=== PATIENT | male | born 1990 | race Caucasian/White ===

== ENCOUNTER 2018-08-06 15:16 | Inpatient (IN) | payer SELFPAY ==
[~2018-08-06] VITALS: Ht 193 cm; Wt 47.2 kg
--- OUTSIDE RECORDS SUMMARY | 2018-08-06 15:22 | XMS REPORT ---
Author Author MAGUI RUBIN [facility] Address Unknown Care Team Providers Care Food And Beverage Controller Name Role Phone MAGUI RUBIN Unavailable PROBLEMS Type Condition ICD9-CM Code BNA39-DK Code Onset Dates Condition Status SNOMED Code Problem Lumbago 724.2 Active 060790018 Problem Disturbance of skin sensation 782.0 Active 162929621 ALLERGIES Substance Reaction Event Type Date Status milk Unknown Non Drug Allergy Aug, Active codiene Unknown Non Drug Allergy Aug, Active clindamycin Unknown Non Drug Allergy Aug, Active Lidocaine must use Septacaine Unknown Non Drug Allergy Aug, Active ENCOUNTERS Encounter Location Date Diagnosis [facility] [id number] [place] [address] [phone] Sep, Dental caries K02.9 [facility] [id number] [place] [address] [phone] Aug, Dental examination Z01.20 [facility] [id number] [place] [address] [phone] Aug, Dental examination Z01.20 [facility] [address], [place] [address] Feb, [facility] [id number] [place] [phone] Apr, Cyst of eyelid, right H02.823 [facility] [id number] [place] [address] [phone] Dec, Dental examination Z01.20 [facility] [id number] [place] [address] June, Caries K02.9 [facility] [id number] [place] [phone] June, Dental examination Z01.20 [facility] [address] [facility] [id number], [place] [address] May, [facility] [address] [facility] [id number], [place] [address] May, [facility] [id number], [place] [address] Dec, [facility] [address] [facility] [id number], [place] [address] Dec, [facility] [address] [facility] [id number], [place] [address] May, IMMUNIZATIONS No Known Immunizations SOCIAL HISTORY Never Assessed REASON FOR VISIT JEFF/Swollen Jaw PLAN OF CARE Activity Details Follow Up prn Reason:#27-te VITAL SIGNS Blood pressure systolic 122 mmHg 2017-08-31 Blood pressure diastolic 88 mmHg 2017-08-31 MEDICATIONS Medication Instructions Dosage Frequency Start Date End Date Duration Status Austin 5-325 MG Orally every 6 hrs 1 tablet as needed 6h 4 days Not-Taking Zofran Active Dexilant by Oral route Dec, Not-Taking Amoxicillin 500 mg Orally every 8 hrs 1 capsule 8h 07 days Active RESULTS No Results PROCEDURES Procedure Date Ordered Result Body Site LTD ORAL EVALUATION - PROBLEM FOCUS August 31, 2017 INTRAORL-PERIAPICAL 1 FILM [id number] August 31, 2017 INSTRUCTIONS MEDICATIONS ADMINISTERED No Known Medications MEDICAL (GENERAL) HISTORY Type Description Date Surgical History cholecystectomy 2007
--- OUTSIDE RECORDS SUMMARY | 2018-08-06 15:22 | XMS REPORT ---
Author Author MAGUI RUBIN [facility] Address Unknown Care Team Providers Care Loan Processing Supervisor Name Role Phone MAGUI RUBIN Unavailable PROBLEMS Type Condition ICD9-CM Code TQW33-LE Code Onset Dates Condition Status SNOMED Code Problem Lumbago 724.2 Active 846095171 Problem Disturbance of skin sensation 782.0 Active 360047185 ALLERGIES Substance Reaction Event Type Date Status milk Unknown Non Drug Allergy Aug, Active codiene Unknown Non Drug Allergy Aug, Active clindamycin Unknown Non Drug Allergy Aug, Active Lidocaine must use Septacaine Unknown Non Drug Allergy Aug, Active ENCOUNTERS Encounter Location Date Diagnosis [facility] [id number] [place] [address] [phone] Sep, Dental caries K02.9 [facility] [id number] [place] [address] [phone] Aug, Dental examination Z01.20 [facility] [id number] [place] [address] [phone] Aug, Dental examination Z01.20 [facility] [address], [place] [address] Feb, [facility] [id number] [place] [address] Apr, Cyst of eyelid, right H02.823 [facility] [id number] [place] [address] [phone] Dec, Dental examination Z01.20 [facility] [address] [place] [address] June, Caries K02.9 [facility] [id number] [place] [phone] June, Dental examination Z01.20 [facility] [address] [facility] [id number], [place] [address] May, [facility] [address], [place] [address] May, [facility] [id number], [place] [address] Dec, [facility] [address], [place] [address] Dec, [facility] [id number], [place] [address] May, IMMUNIZATIONS No Known Immunizations SOCIAL HISTORY Never Assessed REASON FOR VISIT JEFF PLAN OF CARE Activity Details Follow Up prn Reason:te VITAL SIGNS MEDICATIONS Medication Instructions Dosage Frequency Start Date End Date Duration Status Zofran Active Dexilant by Oral route Dec, Not-Taking Amoxicillin 500 mg Orally every 8 hrs 1 capsule 8h 07 days Active RESULTS No Results PROCEDURES Procedure Date Ordered Result Body Site LTD ORAL EVALUATION - PROBLEM FOCUS September 02, 2017 INSTRUCTIONS MEDICATIONS ADMINISTERED No Known Medications MEDICAL (GENERAL) HISTORY Type Description Date Surgical History cholecystectomy 2007
--- OUTSIDE RECORDS SUMMARY | 2018-08-06 15:22 | XMS REPORT ---
Author Author Migration, Doctor Organization [facility] Address Unknown Phone Unavailable Care Team Providers Care Shirring Machine Operator Name Role Phone Migration, Doctor Unavailable Unavailable PROBLEMS Type Condition ICD9-CM Code QET73-ZI Code Onset Dates Condition Status SNOMED Code Problem Disturbance of skin sensation 782.0 Active 601757005 Problem Lumbago 724.2 Active 990262043 ALLERGIES Substance Reaction Event Type Date Status Lidocaine must use Septacaine Unknown Non Drug Allergy May, Active ENCOUNTERS Encounter Location Date Diagnosis [facility] [address] [phone] June, [facility] [id number] [place] [address] [phone] June, Dental examination Z01.20 [facility] [address] [place] [address] June, Encounter for immunization Z23 [facility] [address] [place] [address] [phone] Sep, Dental caries K02.9 [facility] [address] [place] [address] [phone] Aug, Dental examination Z01.20 [facility] [address] [phone] Aug, Dental examination Z01.20 [facility] [id number], [place] [address] Feb, [facility] [id number] [place] [address] Apr, Cyst of eyelid, right H02.823 [facility] [id number] [phone] Dec, Dental examination Z01.20 [facility] [id number], [place] [address] June, Caries K02.9 [facility] [id number] [place] [address] 03 Jun, 2015 Dental examination Z01.20 [facility] [id number] [place] [address] 14 May, 2014 [facility] [address] [address] May, [facility] [id number] [place] [address] Dec, [facility] [id number] [place] [address] Dec, [facility] [id number], [place] [address] May, IMMUNIZATIONS No Known Immunizations SOCIAL HISTORY Never Assessed REASON FOR VISIT [facility] [place] C[place] VITAL SIGNS MEDICATIONS Unknown Medications RESULTS No Results PROCEDURES No Known procedures INSTRUCTIONS MEDICATIONS ADMINISTERED No Known Medications MEDICAL (GENERAL) HISTORY Type Description Date Surgical History cholecystectomy 2007
--- OUTSIDE RECORDS SUMMARY | 2018-08-06 15:22 | XMS REPORT | Continuity of Care Document ---
Demographics Preferred Language Unknown Marital Status Unknown Jew Affiliation Unknown Race Unknown Ethnic Group Unknown Author Organization Unknown Address Unknown Allergies Active Description Code Type Severity Reaction Onset Reported/Identified Relationship to Patient Clinical Status Yes Benzodiazepines Drug Allergy 01/19/2012 Yes clindamycin Drug Allergy 01/19/2012 Yes Codeine Drug Allergy 01/19/2012 Yes hydrocodone Drug Allergy 01/19/2012 Medications There is no data. Problems Date Dx Coded Attending Type Code Diagnosis Diagnosed By 06/02/2008 535.00 ACUTE GASTRITIS (WITHOUT HEMORRHAGE) 01/19/2012 724.2 LUMBAGO 01/19/2012 782.0 DISTURBANCE OF SKIN SENSATION Procedures Code [place] [address] URINE DRUG SCREEN (IN-HOUSE) 01/19/2012 Results There is no data. Encounters ACCT No. Visit Date/Time Discharge Status Pt. Type Provider Facility Loc./Unit Complaint [id number] 01/19/2012 08:30:00 01/19/2012 23:59:59 CLS Outpatient [id number] 07/05/2018 08:00:00 07/05/2018 23:59:59 CLS Outpatient [facility]
--- OUTSIDE RECORDS SUMMARY | 2018-08-06 15:22 | XMS REPORT ---
Author Author SARAH HONG [facility] Address [address] [place] [address] Care Team Providers Care Feather Baler Name Role Phone SARAH HONG Unavailable PROBLEMS Type Condition ICD9-CM Code FLM45-MR Code Onset Dates Condition Status SNOMED Code Problem Lumbago 724.2 Active 600055885 Problem Disturbance of skin sensation 782.0 Active 278393211 ALLERGIES Substance Reaction Event Type Date Status Lidocaine must use Septacaine Unknown Non Drug Allergy Apr, Active clindamycin Unknown Non Drug Allergy Apr, Active SOCIAL HISTORY Never Assessed PLAN OF CARE Activity Details Follow Up prn Reason: VITAL SIGNS Weight 124.3 lbs 2016-05-05 Temperature 98.1 degrees Fahrenheit 2016-05-05 Heart Rate 62 bpm 2016-05-05 Respiratory Rate 16 2016-05-05 Blood pressure systolic 100 mmHg 2016-05-05 Blood pressure diastolic 60 mmHg 2016-05-05 MEDICATIONS Medication Instructions Dosage Frequency Start Date End Date Duration Status Dexilant by Oral route Dec, Active RESULTS No Results PROCEDURES No Known procedures IMMUNIZATIONS No Known Immunizations MEDICAL (GENERAL) HISTORY Type Description Date Surgical History cholecystectomy 2007
--- OUTSIDE RECORDS SUMMARY | 2018-08-06 15:22 | XMS REPORT ---
Author Author KARYN Salter [facility] Address Unknown Care Team Providers Care Shoe Repair Cobbler Name Role Phone KARYN Salter Unavailable PROBLEMS Type Condition ICD9-CM Code ZXP20-NF Code Onset Dates Condition Status SNOMED Code Problem Lumbago 724.2 Active 322024539 Problem Disturbance of skin sensation 782.0 Active 645018413 ALLERGIES Substance Reaction Event Type Date Status Lidocaine must use Septacaine Unknown Non Drug Allergy Dec, Active clindamycin Unknown Non Drug Allergy Dec, Active SOCIAL HISTORY No smoking Hx information available PLAN OF CARE Activity Details Follow Up prn Reason:te VITAL SIGNS Blood pressure systolic 117 mmHg 2016-01-02 Blood pressure diastolic 74 mmHg 2016-01-02 MEDICATIONS Medication Instructions Dosage Frequency Start Date End Date Duration Status Dexilant by Oral route Dec, Active Amoxicillin 500 MG Orally 4 times a day 1 capsule 6h Dec, Dec, 7 days Active [place] 5-325 MG Orally every 6 hrs 1 tablet as needed 6h Dec, Dec, 4 days Active RESULTS No Results PROCEDURES Procedure Date Ordered Related Diagnosis Body Site LTD ORAL EVALUATION - PROBLEM FOCUS Jan 02, 2016 INTRAORL-PERIAPICAL 1 FILM [id number] Jan 02, 2016 IMMUNIZATIONS No Known Immunizations
--- OUTSIDE RECORDS SUMMARY | 2018-08-06 15:22 | XMS REPORT ---
Author Author MAGUI RUBIN [facility] Address Unknown Care Team Providers Care Work Station Support Specialist Name Role Phone MAGUI RUBIN Unavailable PROBLEMS Type Condition ICD9-CM Code JWK78-EQ Code Onset Dates Condition Status SNOMED Code Problem Lumbago 724.2 Active 171880963 Problem Disturbance of skin sensation 782.0 Active 962766545 ALLERGIES Substance Reaction Event Type Date Status milk Unknown Non Drug Allergy Sep, Active codiene Unknown Non Drug Allergy Sep, Active clindamycin Unknown Non Drug Allergy Sep, Active Lidocaine must use Septacaine Unknown Non Drug Allergy Sep, Active ENCOUNTERS Encounter Location Date Diagnosis [facility] [id number] [place] [address] [phone] Sep, Dental caries K02.9 [facility] [id number] [place] [address] [phone] Aug, Dental examination Z01.20 [facility] [id number] [place] [address] [phone] Aug, Dental examination Z01.20 [facility] [address], [place] [address] Feb, [facility] [id number] [place] [address] Apr, Cyst of eyelid, right H02.823 [facility] [id number] [place] [address] [phone] Dec, Dental examination Z01.20 [facility] [address] [place] [address] June, Caries K02.9 [facility] [id number] [place] [address] June, Dental examination Z01.20 [facility] [address] [facility] [id number], [place] [address] May, [facility] [id number], [place] [address] May, [facility] [id number], [place] [address] Dec, [facility] [id number], [place] [address] Dec, [facility] [address] [facility] [id number], [place] [address] May, IMMUNIZATIONS No Known Immunizations SOCIAL HISTORY Never Assessed REASON FOR VISIT TE PLAN OF CARE Activity Details Follow Up prn Reason:hygiene VITAL SIGNS Blood pressure systolic 100 mmHg 2017-09-23 Blood pressure diastolic 62 mmHg 2017-09-23 MEDICATIONS Medication Instructions Dosage Frequency Start Date End Date Duration Status Amoxicillin 500 mg Orally every 8 hrs 1 capsule 8h 07 days Not-Taking Dexilant by Oral route Dec, Not-Taking Zofran Not-Taking RESULTS No Results PROCEDURES Procedure Date Ordered Result Body Site EXTRAC ERUPTED TOOTH/EXPOSED ROOT Sep 23, 2017 INSTRUCTIONS MEDICATIONS ADMINISTERED No Known Medications MEDICAL (GENERAL) HISTORY Type Description Date Surgical History cholecystectomy 2007
--- OUTSIDE RECORDS SUMMARY | 2018-08-06 15:22 | XMS REPORT ---
Author Author ADRIANA LAMB [facility] Address [address] [place] [address] Care Team Providers Care Welder Experimental Name Role Phone ADRIANA LAMB Unavailable PROBLEMS Type Condition ICD9-CM Code LLU31-BI Code Onset Dates Condition Status SNOMED Code Problem Lumbago 724.2 Active 253776300 Problem Disturbance of skin sensation 782.0 Active 825904545 ALLERGIES No Information ENCOUNTERS Encounter Location Date Diagnosis [facility] [id number] [place] [address] Feb, [facility] [address] [address] Apr, Cyst of eyelid, right H02.823 [facility] [id number] [place] [address] [phone] Dec, 2015 Dental examination Z01.20 [facility] [id number] [place] [address] 18 Jun, 2015 Caries K02.9 [facility] [id number] [place] [address] June, Dental examination Z01.20 [facility] [id number] [place] [address] 14 May, 2014 [facility] [id number] [place] [address] May, [facility] [id number] [place] [address] Dec, [facility] [id number] [place] [address] Dec, [facility] [id number] [place] [address] May, IMMUNIZATIONS No Known Immunizations SOCIAL HISTORY Never Assessed REASON FOR VISIT Triage--ADaviedRN PLAN OF CARE VITAL SIGNS MEDICATIONS Unknown Medications RESULTS No Results PROCEDURES No Known procedures INSTRUCTIONS MEDICATIONS ADMINISTERED No Known Medications MEDICAL (GENERAL) HISTORY Type Description Date Surgical History cholecystectomy 2008
[2018-08-06] MEDS ORDERED: ONDANSETRON 4 MG/2 ML (SDV) Z0FRAN IVP STA (15:31)
[2018-08-06] MEDS ORDERED: NS IV 1000 ML 1,000 ML IV SCH ×2 (15:45→21:00)
--- NOTE | 2018-08-06 15:45 | ED General ---
General Chief Complaint: General Problems/Pain Stated Complaint: DIZZY, VOMITING, FEVER Nursing Triage Note: States he woke up at 1:30 this morning and has been having intermittent episodes of muscle spasms and "collapsing." Is unsure if he lost consciousness or not. Has also been nauseous and unable to eat anything today. When taking pt blood pressure his hand muscles tightened and he was unable to move his fingers. Pt stated this is what has been happening all day. Has not checked temp at home but feels like he is "burning up." Denies cough, vomiting, diarrhea, or burning with urination. Nursing Sepsis Screen: No Definite Risk Source of Information: Patient History of Present Illness Date Seen by Provider: Aug 06, 2018 Time Seen by Provider: 15:22 Initial Comments 28 yo M presenting with complaints of feeling bad since 130 am. He has been having muscle spasms and cramping in his hands. He has nausea and not been wanting to eat due to burning and epigastric pain in stomach. he denies any black or tarry stools and no diarrhea. He has no burning with urination. He had n/v a few days ago but none in last 24 hours. He has a history of chronic gastritis and occasionally takes ranitidine for that. He has not followed up routinely with any healthcare provider. He has been feeling more lightheaded and weak recently. Today he was feeling weak enough and having cramping pain in his hands that he came to the emergency department. Allergies and Home Medications Allergies Coded Allergies: codeine (Verified Allergy, Intermediate, Vomiting, 08/06/18) Patient Home Medication List Home Medication List Reviewed: Yes Review of Systems Review of Systems Constitutional: dizziness, fever (subjective), malaise, weakness EENTM: no symptoms reported Respiratory: No cough, No short of breath Cardiovascular: No chest pain, No palpitations Gastrointestinal: abdominal pain (epigastric burning pain); No constipation, No diarrhea, No hematemesis; heartburn; No jaundice; loss of appetite; No melena; nausea, vomiting (a few days ago) Genitourinary: No dysuria, No frequency, No hematuria Musculoskeletal: muscle cramps Skin: no symptoms reported Psychiatric/Neurological: Tingling (in hands when they are cramping on him today) Past Ocohvem-Oomvwm-Bkwsrf Hx Past Med/Social Hx: Reviewed Nursing Past Med/Soc Hx Patient Social History Alcohol Use: Denies Use Recreational Drug Use: No Smoking Status: Never a Smoker 2nd Hand Smoke Exposure: No Recent Foreign Travel: No Contact w/Someone Who Travel: No Recent Infectious Disease Expo: No Recent Hopitalizations: No Seasonal Allergies Seasonal Allergies: No Past Medical History Surgeries: Yes Gallbladder Respiratory: No Cardiac: No Neurological: No Genitourinary: No Gastrointestinal: Yes (Gastroenteritis) Gastrointestinal Bleed Musculoskeletal: No Endocrine: No HEENT: No Cancer: No Psychosocial: No Integumentary: No Blood Disorders: No Adverse Reaction/Blood Tranf: No Physical Exam Vital Signs Vital Signs - First Documented 08/06/18 15:21 Temp 97.6 Pulse 83 Resp 18 B/P (MAP) 106/87 (93) Pulse Ox 98 Capillary Refill : Less Than 3 Seconds Height, Weight, BMI Height: 6'4.00" Weight: 130lbs. oz. 58.396470to; BMI Method:Stated General Appearance: Anxious, Thin Eyes: Bilateral Eye PERRL, Bilateral Eye EOMI HEENT: PERRL/EOMI, Normal ENT Inspection, Pharynx Normal Neck: Full Range of Motion, Normal Inspection, Non Tender, Supple Respiratory: Chest Non Tender, Lungs Clear, Normal Breath Sounds, No Accessory Muscle Use, No Respiratory Distress Cardiovascular: Regular Rate, Rhythm, Normal Peripheral Pulses Gastrointestinal: Normal Bowel Sounds, No Pulsatile Mass, Soft, Tenderness ( mild in epigastric area) Rectal: Deferred Extremity: Normal Capillary Refill, Normal Range of Motion, Non Tender, No Calf Tenderness Neurologic/Psychiatric: Alert, Oriented x3, No Motor/Sensory Deficits Skin: Normal Color, Warm/Dry Progress/Results/Core Measures Suspected Sepsis Recent Fever Within 48 Hours: No Infection Criteria Present: Suspected New Infection New/Unexplained Altered Menta: No Sepsis Screen: No Definite Risk SIRS Temperature:97.6 Pulse: 83 Respiratory Rate: 18 Laboratory Tests 08/06/18 15:35: White Blood Count 2.5L Blood Pressure 106 /87 Mean: 93 Laboratory Tests 08/06/18 15:35: Creatinine 1.06, Platelet Count 144, Total Bilirubin 1.6H Results/Orders Lab Results Laboratory Tests Test 08/06/18 15:35 08/06/18 15:40 Range/Units White Blood Count 2.5 L 4.3-11.0 10^3/uL Red Blood Count 4.77 4.35-5.85 10^6/uL Hemoglobin 16.1 13.3-17.7 G/DL Hematocrit 42 40-54 % Mean Corpuscular Volume 88 80-99 FL Mean Corpuscular Hemoglobin 34 25-34 PG Mean Corpuscular Hemoglobin Concent 38 H 32-36 G/DL Red Cell Distribution Width 11.1 10.0-14.5 % Platelet Count 144 130-400 10^3/uL Mean Platelet Volume 11.2 H 7.4-10.4 FL Neutrophils (%) (Auto) 46 42-75 % Lymphocytes (%) (Auto) 38 12-44 % Monocytes (%) (Auto) 14 H 0-12 % Eosinophils (%) (Auto) 1 0-10 % Basophils (%) (Auto) 1 0-10 % Neutrophils # (Auto) 1.2 L 1.8-7.8 X 10^3 Lymphocytes # (Auto) 0.9 L 1.0-4.0 X 10^3 Monocytes # (Auto) 0.4 0.0-1.0 X 10^3 Eosinophils # (Auto) 0.0 0.0-0.3 10^3/uL Basophils # (Auto) 0.0 0.0-0.1 10^3/uL Sodium Level 128 L 135-145 MMOL/L Potassium Level 1.9 *L 3.6-5.0 MMOL/L Chloride Level 72 L 98-107 MMOL/L Carbon Dioxide Level 39 H 21-32 MMOL/L Anion Gap 17 H 5-14 MMOL/L Blood Urea Nitrogen 19 H 7-18 MG/DL Creatinine 1.06 0.60-1.30 MG/DL Estimat Glomerular Filtration Rate > 60 BUN/Creatinine Ratio 18 Glucose Level 117 H 70-105 MG/DL Calcium Level 10.0 8.5-10.1 MG/DL Corrected Calcium 8.5-10.1 MG/DL Magnesium Level 2.0 1.8-2.4 MG/DL Total Bilirubin 1.6 H 0.1-1.0 MG/DL Aspartate Amino Transf (AST/SGOT) 22 5-34 U/L Alanine Aminotransferase (ALT/SGPT) 12 0-55 U/L Alkaline Phosphatase 76 40-136 U/L Total Protein 8.7 H 6.4-8.2 GM/DL Albumin 5.5 H 3.2-4.5 GM/DL Lipase 22 8-78 U/L Urine Color YELLOW Urine Clarity CLEAR Urine pH 8.0 5-9 Urine Specific [place] <=1.005 1.016-1.022 Urine Protein TRACE NEGATIVE Urine Glucose (UA) NEGATIVE NEGATIVE Urine Ketones 2+ H NEGATIVE Urine Nitrite NEGATIVE NEGATIVE Urine Bilirubin NEGATIVE NEGATIVE Urine Urobilinogen 0.2 NORMAL MG/DL Urine Leukocyte Esterase NEGATIVE NEGATIVE Urine RBC (Auto) NEGATIVE NEGATIVE Urine RBC NONE /HPF Urine WBC 0-2 /HPF Urine Squamous Epithelial Cells NONE /HPF Urine Crystals NONE /LPF Urine Bacteria NEGATIVE /HPF Urine Casts NONE /LPF Urine Mucus NONE /LPF Urine Culture Indicated NO Urine Opiates Screen NEGATIVE NEGATIVE Urine Oxycodone Screen NEGATIVE NEGATIVE Urine Methadone Screen NEGATIVE NEGATIVE Urine Propoxyphene Screen NEGATIVE NEGATIVE Urine Barbiturates Screen NEGATIVE NEGATIVE Ur Tricyclic Antidepressants Screen NEGATIVE NEGATIVE Urine Phencyclidine Screen NEGATIVE NEGATIVE Urine Amphetamines Screen NEGATIVE NEGATIVE Urine Methamphetamines Screen NEGATIVE NEGATIVE Urine Benzodiazepines Screen NEGATIVE NEGATIVE Urine Cocaine Screen NEGATIVE NEGATIVE Urine Cannabinoids Screen POSITIVE H NEGATIVE My Orders Orders - ADELINA HAAS MD Comprehensive Metabolic Panel (08/06/18 15:31) Lipase (08/06/18 15:31) Ua Culture If Indicated (08/06/18 15:31) Ed Iv/Invasive Line Start (08/06/18 15:31) Cbc With Automated Diff (08/06/18 15:31) Magnesium (08/06/18 15:31) Ns Iv 1000 Ml (Sodium Chloride 0.9%) (08/06/18 15:45) Ondansetron Injection (Zofran Injectio (08/06/18 15:31) Drug Screen Stat (Urine) (08/06/18 15:33) Ekg Tracing (08/06/18 16:20) Continuous Ekg Monitoring (08/06/18 16:20) Potassium Cl 10meq/50ml Ivpb (Kcl 10 Meq (08/06/18 16:30) Ns Iv 1000 Ml (Sodium Chloride 0.9%) (08/06/18 16:30) Potassium Cl 10meq/50ml Ivpb (Kcl 10 Meq (08/06/18 17:45) Lidocaine 2% Viscous 15 Ml (Xylocaine Vi (08/06/18 17:59) Antacid Suspension (Mylanta Suspension (08/06/18 17:59) Lidocaine 2% Viscous 15 Ml (Xylocaine Vi (08/06/18 17:55) Antacid Suspension (Mylanta Suspension (08/06/18 17:55) Medications Given in ED Current Medications Medications Dose Ordered Sig/Arely Route Start Time Stop Time Status Last Admin Dose Admin Potassium Chloride 50 ml @ 50 mls/hr ONCE ONCE IV 08/06/18 16:30 08/06/18 17:29 DC 08/06/18 16:35 50 MLS/HR Vital Signs/I&O 08/06/18 08/06/18 15:21 17:44 Temp 97.6 98.9 Pulse 83 55 Resp 18 13 B/P (MAP) 106/87 (93) 104/59 (74) Pulse Ox 98 100 Capillary Refill : Less Than 3 Seconds Blood Pressure Mean: 93 Progress Note #1: Progress Note check labs and urine. Give IVF with NS bolus while waiting on initial tests to come back. Zofran for his nausea Progress Note #2: Time: 16:23 Progress Note labs show low WBC count, potassium low at 1.92 with low sodium at 128. He has mild elevation of BUN but Cr was not abnormal. He has had no vomiting in the ED. he reports feeling better on his nausea after treatment in the ED. He does relate having had low potassium in the past when reviewing labs with the patient. However he states that it has never been this low or this bad for him in the past. An electrocardiogram shows sinus rhythm with a heart rate of 58 beats per minutes and global flattening of his T waves. There is no prior tracing for comparison. Will begin supplementation of his potassium and IV in fusion at 10 mEq an hour here. Will page the hospitalist about admission. Progress Note #3: Time: 16:43 Progress Note Discussed with Dr. Bergeron and he accepted the patient for admission at 1643. Will continue with IV potassium infusion and monitoring on telemetry ECG Initial ECG Impression Date: Aug 06, 2018 Initial ECG Impression Time: 16:32 Initial ECG Rate: 58 Initial ECG Rhythm: Normal Sinus Initial ECG Comparisson: No Previous ECG Available Comment Sinus rhythm with a heart rate of 58 bpm. [place] interval of 150 ms. QT interval 530 ms and a QT corrected interval of 521 ms. He has global T-wave flattening. There is no prior tracing for comparison. Departure Communication (Admissions) Time/Spoke to Admitting Phy: 16:43 D/w Dr. Bergeron about admit for hypokalemia with recent n/v and chronic gastritis. Will admit for telemetry and potassium supplementation. Impression Primary Impression: Hypokalemia, gastrointestinal losses Additional Impressions: Nausea & vomiting Qualified Codes: R11.2 - Nausea with vomiting, unspecified Chronic gastritis without bleeding Qualified Codes: K29.50 - Unspecified chronic gastritis without bleeding Disposition: ADMITTED INPATIENT Condition: Stable Admissions Decision to Admit Reason: Admit from ER (General) Decision to Admit/Date: Aug 06, 2018 Time/Decision to Admit Time: 16:43 Departure-Patient Inst. Referrals: NO,LOCAL PHYSICIAN (PCP/Family) Primary Care Physician ADELINA HAAS MD Aug 06, 2018 15:45
[2018-08-06 15:48] LABS: HEMATOCRIT 42 % (40-54); HEMOGLOBIN 16.1 G/DL (13.3-17.7); MEAN CORPUSCULAR HEMOGLOBIN 34 PG (25-34); MEAN CORPUSCULAR VOLUME 88 FL (80-99); WHITE BLOOD COUNT 2.5 10^3/uL (4.3-11.0)
[2018-08-06 15:49] LABS: BASOPHILS % (AUTO) 1 % (0-10); EOSINOPHILS % (AUTO) 1 % (0-10); LYMPHOCYTES # (AUTO) 0.9 X 10^3 (1.0-4.0); LYMPHOCYTES % (AUTO) 38 % (12-44); MEAN CORPUSCULAR HGB CONC 38 G/DL (32-36); MEAN PLATELET VOLUME 11.2 FL (7.4-10.4); MONOCYTES # (AUTO) 0.4 X 10^3 (0.0-1.0); MONOCYTES % (AUTO) 14 % (0-12); NEUTROPHILS # (AUTO) 1.2 X 10^3 (1.8-7.8); NEUTROPHILS % (AUTO) 46 % (42-75); PLATELET COUNT 144 10^3/uL (130-400); RED CELL DISTRIBUTION WIDTH 11.1 % (10.0-14.5)
[2018-08-06 16:01] LABS: CLARITY,URINE CLEAR; COLOR,URINE YELLOW
[2018-08-06 16:02] LABS: BACTERIA,URINE NEGATIVE /HPF; BILIRUBIN,URINE NEGATIVE (NEGATIVE); GLUCOSE, URINE (UA) NEGATIVE (NEGATIVE); KETONES,URINE 2+ (NEGATIVE); LEUKOCYTE ESTERASE ,URINE NEGATIVE (NEGATIVE); NITRITE,URINE NEGATIVE (NEGATIVE); PROTEIN,URINE TRACE (NEGATIVE); UROBILINOGEN,URINE 0.2 MG/DL (NORMAL); WBC,URINE 0-2 /HPF
[2018-08-06 16:03] LABS: AMPHETAMINE SCREEN, URINE NEGATIVE (NEGATIVE); BARBITURATE SCREEN URINE NEGATIVE (NEGATIVE); BENZODIAZEPINES SCREEN URINE NEGATIVE (NEGATIVE); CANNABINOID SCREEN, URINE POSITIVE (NEGATIVE); COCAINE SCREEN URINE NEGATIVE (NEGATIVE); METHADONE STAT NEGATIVE (NEGATIVE); METHAMPHETAMINE SCREEN URINE S NEGATIVE (NEGATIVE); OPIATE SCREEN URINE NEGATIVE (NEGATIVE); OXYCODONE STAT NEGATIVE (NEGATIVE); PROPOXYPHENE STAT NEGATIVE (NEGATIVE); TRICYCLIC ANTIDEPRESSANTS SCRE NEGATIVE (NEGATIVE)
[2018-08-06 16:09] LABS: SODIUM 128 MMOL/L (135-145)
[2018-08-06 16:11] LABS: BILIRUBIN,TOTAL 1.6 MG/DL (0.1-1.0); BUN/CREATININE RATIO 18; CARBON DIOXIDE 39 MMOL/L (21-32); CHLORIDE 72 MMOL/L (98-107); CREATININE SERUM 1.06 MG/DL (0.60-1.30); GFR ESTIMATED > 60; GLUCOSE 117 MG/DL (70-105); POTASSIUM 1.9 MMOL/L (3.6-5.0)
[2018-08-06 16:12] LABS: ALANINE AMINOTRANSFERASE 12 U/L (0-55); ALBUMIN 5.5 GM/DL (3.2-4.5); ALKALINE PHOSPHATASE 76 U/L (40-136); LIPASE 22 U/L (8-78); TOTAL PROTEIN 8.7 GM/DL (6.4-8.2)
[2018-08-06] MEDS ORDERED: POTASSIUM CL 10MEQ/50ML IVPB 50 ML IV ONE ×2 (16:30→17:45)
[2018-08-06] MEDS: NS IV 1000 ML 1,000 ML IV SCH (16:35)
--- OUTSIDE RECORDS SUMMARY | 2018-08-06 17:27 | XMS REPORT | Continuity of Care Document ---
Demographics Preferred Language Unknown Marital Status Unknown Pentecostalism Affiliation Unknown Race Unknown Ethnic Group Unknown [...] Procedures [place] [address] URINE DRUG SCREEN (IN-HOUSE) 01/19/2012 Results There is no data. Encounters ACCT No. Visit Date/Time Discharge Status Pt. Type Provider Facility Loc./Unit Complaint [id number] 01/19/2012 08:30:00 01/19/2012 23:59:59 CLS Outpatient [id number] 07/05/2018 08:00:00 07/05/2018 23:59:59 CLS Outpatient [facility]
[2018-08-06] MEDS ORDERED: LIDOCAINE 2% VISCOUS 15 ML UDC ONE (17:55)
[2018-08-06] MEDS ORDERED: ANTACID SUSP 30 ML UDC (MYLANTA) ONE (17:55)
[2018-08-06] MEDS ORDERED: LIDOCAINE 2% VISCOUS 15 ML UDC PO STA (17:59)
[2018-08-06] MEDS ORDERED: ANTACID SUSP 30 ML UDC (MYLANTA) PO STA (17:59)
--- NOTE | 2018-08-06 18:55 | NUR ---
REC'D PER BED FROM [facility] ED VIA EMS WITH HYPOKALEMIA. IV PATENT LT AC WITH NS INFUSING @ 100CC/HR. DENIES C/O. EMS REPORTS PT HAS "BUGS ON HIM", NURSING JAVA SECURITY ENGINEER NOTIFIED. REPORT TO DARINEL ONCMARINA BEAULIEU.
[2018-08-06 19:00] VITALS: BP_SYST 102; BP_DIAS 57; BP_DIAS 77
[2018-08-06] MEDS ORDERED: PANTOPRAZOLE 40 MG (PROTONIX) VIAL IV ONE (21:00)
[2018-08-06] MEDS: POTASSIUM CL 10 MEQ/50 ML IVPB (PRE-MIX) IV SCH ×3 (21:20→22:16)
[2018-08-06 23:34] VITALS: BP 91/52
[2018-08-07 01:17] LABS: BUN/CREATININE RATIO 13; CALCIUM 8.5 MG/DL (8.5-10.1); CARBON DIOXIDE 33 MMOL/L (21-32); CHLORIDE 88 MMOL/L (98-107); GFR ESTIMATED > 60; GLUCOSE 91 MG/DL (70-105); SODIUM 133 MMOL/L (135-145)
[2018-08-07 01:19] LABS: POTASSIUM 2.4 MMOL/L (3.6-5.0)
[2018-08-07] MEDS: NS IV 1000 ML 1,000 ML IV SCH (01:49)
[2018-08-07] MEDS: POTASSIUM CL 10MEQ/50ML IVPB 50 ML IV SCH ×2 (02:30→03:19)
[2018-08-07 04:00] VITALS: BP 93/56
[2018-08-07 06:19] LABS: BUN/CREATININE RATIO 13; CALCIUM 8.5 MG/DL (8.5-10.1); CARBON DIOXIDE 32 MMOL/L (21-32); CHLORIDE 93 MMOL/L (98-107); GFR ESTIMATED > 60; GLUCOSE 81 MG/DL (70-105); POTASSIUM 2.8 MMOL/L (3.6-5.0); SODIUM 136 MMOL/L (135-145)
[2018-08-07 08:00] VITALS: BP 95/54
[2018-08-07] MEDS ORDERED: ONDA8TAB13 PO (10:13)
[2018-08-07] MEDS ORDERED: OMEP20CA12 PO (10:13)
--- NOTE | 2018-08-07 10:21 | Short Stay Summary-Hospitalist ---
History of Present Illness HPI/Chief Complaint The patient reports about a 10 year history of vomiting in the morning predominantly. Past workup has included an EGD which revealed a hiatal hernia evidence for gastritis. He does report burning pedis and take ranitidine 150 mg twice a day. He had been taking more ibuprofen as of late due to dental pain from rather severe periodontitis of both incisors. He had tried Reglan and likely Compazine in the past did not seem to help. Sometime ago his sister suggested he try marijuana seem to help a little bit. He states that he has been underweight for the past 10 years does not think he's lost any weight since the beginning of the year. He presented the emergency room because he felt his muscles were locking up on him the point that he even bit his tongue at night. There was no loss of consciousness and he denied palpitations heart racing presyncope or syncope. In the emergency room was noted this potassium was 1.8 and IV replacement was initiated. No other significant abnormalities were noted other than some mild dehydration. He reports his usual blood pressures are in the 90/60 range. He received Zofran and this morning ate everything on his plate reporting no nausea or burning. Date Seen 08/07/18 Time Seen by a Provider: 10:17 Attending Physician Chris Galaviz MD PCP No,Local Physician Referring Physician Date of Admission Aug 06, 2018 at 17:13 Home Medications & Allergies Home Medications Reviewed patient Home Medication Reconciliation performed by pharmacy medication reconciliations oil heat technician and/or nursing. Patients Allergies have been reviewed. Allergies Allergies Coded Allergies codeine (Verified Allergy, Intermediate, Vomiting, 08/06/18) Past Gesrgdr-Ptgicz-Mmkwpc Hx Past Med/Social Hx: Reviewed Nursing Past Med/Soc Hx, Reviewed and Corrections made Patient Social History Alcohol Use: Denies Use Recreational Drug Use: No Smoking Status: Never a Smoker 2nd Hand Smoke Exposure: No Recent Foreign Travel: No Contact w/other who traveled: No Recent Hopitalizations: No Recent Infectious Disease Expo: No Seasonal Allergies Seasonal Allergies: No Past Medical History Surgeries: Gallbladder Gastrointestinal: Gastrointestinal Bleed History of Blood Disorders: No Adverse Reaction to Blood [place]: No Family History Asthma G8 BROTHER FH: CVA (cerebrovascular accident) 19 FATHER 19 MOTHER FH: depression 19 MOTHER FH: heart attack 19 MOTHER (X2) FH: kidney disease 19 MOTHER FH: liver disease 19 MOTHER FH: multiple sclerosis 19 FATHER FH: scoliosis G8 BROTHER G8 BROTHER G8 SISTER G8 SISTER Review of Systems Constitutional: see HPI, weakness Cardiovascular: no symptoms reported Gastrointestinal: see HPI Physical Exam Physical Exam Vital Signs Vital Signs - First Documented 08/06/18 15:21 Temp 97.6 Pulse 83 Resp 18 B/P (MAP) 106/87 (93) Pulse Ox 98 Capillary Refill : Less Than 3 Seconds Height, Weight, BMI Height: 6'4.00" Weight: 104lbs. 0.0oz. 47.539598vi; 13.2 BMI Method:Stated General Appearance: No Apparent Distress, Thin Eyes: Bilateral Eye PERRL, Bilateral Eye EOMI HEENT: PERRL/EOMI, Normal ENT Inspection, Pharynx Normal Neck: Full Range of Motion, Normal Inspection, Non Tender, Supple Respiratory: Chest Non Tender, Lungs Clear, Normal Breath Sounds, No Accessory Muscle Use, No Respiratory Distress Cardiovascular: Regular Rate, Rhythm, Normal Peripheral Pulses Gastrointestinal: Normal Bowel Sounds, No Pulsatile Mass, Soft, Tenderness (mild in epigastric area) Rectal: Deferred Extremity: Normal Capillary Refill, Normal Range of Motion, Non Tender, No Calf Tenderness Neurologic/Psychiatric: Alert, Oriented x3, No Motor/Sensory Deficits Skin: Normal Color, Warm/Dry Results Results/Procedures Labs Laboratory Tests 08/06/18 15:35 08/07/18 00:57 08/07/18 05:55 Patient resulted labs reviewed. Short Stay Diagnosis Discharge Diagnosis-Short Stay Admission Diagnosis 1. Hypokalemia secondary to cyclical vomiting. Final Discharge Diagnosis Same as admission diagnosis Conclusion Plan Patient was admitted and received a total of 60 mEq of potassium IV with potassium levels up to 2.8 and resolution of neurologic symptoms. He had no pal pitations no cardiac symptoms or documented arrhythmias on telemetry. We discussed the fact that ibuprofen as well as marijuana/THC may be contributing to his cyclical vomiting. He was advised to abstain from both and just use Tylenol for dental pain. He has been reportedly working with local dentist and is looking into tooth extraction which he was told he would need to permanently take care of his dental pain and otherwise it would be recurring. He was told that he could try omeprazole in the morning and Zofran at at bedtime or first thing in the morning depending on what seemed to work best for him. He was advised that he eat a banana a day. We discussed his malnutrition likely cause of mild neutropenia he states that he knows that he is thin and this is secondary to his vomiting which is not induced so doubt that there is an underlying eating disorder. He was advised to follow-up with a physician or look into [facility] as he is currently unemployed and living with a s ister. He felt that he would have enough help to get medications that weren't too expensive. He was told return to the emergency room should he start to have the similar muscle-type symptoms as would likely indicate hypokalemia. He was discharged stable vital signs tolerating solids with no complaints Clinical Quality Measures DVT/VTE Risk/Contraindication: RFS Level Per Nursing on Admit: 1=Low/No VTE PPX CHRIS GALAVIZ MD Aug 07, 2018 10:21
[2018-08-07 11:50] VITALS: BP 95/54
== END 2018-08-07 11:50 | disposition home or self-care (01) | DRG 641 ==
LOC: ER FS 15:19 → 4TH 17:13
PROVIDERS: ADMIT Internal Medicine; ATTEND Internal Medicine
DX: E87.6 Hypokalemia (principal); G43.A0 Cyclical vomiting, in migraine, not intractable; E46 Unspecified protein-calorie malnutrition; D70.9 Neutropenia, unspecified; E86.0 Dehydration; K44.9 Diaphragmatic hernia without obstruction or gangrene; K29.50 Unspecified chronic gastritis without bleeding
CPT/HCPCS: 36415; 80048; 80053; 80306; 81000; 83690; 83735; 85025; 96361; 96365; 96375

== ENCOUNTER 2018-09-18 10:36 | Emergency (ER) | payer SELFPAY ==
[~2018-09-18] VITALS: Ht 193 cm; Wt 47.2 kg
[~2018-09-18 10:36] MED LIST: OMEP20CA13 PO; ONDA8TAB13 PO
--- OUTSIDE RECORDS SUMMARY | 2018-09-18 10:41 | XMS REPORT ---
Author Author Migration, Doctor Organization [facility] Address Unknown Phone Unavailable Care Team Providers Care Grease Refining Supervisor Name Role Phone Migration, Doctor Unavailable Unavailable PROBLEMS Type Condition ICD9-CM Code [id number] Code Onset Dates Condition Status SNOMED Code Problem Disturbance of skin sensation 782.0 Active 924110395 Problem Lumbago 724.2 Active 803968144 ALLERGIES Substance Reaction Event Type Date Status Codeine Unknown Drug Allergy May, Active Hydrocodone Positive UDS Non Drug Allergy May, Active Benzodiazepines Positive drug screen Non Drug Allergy May, Active Lidocaine Unknown Drug Allergy May, Active Clindamycin Unknown Drug Allergy May, Active ENCOUNTERS Encounter Location Date Diagnosis [facility] [id number] [place] [phone] Aug, [facility] [id number] [place] [address] [id number] Jul, Dental examination Z01.20 [facility] [id number] [place] [address] [id number] June, Dental examination Z01.20 [facility] [address] [place] [address] June, Encounter for immunization Z23 [facility] [id number] [place] [id number] Sep, Dental caries K02.9 [facility] [id number] [place] [address] [id number] Aug, Dental examination Z01.20 [facility] [id number] [place] [address] [phone] Aug, Dental examination Z01.20 [facility] [id number] [place] [phone] Feb, [facility] [id number] [address] 14 Apr, 2016 Cyst of eyelid, right H02.823 [facility] [id number] [place] [address] [id number] 10 Dec, 2015 Dental examination Z01.20 [facility] [id number] [place] [phone] 18 Jun, 2015 Caries K02.9 [facility] [id number] [place] [phone] 03 Jun, 2015 Dental examination Z01.20 [facility] [id number] [place] [phone] 14 May, 2014 [facility] [id number] [place] [phone] May, [facility] [id number] [place] [phone] Dec, [facility] [id number] [place] [phone] Dec, [facility] [id number] [place] [phone] May, IMMUNIZATIONS No Known Immunizations SOCIAL HISTORY Never Assessed REASON FOR VISIT [facility] PLAN OF CARE VITAL SIGNS MEDICATIONS Medication Instructions Dosage Frequency Start Date End Date Duration Status Neurontin 300 mg 1 capsule by Oral route 3 times per day Dec, Active Ativan 1 mg Dec, Active Dexilant by Oral route Dec, Active RESULTS No Results PROCEDURES No Known procedures INSTRUCTIONS MEDICATIONS ADMINISTERED No Known Medications MEDICAL (GENERAL) HISTORY Type Description Date Surgical History cholecystectomy 2007
--- OUTSIDE RECORDS SUMMARY | 2018-09-18 10:42 | XMS REPORT | Continuity of Care Document ---
Demographics Preferred Language Unknown Marital Status Unknown Presybeterian Affiliation Unknown Race Unknown Ethnic Group Unknown Author Organization Unknown Address Unknown Phone Unavailable Allergies Active Description Code Type Severity Reaction [...] Procedures Code [place] [address] URINE DRUG SCREEN (IN-HOUSE) 01/19/2012 Results There is no data. Encounters ACCT No. Visit Date/Time Discharge Status Pt. Type Provider Facility Loc./Unit Complaint [id number] 01/19/2012 08:30:00 01/19/2012 23:59:59 CLS Outpatient [id number] 09/13/2018 08:00:00 09/13/2018 23:59:59 CLS Outpatient [facility]
[2018-09-18] MEDS ORDERED: FAMOTIDINE 20MG/2ML IV (PEPCID) IV STA (10:48)
[2018-09-18] MEDS ORDERED: PROMETHAZINE INJ 25 MG/ML (PHENERGAN) AMP IVP STA (10:48)
[2018-09-18] MEDS ORDERED: LACTATED RINGERS 1,000 ML IV STA (10:48)
[2018-09-18] MEDS ORDERED: DICYCLOMINE 10 MG/ML (BENTYL) 2 ML AMP IM STA (10:48)
[2018-09-18 10:58] LABS: HEMOGLOBIN 14.8 G/DL (13.3-17.7); MEAN CORPUSCULAR HEMOGLOBIN 34 PG (25-34); WHITE BLOOD COUNT 2.7 10^3/uL (4.3-11.0)
[2018-09-18 10:59] LABS: BASOPHILS % (AUTO) 0 % (0-10); EOSINOPHILS # (AUTO) 0.1 10^3/uL (0.0-0.3); EOSINOPHILS % (AUTO) 2 % (0-10); HEMATOCRIT 42 % (40-54); LYMPHOCYTES # (AUTO) 0.8 X 10^3 (1.0-4.0); LYMPHOCYTES % (AUTO) 28 % (12-44); MEAN CORPUSCULAR HGB CONC 36 G/DL (32-36); MEAN CORPUSCULAR VOLUME 95 FL (80-99); MEAN PLATELET VOLUME 10.7 FL (7.4-10.4); MONOCYTES # (AUTO) 0.2 X 10^3 (0.0-1.0); MONOCYTES % (AUTO) 8 % (0-12); NEUTROPHILS # (AUTO) 1.6 X 10^3 (1.8-7.8); NEUTROPHILS % (AUTO) 59 % (42-75); PLATELET COUNT 159 10^3/uL (130-400); RED CELL DISTRIBUTION WIDTH 12.1 % (10.0-14.5)
[2018-09-18 11:00] LABS: BASOPHILS # (AUTO) 0.1 10^3/uL (0.0-0.1)
[2018-09-18] MEDS ORDERED: LIDOCAINE 2% VISCOUS 15 ML UDC PO ONE (11:00)
[2018-09-18] MEDS ORDERED: ACETAMINOPHEN 325 MG TABLET PO ONE (11:00)
[2018-09-18] MEDS ORDERED: ANTACID SUSP 30 ML UDC (MYLANTA) PO ONE (11:00)
[2018-09-18] MEDS ORDERED: NS 100 ML (IVPB) BAG IV ONE (11:15)
[2018-09-18] MEDS ORDERED: CATHETER FLUSH 10 ML SYR IV PRN (11:15)
[2018-09-18] MEDS ORDERED: IOHEXOL 350 MG/ML 100 ML (OMNIPAQUE 350) VIAL IV ONE (11:15)
[2018-09-18] MEDS ORDERED: HOLD METFORMIN - RECEIVED CONTRAST 20 ML VIAL IV SCH (11:15)
[2018-09-18 11:21] LABS: CARBON DIOXIDE 24 MMOL/L (21-32); CHLORIDE 102 MMOL/L (98-107); POTASSIUM 3.8 MMOL/L (3.6-5.0); SODIUM 140 MMOL/L (135-145)
[2018-09-18 11:22] LABS: ALANINE AMINOTRANSFERASE 9 U/L (0-55); ALBUMIN 4.9 GM/DL (3.2-4.5); ALKALINE PHOSPHATASE 57 U/L (40-136); BILIRUBIN,TOTAL 0.6 MG/DL (0.1-1.0); BUN/CREATININE RATIO 10; CREATININE SERUM 0.82 MG/DL (0.60-1.30); GFR ESTIMATED > 60; GLUCOSE 93 MG/DL (70-105); TOTAL PROTEIN 7.7 GM/DL (6.4-8.2)
--- NOTE | 2018-09-18 11:22 | ED Abdominal Pain ---
General Chief Complaint: Abdominal/GI Problems Stated Complaint: ABD PAIN,VOMITING Nursing Triage Note: Patient ambulatory to ER room 5 for complaint of abdominal pain to left lower quadrant. Patient states the pain began at 05:00 AM today and has been associated with nausea and vomiting. Patient denies any diarrhea with last BM being yesterday. Patient states he was at [facility] ER several days ago. Sepsis Screen: No Definite Risk History of Present Illness Date Seen by Provider: Sep 18, 2018 Time Seen by Provider: 10:55 Initial Comments The patient is a 28-year-old male with a history of chronic gastritis on ranitidine and Zofran at home as well as hiatal hernia and chronic cachexia which he relates to "having pain all the time when I eat." He reports smoking marijuana for his symptoms when they get severe. The patient presents with concern for acute onset of left lower quadrant abdominal pain in association with copious nonbloody emesis (greater than 10 episodes over the last 6 hours), all with onset about 6 hours prior to arrival when he awoke from sleep. Patient states his chronic abdominal pain is always on his left side but is usually more upper than lower. Pain is constant and sharp and nothing seems to make it better or worse. Associated left flank discomfort for several days now -- patient evidently has an appointment with a primary care physician here in town for evaluation of this issue. Associated constipation with no bowel movement for the last couple of days. No associated fevers, hematemesis, hematochezia, melena, cough, shortness of breath or chest pain, right-sided abdominal pain, dysuria or hematuria. Allergies and Home Medications Allergies Coded Allergies: codeine (Verified Allergy, Intermediate, Vomiting, 08/06/18) clindamycin (Verified Allergy, Unknown, 09/18/18) milk (Verified Allergy, Unknown, 09/18/18) Home Medications Omeprazole 20 Mg Capsule.dr, 20 MG PO DAILY Prescribed by: CHRIS GALAVIZ on 08/07/18 1013 Ondansetron 8 Mg Tab.rapdis, 8 MG PO HS Prescribed by: CHRIS GALAVIZ on 08/07/18 1013 Ranitidine HCl 150 Mg Tablet, 150 MG PO DAILY, (Reported) Patient Home Medication List Home Medication List Reviewed: Yes Review of Systems Review of Systems Constitutional: see HPI All Other Systems Reviewed Negative Unless Noted: Yes (Negative excepted noted.) Past Jpbexgy-Xccbgp-Mgklqi Hx Past Med/Social Hx: Reviewed Nursing Past Med/Soc Hx Patient Social History Alcohol Use: Past History Recreational Drug Use: Yes Drug of Choice: marijuana Smoking Status: Former Smoker Type Used: Cigarettes 2nd Hand Smoke Exposure: No Recent Foreign Travel: No Contact w/Someone Who Travel: No Recent Infectious Disease Expo: No Recent Hopitalizations: Yes (low potassium ) Physical Abuse: No Sexual Abuse: No Mistreated: No Fear: No Seasonal Allergies Seasonal Allergies: No Past Medical History Surgeries: Yes Gallbladder Respiratory: No Cardiac: No Neurological: No Genitourinary: No Gastrointestinal: Yes (Gastroenteritis) Gastroesophageal Reflux, Gastrointestinal Bleed Musculoskeletal: No Endocrine: No HEENT: No Cancer: No Psychosocial: No Integumentary: No Blood Disorders: No Adverse Reaction/Blood Tranf: No Family Medical History Reviewed Nursing Family Hx Asthma G8 BROTHER FH: CVA (cerebrovascular accident) 19 FATHER 19 MOTHER FH: depression 19 MOTHER FH: heart attack 19 MOTHER (X2) FH: kidney disease 19 MOTHER FH: liver disease 19 MOTHER FH: multiple sclerosis 19 FATHER FH: scoliosis G8 BROTHER G8 BROTHER G8 SISTER G8 SISTER Physical Exam Vital Signs Vital Signs - First Documented 09/18/18 10:37 Temp 98.0 Pulse 95 Resp 18 B/P (MAP) 104/87 (93) Pulse Ox 99 O2 Delivery Room Air Capillary Refill : Less Than 3 Seconds Height/Weight/BMI Height: 6'4.00" Weight: 104lbs. 0.0oz. 47.042223og; 13.2 BMI Method:Stated General Appearance: no apparent distress Exam Comments This is a quite cachectic young male appearing nontoxic and in no acute distress. Head is normocephalic and atraumatic. Neck is supple and nontender. Oropharynx is moist. Lungs are clear to auscultation at all stations. There is a normal S1 and S2 without rubs or gallops and capillary refill is appropriate, was 2 seconds globally. Abdomen is soft and nondistended with mild left lower quadrant tenderness to palpation without rebound or guarding. Skin is warm and dry without cyanosis, clubbing or edema. Psychiatrically, the patient demonstrates appropriate mood and affect and is alert. Progress/Results/Core Measures Results/Orders Lab Results Laboratory Tests Test 09/18/18 10:51 09/18/18 11:30 Range/Units White Blood Count 2.7 L 4.3-11.0 10^3/uL Red Blood Count 4.37 4.35-5.85 10^6/uL Hemoglobin 14.8 13.3-17.7 G/DL Hematocrit 42 40-54 % Mean Corpuscular Volume 95 80-99 FL Mean Corpuscular Hemoglobin 34 25-34 PG Mean Corpuscular Hemoglobin Concent 36 32-36 G/DL Red Cell Distribution Width 12.1 10.0-14.5 % Platelet Count 159 130-400 10^3/uL Mean Platelet Volume 10.7 H 7.4-10.4 FL Neutrophils (%) (Auto) 59 42-75 % Lymphocytes (%) (Auto) 28 12-44 % Monocytes (%) (Auto) 8 0-12 % Eosinophils (%) (Auto) 2 0-10 % Basophils (%) (Auto) 0 0-10 % Neutrophils # (Auto) 1.6 L 1.8-7.8 X 10^3 Lymphocytes # (Auto) 0.8 L 1.0-4.0 X 10^3 Monocytes # (Auto) 0.2 0.0-1.0 X 10^3 Eosinophils # (Auto) 0.1 0.0-0.3 10^3/uL Basophils # (Auto) 0.1 0.0-0.1 10^3/uL Sodium Level 140 135-145 MMOL/L Potassium Level 3.8 3.6-5.0 MMOL/L Chloride Level 102 98-107 MMOL/L Carbon Dioxide Level 24 21-32 MMOL/L Anion Gap 14 5-14 MMOL/L Blood Urea Nitrogen 8 7-18 MG/DL Creatinine 0.82 0.60-1.30 MG/DL Estimat Glomerular Filtration Rate > 60 BUN/Creatinine Ratio 10 Glucose Level 93 70-105 MG/DL Calcium Level 10.0 8.5-10.1 MG/DL Corrected Calcium 8.5-10.1 MG/DL Magnesium Level 1.6 L 1.8-2.4 MG/DL Total Bilirubin 0.6 0.1-1.0 MG/DL Aspartate Amino Transf (AST/SGOT) 15 5-34 U/L Alanine Aminotransferase (ALT/SGPT) 9 0-55 U/L Alkaline Phosphatase 57 40-136 U/L Total Protein 7.7 6.4-8.2 GM/DL Albumin 4.9 H 3.2-4.5 GM/DL Lipase 15 8-78 U/L Urine Color PALE YELLOW Urine Clarity CLEAR Urine pH 7.0 5-9 Urine Specific [place] <=1.005 1.016-1.022 Urine Protein NEGATIVE NEGATIVE Urine Glucose (UA) NEGATIVE NEGATIVE Urine Ketones NEGATIVE NEGATIVE Urine Nitrite NEGATIVE NEGATIVE Urine Bilirubin NEGATIVE NEGATIVE Urine Urobilinogen 0.2 NORMAL MG/DL Urine Leukocyte Esterase NEGATIVE NEGATIVE Urine RBC (Auto) NEGATIVE NEGATIVE Urine RBC NONE /HPF Urine WBC RARE /HPF Urine Squamous Epithelial Cells NONE /HPF Urine Crystals NONE /LPF Urine Bacteria NEGATIVE /HPF Urine Casts NONE /LPF Urine Mucus NONE /LPF Urine Culture Indicated NO Urine Opiates Screen NEGATIVE NEGATIVE Urine Oxycodone Screen NEGATIVE NEGATIVE Urine Methadone Screen NEGATIVE NEGATIVE Urine Propoxyphene Screen NEGATIVE NEGATIVE Urine Barbiturates Screen NEGATIVE NEGATIVE Ur Tricyclic Antidepressants Screen NEGATIVE NEGATIVE Urine Phencyclidine Screen NEGATIVE NEGATIVE Urine Amphetamines Screen NEGATIVE NEGATIVE Urine Methamphetamines Screen NEGATIVE NEGATIVE Urine Benzodiazepines Screen NEGATIVE NEGATIVE Urine Cocaine Screen NEGATIVE NEGATIVE Urine Cannabinoids Screen POSITIVE H NEGATIVE My Orders Orders - SHAGUFTA COMBS MD Comprehensive Metabolic Panel (09/18/18 10:48) Lipase (09/18/18 10:48) Ua Culture If Indicated (09/18/18 10:48) Ed Iv/Invasive Line Start (09/18/18 10:48) Cbc With Automated Diff (09/18/18 10:48) Ct Abdomen/Pelvis W (09/18/18 10:48) Promethazine Injection (Phenergan Injec (09/18/18 10:48) Lidocaine 2% Viscous 15 Ml (Xylocaine Vi (09/18/18 11:00) Antacid Suspension (Mylanta Suspension (09/18/18 11:00) Lactated Ringers (Lr 1000 Ml Iv Solution (09/18/18 10:48) Famotidine Injection (Pepcid Injection) (09/18/18 10:48) Dicyclomine Injection (Bentyl Injection) (09/18/18 10:48) Acetaminophen Tablet/Caplet (Tylenol T (09/18/18 11:00) Drug Screen Stat (Urine) (09/18/18 10:48) Iohexol Injection (Omnipaque 350 Mg/Ml 1 (09/18/18 11:15) Received Contrast (Hold Metformin- Contr (09/18/18 11:15) Sodium Chloride Flush (Catheter Flush Sy (09/18/18 11:15) Ns (Ivpb) (Sodium Chloride 0.9% Ivpb Bag (09/18/18 11:15) Magnesium (09/18/18 11:12) Magnesium Oxide Tablet (Mag Ox Tablet) (09/18/18 12:00) Morphine Injection (Morphine Injection (09/18/18 11:47) Medications Given in ED Current Medications Medications Dose Ordered Sig/Arely Route Start Time Stop Time Status Last Admin Dose Admin Acetaminophen 975 mg ONCE ONCE PO 09/18/18 11:00 09/18/18 11:01 DC 09/18/18 10:59 975 MG Al Hydrox/Mg Hydrox/Simethicone 30 ml ONCE ONCE PO 09/18/18 11:00 09/18/18 11:01 DC 09/18/18 11:00 30 ML Iohexol 100 ml ONCE ONCE IV 09/18/18 11:15 09/18/18 11:16 DC 09/18/18 11:23 100 ML Lidocaine HCl 15 ml ONCE ONCE PO 09/18/18 11:00 09/18/18 11:01 DC 09/18/18 11:00 15 ML Magnesium Oxide 400 mg ONCE ONCE PO 09/18/18 12:00 09/18/18 12:01 DC 09/18/18 11:58 400 MG Sodium Chloride 10 ml NEEDED PRN IV 09/18/18 11:15 09/18/18 11:23 10 ML Sodium Chloride 100 ml ONCE ONCE IV 09/18/18 11:15 09/18/18 11:16 DC 09/18/18 11:23 80 ML Vital Signs/I&O 09/18/18 10:37 Temp 98.0 Pulse 95 Resp 18 B/P (MAP) 104/87 (93) Pulse Ox 99 O2 Delivery Room Air Blood Pressure Mean: 93 Progress Progress Note : Time: 11:24 Progress Note Cachectic young man with chronic abdominal pain, using marijuana for symptoms of pain and vomiting quite frequently, who presents with concern for acute onset of left lower quadrant abdominal pain and copious nonbloody vomiting about 6 hours prior to arrival. Given lower abdominal pain in a different spot than patient's chronic pain as well as lack of bowel movements over the last couple of days and flank discomfort, we'll obtain advanced imaging of the abdomen and pelvis. We'll check labs and give IV fluids and medication for discomfort and nausea as well and will then reevaluate. The patient understands and agrees with this plan of care. Update 1202: Workup is unremarkable and reassuring aside from significant evidence of constipation and the patient feels much better after treatment as per nursing flow sheet here in the emergency department. We will proceed with discharge home with a bottle of magnesium citrate to drink as well as additional bowel regimen medication. The patient is counseled to drink plenty of fluids and follow up very closely with his primary care physician in the next 1-2 days and to return immediately to the emergency department if symptoms recur or worsen or if other new symptoms of concern develop. The patient is again counseled not to use marijuana for his abdominal pain and vomiting as it may exacerbate symptoms. All questions are answered. Departure Impression Primary Impression: Left lower quadrant abdominal pain Additional Impressions: Vomiting Constipation Disposition: HOME, SELF-CARE Condition: Improved Departure-Patient Inst. Decision time for Depature: 12:04 Referrals: BELLA ARBOLEDA MD (PCP/Family) Primary Care Physician Patient Instructions: Constipation, Adult (DC), Nausea and Vomiting, Adult Add. Discharge Instructions: Follow-up very closely with your primary care physician in the next 1-2 days. Avoid using marijuana for nausea and vomiting as it can actually make symptoms worse. Drink the full bottle of magnesium citrate when you get home and fill and take the other medications to help move your bowels as discussed. Return immedi ately to the emergency department if symptoms worsen or if other new symptoms of concern develop. Scripts Promethazine HCl (Promethazine Tablet) 25 Mg Tablet 25 MG PO Q6H PRN for NAUSEA/VOMITING, #20 TAB Prov: SHAGUFTA COMBS MD 09/18/18 Sennosides/Docusate Sodium (Docusate Sodium-Senna Tablet) 1 Each Tablet 1 EACH PO BID for 5 Days, #10 TAB Prov: SHAGUFTA COMBS MD 09/18/18 Polyethylene Glycol 3350 (Miralax) 17 Gm Powd.pack 17 GM PO BID for 10 Days, #527 GM Prov: SHAGUFTA COMBS MD 09/18/18 SHAGUFTA COMBS MD Sep 18, 2018 11:22
[2018-09-18 11:23] LABS: LIPASE 15 U/L (8-78)
[2018-09-18] MEDS ORDERED: RANI-515 PO (11:46)
[2018-09-18] MEDS ORDERED: morphine INJ 10 MG/ML 1ML (SYR OR VIAL) IVP STA (11:47)
[2018-09-18 11:49] LABS: CLARITY,URINE CLEAR; COLOR,URINE PALE YELLOW
[2018-09-18 11:50] LABS: BACTERIA,URINE NEGATIVE /HPF; BILIRUBIN,URINE NEGATIVE (NEGATIVE); GLUCOSE, URINE (UA) NEGATIVE (NEGATIVE); KETONES,URINE NEGATIVE (NEGATIVE); LEUKOCYTE ESTERASE ,URINE NEGATIVE (NEGATIVE); NITRITE,URINE NEGATIVE (NEGATIVE); PROTEIN,URINE NEGATIVE (NEGATIVE); UROBILINOGEN,URINE 0.2 MG/DL (NORMAL); WBC,URINE RARE /HPF
[2018-09-18 11:52] LABS: AMPHETAMINE SCREEN, URINE NEGATIVE (NEGATIVE); BARBITURATE SCREEN URINE NEGATIVE (NEGATIVE); BENZODIAZEPINES SCREEN URINE NEGATIVE (NEGATIVE); CANNABINOID SCREEN, URINE POSITIVE (NEGATIVE); COCAINE SCREEN URINE NEGATIVE (NEGATIVE); METHADONE STAT NEGATIVE (NEGATIVE); METHAMPHETAMINE SCREEN URINE S NEGATIVE (NEGATIVE); OPIATE SCREEN URINE NEGATIVE (NEGATIVE); OXYCODONE STAT NEGATIVE (NEGATIVE); PROPOXYPHENE STAT NEGATIVE (NEGATIVE); TRICYCLIC ANTIDEPRESSANTS SCRE NEGATIVE (NEGATIVE)
--- NOTE | 2018-09-18 11:54 | Diagnostic Imaging Report ---
PROCEDURE: CT abdomen and pelvis with contrast. TECHNIQUE: Multiple contiguous axial images were obtained through the abdomen and pelvis after administration of intravenous contrast. Auto Exposure Controls were utilized during the CT exam to meet ALARA standards for radiation dose reduction. INDICATION: Left lower quadrant abdominal pain. COMPARISON: None. FINDINGS: Cholecystectomy. Large amount of stool throughout the colon, particularly within the sigmoid colon. The rectum appears relatively decompressed. Mild nonspecific fluid filled prominence of the proximal small bowel. No findings specific for a bowel obstruction. The appendix is not identified and may be surgically absent. No suspicious inflammatory findings in the region of the cecum. No free intraperitoneal air or fluid. The liver, pancreas, spleen, adrenals, collecting systems and bladder are negative. No acute osseous findings. IMPRESSION: Large amount of stool throughout the colon consistent with constipation. This is most marked in the sigmoid colon where there may be fecal impaction. The rectum is relatively decompressed. Dictated by: Dictated on workstation # [id number]
[2018-09-18] MEDS ORDERED: MAGNESIUM OXIDE (MAG-OX)400 MG TAB PO ONE (12:00)
[2018-09-18] MEDS ORDERED: POLY17PO6 PO (12:08)
[2018-09-18] MEDS ORDERED: SENN-229 PO (12:08)
[2018-09-18] MEDS ORDERED: PROM25TA14 PO (12:09)
[2018-09-18 12:13] VITALS: BP 103/71
[2018-09-18] MEDS ORDERED: MAGNESIUM CITRATE 300 ML BTL PO ONE (12:15)
== END 2018-09-18 12:15 | disposition home or self-care (01) ==
LOC: EDUNIT# 10:36 → ER FS 10:37
DX: K59.00 Constipation, unspecified (principal); R10.32 Left lower quadrant pain; R11.10 Vomiting, unspecified; K29.50 Unspecified chronic gastritis without bleeding; F12.10 Cannabis abuse, uncomplicated; K21.9 Gastro-esophageal reflux disease without esophagitis; Z88.5 Allergy status to narcotic agent; Z88.1 Allergy status to other antibiotic agents; Z87.891 Personal history of nicotine dependence
CPT/HCPCS: 36415; 74177; 80053; 80306; 81000; 83690; 83735; 85025; 96361; 96372; 96374; 96375

== ENCOUNTER 2018-09-27 09:19 | Emergency (ER) | payer SELFPAY ==
[~2018-09-27] VITALS: Ht 193 cm; Wt 47.2 kg
[~2018-09-27 09:19] MED LIST changes: +POLY17PO6 PO; +PROM25TA14 PO; +RANI-515 PO; +SENN-229 PO
--- OUTSIDE RECORDS SUMMARY | 2018-09-27 09:29 | XMS REPORT | Continuity of Care Document ---
Demographics Preferred Language Unknown Marital Status Unknown Gnosticism Affiliation Unknown Race Unknown Ethnic Group Unknown [...] Procedures Code [place] [address] URINE DRUG SCREEN (IN-HOUSE) 01/19/2012 Results There is no data. Encounters ACCT No. Visit Date/Time Discharge Status Pt. Type Provider Facility Loc./Unit Complaint [id number] 01/19/2012 08:30:00 01/19/2012 23:59:59 CLS Outpatient [id number] 09/13/2018 08:00:00 09/13/2018 23:59:59 CLS Outpatient [facility]
--- NOTE | 2018-09-27 09:54 | ED GI ---
General Chief Complaint: Abdominal/GI Problems Stated Complaint: NAUSEA Nursing Triage Note: Woke up this morning at 0600 with nausea and has vomited multiple times. States his muscles cramped up and thinks his potassium is low again. Muscles are not cramping now but states they feel tingly. Sepsis Screen: No Definite Risk Source of Information: Patient, Old Records, RN Notes Reviewed Exam Limitations: No Limitations History of Present Illness Date Seen by Provider: Sep 27, 2018 Time Seen by Provider: 09:54 Initial Comments Patient presents c/ c/o N/V and cramping this AM similar to when his K+ has been low in the past. Cramping has improved as has his N/V, but he thought he better get checked out. Long hx of GI related issues. Timing/Duration: 4-6 Hours Severity/Quality: Moderate (initially; improved now), Cramping Location: Generalized Abdomen Radiation: No Radiation Activities at Onset: Sleeping Modifying Factors: Improves With Other (none) Associated Symptoms: Denies Symptoms (x/ as noted.), Nausea/Vomiting Allergies and Home Medications Allergies Coded Allergies: codeine (Verified Allergy, Intermediate, Vomiting, 08/06/18) clindamycin (Verified Allergy, Unknown, 09/18/18) milk (Verified Allergy, Unknown, 09/18/18) Home Medications Magnesium Oxide 400 Mg Tablet, 400 MG PO DAILY Prescribed by: SABINA DE LA FUENTE on 09/27/18 1311 Omeprazole 20 Mg Capsule.dr, 20 MG PO DAILY Prescribed by: CHRIS GALAVIZ on 08/07/18 1013 Ondansetron 8 Mg Tab.rapdis, 8 MG PO HS Prescribed by: CHRIS GALAVIZ on 08/07/18 1013 Polyethylene Glycol 3350 17 Gm Powd.pack, 17 GM PO BID Prescribed by: SHAGUFTA COMBS on 09/18/18 1208 Potassium Chloride 20 Meq Tablet.er, 20 MEQ PO DAILY Prescribed by: SABINA DE LA FUENTE on 09/27/18 1311 Promethazine HCl 25 Mg Tablet, 25 MG PO Q6H PRN for NAUSEA/VOMITING Prescribed by: SHAGUFTA COMBS on 09/18/18 1209 Ranitidine HCl 150 Mg Tablet, 150 MG PO DAILY, (Reported) Sennosides/Docusate Sodium 1 Each Tablet, 1 EACH PO BID Prescribed by: SHAGUFTA COMBS on 09/18/18 1208 Patient Home Medication List Home Medication List Reviewed: Yes Review of Systems Review of Systems Constitutional: see HPI Gastrointestinal: See HPI, Abdominal Pain, Nausea, Vomiting All Other Systems Reviewed Negative Unless Noted: Yes (Negative excepted noted.) Past Gcgznkh-Izhmvi-Bqfnec Hx Patient Social History Alcohol Use: Denies Use Recreational Drug Use: Yes (used marijuana last night ) Drug of Choice: marijuana Smoking Status: Former Smoker Type Used: Cigarettes Former Smoker, Quit: Sep 22, 2013 2nd Hand Smoke Exposure: No Recent Foreign Travel: No Contact w/Someone Who Travel: No Recent Infectious Disease Expo: No Recent Hopitalizations: Yes (low potassium ) Physical Abuse: No Sexual Abuse: No Mistreated: No Fear: No Seasonal Allergies Seasonal Allergies: No Past Medical History Surgeries: Yes Gallbladder Respiratory: No Cardiac: No Neurological: No Genitourinary: No Gastrointestinal: Yes (Gastroenteritis) Gastroesophageal Reflux, Gastrointestinal Bleed Musculoskeletal: No Endocrine: No HEENT: No Cancer: No Psychosocial: No Integumentary: No Blood Disorders: No Adverse Reaction/Blood Tranf: No Family Medical History Asthma G8 BROTHER FH: CVA (cerebrovascular accident) 19 FATHER 19 MOTHER FH: depression 19 MOTHER FH: heart attack 19 MOTHER (X2) FH: kidney disease 19 MOTHER FH: liver disease 19 MOTHER FH: multiple sclerosis 19 FATHER FH: scoliosis G8 BROTHER G8 BROTHER G8 SISTER G8 SISTER Physical Exam Vital Signs Vital Signs - First Documented 09/27/18 09:25 Temp 97.8 Pulse 81 Resp 18 B/P (MAP) 124/93 (103) Pulse Ox 97 Capillary Refill : Less Than 3 Seconds Height/Weight/BMI Height: 6'4.00" Weight: 104lbs. 0.0oz. 47.729638at; 13.2 BMI Method:Stated General Appearance: no apparent distress, thin Respiratory: no respiratory distress Cardiovascular: regular rate, rhythm Gastrointestinal: non tender Rectal: deferred Neurologic/Psychiatric: no motor/sensory deficits, alert, normal mood/affect, oriented x 3 Skin: warm/dry; No rash Progress/Results/Core Measures Results/Orders Lab Results Laboratory Tests Test 09/27/18 09:31 09/27/18 09:51 09/27/18 10:15 Range/Units White Blood Count 2.5 L 4.3-11.0 10^3/uL Red Blood Count 4.60 4.35-5.85 10^6/uL Hemoglobin 15.4 13.3-17.7 G/DL Hematocrit 41 40-54 % Mean Corpuscular Volume 90 80-99 FL Mean Corpuscular Hemoglobin 33 25-34 PG Mean Corpuscular Hemoglobin Concent 37 H 32-36 G/DL Red Cell Distribution Width 11.5 10.0-14.5 % Platelet Count 180 130-400 10^3/uL Mean Platelet Volume 10.9 H 7.4-10.4 FL Neutrophils (%) (Auto) 57 42-75 % Lymphocytes (%) (Auto) 31 12-44 % Monocytes (%) (Auto) 8 0-12 % Eosinophils (%) (Auto) 3 0-10 % Basophils (%) (Auto) 2 0-10 % Neutrophils # (Auto) 1.4 L 1.8-7.8 X 10^3 Lymphocytes # (Auto) 0.8 L 1.0-4.0 X 10^3 Monocytes # (Auto) 0.2 0.0-1.0 X 10^3 Eosinophils # (Auto) 0.1 0.0-0.3 10^3/uL Basophils # (Auto) 0.0 0.0-0.1 10^3/uL Sodium Level 127 L 135-145 MMOL/L Potassium Level 3.0 L 3.6-5.0 MMOL/L Chloride Level 80 L 98-107 MMOL/L Carbon Dioxide Level 30 21-32 MMOL/L Anion Gap 17 H 5-14 MMOL/L Blood Urea Nitrogen 10 7-18 MG/DL Creatinine 0.81 0.60-1.30 MG/DL Estimat Glomerular Filtration Rate > 60 BUN/Creatinine Ratio 12 Glucose Level 118 H 70-105 MG/DL Calcium Level 9.7 8.5-10.1 MG/DL Corrected Calcium 8.5-10.1 MG/DL Total Bilirubin 0.9 0.1-1.0 MG/DL Aspartate Amino Transf (AST/SGOT) 20 5-34 U/L Alanine Aminotransferase (ALT/SGPT) 10 0-55 U/L Alkaline Phosphatase 67 40-136 U/L Total Protein 8.3 H 6.4-8.2 GM/DL Albumin 5.2 H 3.2-4.5 GM/DL Magnesium Level 1.7 L 1.8-2.4 MG/DL Lipase 14 8-78 U/L Urine Color YELLOW Urine Clarity CLEAR Urine pH 8.5 5-9 Urine Specific [place] 1.010 L 1.016-1.022 Urine Protein NEGATIVE NEGATIVE Urine Glucose (UA) NEGATIVE NEGATIVE Urine Ketones NEGATIVE NEGATIVE Urine Nitrite NEGATIVE NEGATIVE Urine Bilirubin NEGATIVE NEGATIVE Urine Urobilinogen 0.2 NORMAL MG/DL Urine Leukocyte Esterase NEGATIVE NEGATIVE Urine RBC (Auto) NEGATIVE NEGATIVE Urine RBC /HPF Urine WBC /HPF Urine Crystals NONE /LPF Urine Bacteria /HPF Urine Casts NONE /LPF Urine Mucus NEGATIVE /LPF Urine Culture Indicated NO My Orders Orders - SABINA DE LA FUENTE DO Cbc With Automated Diff (09/27/18 09:40) Comprehensive Metabolic Panel (09/27/18 09:40) Magnesium (09/27/18 09:54) Ua Culture If Indicated (09/27/18 09:54) Lipase (09/27/18 09:59) Ns Iv 1000 Ml (Sodi... W/Potassium Chlor (09/27/18 10:45) Magnesium Oxide Tablet (Mag Ox Tablet) (09/27/18 10:45) Potassium Chloride (Tablet) (K Dur Table (09/27/18 10:45) Ns Iv 1000 Ml (Sodium Chloride 0.9%) (09/27/18 10:36) Potassium Cl 10meq/50ml Ivpb (Kcl 10 Meq (09/27/18 10:36) Ondansetron Injection (Zofran Injectio (09/27/18 11:15) Medications Given in ED Current Medications Medications Dose Ordered Sig/Arely Route Start Time Stop Time Status Last Admin Dose Admin Magnesium Oxide 400 mg ONCE ONCE PO 09/27/18 10:45 09/27/18 10:46 DC 09/27/18 10:54 400 MG Potassium Chloride 40 meq ONCE ONCE PO 09/27/18 10:45 09/27/18 10:46 DC 09/27/18 10:55 40 MEQ Vital Signs/I&O 09/27/18 09:25 Temp 97.8 Pulse 81 Resp 18 B/P (MAP) 124/93 (103) Pulse Ox 97 Blood Pressure Mean: 103 Progress Progress Note : Progress Note Much improved p/ meds and fluids. Departure Impression Primary Impression: Abdominal cramping, generalized Additional Impressions: Hypokalemia Hyponatremia Hypomagnesemia Disposition: 01 HOME, SELF-CARE Condition: Improved Departure-Patient Inst. Decision time for Depature: 13:07 Referrals: BELLA ARBOLEDA MD (PCP/Family) Primary Care Physician Patient Instructions: Hyponatremia (DC), Low Magnesium Level (DC), Hypokalemia (DC), Nausea and Vomiting, Adult (DC) Add. Discharge Instructions: USE YOUR MEDS FOR N/V DIRECTED/NEEDED. RECOMMEND CLEAR LIQUID DIET X 24 HOURS. BEGIN THE POTASSIUM AND MAGNESIUM TOMORROW, 09/28. All discharge instructions reviewed with patient and/or family. Voiced understanding. Scripts Potassium Chloride (K-Tab ER) 20 Meq Tablet.er 20 MEQ PO DAILY, #90 TAB 0 Refills Prov: SABINA DE LA FUENTE DO 09/27/18 Magnesium Oxide (Magox 400) 400 Mg Tablet 400 MG PO DAILY, #90 TAB 0 Refills Prov: SABINA DE LA FUENTE DO 09/27/18 SABINA DE LA FUENTE DO Sep 27, 2018 09:54
[2018-09-27 10:02] LABS: HEMATOCRIT 41 % (40-54); HEMOGLOBIN 15.4 G/DL (13.3-17.7); MEAN CORPUSCULAR HEMOGLOBIN 33 PG (25-34); MEAN CORPUSCULAR HGB CONC 37 G/DL (32-36); MEAN CORPUSCULAR VOLUME 90 FL (80-99); MEAN PLATELET VOLUME 10.9 FL (7.4-10.4); PLATELET COUNT 180 10^3/uL (130-400); RED CELL DISTRIBUTION WIDTH 11.5 % (10.0-14.5); WHITE BLOOD COUNT 2.5 10^3/uL (4.3-11.0)
[2018-09-27 10:03] LABS: BASOPHILS % (AUTO) 2 % (0-10); EOSINOPHILS # (AUTO) 0.1 10^3/uL (0.0-0.3); EOSINOPHILS % (AUTO) 3 % (0-10); LYMPHOCYTES # (AUTO) 0.8 X 10^3 (1.0-4.0); LYMPHOCYTES % (AUTO) 31 % (12-44); MONOCYTES # (AUTO) 0.2 X 10^3 (0.0-1.0); MONOCYTES % (AUTO) 8 % (0-12); NEUTROPHILS # (AUTO) 1.4 X 10^3 (1.8-7.8); NEUTROPHILS % (AUTO) 57 % (42-75)
[2018-09-27 10:12] LABS: MAGNESIUM 1.7 MG/DL (1.8-2.4)
[2018-09-27 10:13] LABS: CARBON DIOXIDE 30 MMOL/L (21-32); CHLORIDE 80 MMOL/L (98-107); SODIUM 127 MMOL/L (135-145)
[2018-09-27 10:14] LABS: ALANINE AMINOTRANSFERASE 10 U/L (0-55); ALBUMIN 5.2 GM/DL (3.2-4.5); ALKALINE PHOSPHATASE 67 U/L (40-136); BILIRUBIN,TOTAL 0.9 MG/DL (0.1-1.0); BUN/CREATININE RATIO 12; CALCIUM 9.7 MG/DL (8.5-10.1); CREATININE SERUM 0.81 MG/DL (0.60-1.30); GFR ESTIMATED > 60; GLUCOSE 118 MG/DL (70-105); TOTAL PROTEIN 8.3 GM/DL (6.4-8.2)
[2018-09-27] MEDS ORDERED: NS IV 1000 ML 1,000 ML ONE (10:36)
[2018-09-27] MEDS ORDERED: POTASSIUM CL 10MEQ/50ML IVPB 100 ML IV ONE (10:36)
[2018-09-27 10:38] LABS: BILIRUBIN,URINE NEGATIVE (NEGATIVE); CLARITY,URINE CLEAR; GLUCOSE, URINE (UA) NEGATIVE (NEGATIVE); KETONES,URINE NEGATIVE (NEGATIVE); LEUKOCYTE ESTERASE ,URINE NEGATIVE (NEGATIVE); NITRITE,URINE NEGATIVE (NEGATIVE); PH,URINE 8.5 (5-9); PROTEIN,URINE NEGATIVE (NEGATIVE); UROBILINOGEN,URINE 0.2 MG/DL (NORMAL)
[2018-09-27 10:39] LABS: COLOR,URINE YELLOW
[2018-09-27] MEDS ORDERED: MAGNESIUM OXIDE (MAG-OX)400 MG TAB PO ONE (10:45)
[2018-09-27] MEDS ORDERED: KCL 20 MEQ TAB (K-DUR) PO ONE (10:45)
[2018-09-27] MEDS: POTASSIUM CHLORIDE INJ 20 MEQ in NS IV 1000 ML 1,000 ML IV SCH ×2 (10:55→12:52)
[2018-09-27] MEDS ORDERED: ONDANSETRON 4 MG/2 ML (SDV) Z0FRAN IVP ONE (11:15)
[2018-09-27] MEDS ORDERED: POTA-53 PO (13:11)
[2018-09-27] MEDS ORDERED: MAGN400T29 PO (13:11)
[2018-09-27 13:21] VITALS: BP 106/69
== END 2018-09-27 13:24 | disposition home or self-care (01) ==
LOC: EDUNIT# 09:19 → ER FS 09:21
DX: E87.6 Hypokalemia (principal); E87.1 Hypo-osmolality and hyponatremia; E83.42 Hypomagnesemia; R10.84 Generalized abdominal pain; F12.10 Cannabis abuse, uncomplicated; K21.9 Gastro-esophageal reflux disease without esophagitis; Z87.891 Personal history of nicotine dependence; Z88.5 Allergy status to narcotic agent; Z88.1 Allergy status to other antibiotic agents; Z82.49 Family history of ischemic heart disease and other diseases of the circulatory system
CPT/HCPCS: 36415; 80053; 81000; 83690; 83735; 85025

== ENCOUNTER 2018-11-12 14:09 | Emergency (ER) | payer SELFPAY, OTHER | END 2018-11-12 15:44 | disposition home or self-care (01) | LOC: ER FS 14:09 ==

== ENCOUNTER 2018-11-18 18:06 | Emergency (ER) | payer OTHER ==
[~2018-11-18] VITALS: Ht 190.5 cm; Wt 49.1 kg
[~2018-11-18 18:06] MED LIST changes: +MAGN400T29 PO; +ONDA4TAB11 PO; +POTA-53 PO
[2018-11-18] MEDS ORDERED: IBUPROFEN 600 MG (MOTRIN) TAB PO ONE (19:00)
[2018-11-18] MEDS ORDERED: D5 1/2 NS 1000 ML IV SOLUTION 1,000 ML IV SCH (19:15)
[2018-11-18] MEDS ORDERED: ONDANSETRON 4 MG/2 ML (SDV) Z0FRAN IVP ONE (19:15)
[2018-11-18] MEDS ORDERED: NS IV 1000 ML 1,000 ML IV SCH (19:15)
[2018-11-18] MEDS ORDERED: FAMOTIDINE 20MG/2ML IV (PEPCID) IVP ONE (19:15)
[2018-11-18 19:35] LABS: HEMATOCRIT 40 % (40-54); LYMPHOCYTES % (AUTO) 40 % (12-44); MEAN CORPUSCULAR HEMOGLOBIN 33 PG (25-34); MEAN CORPUSCULAR HGB CONC 35 G/DL (32-36); MEAN CORPUSCULAR VOLUME 96 FL (80-99); MEAN PLATELET VOLUME 11.5 FL (7.4-10.4); PLATELET COUNT 132 10^3/uL (130-400); WHITE BLOOD COUNT 3.5 10^3/uL (4.3-11.0)
[2018-11-18 19:36] LABS: BASOPHILS % (AUTO) 1 % (0-10); EOSINOPHILS # (AUTO) 0.1 10^3/uL (0.0-0.3); EOSINOPHILS % (AUTO) 2 % (0-10); LYMPHOCYTES # (AUTO) 1.4 X 10^3 (1.0-4.0); MONOCYTES # (AUTO) 0.3 X 10^3 (0.0-1.0); MONOCYTES % (AUTO) 9 % (0-12); NEUTROPHILS # (AUTO) 1.6 X 10^3 (1.8-7.8); NEUTROPHILS % (AUTO) 48 % (42-75)
[2018-11-18 19:54] LABS: ALANINE AMINOTRANSFERASE 10 U/L (0-55); ALBUMIN 4.8 GM/DL (3.2-4.5); ALKALINE PHOSPHATASE 61 U/L (40-136); BILIRUBIN,TOTAL 0.5 MG/DL (0.1-1.0); BUN/CREATININE RATIO 7; CALCIUM 9.8 MG/DL (8.5-10.1); CARBON DIOXIDE 25 MMOL/L (21-32); CHLORIDE 104 MMOL/L (98-107); CREATININE SERUM 0.87 MG/DL (0.60-1.30); GFR ESTIMATED > 60; GLUCOSE 88 MG/DL (70-105); LIPASE 13 U/L (8-78); POTASSIUM 3.7 MMOL/L (3.6-5.0); SODIUM 142 MMOL/L (135-145); TOTAL PROTEIN 7.5 GM/DL (6.4-8.2)
[2018-11-18 20:31] LABS: AMPHETAMINE SCREEN, URINE NEGATIVE (NEGATIVE); BARBITURATE SCREEN URINE NEGATIVE (NEGATIVE); BENZODIAZEPINES SCREEN URINE NEGATIVE (NEGATIVE); CANNABINOID SCREEN, URINE POSITIVE (NEGATIVE); COCAINE SCREEN URINE NEGATIVE (NEGATIVE); METHADONE STAT NEGATIVE (NEGATIVE); METHAMPHETAMINE SCREEN URINE S NEGATIVE (NEGATIVE); OPIATE SCREEN URINE NEGATIVE (NEGATIVE); OXYCODONE STAT NEGATIVE (NEGATIVE); PROPOXYPHENE STAT NEGATIVE (NEGATIVE); TRICYCLIC ANTIDEPRESSANTS SCRE NEGATIVE (NEGATIVE)
--- NOTE | 2018-11-18 21:37 | ED GI ---
General Chief Complaint: Abdominal/GI Problems Stated Complaint: STOMACH PAIN WITH CONSUMPTION OF FOOD Nursing Triage Note: Patient reports he has been unable to eat anything solid for several days, states all he is able to drink is water and almond milk. States he becomes nauseous and has had abdominal pain after trying to eat. He reports constipation for several days and states he has not been taking his potassium supplement. He reports he has an appointment with Dr. Arboleda on Nov.29, but did not feel he could wait that long to be seen. Sepsis Screen: No Definite Risk Source of Information: Patient History of Present Illness Date Seen by Provider: Nov 18, 2018 Time Seen by Provider: 18:45 Initial Comments Patient is a 28-year-old 6 foot 3 3 inch, 49 kg male with chronic daily marijuana use since age 17 he presents with nausea and vomiting upon eating. Patient states symptoms been ongoing for the past 3 weeks. He has been evaluated emergency department multiple times for the same with unremarkable workup. He has been placed on antiemetics and antacids which she is taking and is currently waiting to see his primary care provider in 8-10 days. States he is unable to drink today as he immediately vomits is upon eating. Denies hematemesis coffee-ground emesis bloody stools or black tarry stools. Denies dizziness lightheadedness palpitations, shortness breath. No other acute symptoms or complaints. Currently denies abdominal pain. Denies alcohol. Patient smokes marijuana 1-2 times daily. Timing/Duration: Changing Over Time, Other Severity/Quality: Mild Location: Epigastric Radiation: No Radiation Activities at Onset: None Associated Symptoms: Denies Symptoms Allergies and Home Medications Allergies Coded Allergies: codeine (Verified Allergy, Intermediate, Vomiting, 08/06/18) clindamycin (Verified Allergy, Unknown, 09/18/18) milk (Verified Allergy, Unknown, 09/18/18) Home Medications Magnesium Oxide 400 Mg Tablet, 400 MG PO DAILY Prescribed by: SABINA DE LA FUENTE on 09/27/18 1311 Omeprazole 20 Mg Capsule.dr, 20 MG PO DAILY Prescribed by: CHRIS GALAVIZ on 08/07/18 1013 Ondansetron 8 Mg Tab.rapdis, 8 MG PO HS Prescribed by: CHRIS GALAVIZ on 08/07/18 1013 Ondansetron 4 Mg Tab.rapdis, 4 MG PO TID Prescribed by: EMELYN DURAND on 11/12/18 1527 Polyethylene Glycol 3350 17 Gm Powd.pack, 17 GM PO BID Prescribed by: SHAGUFTA COMBS on 09/18/18 1208 Potassium Chloride 20 Meq Tablet.er, 20 MEQ PO DAILY Prescribed by: SABINA DE LA FUENTE on 09/27/18 1311 Promethazine HCl 25 Mg Tablet, 25 MG PO Q6H PRN for NAUSEA/VOMITING Prescribed by: SHAGUFTA COMBS on 09/18/18 1209 Ranitidine HCl 150 Mg Tablet, 150 MG PO DAILY, (Reported) Sennosides/Docusate Sodium 1 Each Tablet, 1 EACH PO BID Prescribed by: SHAGUFTA COMBS on 09/18/18 1208 Patient Home Medication List Home Medication List Reviewed: Yes Review of Systems Review of Systems Constitutional: no symptoms reported EENTM: No Symptoms Reported Respiratory: No Symptoms Reported Cardiovascular: No Symptoms Reported Gastrointestinal: See HPI Genitourinary: No Symptoms Reported Musculoskeletal: no symptoms reported Skin: no symptoms reported Psychiatric/Neurological: No Symptoms Reported Endocrine: No Symptoms Reported Hematologic/Lymphatic: No Symptoms Reported Past Xgnyilm-Zdywti-Ctarme Hx Patient Social History Alcohol Use: Denies Use Recreational Drug Use: Yes Drug of Choice: marijuana Smoking Status: Former Smoker Type Used: Cigarettes Former Smoker, Quit: Sep 22, 2013 2nd Hand Smoke Exposure: No Recent Foreign Travel: No Contact w/Someone Who Travel: No Recent Infectious Disease Expo: No Recent Hopitalizations: Yes (low potassium ) Physical Abuse: No Sexual Abuse: No Mistreated: No Fear: No Seasonal Allergies Seasonal Allergies: No Past Medical History Surgeries: Yes Gallbladder Respiratory: No Cardiac: No Neurological: No Genitourinary: No Gastrointestinal: Yes (Gastroenteritis) Gastroesophageal Reflux, Gastrointestinal Bleed Musculoskeletal: No Endocrine: No HEENT: No Cancer: No Psychosocial: No Integumentary: No Blood Disorders: No Adverse Reaction/Blood Tranf: No Family Medical History Asthma G8 BROTHER FH: CVA (cerebrovascular accident) 19 FATHER 19 MOTHER FH: depression 19 MOTHER FH: heart attack 19 MOTHER (X2) FH: kidney disease 19 MOTHER FH: liver disease 19 MOTHER FH: multiple sclerosis 19 FATHER FH: scoliosis G8 BROTHER G8 BROTHER G8 SISTER G8 SISTER Physical Exam Vital Signs Vital Signs - First Documented 11/18/18 18:10 Temp 37.1 Pulse 67 Resp 18 B/P (MAP) 121/87 (98) Pulse Ox 99 O2 Delivery Room Air Capillary Refill : Less Than 3 Seconds Height/Weight/BMI Height: 6'4.00" Weight: 104lbs. 0.0oz. 47.748798qp; 13.00 BMI Method:Stated General Appearance: WD/WN, thin HEENT: PERRL/EOMI, normal ENT inspection Neck: non-tender, supple Respiratory: chest non-tender, normal breath sounds Cardiovascular: normal peripheral pulses, regular rate, rhythm, no edema Gastrointestinal: non tender, soft Extremities: normal range of motion, non-tender, normal inspection Back: normal inspection Neurologic/Psychiatric: roving technician II-XII nml as tested, no motor/sensory deficits, alert, oriented x 3 Progress/Results/Core Measures Results/Orders Lab Results Laboratory Tests Test 11/18/18 19:20 11/18/18 20:08 Range/Units White Blood Count 3.5 L 4.3-11.0 10^3/uL Red Blood Count 4.18 L 4.35-5.85 10^6/uL Hemoglobin 14.0 13.3-17.7 G/DL Hematocrit 40 40-54 % Mean Corpuscular Volume 96 80-99 FL Mean Corpuscular Hemoglobin 33 25-34 PG Mean Corpuscular Hemoglobin Concent 35 32-36 G/DL Red Cell Distribution Width 12.0 10.0-14.5 % Platelet Count 132 130-400 10^3/uL Mean Platelet Volume 11.5 H 7.4-10.4 FL Neutrophils (%) (Auto) 48 42-75 % Lymphocytes (%) (Auto) 40 12-44 % Monocytes (%) (Auto) 9 0-12 % Eosinophils (%) (Auto) 2 0-10 % Basophils (%) (Auto) 1 0-10 % Neutrophils # (Auto) 1.6 L 1.8-7.8 X 10^3 Lymphocytes # (Auto) 1.4 1.0-4.0 X 10^3 Monocytes # (Auto) 0.3 0.0-1.0 X 10^3 Eosinophils # (Auto) 0.1 0.0-0.3 10^3/uL Basophils # (Auto) 0.0 0.0-0.1 10^3/uL Sodium Level 142 135-145 MMOL/L Potassium Level 3.7 3.6-5.0 MMOL/L Chloride Level 104 98-107 MMOL/L Carbon Dioxide Level 25 21-32 MMOL/L Anion Gap 13 5-14 MMOL/L Blood Urea Nitrogen 6 L 7-18 MG/DL Creatinine 0.87 0.60-1.30 MG/DL Estimat Glomerular Filtration Rate > 60 BUN/Creatinine Ratio 7 Glucose Level 88 70-105 MG/DL Calcium Level 9.8 8.5-10.1 MG/DL Corrected Calcium 8.5-10.1 MG/DL Total Bilirubin 0.5 0.1-1.0 MG/DL Aspartate Amino Transf (AST/SGOT) 15 5-34 U/L Alanine Aminotransferase (ALT/SGPT) 10 0-55 U/L Alkaline Phosphatase 61 40-136 U/L Total Protein 7.5 6.4-8.2 GM/DL Albumin 4.8 H 3.2-4.5 GM/DL Lipase 13 8-78 U/L Urine Opiates Screen NEGATIVE NEGATIVE Urine Oxycodone Screen NEGATIVE NEGATIVE Urine Methadone Screen NEGATIVE NEGATIVE Urine Propoxyphene Screen NEGATIVE NEGATIVE Urine Barbiturates Screen NEGATIVE NEGATIVE Ur Tricyclic Antidepressants Screen NEGATIVE NEGATIVE Urine Phencyclidine Screen NEGATIVE NEGATIVE Urine Amphetamines Screen NEGATIVE NEGATIVE Urine Methamphetamines Screen NEGATIVE NEGATIVE Urine Benzodiazepines Screen NEGATIVE NEGATIVE Urine Cocaine Screen NEGATIVE NEGATIVE Urine Cannabinoids Screen POSITIVE H NEGATIVE My Orders Orders - ROSA BUSTILLOS DO Ibuprofen Tablet (Motrin Tablet) (11/18/18 19:00) Cbc With Automated Diff (11/18/18 19:08) Comprehensive Metabolic Panel (11/18/18 19:08) Lipase (11/18/18 19:08) Drug Screen Stat (Urine) (11/18/18 19:08) Ns Iv 1000 Ml (Sodium Chloride 0.9%) (11/18/18 19:15) D5 1/2 Ns 1000 Ml Iv Solution (Dextrose (11/18/18 19:15) Famotidine Injection (Pepcid Injection) (11/18/18 19:15) Ondansetron Injection (Zofran Injectio (11/18/18 19:15) Medications Given in ED Current Medications Medications Dose Ordered Sig/Arely Route Start Time Stop Time Status Last Admin Dose Admin Famotidine 20 mg ONCE ONCE IVP 11/18/18 19:15 11/18/18 19:16 DC 11/18/18 19:24 20 MG Ondansetron HCl 4 mg ONCE ONCE IVP 11/18/18 19:15 11/18/18 19:16 DC 11/18/18 19:24 4 MG Vital Signs/I&O 11/18/18 18:10 Temp 37.1 Pulse 67 Resp 18 B/P (MAP) 121/87 (98) Pulse Ox 99 O2 Delivery Room Air Blood Pressure Mean: 98 Departure Communication (Admissions) Abdomen is soft, nonsurgical. No abdominal pain or emesis in the emergency department. Basic labs reviewed and are consistent with malnutrition. IV fluids given. Recommendations are to discontinue marijuana entirely to continue daily nausea and acid medications. PCP follow-up recommended. Return precautions reviewed. Patient verbalizes understanding and agreement discharge instructions at time of this [place]. Impression Primary Impression: Abdominal pain Additional Impression: Nausea and vomiting Disposition: 01 HOME, SELF-CARE Condition: Stable Departure-Patient Inst. Referrals: BELLA ARBOLEDA MD (PCP/Family) Primary Care Physician Patient Instructions: Nausea and Vomiting, Adult Add. Discharge Instructions: Please discontinue all marijuana use and exposure. Continue home nausea medications and antacids. Follow-up with your PCP as scheduled. All discharge instructions reviewed with patient and/or family. Voiced understanding. ROSA BUSTILLOS DO Nov 18, 2018 21:37
[2018-11-18 22:00] VITALS: BP 119/85
== END 2018-11-18 22:02 | disposition home or self-care (01) ==
LOC: EDUNIT# 18:06 → ER FS 18:08
DX: R10.9 Unspecified abdominal pain (principal); R11.2 Nausea with vomiting, unspecified; K21.9 Gastro-esophageal reflux disease without esophagitis; Z88.5 Allergy status to narcotic agent; Z88.1 Allergy status to other antibiotic agents; Z87.891 Personal history of nicotine dependence; Z82.49 Family history of ischemic heart disease and other diseases of the circulatory system
CPT/HCPCS: 36415; 80053; 80306; 83690; 85025; 96361; 96374; 96375; 99282

== ENCOUNTER 2018-11-26 16:06 | Emergency (ER) | payer OTHER ==
[~2018-11-26] VITALS: Ht 190.5 cm; Wt 50.5 kg
--- NOTE | 2018-11-26 16:23 | ED Chest Pain ---
General Chief Complaint: Chest Pain Stated Complaint: HIGH BP;CHEST TIGHTNESS History of Present Illness Date Seen by Provider: Nov 26, 2018 Time Seen by Provider: 16:18 Initial Comments 28 yo male very thin with cyclic vomiting syndrome seen several times in last several months mostly for GI complaints epigastric pain N/V with + THC drug screens says today he went to have a physical and was told his BR was 212/ and then relates frequent episodes of chest tightness (which he actually localizes to xyphoid/epigastric area) this is reason for today's visit says he's had this symptom for a year noted throughout the day today has no known cardiac or pulmonary condition also has hx of self inflicted superficial lacerations on ext's has a few fresh ones on left lower ext and R upper says he got upset a few days ago, but is OK now, denies further thoughts of, or intention to harm self pt says he just wants to make sure his BP is OK and there's not something serious causing this chronic low grade chest tightness Allergies and Home Medications Allergies Coded Allergies: codeine (Verified Allergy, Intermediate, Vomiting, 08/06/18) clindamycin (Verified Allergy, Unknown, 09/18/18) milk (Verified Allergy, Unknown, 09/18/18) Home Medications Magnesium Oxide 400 Mg Tablet, 400 MG PO DAILY Prescribed by: SABINA DE LA FUENTE on 09/27/18 1311 Omeprazole 20 Mg Capsule.dr, 20 MG PO DAILY Prescribed by: CHRIS GALAVIZ on 08/07/18 1013 Ondansetron 8 Mg Tab.rapdis, 8 MG PO HS Prescribed by: CHRIS GALAVIZ on 08/07/18 1013 Ondansetron 4 Mg Tab.rapdis, 4 MG PO TID Prescribed by: EMELYN DURAND on 11/12/18 1527 Polyethylene Glycol 3350 17 Gm Powd.pack, 17 GM PO BID Prescribed by: SHAGUFTA COMBS on 09/18/18 1208 Potassium Chloride 20 Meq Tablet.er, 20 MEQ PO DAILY Prescribed by: SABINA DE LA FUENTE on 09/27/18 1311 Promethazine HCl 25 Mg Tablet, 25 MG PO Q6H PRN for NAUSEA/VOMITING Prescribed by: SHAGUFTA COMBS on 09/18/18 1209 Ranitidine HCl 150 Mg Tablet, 150 MG PO DAILY, (Reported) Sennosides/Docusate Sodium 1 Each Tablet, 1 EACH PO BID Prescribed by: SHAGUFTA COMBS on 09/18/18 1208 Patient Home Medication List Home Medication List Reviewed: Yes Review of Systems Review of Systems Constitutional: no symptoms reported EENTM: No Symptoms Reported Respiratory: No Symptoms Reported Cardiovascular: Chest Pain; Denies Irregular Heart Rate, Denies Palpitations, Denies Syncope Gastrointestinal: Abdominal Pain Genitourinary: No Symptoms Reported Skin: no symptoms reported Past Lzbdskj-Ttjzvl-Yhaofz Hx Patient Social History Drug of Choice: marijuana Type Used: Cigarettes Former Smoker, Quit: Sep 22, 2013 2nd Hand Smoke Exposure: No Recent Hopitalizations: Yes (low potassium ) Physical Abuse: No Sexual Abuse: No Mistreated: No Fear: No Seasonal Allergies Seasonal Allergies: No Past Medical History Surgeries: Yes Gallbladder Respiratory: No Cardiac: No Neurological: No Genitourinary: No Gastrointestinal: Yes (Gastroenteritis) Gastroesophageal Reflux, Gastrointestinal Bleed Musculoskeletal: No Endocrine: No HEENT: No Cancer: No Psychosocial: No Integumentary: No Blood Disorders: No Adverse Reaction/Blood Tranf: No Family Medical History Asthma G8 BROTHER FH: CVA (cerebrovascular accident) 19 FATHER 19 MOTHER FH: depression 19 MOTHER FH: heart attack 19 MOTHER (X2) FH: kidney disease 19 MOTHER FH: liver disease 19 MOTHER FH: multiple sclerosis 19 FATHER FH: scoliosis G8 BROTHER G8 BROTHER G8 SISTER G8 SISTER Physical Exam Vital Signs Vital Signs - First Documented 11/26/18 16:09 Temp 37.0 Pulse 84 Resp 16 B/P (MAP) 129/91 (104) Pulse Ox 99 O2 Delivery Room Air Capillary Refill : Height, Weight, BMI Height: 6'4.00" Weight: 104lbs. 0.0oz. 47.046910ax; 13.00 BMI Method:Stated General Appearance: No Apparent Distress HEENT: PERRL/EOMI Neck: Supple Respiratory: Chest Non Tender, Lungs Clear, Normal Breath Sounds Cardiovascular: Regular Rate, Rhythm Gastrointestinal: Normal Bowel Sounds, Non Tender, Soft Progress/Results/Core Measures Results/Orders Lab Results Laboratory Tests Test 11/26/18 16:21 Range/Units White Blood Count 3.5 L 4.3-11.0 10^3/uL Red Blood Count 4.35 4.35-5.85 10^6/uL Hemoglobin 14.6 13.3-17.7 G/DL Hematocrit 42 40-54 % Mean Corpuscular Volume 96 80-99 FL Mean Corpuscular Hemoglobin 34 25-34 PG Mean Corpuscular Hemoglobin Concent 35 32-36 G/DL Red Cell Distribution Width 11.9 10.0-14.5 % Platelet Count 154 130-400 10^3/uL Mean Platelet Volume 11.5 H 7.4-10.4 FL Neutrophils (%) (Auto) 46 42-75 % Lymphocytes (%) (Auto) 39 12-44 % Monocytes (%) (Auto) 7 0-12 % Eosinophils (%) (Auto) 6 0-10 % Basophils (%) (Auto) 2 0-10 % Neutrophils # (Auto) 1.6 L 1.8-7.8 X 10^3 Lymphocytes # (Auto) 1.4 1.0-4.0 X 10^3 Monocytes # (Auto) 0.3 0.0-1.0 X 10^3 Eosinophils # (Auto) 0.1 0.0-0.3 10^3/uL Basophils # (Auto) 0.0 0.0-0.1 10^3/uL Sodium Level 141 135-145 MMOL/L Potassium Level 3.4 L 3.6-5.0 MMOL/L Chloride Level 101 98-107 MMOL/L Carbon Dioxide Level 31 21-32 MMOL/L Anion Gap 9 5-14 MMOL/L Blood Urea Nitrogen 7 7-18 MG/DL Creatinine 0.81 0.60-1.30 MG/DL Estimat Glomerular Filtration Rate > 60 BUN/Creatinine Ratio 9 Glucose Level 108 H 70-105 MG/DL Calcium Level 9.4 8.5-10.1 MG/DL Troponin I < 0.30 <0.30 NG/ML My Orders Orders - EMELYN DURAND MD Iv Heplock-Insert (Order) (11/26/18 16:16) Pc Maintenance Technician (11/26/18 16:16) Ekg Tracing (11/26/18 16:16) Chest 1 View Ap/Pa Only (11/26/18 16:16) Cbc With Automated Diff (11/26/18 16:16) Basic Metabolic Panel (11/26/18 16:16) Troponin I Fs (11/26/18 16:16) Vital Signs/I&O 11/26/18 11/26/18 16:09 16:21 Temp 37.0 Pulse 84 Resp 16 B/P (MAP) 129/91 (104) Pulse Ox 99 O2 Delivery Room Air Room Air Progress Progress Note : Progress Note labs including troponin unremarkable monitor showing only sinus rhythm BP's good Comment EKG sinus @ [address] changes normal Diagnostic Imaging Plain Films/CT/US/NM/MRI: chest (chest x-ray appears normal) Departure Impression Primary Impression: Atypical chest pain Disposition: HOME, SELF-CARE Condition: Stable Departure-Patient Inst. Decision time for Depature: 17:05 Referrals: BELLA ARBOLEDA MD (PCP/Family) Primary Care Physician Patient Instructions: Chest Pain That Is Not Caused by the Heart (DC) EMELYN DURAND MD Nov 26, 2018 16:23
--- NOTE | 2018-11-26 16:36 | Diagnostic Imaging Report ---
INDICATION: Chest tightness and pain. COMPARISON: None. DISCUSSION: Single portable upright view of the chest was obtained. Normal heart size. The lungs are hyperinflated. No focal consolidation, pleural fluid, or pneumothorax. No osseous abnormality. IMPRESSION: 1. No acute cardiopulmonary process. Dictated by: Dictated on workstation # [id number]
[2018-11-26 16:52] LABS: HEMATOCRIT 42 % (40-54); HEMOGLOBIN 14.6 G/DL (13.3-17.7); MEAN CORPUSCULAR HEMOGLOBIN 34 PG (25-34); WHITE BLOOD COUNT 3.5 10^3/uL (4.3-11.0)
[2018-11-26 16:53] LABS: BASOPHILS % (AUTO) 2 % (0-10); EOSINOPHILS # (AUTO) 0.1 10^3/uL (0.0-0.3); EOSINOPHILS % (AUTO) 6 % (0-10); LYMPHOCYTES # (AUTO) 1.4 X 10^3 (1.0-4.0); LYMPHOCYTES % (AUTO) 39 % (12-44); MEAN CORPUSCULAR HGB CONC 35 G/DL (32-36); MEAN CORPUSCULAR VOLUME 96 FL (80-99); MEAN PLATELET VOLUME 11.5 FL (7.4-10.4); MONOCYTES # (AUTO) 0.3 X 10^3 (0.0-1.0); MONOCYTES % (AUTO) 7 % (0-12); NEUTROPHILS # (AUTO) 1.6 X 10^3 (1.8-7.8); NEUTROPHILS % (AUTO) 46 % (42-75); PLATELET COUNT 154 10^3/uL (130-400); RED CELL DISTRIBUTION WIDTH 11.9 % (10.0-14.5)
[2018-11-26 16:54] LABS: BUN/CREATININE RATIO 9; CARBON DIOXIDE 31 MMOL/L (21-32); CHLORIDE 101 MMOL/L (98-107); CREATININE SERUM 0.81 MG/DL (0.60-1.30); GFR ESTIMATED > 60; POTASSIUM 3.4 MMOL/L (3.6-5.0); SODIUM 141 MMOL/L (135-145)
[2018-11-26 16:55] LABS: CALCIUM 9.4 MG/DL (8.5-10.1); GLUCOSE 108 MG/DL (70-105)
[2018-11-26 17:18] VITALS: BP 105/71
== END 2018-11-26 17:18 | disposition home or self-care (01) ==
LOC: EDUNIT# 16:06 → ER FS 16:07
DX: R07.89 Other chest pain (principal); K21.9 Gastro-esophageal reflux disease without esophagitis; Z88.5 Allergy status to narcotic agent; Z88.1 Allergy status to other antibiotic agents; Z87.891 Personal history of nicotine dependence; Z82.49 Family history of ischemic heart disease and other diseases of the circulatory system
CPT/HCPCS: 36415; 71045; 80048; 84484; 85025; 93005

== ENCOUNTER → 2019-01-09 | Outpatient (CLI) | payer OTHER | LOC: CARD 12:32 | PROVIDERS: ATTEND Internal Medicine Cardiovascular Disease | DX: I95.9 Hypotension, unspecified (principal); R07.9 Chest pain, unspecified; R06.09 Other forms of dyspnea; Z82.49 Family history of ischemic heart disease and other diseases of the circulatory system | CPT/HCPCS: 93306 ==

== ENCOUNTER 2019-01-18 15:33 | Emergency (ER) | payer SELFPAY ==
[~2019-01-18] VITALS: Ht 190 cm; Wt 50.0 kg
--- NOTE | 2019-01-18 16:12 | ED General ---
General Chief Complaint: Exposure Stated Complaint: HEADACHE; GAS LEAK EXPOSURE Nursing Triage Note: PT REPORTS HE HAS BEEN EXPOSED TO A 'GAS LEAK" FOR 2 MONTHS OFF AND ON WHEN HIS BEDROOM DOOR GETS OPENED AND HE IS CONERNED TODAY BC FAMILY TOLD HIM TO GET CHECK OUT. Nursing Sepsis Screen: No Definite Risk Source of Information: Patient Exam Limitations: No Limitations History of Present Illness Date Seen by Provider: Jan 18, 2019 Time Seen by Provider: 16:09 Initial Comments Patient complains of headache dizziness for the past 2 weeks. He says he is exposed to gas at his apartment building. No other sick people from the building. He is nauseated but has not vomited. His primary care physician ordered a head CT on him. CT was negative Allergies and Home Medications Allergies Coded Allergies: codeine (Verified Allergy, Intermediate, Vomiting, 08/06/18) clindamycin (Verified Allergy, Unknown, 09/18/18) milk (Verified Allergy, Unknown, 09/18/18) Home Medications Magnesium Oxide 400 Mg Tablet, 400 MG PO DAILY Prescribed by: SABINA DE LA FUENTE on 09/27/18 1311 Omeprazole 20 Mg Capsule.dr, 20 MG PO DAILY Prescribed by: CHRIS GALAVIZ on 08/07/18 1013 Ondansetron 8 Mg Tab.rapdis, 8 MG PO HS Prescribed by: CHRIS GALAVIZ on 08/07/18 1013 Ondansetron 4 Mg Tab.rapdis, 4 MG PO TID Prescribed by: EMELYN DURAND on 11/12/18 1527 Polyethylene Glycol 3350 17 Gm Powd.pack, 17 GM PO BID Prescribed by: SHAGUFTA COMBS on 09/18/18 1208 Potassium Chloride 20 Meq Tablet.er, 20 MEQ PO DAILY Prescribed by: SABINA DE LA FUENTE on 09/27/18 1311 Promethazine HCl 25 Mg Tablet, 25 MG PO Q6H PRN for NAUSEA/VOMITING Prescribed by: SHAGUFTA COMBS on 09/18/18 1209 Ranitidine HCl 150 Mg Tablet, 150 MG PO DAILY, (Reported) Sennosides/Docusate Sodium 1 Each Tablet, 1 EACH PO BID Prescribed by: SHAGUFTA COMBS on 09/18/18 1208 Patient Home Medication List Home Medication List Reviewed: Yes Review of Systems Review of Systems Constitutional: No fever Respiratory: no symptoms reported Cardiovascular: no symptoms reported Musculoskeletal: no symptoms reported Skin: no symptoms reported Psychiatric/Neurological: Headache All Other Systems Reviewed Negative Unless Noted: Yes Past Djxrdgs-Vciduv-Qdpzxb Hx Patient Social History Alcohol Use: Denies Use Recreational Drug Use: No Drug of Choice: marijuana Type Used: Cigarettes Former Smoker, Quit: Sep 22, 2013 2nd Hand Smoke Exposure: No Recent Foreign Travel: No Contact w/Someone Who Travel: No Recent Infectious Disease Expo: No Recent Hopitalizations: Yes (low potassium ) Physical Abuse: No Sexual Abuse: No Mistreated: No Fear: No Seasonal Allergies Seasonal Allergies: No Past Medical History Surgeries: Yes Gallbladder Respiratory: No Cardiac: No Neurological: No Genitourinary: No Gastrointestinal: Yes (Gastroenteritis, Cyclic vomiting disorder) Gastroesophageal Reflux, Gastrointestinal Bleed Musculoskeletal: No Endocrine: No HEENT: No Cancer: No Psychosocial: No Integumentary: No Blood Disorders: No Adverse Reaction/Blood Tranf: No Family Medical History Asthma G8 BROTHER FH: CVA (cerebrovascular accident) 19 FATHER 19 MOTHER FH: depression 19 MOTHER FH: heart attack 19 MOTHER (X2) FH: kidney disease 19 MOTHER FH: liver disease 19 MOTHER FH: multiple sclerosis 19 FATHER FH: scoliosis G8 BROTHER G8 BROTHER G8 SISTER G8 SISTER Physical Exam Vital Signs Vital Signs - First Documented 01/18/19 15:57 Temp 36.5 Pulse 85 Resp 18 B/P (MAP) 120/88 (99) O2 Delivery Room Air Capillary Refill : Less Than 3 Seconds Height, Weight, BMI Height: 6'4.00" Weight: 104lbs. 0.0oz. 47.766291dx; 13.00 BMI Method:Stated General Appearance: No Apparent Distress, WD/WN Eyes: Bilateral Eye Normal Inspection, Bilateral Eye PERRL, Bilateral Eye EOMI HEENT: PERRL/EOMI, Pharynx Normal Neck: Supple Respiratory: Lungs Clear, Normal Breath Sounds Cardiovascular: Regular Rate, Rhythm Gastrointestinal: Soft Extremity: Normal Inspection Neurologic/Psychiatric: Alert, Oriented x3, No Motor/Sensory Deficits, Normal Mood/Affect, apparel pattern maker II-XII Norm as Tested Skin: Normal Color, Warm/Dry Progress/Results/Core Measures Suspected Sepsis Recent Fever Within 48 Hours: No Infection Criteria Present: None New/Unexplained Altered Menta: No Sepsis Screen: No Definite Risk SIRS Temperature: Pulse: 85 Respiratory Rate: 18 Blood Pressure 120 /88 Mean: 99 Results/Orders My Orders Orders - MOLLY IRWIN MD Acetaminophen Tablet (Tylenol Tablet) (01/18/19 16:15) Meclizine Tablet (Antivert Tablet) (01/18/19 16:15) Vital Signs/I&O 01/18/19 15:57 Temp 36.5 Pulse 85 Resp 18 B/P (MAP) 120/88 (99) O2 Delivery Room Air Capillary Refill : Less Than 3 Seconds Blood Pressure Mean: 99 POS Departure Impression Primary Impression: Headache Disposition: 01 HOME, SELF-CARE Condition: Stable Departure-Patient Inst. Decision time for Depature: 16:11 Referrals: [facility] (PCP) Primary Care Physician CHHAYA GOODE APRN (Family) Primary Care Physician Patient Instructions: Headache, Adult (DC) Add. Discharge Instructions: Follow-up with your primary care physician for evaluation of these chronic medical issues. All discharge instructions reviewed with patient and/or family. Voiced understanding. MOLLY IRWIN MD Jan 18, 2019 16:12 POS
[2019-01-18] MEDS ORDERED: ACETAMINOPHEN 500 MG TAB (TYLENOL) PO ONE (16:15)
[2019-01-18] MEDS ORDERED: MECLIZINE 25 MG (ANTIVERT) TAB PO ONE (16:15)
[2019-01-18 16:34] VITALS: BP 120/88
== END 2019-01-18 16:35 | disposition home or self-care (01) ==
LOC: EDUNIT# 15:33 → ER FS 15:34
DX: R51 Headache (principal); K21.9 Gastro-esophageal reflux disease without esophagitis; Z88.5 Allergy status to narcotic agent; Z88.1 Allergy status to other antibiotic agents; Z87.891 Personal history of nicotine dependence; Z82.49 Family history of ischemic heart disease and other diseases of the circulatory system
CPT/HCPCS: 99283

== ENCOUNTER → 2019-01-18 | Outpatient (CLI) | payer OTHER ==
--- NOTE | 2019-01-18 09:51 | Diagnostic Imaging Report ---
PROCEDURE: CT head without contrast. TECHNIQUE: Multiple contiguous axial images were obtained through the brain without the use of intravenous contrast. Auto Exposure Controls were utilized during the CT exam to meet ALARA standards for radiation dose reduction. INDICATION: Headache. COMPARISON: None. FINDINGS: No intracranial hemorrhage, mass effect, hydrocephalus or extra-axial fluid collections. No CT evidence for territorial infarction. Osseous structures are intact. The visualized paranasal sinuses and mastoids are clear. IMPRESSION: Negative head CT. Dictated by: Dictated on workstation # [id number]
== END ==
LOC: RAD FS 09:30
PROVIDERS: ATTEND Nurse Practitioner
DX: R51 Headache (principal)
CPT/HCPCS: 70450

== ENCOUNTER 2019-02-16 11:13 | Emergency (ER) | payer SELFPAY ==
[~2019-02-16] VITALS: Ht 190.5 cm; Wt 46.1 kg
[~2019-02-16 11:13] MED LIST changes: -MAGN64TA8 PO; -POTA20PA28 PO
[2019-02-16] MEDS ORDERED: NS IV 1000 ML 1,000 ML IV SCH (11:30)
[2019-02-16] MEDS ORDERED: POT PHOS/NA PHOS (K-PHOS NEUTRAL) PO ONE (11:30)
--- NOTE | 2019-02-16 11:32 | ED General ---
General Chief Complaint: General Problems/Pain Stated Complaint: ABN LAB RESULTS Source of Information: Patient Exam Limitations: No Limitations History of Present Illness Date Seen by Provider: Feb 16, 2019 Time Seen by Provider: 11:30 Initial Comments This 28-year-old male presents with a history of vomiting with secondary hypokalemia. Patient's potassium was 2.4 on recent phlebotomy. He has been referred to the emergency department for treatment. Allergies and Home Medications Allergies Coded Allergies: codeine (Verified Allergy, Intermediate, Vomiting, 08/06/18) clindamycin (Verified Allergy, Unknown, 09/18/18) milk (Verified Allergy, Unknown, 09/18/18) Home Medications Magnesium Chloride 64 Mg Tablet.er, 64 MG PO TID Prescribed by: CHRIS CARD MD on 02/16/19 1451 Magnesium Oxide 400 Mg Tablet, 400 MG PO DAILY Prescribed by: SABINA DE LA FUENTE on 09/27/18 1311 Omeprazole 20 Mg Capsule.dr, 20 MG PO DAILY Prescribed by: CHRIS GALAVIZ on 08/07/18 1013 Ondansetron 8 Mg Tab.rapdis, 8 MG PO HS Prescribed by: CHRIS GALAVIZ on 08/07/18 1013 Ondansetron 4 Mg Tab.rapdis, 4 MG PO TID Prescribed by: EMELYN DURAND on 11/12/18 1527 Polyethylene Glycol 3350 17 Gm Powd.pack, 17 GM PO BID Prescribed by: SHAGUFTA COMBS on 09/18/18 1208 Potassium Chloride 20 Meq Tablet.er, 20 MEQ PO DAILY Prescribed by: SABINA DE LA FUENTE on 09/27/18 1311 Potassium Chloride 20 Meq Packet, 20 MEQ PO TID Prescribed by: CHRIS CARD MD on 02/16/19 1451 Promethazine HCl 25 Mg Tablet, 25 MG PO Q6H PRN for NAUSEA/VOMITING Prescribed by: SHAGUFTA COMBS on 09/18/18 1209 Ranitidine HCl 150 Mg Tablet, 150 MG PO DAILY, (Reported) Sennosides/Docusate Sodium 1 Each Tablet, 1 EACH PO BID Prescribed by: SHAGUFTA COMBS on 09/18/18 1208 Patient Home Medication List Home Medication List Reviewed: Yes Review of Systems Review of Systems Constitutional: No chills; malaise, weakness EENTM: no symptoms reported Respiratory: No cough, No short of breath Cardiovascular: No chest pain Gastrointestinal: nausea, vomiting Genitourinary: no symptoms reported Musculoskeletal: no symptoms reported Skin: no symptoms reported Psychiatric/Neurological: No Symptoms Reported Hematologic/Lymphatic: No Symptoms Reported Immunological/Allergic: no symptoms reported Past Ydkwhyr-Dlrjrw-Bdgfcd Hx Past Med/Social Hx: Reviewed Nursing Past Med/Soc Hx Patient Social History Alcohol Use: Denies Use Recreational Drug Use: Yes Drug of Choice: marijuana Type Used: Cigarettes Former Smoker, Quit: Sep 22, 2013 2nd Hand Smoke Exposure: No Recent Foreign Travel: No Recent Hopitalizations: Yes (low potassium ) Physical Abuse: No Sexual Abuse: No Mistreated: No Fear: No Seasonal Allergies Seasonal Allergies: No Past Medical History Surgeries: Yes Gallbladder Respiratory: No Cardiac: No Neurological: No Genitourinary: No Gastrointestinal: Yes (Gastroenteritis, Cyclic vomiting disorder) Gastroesophageal Reflux, Gastrointestinal Bleed Musculoskeletal: No Endocrine: No HEENT: No Cancer: No Psychosocial: No Integumentary: No Blood Disorders: No Adverse Reaction/Blood Tranf: No Family Medical History Asthma G8 BROTHER FH: CVA (cerebrovascular accident) 19 FATHER 19 MOTHER FH: depression 19 MOTHER FH: heart attack 19 MOTHER (X2) FH: kidney disease 19 MOTHER FH: liver disease 19 MOTHER FH: multiple sclerosis 19 FATHER FH: scoliosis G8 BROTHER G8 BROTHER G8 SISTER G8 SISTER Physical Exam Vital Signs Vital Signs - First Documented 02/16/19 11:18 Temp 36.7 Pulse 69 Resp 15 B/P (MAP) 111/75 (87) Pulse Ox 100 O2 Delivery Room Air Capillary Refill : Height, Weight, BMI Height: 6'4.00" Weight: 104lbs. 0.0oz. 47.638004ef; 13.00 BMI Method:Stated General Appearance: No Apparent Distress, Thin Eyes: Bilateral Eye Normal Inspection HEENT: Normal ENT Inspection Neck: Normal Inspection Respiratory: Lungs Clear Cardiovascular: Regular Rate, Rhythm Gastrointestinal: Normal Bowel Sounds, Non Tender, Soft Extremity: Normal Inspection Neurologic/Psychiatric: Alert, No Motor/Sensory Deficits Skin: Normal Color, Warm/Dry Progress/Results/Core Measures Suspected Sepsis SIRS Temperature: Pulse: Respiratory Rate: Laboratory Tests 02/16/19 11:29: White Blood Count 2.8L Blood Pressure / Mean: Laboratory Tests 02/16/19 11:29: Creatinine 0.88, Platelet Count 184, Total Bilirubin 0.5 02/16/19 13:36: Creatinine 0.82 Results/Orders Lab Results Laboratory Tests Test 02/16/19 11:29 02/16/19 13:36 Range/Units White Blood Count 2.8 L 4.3-11.0 10^3/uL Red Blood Count 4.55 4.35-5.85 10^6/uL Hemoglobin 15.2 13.3-17.7 G/DL Hematocrit 41 40-54 % Mean Corpuscular Volume 91 80-99 FL Mean Corpuscular Hemoglobin 33 25-34 PG Mean Corpuscular Hemoglobin Concent 37 H 32-36 G/DL Red Cell Distribution Width 11.3 10.0-14.5 % Platelet Count 184 130-400 10^3/uL Mean Platelet Volume 10.8 H 7.4-10.4 FL Neutrophils (%) (Auto) 39 L 42-75 % Lymphocytes (%) (Auto) 44 12-44 % Monocytes (%) (Auto) 14 H 0-12 % Eosinophils (%) (Auto) 2 0-10 % Basophils (%) (Auto) 1 0-10 % Neutrophils # (Auto) 1.1 L 1.8-7.8 X 10^3 Lymphocytes # (Auto) 1.2 1.0-4.0 X 10^3 Monocytes # (Auto) 0.4 0.0-1.0 X 10^3 Eosinophils # (Auto) 0.1 0.0-0.3 10^3/uL Basophils # (Auto) 0.0 0.0-0.1 10^3/uL Sodium Level 134 L 135 135-145 MMOL/L Potassium Level 2.3 *L 2.5 *L 3.6-5.0 MMOL/L Chloride Level 80 L 86 L 98-107 MMOL/L Carbon Dioxide Level 42 H 36 H 21-32 MMOL/L Anion Gap 12 13 5-14 MMOL/L Blood Urea Nitrogen 12 11 7-18 MG/DL Creatinine 0.88 0.82 0.60-1.30 MG/DL Estimat Glomerular Filtration Rate > 60 > 60 BUN/Creatinine Ratio 14 13 Glucose Level 107 H 88 70-105 MG/DL Calcium Level 10.2 H 9.0 8.5-10.1 MG/DL Corrected Calcium 8.5-10.1 MG/DL Total Bilirubin 0.5 0.1-1.0 MG/DL Aspartate Amino Transf (AST/SGOT) 23 5-34 U/L Alanine Aminotransferase (ALT/SGPT) 15 0-55 U/L Alkaline Phosphatase 76 40-136 U/L Total Protein 8.1 6.4-8.2 GM/DL Albumin 5.1 H 3.2-4.5 GM/DL My Orders Orders - CHRIS CARD MD Cbc With Automated Diff (02/16/19 11:23) Comprehensive Metabolic Panel (02/16/19 11:23) Ua Culture If Indicated (02/16/19 11:23) Ekg Tracing (02/16/19 11:23) Ns Iv 1000 Ml (Sodium Chloride 0.9%) (02/16/19 11:30) Potassium Cl 10meq/50ml Ivpb (Kcl 10 Meq (02/16/19 11:30) Potassium Chloride (Tablet) (K Dur Table (02/16/19 11:45) Basic Metabolic Panel (02/16/19 12:45) Magnesium 1 Gm/100 Ml Ivpb (Magnesium Bella (02/16/19 14:15) Medications Given in ED Current Medications Medications Dose Ordered Sig/Arely Route Start Time Stop Time Status Last Admin Dose Admin Potassium Chloride 20 meq ONCE ONCE PO 02/16/19 11:45 02/16/19 11:46 DC 02/16/19 11:58 20 MEQ Vital Signs/I&O 02/16/19 11:18 Temp 36.7 Pulse 69 Resp 15 B/P (MAP) 111/75 (87) Pulse Ox 100 O2 Delivery Room Air Capillary Refill : Progress Note : Time: 14:08 Progress Note The patient received oral and IV potassium as well as IV magnesium 2 g.. His repeat potassium increased from 2.3 to 2.5. Remainder the patient's workup including EKG were unremarkable. Patient was symptomatically improved. He was discharged. He was asked to continue with oral potassium and magnesium. He was asked to follow-up with his caregiver on Wednesday. He was asked to return if any problems or questions. ECG Initial ECG Impression Date: Feb 16, 2019 Departure Impression Primary Impression: Hypokalemia Disposition: 01 HOME, SELF-CARE Condition: Improved Departure-Patient Inst. Decision time for Depature: 14:49 Referrals: [facility] (PCP) Primary Care Physician CHHAYA GOODE APRN (Family) Primary Care Physician Patient Instructions: Hypokalemia (DC) Add. Discharge Instructions: Increase your oral potassium and magnesium with food and tablets. Close follow- up with your [facility] manager on Wednesday. Return if any problems or questions All discharge instructions reviewed with patient and/or family. Voiced understanding. Scripts Potassium Chloride (Potassium Chloride) 20 Meq Packet 20 MEQ PO TID, #20 PACKET Prov: CHRIS CARD MD 02/16/19 Magnesium Chloride (Mag64) 64 Mg Tablet.er 64 MG PO TID, #20 TAB Prov: CHRIS CARD MD 02/16/19 CHRIS CARD MD Feb 16, 2019 11:32
[2019-02-16 11:44] LABS: HEMATOCRIT 41 % (40-54); HEMOGLOBIN 15.2 G/DL (13.3-17.7); MEAN CORPUSCULAR HEMOGLOBIN 33 PG (25-34); MEAN CORPUSCULAR HGB CONC 37 G/DL (32-36); MEAN CORPUSCULAR VOLUME 91 FL (80-99); MEAN PLATELET VOLUME 10.8 FL (7.4-10.4); NEUTROPHILS % (AUTO) 39 % (42-75); PLATELET COUNT 184 10^3/uL (130-400); RED CELL DISTRIBUTION WIDTH 11.3 % (10.0-14.5); WHITE BLOOD COUNT 2.8 10^3/uL (4.3-11.0)
[2019-02-16 11:45] LABS: BASOPHILS % (AUTO) 1 % (0-10); EOSINOPHILS # (AUTO) 0.1 10^3/uL (0.0-0.3); EOSINOPHILS % (AUTO) 2 % (0-10); LYMPHOCYTES # (AUTO) 1.2 X 10^3 (1.0-4.0); LYMPHOCYTES % (AUTO) 44 % (12-44); MONOCYTES # (AUTO) 0.4 X 10^3 (0.0-1.0); MONOCYTES % (AUTO) 14 % (0-12); NEUTROPHILS # (AUTO) 1.1 X 10^3 (1.8-7.8)
[2019-02-16] MEDS ORDERED: KCL 20 MEQ TAB (K-DUR) PO ONE (11:45)
[2019-02-16] MEDS: POTASSIUM CL 10MEQ/50ML IVPB 50 ML IV SCH ×3 (11:58→13:35)
[2019-02-16 12:08] LABS: SODIUM 134 MMOL/L (135-145)
[2019-02-16 12:09] LABS: ALANINE AMINOTRANSFERASE 15 U/L (0-55); ALBUMIN 5.1 GM/DL (3.2-4.5); ALKALINE PHOSPHATASE 76 U/L (40-136); BILIRUBIN,TOTAL 0.5 MG/DL (0.1-1.0); BUN/CREATININE RATIO 14; CALCIUM 10.2 MG/DL (8.5-10.1); CARBON DIOXIDE 42 MMOL/L (21-32); CHLORIDE 80 MMOL/L (98-107); CREATININE SERUM 0.88 MG/DL (0.60-1.30); GFR ESTIMATED > 60; GLUCOSE 107 MG/DL (70-105); POTASSIUM 2.3 MMOL/L (3.6-5.0); TOTAL PROTEIN 8.1 GM/DL (6.4-8.2)
[2019-02-16 14:03] LABS: SODIUM 135 MMOL/L (135-145)
[2019-02-16 14:04] LABS: BUN/CREATININE RATIO 13; CARBON DIOXIDE 36 MMOL/L (21-32); CHLORIDE 86 MMOL/L (98-107); CREATININE SERUM 0.82 MG/DL (0.60-1.30); GFR ESTIMATED > 60; GLUCOSE 88 MG/DL (70-105); POTASSIUM 2.5 MMOL/L (3.6-5.0)
[2019-02-16] MEDS ORDERED: MAGNESIUM 1 GM/100 ML IVPB 100 ML IV SCH (14:15)
[2019-02-16] MEDS ORDERED: POTA20PA28 PO (14:51)
[2019-02-16] MEDS ORDERED: MAGN64TA8 PO (14:51)
[2019-02-16 15:21] VITALS: BP 102/62
== END 2019-02-16 15:21 | disposition home or self-care (01) ==
LOC: EDUNIT# 11:13 → ER FS 11:14
DX: E87.6 Hypokalemia (principal); K21.9 Gastro-esophageal reflux disease without esophagitis; Z88.5 Allergy status to narcotic agent; Z88.1 Allergy status to other antibiotic agents; Z87.891 Personal history of nicotine dependence; Z82.49 Family history of ischemic heart disease and other diseases of the circulatory system
CPT/HCPCS: 36415; 80048; 80053; 85025; 93005; 96361; 96365

== ENCOUNTER → 2019-02-16 | Outpatient (CLI) | payer OTHER ==
[~2019-02-16] MED LIST changes: +MAGN64TA8 PO; +POTA20PA28 PO
[2019-02-16 10:19] LABS: SODIUM 134 MMOL/L (135-145)
[2019-02-16 10:24] LABS: ALANINE AMINOTRANSFERASE 14 U/L (0-55); ALKALINE PHOSPHATASE 72 U/L (40-136); BILIRUBIN,TOTAL 0.4 MG/DL (0.1-1.0); BUN/CREATININE RATIO 14; CALCIUM 9.8 MG/DL (8.5-10.1); CARBON DIOXIDE 40 MMOL/L (21-32); CHLORIDE 80 MMOL/L (98-107); CREATININE SERUM 0.88 MG/DL (0.60-1.30); GFR ESTIMATED > 60; GLUCOSE 115 MG/DL (70-105); MAGNESIUM 2.4 MG/DL (1.6-2.4); POTASSIUM 2.4 MMOL/L (3.6-5.0); TOTAL PROTEIN 7.6 GM/DL (6.4-8.2)
== END ==
LOC: LAB FS 09:36
PROVIDERS: ATTEND Nurse Practitioner
DX: E87.6 Hypokalemia (principal); R25.2 Cramp and spasm
CPT/HCPCS: 36415; 80053; 83735

== ENCOUNTER → 2019-02-27 | Outpatient (CLI) | payer OTHER ==
[~2019-02-27] MED LIST changes: +MAGN64TA8 PO; +POTA20PA28 PO
[2019-03-01 14:25] VITALS: BP 87/52
--- NOTE | 2019-03-01 14:25 | Cardiology Stress Test Report ---
Stress Test Report Date of Procedure/Referring: Date of Procedure: Feb 27, 2019 PCP Elis Trivedi MD Admitting Physician [facility] Baseline Heart Rate: 55 Baseline Blood Pressure: Blood Pressure Systolic: 87 Blood Pressure Diastolic: 52 Baseline EKG: Baseline EKG: NSR Summary/Conclusion: Summary: In summary, the patient started exercising with a baseline heart rate, blood pressure and EKG mentioned above Patient was able to exercise for a total of 4:36 minutes on [place] protocol, 6.4 METs Maximum heart rate 105 Maximum blood pressure 109/55 Stress EKG Minimal nondiagnostic changes Recovery EKG Return to baseline Conclusion: 1. Poor exercise tolerance due to extreme weakness and fatigue for a total of 4:36 minutes on [place] protocol, 6.4 METs, achieving 54 percent of maximum expected heart rate 2. Minimal nondiagnostic EKG changes with exercise returned to baseline during recovery 3. No arrhythmia was noted ELIS TRIVEDI MD Mar 01, 2019 14:25
== END ==
LOC: CARD 10:37
PROVIDERS: ATTEND Internal Medicine Cardiovascular Disease
DX: I95.9 Hypotension, unspecified (principal); R06.09 Other forms of dyspnea; R07.9 Chest pain, unspecified; Z82.49 Family history of ischemic heart disease and other diseases of the circulatory system
CPT/HCPCS: 93017

== ENCOUNTER 2019-03-30 12:15 | Outpatient (CLI) | payer OTHER ==
[~2019-03-30] VITALS: Ht 190.5 cm; Wt 50.0 kg
[~2019-03-30 12:15] MED LIST changes: +OMEP-280 PO; -OMEP20CA13 PO; -RANI-515 PO; +RANI-609 PO
[2019-03-30] MEDS ORDERED: SUCR1TAB36 PO (12:35)
[2019-03-30] MEDS ORDERED: BUPR150T14 PO (12:35)
[2019-03-30] MEDS ORDERED: PANT20TA3 PO (12:35)
[2019-03-30] MEDS ORDERED: MAGN400T7 PO (12:35)
[2019-03-30] MEDS ORDERED: ONDA4TAB11 PO (12:35)
[2019-04-04] MEDS ORDERED: PANT40TA2 PO (18:18)
== END 2019-03-30 12:56 | disposition home or self-care (01) ==
LOC: PREOP 12:15
PROVIDERS: ATTEND Surgery
DX: Z01.818 Encounter for other preprocedural examination (principal)

== ENCOUNTER → 2019-04-18 | Outpatient (CLI) | payer SELFPAY ==
[~2019-04-18] MED LIST changes: +BUPR150T14 PO; +CATHETER FLUSH 10 ML SYR IV PRN; +HOLD METFORMIN - RECEIVED CONTRAST 20 ML VIAL IV SCH; +IOHEXOL 350 MG/ML 100 ML (OMNIPAQUE 350) VIAL IV ONE; +MAGN400T7 PO; +NS 100 ML (IVPB) BAG IV ONE; -OMEP-280 PO; +OMEP20CA18 PO; +PANT20TA3 PO; +PANT40TA2 PO; +SUCR1TAB36 PO
--- NOTE | 2019-04-18 09:45 | Diagnostic Imaging Report ---
PROCEDURE: CT abdomen and pelvis with contrast, rule out appendicitis. TECHNIQUE: Multiple contiguous axial images were obtained through the abdomen and pelvis after the administration of intravenous contrast. All CT scans use one or more of the following dose optimizing techniques: automated exposure control, MA and/or KvP adjustment based on a patient size and exam type, or iterative reconstruction. INDICATION: Epigastric pain. COMPARISON: September 18, 2018 FINDINGS: The visualized lung bases are clear. Cholecystectomy. The liver, spleen, adrenal glands, and pancreas are unremarkable. The kidneys are unremarkable. No aneurysm or dissection associated with the abdominal aorta. The urinary bladder is unremarkable. No evidence of bowel obstruction or pneumatosis. Significant amount of stool throughout the colon, particularly distally. The appendix is not definitely visualized. Near complete absence of intra-abdominal fat. The urinary bladder is unremarkable. No significant adenopathy, free air, or free fluid within the abdomen or pelvis. No acute osseous abnormality. IMPRESSION: The appendix is not definitely visualized. Significant amount stool throughout the colon, which can be seen with constipation. Additional findings as described above. Dictated by: Dictated on workstation # [id number]
== END ==
LOC: RAD FS 09:08
PROVIDERS: ATTEND Surgery
DX: R10.816 Epigastric abdominal tenderness (principal); R10.13 Epigastric pain
CPT/HCPCS: 74177

== ENCOUNTER → 2019-05-05 | Outpatient (CLI) | payer SELFPAY ==
[~2019-05-05] MED LIST changes: -CATHETER FLUSH 10 ML SYR IV PRN; -HOLD METFORMIN - RECEIVED CONTRAST 20 ML VIAL IV SCH; -IOHEXOL 350 MG/ML 100 ML (OMNIPAQUE 350) VIAL IV ONE; -NS 100 ML (IVPB) BAG IV ONE
[2019-05-05 14:07] LABS: BUN/CREATININE RATIO 8; CARBON DIOXIDE 26 MMOL/L (21-32); CHLORIDE 102 MMOL/L (98-107); CREATININE SERUM 0.83 MG/DL (0.60-1.30); GFR ESTIMATED > 60; POTASSIUM 3.7 MMOL/L (3.6-5.0); SODIUM 141 MMOL/L (135-145)
[2019-05-05 14:08] LABS: CALCIUM 9.7 MG/DL (8.5-10.1); GLUCOSE 90 MG/DL (70-105)
== END ==
LOC: LAB FS 13:22
PROVIDERS: ATTEND Nurse Practitioner
DX: E87.6 Hypokalemia (principal)
CPT/HCPCS: 36415; 80048

== ENCOUNTER → 2019-07-18 | Outpatient (CLI) | payer SELFPAY ==
--- NOTE | 2019-07-18 12:04 | Diagnostic Imaging Report ---
EXAMINATION: Right upper extremity CT from 07/18/2019. TECHNIQUE: Multiple contiguous axial images were obtained through the right upper extremity without the use of intravenous contrast. Sagittal and coronal reformations were then performed. Auto Exposure Controls were utilized during the CT exam to meet ALARA standards for radiation dose reduction. INDICATION: Right forearm pain, no known injuries, started one week ago, pain all over the arm. FINDINGS: Axial with somewhat obliqued reconstructed imaging performed. Lateral reconstructed imaging is not provided. No fractures appreciated. No dislocations are seen. Visualized aspects of the wrist are grossly intact. The soft tissues are not well evaluated on CT but grossly unremarkable. If there is concern for soft tissue abnormality, MRI could better characterize as clinically indicated. IMPRESSION: 1. No acute osseous abnormality. Dictated by: Dictated on workstation # [id number]
== END ==
LOC: RAD FS 08:54
PROVIDERS: ATTEND Nurse Practitioner
DX: M79.631 Pain in right forearm (principal)
CPT/HCPCS: 73200

== ENCOUNTER 2019-08-02 16:41 | Emergency (ER) | payer SELFPAY ==
[~2019-08-02] VITALS: Ht 190.5 cm; Wt 52.2 kg
--- NOTE | 2019-08-02 16:51 | ED General ---
General Chief Complaint: General Problems/Pain Stated Complaint: DIARRHEA,TINGLING IN HANDS History of Present Illness Date Seen by Provider: Aug 02, 2019 Time Seen by Provider: 16:51 Initial Comments 29-year-old male presents with some diarrhea, tingling in his hands. Patient has chronic recurrent nausea vomiting diarrhea with chronic low potassium. Patient states that he concerns potassium might be low since this is how he feels like does get low. Patient has been on linzess for approximately 2 weeks. Patient also was a chronic cannabis user and quit that approximately 2 weeks ago. Patient denies any fevers, chills. Patient reports that his diarrhea been going on for 2-3 days. Patient with no fever, he does have some mild abdominal cramping. Allergies and Home Medications Allergies Coded Allergies: codeine (Verified Allergy, Intermediate, Vomiting, 08/06/18) clindamycin (Verified Allergy, Unknown, 09/18/18) milk (Verified Allergy, Unknown, 09/18/18) Home Medications Bupropion HCl 150 Mg Tablet.er, 150 MG PO BID, (Reported) Magnesium Oxide 400 Mg Tablet, 400 MG PO DAILY, (Reported) Ondansetron 4 Mg Tab.rapdis, 4 MG PO Q4H PRN for NAUSEA/VOMITING, (Reported) Pantoprazole Sodium 40 Mg Tablet.dr, 40 MG PO DAILY Prescribed by: LEONEL DELANEY on 04/04/191817 Sucralfate 1 Gm Tablet, 1 GM PO QID, (Reported) Patient Home Medication List Home Medication List Reviewed: Yes Review of Systems Review of Systems Constitutional: No chills, No fever Respiratory: no symptoms reported Cardiovascular: no symptoms reported Gastrointestinal: see HPI, diarrhea Genitourinary: no symptoms reported Musculoskeletal: see HPI Skin: no symptoms reported Past Qeckcay-Slbzwo-Prhcrv Hx Past Med/Social Hx: Reviewed Nursing Past Med/Soc Hx Patient Social History Alcohol Use: Denies Use Recreational Drug Use: Yes Drug of Choice: marijuana Smoking Status: Former Smoker Type Used: Cigarettes Former Smoker, Quit: Feb 22, 2019 2nd Hand Smoke Exposure: No Recent Foreign Travel: No Contact w/Someone Who Travel: No Recent Hopitalizations: No Seasonal Allergies Seasonal Allergies: No Past Medical History Surgeries: Yes Gallbladder Respiratory: No Cardiac: No Neurological: No Genitourinary: No Gastrointestinal: Yes (Gastroenteritis, Cyclic vomiting disorder) Gastroesophageal Reflux, Gastrointestinal Bleed Musculoskeletal: No Endocrine: No HEENT: No Cancer: No Psychosocial: No Integumentary: No Blood Disorders: No Adverse Reaction/Blood Tranf: No Family Medical History Asthma G8 BROTHER FH: CVA (cerebrovascular accident) 19 FATHER 19 MOTHER FH: depression 19 MOTHER FH: heart attack 19 MOTHER (X2) FH: kidney disease 19 MOTHER FH: liver disease 19 MOTHER FH: multiple sclerosis 19 FATHER FH: scoliosis G8 BROTHER G8 BROTHER G8 SISTER G8 SISTER Physical Exam Vital Signs Vital Signs - First Documented 08/02/19 16:55 Temp 36.5 Pulse 62 Resp 16 B/P (MAP) 108/72 (84) Pulse Ox 99 O2 Delivery Room Air Capillary Refill : Height, Weight, BMI Height: 6'4.00" Weight: 104lbs. 0.0oz. 47.938578ui; 13.77 BMI Method:Stated General Appearance: Thin HEENT: TMs Normal, Normal ENT Inspection Neck: Non Tender Respiratory: Lungs Clear, Normal Breath Sounds Cardiovascular: Regular Rate, Rhythm, No Edema Gastrointestinal: Soft; No Distended, No Guarding; Tenderness (mild diffuse) Extremity: Normal Capillary Refill Neurologic/Psychiatric: Alert, Oriented x3, Normal Mood/Affect, bar host/hostess II-XII Norm as Tested Skin: Normal Color, Warm/Dry Progress/Results/Core Measures Suspected Sepsis SIRS Temperature: Pulse: Respiratory Rate: Laboratory Tests 08/02/19 17:00: White Blood Count 4.1L Blood Pressure / Mean: Laboratory Tests 08/02/19 17:00: Creatinine 0.85, Platelet Count 175, Total Bilirubin 0.4 Results/Orders Lab Results Laboratory Tests Test 08/02/19 17:00 Range/Units White Blood Count 4.1 L 4.3-11.0 10^3/uL Red Blood Count 4.28 L 4.35-5.85 10^6/uL Hemoglobin 14.5 13.3-17.7 G/DL Hematocrit 40 40-54 % Mean Corpuscular Volume 94 80-99 FL Mean Corpuscular Hemoglobin 34 25-34 PG Mean Corpuscular Hemoglobin Concent 36 32-36 G/DL Red Cell Distribution Width 12.0 10.0-14.5 % Platelet Count 175 130-400 10^3/uL Mean Platelet Volume 11.5 H 7.4-10.4 FL Neutrophils (%) (Auto) 43 42-75 % Lymphocytes (%) (Auto) 44 12-44 % Monocytes (%) (Auto) 8 0-12 % Eosinophils (%) (Auto) 3 0-10 % Basophils (%) (Auto) 2 0-10 % Neutrophils # (Auto) 1.8 1.8-7.8 X 10^3 Lymphocytes # (Auto) 1.8 1.0-4.0 X 10^3 Monocytes # (Auto) 0.3 0.0-1.0 X 10^3 Eosinophils # (Auto) 0.1 0.0-0.3 10^3/uL Basophils # (Auto) 0.1 0.0-0.1 10^3/uL Sodium Level 143 135-145 MMOL/L Potassium Level 3.6 3.6-5.0 MMOL/L Chloride Level 105 98-107 MMOL/L Carbon Dioxide Level 23 21-32 MMOL/L Anion Gap 15 H 5-14 MMOL/L Blood Urea Nitrogen 13 7-18 MG/DL Creatinine 0.85 0.60-1.30 MG/DL Estimat Glomerular Filtration Rate > 60 BUN/Creatinine Ratio 15 Glucose Level 90 70-105 MG/DL Calcium Level 9.6 8.5-10.1 MG/DL Corrected Calcium 8.5-10.1 MG/DL Magnesium Level 1.7 1.6-2.4 MG/DL Total Bilirubin 0.4 0.1-1.0 MG/DL Aspartate Amino Transf (AST/SGOT) 17 5-34 U/L Alanine Aminotransferase (ALT/SGPT) 12 0-55 U/L Alkaline Phosphatase 72 40-136 U/L Total Protein 7.3 6.4-8.2 GM/DL Albumin 4.7 H 3.2-4.5 GM/DL Lipase 21 8-78 U/L My Orders Orders - RUIZ,JONATHON L DO Cbc With Automated Diff (08/02/19 16:56) Comprehensive Metabolic Panel (08/02/19 16:56) Lipase (08/02/19 16:56) Magnesium (08/02/19 16:56) Ondansetron Injection (Zofran Injectio (08/02/19 17:00) Lactated Ringers (Lr 1000 Ml Iv Solution (08/02/19 16:56) Famotidine Injection (Pepcid Injection) (08/02/19 16:56) Ed Iv/Invasive Line Start (08/02/19 16:56) Ed Iv/Invasive Line Start (08/02/19 17:44) Ns Iv 1000 Ml (Sodium Chloride 0.9%) (08/02/19 17:44) Medications Given in ED Current Medications Medications Dose Ordered Sig/Arely Route Start Time Stop Time Status Last Admin Dose Admin Ondansetron HCl 4 mg ONCE ONCE IVP 08/02/19 17:00 08/02/19 17:01 DC 08/02/19 17:03 4 MG Vital Signs/I&O 08/02/19 16:55 Temp 36.5 Pulse 62 Resp 16 B/P (MAP) 108/72 (84) Pulse Ox 99 O2 Delivery Room Air Capillary Refill : Departure Impression Primary Impression: Diarrhea in adult patient Additional Impression: Mild dehydration Disposition: 01 HOME, SELF-CARE Condition: Stable Departure-Patient Inst. Referrals: [facility] (PCP) Primary Care Physician CHHAYA GOODE APRN (Family) Primary Care Physician Patient Instructions: Dehydration, Adult (DC), Diarrhea in Adolescents and Adults Scripts Ondansetron (Ondansetron Odt) 4 Mg Tab.rapdis 4 MG PO Q6H PRN for NAUSEA/VOMITING, #20 TAB 0 Refills Prov: JONATHON RUIZ DO 08/02/19 JONATHON RUIZ DO Aug 02, 2019 16:51
[2019-08-02] MEDS ORDERED: LACTATED RINGERS 1,000 ML IV STA (16:56)
[2019-08-02] MEDS ORDERED: FAMOTIDINE 20MG/2ML IV (PEPCID) IV STA (16:56)
[2019-08-02] MEDS ORDERED: ONDANSETRON 4 MG/2 ML (SDV) Z0FRAN IVP ONE (17:00)
[2019-08-02 17:18] LABS: EOSINOPHILS % (AUTO) 3 % (0-10); HEMATOCRIT 40 % (40-54); HEMOGLOBIN 14.5 G/DL (13.3-17.7); MEAN CORPUSCULAR HEMOGLOBIN 34 PG (25-34); MEAN CORPUSCULAR HGB CONC 36 G/DL (32-36); MEAN CORPUSCULAR VOLUME 94 FL (80-99); MEAN PLATELET VOLUME 11.5 FL (7.4-10.4); MONOCYTES % (AUTO) 8 % (0-12); NEUTROPHILS % (AUTO) 43 % (42-75); PLATELET COUNT 175 10^3/uL (130-400); WHITE BLOOD COUNT 4.1 10^3/uL (4.3-11.0)
[2019-08-02 17:19] LABS: BASOPHILS # (AUTO) 0.1 10^3/uL (0.0-0.1); BASOPHILS % (AUTO) 2 % (0-10); EOSINOPHILS # (AUTO) 0.1 10^3/uL (0.0-0.3); LYMPHOCYTES # (AUTO) 1.8 X 10^3 (1.0-4.0); LYMPHOCYTES % (AUTO) 44 % (12-44); MONOCYTES # (AUTO) 0.3 X 10^3 (0.0-1.0); NEUTROPHILS # (AUTO) 1.8 X 10^3 (1.8-7.8)
[2019-08-02 17:35] LABS: ALANINE AMINOTRANSFERASE 12 U/L (0-55); ALBUMIN 4.7 GM/DL (3.2-4.5); ALKALINE PHOSPHATASE 72 U/L (40-136); BILIRUBIN,TOTAL 0.4 MG/DL (0.1-1.0); BUN/CREATININE RATIO 15; CALCIUM 9.6 MG/DL (8.5-10.1); CARBON DIOXIDE 23 MMOL/L (21-32); CHLORIDE 105 MMOL/L (98-107); CREATININE SERUM 0.85 MG/DL (0.60-1.30); GFR ESTIMATED > 60; GLUCOSE 90 MG/DL (70-105); LIPASE 21 U/L (8-78); MAGNESIUM 1.7 MG/DL (1.6-2.4); POTASSIUM 3.6 MMOL/L (3.6-5.0); SODIUM 143 MMOL/L (135-145); TOTAL PROTEIN 7.3 GM/DL (6.4-8.2)
[2019-08-02] MEDS ORDERED: NS IV 1000 ML 1,000 ML IV SCH (17:44)
[2019-08-02] MEDS ORDERED: ONDA4TAB11 PO (18:32)
[2019-08-02 18:49] VITALS: BP 108/64
--- OUTSIDE RECORDS SUMMARY | 2019-08-02 19:56 | XMS REPORT | Continuity of Care Document ---
Demographics Preferred Language Unknown Marital Status Unknown Sikhism Affiliation Unknown Race Unknown Ethnic Group Unknown Author Organization Unknown Address Unknown Phone Unavailable Allergies Active Description Code Type Severity Reaction Onset Reported/Identified Relationship to Patient Clinical Status Yes Benzodiazepines Drug Allergy 01/19/2012 Yes clindamycin Drug Allergy 01/19/2012 Yes Codeine Drug Allergy 01/19/2012 Yes hydrocodone Drug Allergy 01/19/2012 Yes codeine [id number] Drug Allergy Moderate Vomiting 08/06/2018 Yes clindamycin [id number] Drug Aller gy Unknown N/A 09/18/2018 Yes milk [id number] Drug Allergy Unknown N/A 09/18/2018 Medications There is no data. Problems Date Dx Coded Attending Type Code Diagnosis Diagnosed By 06/02/2008 535.00 ACU TE GASTRITIS (WITHOUT HEMORRHAGE) 01/19/2012 724.2 LUMBAGO 01/19/2012 782.0 DIST URBANCE OF SKIN SENSATION 08/07/2018 CHRIS GALAVIZ MD Ot D70. 9 NEUTROPENIA, UNSPECIFIED 08/07/2018 CHIRS GALAVIZ MD Ot E46 UNSPECIFIED PROTEIN-CALORIE MALNUTRITION 08/07/2018 CHRIS GALAVIZ MD Ot E86. 0 DEHYDRATION 08/07/2018 CHRIS GALAVIZ MD Ot E87. 6 HYPOKALEMIA 08/07/2018 CHRIS GALAVIZ MD Ot G43. A0 CYCLICAL VOMITING, NOT INTRACTABLE 08/07/2018 CHRIS GALAVIZ MD Ot K29. 50 UNSPECIFIED CHRONIC GASTRITIS WITHOUT BL 08/07/2018 CHRIS GALAVIZ MD Ot K44. 9 DIAPHRAGMATIC HERNIA WITHOUT OBSTRUCTION 09/18/2018 SHAGUFTA COMBS MD Ot F12. 10 CANNABIS ABUSE, UNCOMPLICATED 09/18/2018 SHAGUFTA COMBS MD Ot K21. 9 GASTRO-ESOPHAGEAL REFLUX DISEASE WITHOUT 09/18/2018 SHAGUFTA COMBS MD, Ot K29. 50 UNSPECIFIED CHRONIC GASTRITIS WITHOUT BL 09/18/2018 SHAGUFTA COMSB MD, Ot K59. 00 CONSTIPATION, UNSPECIFIED 09/18/2018 SHAGUFTA COMBS MD Ot R10. 32 LEFT LOWER QUADRANT PAIN 09/18/2018 SHAGUFTA COMBS MD Ot R11. 10 VOMITING, UNSPECIFIED 09/18/2018 SHAGUFTA COMBS MD Ot Z87.891 PERSONAL HISTORY OF NICOTINE DEPENDENCE 09/18/2018 SHAGUFTA COMBS MD Ot Z88. 1 ALLERGY STATUS TO OTHER ANTIBIOTIC AGENT 09/18/2018 SHAGUFTA COMBS MD Ot Z88. 5 ALLERGY STATUS TO NARCOTIC AGENT STATUS 09/27/2018 SABINA DE LA FUENTE DO Ot E83.42 HYPOMAGNESEMIA 09/27/2018 SABINA DE LA FUENTE DO Ot E87.1 HYPO-OSMOLALITY AND HYPONATREMIA 09/27/2018 SUDHAKAR DOSABINA Ot E87.6 HYPOKALEMIA 09/27/2018 SUDHAKAR DO, SABINA Rodriguez Ot F12.10 CANNABIS ABUSE, UNCOMPLICATED 09/27/2018 SABINA DE LA FUENTE DO Ot K21.9 GASTRO-ESOPHAGEAL REFLUX DISEASE WITHOUT 09/27/2018 SABINA DE LA FUENTE DO Ot R10.84 GENERALIZED ABDOMINAL PAIN 09/27/2018 SABINA DE LA FUENTE DO Ot R11.2 NAUSEA WITH VOMITING, UNSPECIFIED 09/27/2018 SABINA DE LA FUENTE DO Ot Z82.49 FAMILY HX OF ISCHEM HEART DIS AND OTH DI 09/27/2018 SABINA DE LA FUENTE DO Ot Z87.891 PERSONAL HISTORY OF NICOTINE DEPENDENCE 09/27/2018 SABINA DE LA FUENTE DO Ot Z88.1 ALLERGY STATUS TO OTHER ANTIBIOTIC AGENT 09/27/2018 SABINA DE LA FUENTE DO Ot Z88.5 ALLERGY STATUS TO NARCOTIC AGENT STATUS 09/30/2018 SHAGUFTA COMBS MD Ot F12. 10 CANNABIS ABUSE, UNCOMPLICATED 09/30/2018 SHAGUFTA COMBS MD Ot K21. 9 GASTRO-ESOPHAGEAL REFLUX DISEASE WITHOUT 09/30/2018 SHAGUFTA COMBS MD Ot K29. 50 UNSPECIFIED CHRONIC GASTRITIS WITHOUT BL 09/30/2018 SHAGUFTA COMBS MD Ot K59. 00 CONSTIPATION, UNSPECIFIED 09/30/2018 SHAGUFTA COMBS MD Ot R10. 32 LEFT LOWER QUADRANT PAIN 09/30/2018 SHAGUFTA COMBS MD Ot R11. 10 VOMITING, UNSPECIFIED 09/30/2018 SHAGUFTA COMBS MD Ot Z87.891 PERSONAL HISTORY OF NICOTINE DEPENDENCE 09/30/2018 SHAGUFTA COMBS MD Ot Z88. 1 ALLERGY STATUS TO OTHER ANTIBIOTIC AGENT 09/30/2018 LAURYN MD, SHAGUFTA W Ot Z88. 5 ALLERGY STATUS TO NARCOTIC AGENT STATUS 10/03/2018 SUDHAKAR SABINA MORRISON Ot E83.42 HYPOMAGNESEMIA 10/03/2018 SUDHAKAR SABINA MORRISON Ot E87.1 HYPO-OSMOLALITY AND HYPONATREMIA 10/03/2018 SUDHAKAR SABINA MORRISON Ot E87.6 HYPOKALEMIA 10/03/2018 SUDHAKAR SABINA MORRISON Ot F12.10 CANNABIS ABUSE, UNCOMPLICATED 10/03/2018 SUDHAKAR SABINA MORRISON Ot K21.9 GASTRO-ESOPHAGEAL REFLUX DISEASE WITHOUT 10/03/2018 SUDHAKARSABINA ORTIZ DO Ot R10.84 GENERALIZED ABDOMINAL PAIN 10/03/2018 SUDHAKAR SABINA MORRISON Ot R11.2 NAUSEA WITH VOMITING, UNSPECIFIED 10/03/2018 SABINA DE LA FUENTE DO Ot Z82.49 FAMILY HX OF ISCHEM HEART DIS AND OTH DI 10/03/2018 SUDHAKARSABINA ORTIZ DO Ot Z87.891 PERSONAL HISTORY OF NICOTINE DEPENDENCE 10/03/2018 SABINA DE LA FUENTE DO Ot Z88.1 ALLERGY STATUS TO OTHER ANTIBIOTIC AGENT 10/03/2018 SABINA DE LA FUENTE DO Ot Z88.5 ALLERGY STATUS TO NARCOTIC AGENT STATUS 11/12/2018 EMELYN DURAND MD Ot K21. 9 GASTRO-ESOPHAGEAL REFLUX DISEASE WITHOUT 11/12/2018 EMELYN DURAND MD Ot R10. 9 UNSPECIFIED ABDOMINAL PAIN 11/12/2018 EMEYLN DURAND MD Ot R11. 2 NAUSEA WITH VOMITING, UNSPECIFIED 11/12/2018 EMELYN DURAND MD Ot Z82. 49 FAMILY HX OF ISCHEM HEART DIS AND OTH DI 11/12/2018 EMELYN DURAND MD Ot Z87.891 PERSONAL HISTORY OF NICOTINE DEPENDENCE 11/12/2018 EMELYN DURAND MD Ot Z88. 1 ALLERGY STATUS TO OTHER ANTIBIOTIC AGENT 11/12/2018 EMELYN DURAND MD Ot Z88. 5 ALLERGY STATUS TO NARCOTIC AGENT STATUS 11/15/2018 EMELYN DURAND MD Ot K21. 9 GASTRO-ESOPHAGEAL REFLUX DISEASE WITHOUT 11/15/2018 EMELYN DURAND MD Ot R10. 9 UNSPECIFIED ABDOMINAL PAIN 11/15/2018 EMELYN DURAND MD Ot R11. 2 NAUSEA WITH VOMITING, UNSPECIFIED 11/15/2018 EMELYN DURAND MD Ot Z82. 49 FAMILY HX OF ISCHEM HEART DIS AND OTH DI 11/15/2018 EMEYLN DURAND MD Ot Z87.891 PERSONAL HISTORY OF NICOTINE DEPENDENCE 11/15/2018 EMELYN DURAND MD Ot Z88. 1 ALLERGY STATUS TO OTHER ANTIBIOTIC AGENT 11/15/2018 EMELYN DURAND MD Ot Z88. 5 ALLERGY STATUS TO NARCOTIC AGENT STATUS 11/18/2018 BUSTILLOS DO, ROSA Ot K21.9 GASTRO-ESOPHAGEAL REFLUX DISEASE WITHOUT 11/18/2018 BUSTILLOS DO, ROSA Ot R10.9 UNSPECIFIED ABDOMINAL PAIN 11/18/2018 BUSTILLOS DO, ROSA Ot R11.2 NAUSEA WITH VOMITING, UNSPECIFIED 11/18/2018 BUSTILLOS DO, ROSA Ot Z82.49 FAMILY HX OF ISCHEM HEART DIS AND OTH DI 11/18/2018 BUSTILLOS DO, ROSA Ot Z87.891 PERSONAL HISTORY OF NICOTINE DEPENDENCE 11/18/2018 BUSTILLOS DO, ROSA Ot Z88.1 ALLERGY STATUS TO OTHER ANTIBIOTIC AGENT 11/18/2018 BUSTILLOS DO, ROSA Ot Z88.5 ALLERGY STATUS TO NARCOTIC AGENT STATUS 11/19/2018 EMELYN DURAND MD Ot K21. 9 GASTRO-ESOPHAGEAL REFLUX DISEASE WITHOUT 11/19/2018 EMELYN DURAND MD Ot R10. 9 UNSPECIFIED ABDOMINAL PAIN 11/19/2018 EMELYN DURAND MD Ot R11. 2 NAUSEA WITH VOMITING, UNSPECIFIED 11/19/2018 EMELYN DURAND MD Ot Z82. 49 FAMILY HX OF ISCHEM HEART DIS AND OTH DI 11/19/2018 EMELYN DURAND MD Ot Z87.891 PERSONAL HISTORY OF NICOTINE DEPENDENCE 11/19/2018 EMELYN DURAND MD Ot Z88. 1 ALLERGY STATUS TO OTHER ANTIBIOTIC AGENT 11/19/2018 EMELYN DURAND MD Ot Z88. 5 ALLERGY STATUS TO NARCOTIC AGENT STATUS 11/22/2018 BUSTILLOS DO, ROSA Ot K21.9 GASTRO-ESOPHAGEAL REFLUX DISEASE WITHOUT 11/22/2018 BUSTILLOS DO, ROSA Ot R10.9 UNSPECIFIED ABDOMINAL PAIN 11/22/2018 BUSTILLOS DO, ROSA Ot R11.2 NAUSEA WITH VOMITING, UNSPECIFIED 11/22/2018 BUSTILLOS DO, ROSA Ot Z82.49 FAMILY HX OF ISCHEM HEART DIS AND OTH DI 11/22/2018 BUSTILLOS DO, ROSA Ot Z87.891 PERSONAL HISTORY OF NICOTINE DEPENDENCE 11/22/2018 BUSTILLOS DO, ROSA Ot Z88.1 ALLERGY STATUS TO OTHER ANTIBIOTIC AGENT 11/22/2018 TRESSA DO, ROSA Ot Z88.5 ALLERGY STATUS TO NARCOTIC AGENT STATUS 11/26/2018 EMELYN DURAND MD Ot K21. 9 GASTRO-ESOPHAGEAL REFLUX DISEASE WITHOUT 11/26/2018 EMELYN DURAND MD Ot R07. 89 OTHER CHEST PAIN 11/26/2018 EMELYN DURAND MD Ot Z82. 49 FAMILY HX OF ISCHEM HEART DIS AND OTH DI 11/26/2018 EMELYN DURAND MD Ot Z87.891 PERSONAL HISTORY OF NICOTINE DEPENDENCE 11/26/2018 EMELYN DURAND MD Ot Z88. 1 ALLERGY STATUS TO OTHER ANTIBIOTIC AGENT 11/26/2018 EMELYN DURAND MD Ot Z88. 5 ALLERGY STATUS TO NARCOTIC AGENT STATUS 12/27/2018 EMELYN DURAND MD Ot K21. 9 GASTRO-ESOPHAGEAL REFLUX DISEASE WITHOUT 12/27/2018 EMELYN DURAND MD Ot R10. 9 UNSPECIFIED ABDOMINAL PAIN 12/27/2018 EMELYN DURAND MD Ot R11. 2 NAUSEA WITH VOMITING, UNSPECIFIED 12/27/2018 EMELYN DURAND MD Ot Z82. 49 FAMILY HX OF ISCHEM HEART DIS AND OTH DI 12/27/2018 EMELYN DURAND MD Ot Z87.891 PERSONAL HISTORY OF NICOTINE DEPENDENCE 12/27/2018 EMELYN DURAND MD Ot Z88. 1 ALLERGY STATUS TO OTHER ANTIBIOTIC AGENT 12/27/2018 EMELYN DURADN MD Ot Z88. 5 ALLERGY STATUS TO NARCOTIC AGENT STATUS 01/12/2019 RICARDO GIFFORD, ELIS Colon Ot I95. 9 HYPOTENSION, UNSPECIFIED 01/12/2019 RICARDO GIFFORD, ELIS Colon Ot R06. 09 OTHER FORMS OF DYSPNEA 01/12/2019 ELIS SILVA MD Ot R07. 9 CHEST PAIN, UNSPECIFIED 01/12/2019 ELIS SILVA MD Ot Z82. 49 FAMILY HX OF ISCHEM HEART DIS AND OTH DI 01/18/2019 MOLLY IRWIN MD Ot K21. 9 GASTRO-ESOPHAGEAL REFLUX DISEASE WITHOUT 01/18/2019 MOLLY IRWIN MD Ot R51 HEADACHE 01/18/2019 MOLLY IRWIN MD Ot Z82. 49 FAMILY HX OF ISCHEM HEART DIS AND OTH DI 01/18/2019 DC MD, MOLLY A Ot Z87.891 PERSONAL HISTORY OF NICOTINE DEPENDENCE 01/18/2019 MOLLY IRWIN MD A Ot Z88. 1 ALLERGY STATUS TO OTHER ANTIBIOTIC AGENT 01/18/2019 MOLLY IRWIN MD A Ot Z88. 5 ALLERGY STATUS TO NARCOTIC AGENT STATUS 01/20/2019 MOLLY IRWIN MD A Ot K21. 9 GASTRO-ESOPHAGEAL REFLUX DISEASE WITHOUT 01/20/2019 MOLLY IRWIN MD A Ot R51 HEADACHE 01/20/2019 MOLLY IRWIN MD A Ot Z82. 49 FAMILY HX OF ISCHEM HEART DIS AND OTH DI 01/20/2019 MOLLY IRWIN MD A Ot Z87.891 PERSONAL HISTORY OF NICOTINE DEPENDENCE 01/20/2019 MOLLY IRWIN MD A Ot Z88. 1 ALLERGY STATUS TO OTHER ANTIBIOTIC AGENT 01/20/2019 MOLLY IRWIN MD A Ot Z88. 5 ALLERGY STATUS TO NARCOTIC AGENT STATUS 01/23/2019 CHHAYA GOODE CHIEF II DISPATCHER Ot R51 HEADACHE 02/16/2019 CHRIS CARD MD Ot E87. 6 HYPOKALEMIA 02/16/2019 CHRIS CARD MD Ot K21. 9 GASTRO-ESOPHAGEAL REFLUX DISEASE WITHOUT 02/16/2019 CHRIS CARD MD Ot R11. 10 VOMITING, UNSPECIFIED 02/16/2019 CHRIS CARD MD Ot Z82. 49 FAMILY HX OF ISCHEM HEART DIS AND OTH DI 02/16/2019 CHRIS CARD MD Ot Z87.891 PERSONAL HISTORY OF NICOTINE DEPENDENCE 02/16/2019 CHRIS CARD MD Ot Z88. 1 ALLERGY STATUS TO OTHER ANTIBIOTIC AGENT 02/16/2019 CHRIS CARD MD Ot Z88. 5 ALLERGY STATUS TO NARCOTIC AGENT STATUS 02/17/2019 MOLLY IRWIN MD A Ot K21. 9 GASTRO-ESOPHAGEAL REFLUX DISEASE WITHOUT 02/17/2019 MOLLY IRWIN MD A Ot R51 HEADACHE 02/17/2019 MOLLY IRWIN MD A Ot Z82. 49 FAMILY HX OF ISCHEM HEART DIS AND OTH DI 02/17/2019 MOLLY IRWIN MD A Ot Z87.891 PERSONAL HISTORY OF NICOTINE DEPENDENCE 02/17/2019 MOLLY IRWIN MD A Ot Z88. 1 ALLERGY STATUS TO OTHER ANTIBIOTIC AGENT 02/17/2019 MOLLY IRWIN MD A Ot Z88. 5 ALLERGY STATUS TO NARCOTIC AGENT STATUS 02/17/2019 CHHAYA GOODE EMELI Ot E87.6 HYPOKALEMIA 02/17/2019 CHHAYA GOODE EMELI Ot R25.2 CRAMP AND SPASM 02/20/2019 KYAW GIFFORD, CHRIS Cisse Ot E87. 6 HYPOKALEMIA 02/20/2019 KYAW GIFFORD, CHRIS Cisse Ot K21. 9 GASTRO-ESOPHAGEAL REFLUX DISEASE WITHOUT 02/20/2019 KYAW GIFFORD, CHRIS Cisse Ot R11. 10 VOMITING, UNSPECIFIED 02/20/2019 KYAW GIFFORD, CHRIS Cisse Ot Z82. 49 FAMILY HX OF ISCHEM HEART DIS AND OTH DI 02/20/2019 KYAW GIFFORD, CHRIS Cisse Ot Z87.891 PERSONAL HISTORY OF NICOTINE DEPENDENCE 02/20/2019 KYAW GIFFORD, CHRIS Cisse Ot Z88. 1 ALLERGY STATUS TO OTHER ANTIBIOTIC AGENT 02/20/2019 KYAW GIFFORD, CHRIS Cisse Ot Z88. 5 ALLERGY STATUS TO NARCOTIC AGENT STATUS 02/22/2019 RUSSEL CHHAYA Wong EMELI Ot E87.6 HYPOKALEMIA 02/22/2019 RUSSEL, CHHAYA Wong EMELI Ot R25.2 CRAMP AND SPASM 03/03/2019 RICARDO GIFFORD, BASHAR J Ot I95. 9 HYPOTENSION, UNSPECIFIED 03/03/2019 RICARDO GIFFORD, BASHAR J Ot R06. 09 OTHER FORMS OF DYSPNEA 03/03/2019 RICARDO GIFFORD, BASHAR J Ot R07. 9 CHEST PAIN, UNSPECIFIED 03/03/2019 RICARDO GIFFORD, BASHAR J Ot Z82. 49 FAMILY HX OF ISCHEM HEART DIS AND OTH DI 03/03/2019 RUSSEL CHHAYA Wong EMELI Ot R51 HEADACHE 03/03/2019 CHHAYA GOODE EMELI Ot E87.6 HYPOKALEMIA 03/03/2019 CHHAYA GOODE EMELI Ot R25.2 CRAMP AND SPASM 03/20/2019 RICARDO GIFFORD, BASHAR J Ot I95. 9 HYPOTENSION, UNSPECIFIED 03/20/2019 RICARDO GIFFORD, BASHAR J Ot R06. 09 OTHER FORMS OF DYSPNEA 03/20/2019 RICARDO GIFFORD, BASHAR J Ot R07. 9 CHEST PAIN, UNSPECIFIED 03/20/2019 RICARDO GIFFORD, BASHAR J Ot Z82. 49 FAMILY HX OF ISCHEM HEART DIS AND OTH DI 03/20/2019 ELIS SILVA MD Ot I95. 9 HYPOTENSION, UNSPECIFIED 03/20/2019 ELIS SILVA MD Ot R06. 09 OTHER FORMS OF DYSPNEA 03/20/2019 ELIS SILVA MD Ot R07. 9 CHEST PAIN, UNSPECIFIED 03/20/2019 ELIS SILVA MD Ot Z82. 49 FAMILY HX OF ISCHEM HEART DIS AND OTH DI 03/28/2019 ELIS SILVA MD Ot I95. 9 HYPOTENSION, UNSPECIFIED 03/28/2019 RICARDO GIFFORD, ELIS Colon Ot R06. 09 OTHER FORMS OF DYSPNEA 03/28/2019 ELIS SILVA MD Ot R07. 9 CHEST PAIN, UNSPECIFIED 03/28/2019 ELIS SILVA MD Ot Z82. 49 FAMILY HX OF ISCHEM HEART DIS AND OTH DI 03/28/2019 ELIS SILVA MD Ot I95. 9 HYPOTENSION, UNSPECIFIED 03/28/2019 ELIS SILVA MD Ot R06. 09 OTHER FORMS OF DYSPNEA 03/28/2019 ELIS SILVA MD Ot R07. 9 CHEST PAIN, UNSPECIFIED 03/28/2019 ELIS SILVA MD Ot Z82. 49 FAMILY HX OF ISCHEM HEART DIS AND OTH DI 03/28/2019 CHHAYA GOODE APRN Ot R51 HEADACHE 03/28/2019 CHHAYA GOODE CHIEF II DISPATCHER Ot E87.6 HYPOKALEMIA 03/28/2019 CHHAYA GOODE CHIEF II DISPATCHER Ot R25.2 CRAMP AND SPASM 03/30/2019 LEONEL DELANEY DO Ot Z01.818 ENCOUNTER FOR OTHER PREPROCEDURAL EXAMIN 04/10/2019 LEONEL DELANEY DO Ot F17.210 NICOTINE DEPENDENCE, CIGARETTES, UNCOMPL 04/10/2019 LEONEL DELANEY DO Ot K21. 0 GASTRO-ESOPHAGEAL REFLUX DISEASE WITH ES 04/10/2019 LEONEL DELANEY DO Ot K29. 50 UNSPECIFIED CHRONIC GASTRITIS WITHOUT BL 04/10/2019 LEONEL DELANEY DO Ot K29. 80 DUODENITIS WITHOUT BLEEDING 04/10/2019 LEONEL DELANEY DO Ot K44. 9 DIAPHRAGMATIC HERNIA WITHOUT OBSTRUCTION 04/10/2019 LEONEL DELANEY DO Ot R19. 4 CHANGE IN BOWEL HABIT 04/10/2019 MICHELE DELANEY DOJOSEFINA Rodriguez Ot R63. 4 ABNORMAL WEIGHT LOSS 04/10/2019 [facility], LEONEL D Ot Z79.899 OTHER FIELD ORGANIZER (CURRENT) DRUG THERAPY 04/10/2019 [facility], LEONEL D Ot Z82. 49 FAMILY HX OF ISCHEM HEART DIS AND OTH DI 04/10/2019 [facility], LEONEL D Ot Z83. 6 FAMILY HISTORY OF OTHER DISEASES OF THE 04/10/2019 [facility] D Ot Z88. 1 ALLERGY STATUS TO OTHER ANTIBIOTIC AGENT 04/10/2019 [facility], LEONEL D Ot Z88. 5 ALLERGY STATUS TO NARCOTIC AGENT STATUS 04/10/2019 [facility], LEONEL D Ot Z90. 49 ACQUIRED ABSENCE OF OTHER SPECIFIED PART 04/10/2019 [facility], LEONEL D Ot Z91.011 ALLERGY TO MILK PRODUCTS 04/17/2019 RICARDO GIFFORD, ELIS Colon Ot I95. 9 HYPOTENSION, UNSPECIFIED 04/17/2019 RICARDO GIFFORD, ELIS Colon Ot R06. 09 OTHER FORMS OF DYSPNEA 04/17/2019 RICARDO GIFFORD, ELIS Colon Ot R07. 9 CHEST PAIN, UNSPECIFIED 04/17/2019 RICARDO GIFFORD, ELIS Colon Ot Z82. 49 FAMILY HX OF ISCHEM HEART DIS AND OTH DI 04/17/2019 ELIS SILVA MD Ot I95. 9 HYPOTENSION, UNSPECIFIED 04/17/2019 RICARDO GIFFORD, ELIS Colon Ot R06. 09 OTHER FORMS OF DYSPNEA 04/17/2019 RICARDO GIFFORD, ELIS Colon Ot R07. 9 CHEST PAIN, UNSPECIFIED 04/17/2019 RICARDO GIFFORD, ELIS Colon Ot Z82. 49 FAMILY HX OF ISCHEM HEART DIS AND OTH DI 04/17/2019 CHHAYA GOODE APRN Ot R51 HEADACHE 04/17/2019 CHHAYA GOODE APRN Ot E87.6 HYPOKALEMIA 04/17/2019 CHHAYA GOODE APRN Ot R25.2 CRAMP AND SPASM 04/21/2019 [facility], LEONEL D Ot R10. 13 EPIGASTRIC PAIN 04/21/2019 [facility], LEONEL D Ot R10.816 EPIGASTRIC ABDOMINAL TENDERNESS 04/24/2019 [facility], LEONEL D Ot R10. 13 EPIGASTRIC PAIN 04/24/2019 LEONEL DELANEY DO Ot R10.816 EPIGASTRIC ABDOMINAL TENDERNESS 05/09/2019 CHHAYA GOODE APRN Ot E87.6 HYPOKALEMIA 07/20/2019 CHHAYA GOODE APRN Ot M79.631 PAIN IN RIGHT FOREARM Procedures Code [place] [id number] URIN Miguel DRUG SCREEN (IN-HOUSE) 01/19/2012 Results Test Result Range Complete blood count (CBC) with automate d white blood cell (WBC) differential - 08/06/18 15:35 Blood leukocytes automated count (number/volume) 2.5 10*3/uL 4.3-11.0 Blood erythrocytes automated count (number/volume) 4.77 10*6/uL 4.35-5.85 Venous blood hemoglobin measurement (mass/volume) 16.1 g/dL 13.3-17.7 Blood hematocrit (volume fraction) 42 % 40-54 Automated erythrocyte mean corpuscular volume 88 [ foz_us] 80-99 Automated erythrocyte mean corpuscular h emoglobin (mass per erythrocyte) 34 pg 25-34 Automated erythrocyte mean corpuscular h emoglobin concentration measurement (mass/volume) 38 g/dL 32-36 Automated erythrocyte distribution width ratio 11. 1 % 10.0- 14.5 Automated blood platelet count (count/volume) 144 10*3/uL 130-400 Automated blood platelet mean volume measurement 11.2 [foz_us] 7.4-10.4 Automated blood neutrophils/100 leukocytes 46 % 42-75 Automated blood lymphocytes/100 leukocytes 38 % 12-44 Blood monocytes/100 leukocytes 14 % 0-12 Automated blood eosinophils/100 leukocytes 1 % 0-10 Automated blood basophils/100 leukocytes 1 % 0-10 Blood neutrophils automated count (number/volume) 1.2 10*3 1.8-7.8 Blood lymphocytes automated count (number/volume) 0.9 10*3 1.0-4.0 Blood monocytes automated count (number/volume) 0. 4 10*3 0.0-1.0 Automated eosinophil count 0.0 10*3/uL 0 .0-0.3 Automated blood basophil count (count/volume) 0.0 10*3/uL 0.0-0.1 Comprehensive metabolic panel - 08/06/18 15:35 Serum or plasma sodium measurement (moles/volume) 128 mmol/L 135-145 Serum or plasma potassium measurement (moles/volume) 1.9 mmol/L 3.6-5.0 Serum or plasma chloride measurement (moles/volume) 72 mmol/L 98-107 Carbon dioxide 39 mmol/L 21-32 Serum or plasma anion gap determination (moles/volume) 17 mmol/L 5-14 Serum or plasma urea nitrogen measurement (mass/volume ) 19 mg/dL 7-18 Serum or plasma creatinine measurement (mass/volume) 1.06 mg/dL 0.60-1.30 Serum or plasma urea nitrogen/creatinine mass ratio 18 NRG Serum or plasma creatinine measurement w ith calculation of estimated glomerular filtration rate > NRG Serum or plasma glucose measurement (mass/volume) 117 mg/dL 70-105 Serum or plasma calcium measurement (mass/volume) 10.0 mg/dL 8.5-10.1 Serum or plasma total bilirubin measurement (mass/volu me) 1.6 mg/dL 0.1-1.0 Serum or plasma alkaline phosphatase dominic surement (enzymatic activity/volume) 76 U/L 40-136 Serum or plasma aspartate aminotransfera se measurement (enzymatic activity/volume) 22 U/L 5-34 Serum or plasma alanine aminotransferase measurement (enzymatic activity/volume) 12 U/L 0-55 Serum or plasma protein measurement (mass/volume) 8.7 g/dL 6.4-8.2 Serum or plasma albumin measurement (mass/volume) 5.5 g/dL 3.2-4.5 Magnesium - 08/06/18 15:35 Magnesium 2.0 mg/dL 1.8-2.4 Lipase - 08/06/18 15:35 Lipase 22 U/L 8-78 Complete urinalysis with reflex to cultu re - 08/06/18 15:40 Urine color determination YELLOW NRG Urine clarity determination CLEAR NR G Urine pH measurement by test strip 8.0 5-9 Specific gravity of urine by test strip <= 1.016-1.022 Urine protein assay by test strip, semi-quantitative TRACE NEGATIVE Urine glucose detection by automated test strip NE GATIVE NEGATIVE Erythrocytes detection in urine sediment by light micr oscopy NEGATIVE NEGATIVE Urine ketones detection by automated test strip 2+ NEGATIVE Urine nitrite detection by test strip NEGATIVE NEGATIVE Urine total bilirubin detection by test strip NEGA TIVE NEGATIVE Urine urobilinogen measurement by automated test strip (mass/volume) 0.2 mg/dL NORMAL Urine leukocyte esterase detection by dipstick NEG ATIVE NEGATIVE Automated urine sediment erythrocyte cou nt by microscopy (number/high power field) NONE NRG Automated urine sediment leukocyte count by microscopy (number/high power field) [HPF] NRG Bacteria detection in urine sediment by light microsco py NEGATIVE NRG Squamous epithelial cells detection in u rine sediment by light microscopy NONE NRG Crystals detection in urine sediment by light microsco py NONE NRG Casts detection in urine sediment by light microscopy NONE NRG Mucus detection in urine sediment by light microscopy NONE NRG Complete urinalysis with reflex to culture NO NRG Urine drug screening test - 08/06/18 15: 40 Urine phencyclidine detection by screening method NEGATIVE NEGATIVE Urine benzodiazepines detection by screening method NEGATIVE NEGATIVE Urine cocaine detection NEGATIVE NEGATI VE Urine amphetamines detection by screening method N EGATIVE NEGATIVE Urine methamphetamine detection by screening method NEGATIVE NEGATIVE Urine cannabinoids detection by screening method P OSITIVE NEGATIVE Urine opiates detection by screening method NEGATI VE NEGATIVE Urine barbiturates detection NEGATIVE N EGATIVE Screening urine tricyclic antidepressants detection NEGATIVE NEGATIVE Urine methadone detection by screening method NEGA TIVE NEGATIVE Urine oxycodone detection NEGATIVE NEGA TIVE Urine propoxyphene detection NEGATIVE N EGATIVE Whole blood basic metabolic panel - 07/23 08/10 00:57 Serum or plasma sodium measurement (moles/volume) 133 mmol/L 135-145 Serum or plasma potassium measurement (moles/volume) 2.4 mmol/L 3.6-5.0 Serum or plasma chloride measurement (moles/volume) 88 mmol/L 98-107 Carbon dioxide 33 mmol/L 21-32 Serum or plasma anion gap determination (moles/volume) 12 mmol/L 5-14 Serum or plasma urea nitrogen measurement (mass/volume ) 14 mg/dL 7-18 Serum or plasma creatinine measurement (mass/volume) 1.10 mg/dL 0.60-1.30 Serum or plasma urea nitrogen/creatinine mass ratio 13 NRG Serum or plasma creatinine measurement w ith calculation of estimated glomerular filtration rate > NRG Serum or plasma glucose measurement (mass/volume) 91 mg/dL 70-105 Serum or plasma calcium measurement (mass/volume) 8.5 mg/dL 8.5-10.1 Whole blood basic metabolic panel - 07/23 08/10 05:55 Serum or plasma sodium measurement (moles/volume) 136 mmol/L 135-145 Serum or plasma potassium measurement (moles/volume) 2.8 mmol/L 3.6-5.0 Serum or plasma chloride measurement (moles/volume) 93 mmol/L 98-107 Carbon dioxide 32 mmol/L 21-32 Serum or plasma anion gap determination (moles/volume) 11 mmol/L 5-14 Serum or plasma urea nitrogen measurement (mass/volume ) 13 mg/dL 7-18 Serum or plasma creatinine measurement (mass/volume) 1.00 mg/dL 0.60-1.30 Serum or plasma urea nitrogen/creatinine mass ratio 13 NRG Serum or plasma creatinine measurement w ith calculation of estimated glomerular filtration rate > NRG Serum or plasma glucose measurement (mass/volume) 81 mg/dL 70-105 Serum or plasma calcium measurement (mass/volume) 8.5 mg/dL 8.5-10.1 Complete blood count (CBC) with automate d white blood cell (WBC) differential - 09/18/18 10:51 Blood leukocytes automated count (number/volume) 2.7 10*3/uL 4.3-11.0 Blood erythrocytes automated count (number/volume) 4.37 10*6/uL 4.35-5.85 Venous blood hemoglobin measurement (mass/volume) 14.8 g/dL 13.3-17.7 Blood hematocrit (volume fraction) 42 % 40-54 Automated erythrocyte mean corpuscular volume 95 [ foz_us] 80-99 Automated erythrocyte mean corpuscular h emoglobin (mass per erythrocyte) 34 pg 25-34 Automated erythrocyte mean corpuscular h emoglobin concentration measurement (mass/volume) 36 g/dL 32-36 Automated erythrocyte distribution width ratio 12. 1 % 10.0- 14.5 Automated blood platelet count (count/volume) 159 10*3/uL 130-400 Automated blood platelet mean volume measurement 10.7 [foz_us] 7.4-10.4 Automated blood neutrophils/100 leukocytes 59 % 42-75 Automated blood lymphocytes/100 leukocytes 28 % 12-44 Blood monocytes/100 leukocytes 8 % 0-12 Automated blood eosinophils/100 leukocytes 2 % 0-10 Automated blood basophils/100 leukocytes 0 % 0-10 Blood neutrophils automated count (number/volume) 1.6 10*3 1.8-7.8 Blood lymphocytes automated count (number/volume) 0.8 10*3 1.0-4.0 Blood monocytes automated count (number/volume) 0. 2 10*3 0.0-1.0 Automated eosinophil count 0.1 10*3/uL 0 .0-0.3 Automated blood basophil count (count/volume) 0.1 10*3/uL 0.0-0.1 Comprehensive metabolic panel - 09/18/18 10:51 Serum or plasma sodium measurement (moles/volume) 140 mmol/L 135-145 Serum or plasma potassium measurement (moles/volume) 3.8 mmol/L 3.6-5.0 Serum or plasma chloride measurement (moles/volume) 102 mmol/L 98-107 Carbon dioxide 24 mmol/L 21-32 Serum or plasma anion gap determination (moles/volume) 14 mmol/L 5-14 Serum or plasma urea nitrogen measurement (mass/volume ) 8 mg/dL 7-18 Serum or plasma creatinine measurement (mass/volume) 0.82 mg/dL 0.60-1.30 Serum or plasma urea nitrogen/creatinine mass ratio 10 NRG Serum or plasma creatinine measurement w ith calculation of estimated glomerular filtration rate > NRG Serum or plasma glucose measurement (mass/volume) 93 mg/dL 70-105 Serum or plasma calcium measurement (mass/volume) 10.0 mg/dL 8.5-10.1 Serum or plasma total bilirubin measurement (mass/volu me) 0.6 mg/dL 0.1-1.0 Serum or plasma alkaline phosphatase dominic surement (enzymatic activity/volume) 57 U/L 40-136 Serum or plasma aspartate aminotransfera se measurement (enzymatic activity/volume) 15 U/L 5-34 Serum or plasma alanine aminotransferase measurement (enzymatic activity/volume) 9 U/L 0-55 Serum or plasma protein measurement (mass/volume) 7.7 g/dL 6.4-8.2 Serum or plasma albumin measurement (mass/volume) 4.9 g/dL 3.2-4.5 Lipase - 09/18/18 10:51 Lipase 15 U/L 8-78 Magnesium - 09/18/18 10:51 Magnesium 1.6 mg/dL 1.8-2.4 Complete urinalysis with reflex to cultu re - 09/18/18 11:30 Urine color determination PALE YELLOW N RG Urine clarity determination CLEAR NR G Urine pH measurement by test strip 7.0 5-9 Specific gravity of urine by test strip <= 1.016-1.022 Urine protein assay by test strip, semi-quantitative NEGATIVE NEGATIVE Urine glucose detection by automated test strip NE GATIVE NEGATIVE Erythrocytes detection in urine sediment by light micr oscopy NEGATIVE NEGATIVE Urine ketones detection by automated test strip NE GATIVE NEGATIVE Urine nitrite detection by test strip NEGATIVE NEGATIVE Urine total bilirubin detection by test strip NEGA TIVE NEGATIVE Urine urobilinogen measurement by automated test strip (mass/volume) 0.2 mg/dL NORMAL Urine leukocyte esterase detection by dipstick NEG ATIVE NEGATIVE Automated urine sediment erythrocyte cou nt by microscopy (number/high power field) NONE NRG Automated urine sediment leukocyte count by microscopy (number/high power field) RARE NRG Bacteria detection in urine sediment by light microsco py NEGATIVE NRG Squamous epithelial cells detection in u rine sediment by light microscopy NONE NRG Crystals detection in urine sediment by light microsco py NONE NRG Casts detection in urine sediment by light microscopy NONE NRG Mucus detection in urine sediment by light microscopy NONE NRG Complete urinalysis with reflex to culture NO NRG Urine drug screening test - 09/18/18 11: 30 Urine phencyclidine detection by screening method NEGATIVE NEGATIVE Urine benzodiazepines detection by screening method NEGATIVE NEGATIVE Urine cocaine detection NEGATIVE NEGATI VE Urine amphetamines detection by screening method N EGATIVE NEGATIVE Urine methamphetamine detection by screening method NEGATIVE NEGATIVE Urine cannabinoids detection by screening method P OSITIVE NEGATIVE Urine opiates detection by screening method NEGATI VE NEGATIVE Urine barbiturates detection NEGATIVE N EGATIVE Screening urine tricyclic antidepressants detection NEGATIVE NEGATIVE Urine methadone detection by screening method NEGA TIVE NEGATIVE Urine oxycodone detection NEGATIVE NEGA TIVE Urine propoxyphene detection NEGATIVE N EGATIVE Complete blood count (CBC) with automate d white blood cell (WBC) differential - 09/27/18 09:31 Blood leukocytes automated count (number/volume) 2.5 10*3/uL 4.3-11.0 Blood erythrocytes automated count (number/volume) 4.60 10*6/uL 4.35-5.85 Venous blood hemoglobin measurement (mass/volume) 15.4 g/dL 13.3-17.7 Blood hematocrit (volume fraction) 41 % 40-54 Automated erythrocyte mean corpuscular volume 90 [ foz_us] 80-99 Automated erythrocyte mean corpuscular h emoglobin (mass per erythrocyte) 33 pg 25-34 Automated erythrocyte mean corpuscular h emoglobin concentration measurement (mass/volume) 37 g/dL 32-36 Automated erythrocyte distribution width ratio 11. 5 % 10.0- 14.5 Automated blood platelet count (count/volume) 180 10*3/uL 130-400 Automated blood platelet mean volume measurement 10.9 [foz_us] 7.4-10.4 Automated blood neutrophils/100 leukocytes 57 % 42-75 Automated blood lymphocytes/100 leukocytes 31 % 12-44 Blood monocytes/100 leukocytes 8 % 0-12 Automated blood eosinophils/100 leukocytes 3 % 0-10 Automated blood basophils/100 leukocytes 2 % 0-10 Blood neutrophils automated count (number/volume) 1.4 10*3 1.8-7.8 Blood lymphocytes automated count (number/volume) 0.8 10*3 1.0-4.0 Blood monocytes automated count (number/volume) 0. 2 10*3 0.0-1.0 Automated eosinophil count 0.1 10*3/uL 0 .0-0.3 Automated blood basophil count (count/volume) 0.0 10*3/uL 0.0-0.1 Comprehensive metabolic panel - 09/27/18 09:31 Serum or plasma sodium measurement (moles/volume) 127 mmol/L 135-145 Serum or plasma potassium measurement (moles/volume) 3.0 mmol/L 3.6-5.0 Serum or plasma chloride measurement (moles/volume) 80 mmol/L 98-107 Carbon dioxide 30 mmol/L 21-32 Serum or plasma anion gap determination (moles/volume) 17 mmol/L 5-14 Serum or plasma urea nitrogen measurement (mass/volume ) 10 mg/dL 7-18 Serum or plasma creatinine measurement (mass/volume) 0.81 mg/dL 0.60-1.30 Serum or plasma urea nitrogen/creatinine mass ratio 12 NRG Serum or plasma creatinine measurement w ith calculation of estimated glomerular filtration rate > NRG Serum or plasma glucose measurement (mass/volume) 118 mg/dL 70-105 Serum or plasma calcium measurement (mass/volume) 9.7 mg/dL 8.5-10.1 Serum or plasma total bilirubin measurement (mass/volu me) 0.9 mg/dL 0.1-1.0 Serum or plasma alkaline phosphatase dominic surement (enzymatic activity/volume) 67 U/L 40-136 Serum or plasma aspartate aminotransfera se measurement (enzymatic activity/volume) 20 U/L 5-34 Serum or plasma alanine aminotransferase measurement (enzymatic activity/volume) 10 U/L 0-55 Serum or plasma protein measurement (mass/volume) 8.3 g/dL 6.4-8.2 Serum or plasma albumin measurement (mass/volume) 5.2 g/dL 3.2-4.5 Magnesium - 09/27/18 09:51 Magnesium 1.7 mg/dL 1.8-2.4 Lipase - 09/27/18 09:51 Lipase 14 U/L 8-78 Complete urinalysis with reflex to cultu re - 09/27/18 10:15 Urine color determination YELLOW NRG Urine clarity determination CLEAR NR G Urine pH measurement by test strip 8.5 5-9 Specific gravity of urine by test strip 1.010 1.016-1.022 Urine protein assay by test strip, semi-quantitative NEGATIVE NEGATIVE Urine glucose detection by automated test strip NE GATIVE NEGATIVE Erythrocytes detection in urine sediment by light micr oscopy NEGATIVE NEGATIVE Urine ketones detection by automated test strip NE GATIVE NEGATIVE Urine nitrite detection by test strip NEGATIVE NEGATIVE Urine total bilirubin detection by test strip NEGA TIVE NEGATIVE Urine urobilinogen measurement by automated test strip (mass/volume) 0.2 mg/dL NORMAL Urine leukocyte esterase detection by dipstick NEG ATIVE NEGATIVE Crystals detection in urine sediment by light microsco py NONE NRG Casts detection in urine sediment by light microscopy NONE NRG Mucus detection in urine sediment by light microscopy NEGATIVE NRG Complete urinalysis with reflex to culture NO NRG CMP - 10/05/18 13:59 GLUCOSE 138 mg/dL 65-99 UREA NITROGEN (BUN) 11 mg/dL 7-25 CREATININE 0.83 mg/dL 0.60-1.35 eGFR NON-AFR. GEORGIAN 119 mL/min/1.73m2 > OR = 60 eGFR 138 mL/min/1.73m2 > OR = 60 BUN/CREATININE RATIO NOT APPLICABLE (calc) 6-22 SODIUM 142 mmol/L 135-146 POTASSIUM 3.6 mmol/L 3.5-5.3 CHLORIDE 101 mmol/L 98-110 CARBON DIOXIDE 29 mmol/L 20-32 CALCIUM 10.2 mg/dL 8.6-10.3 PROTEIN, TOTAL 7.8 g/dL 6.1-8.1 ALBUMIN 5.0 g/dL 3.6-5.1 GLOBULIN 2.8 g/dL (calc) 1.9-3.7 ALBUMIN/GLOBULIN RATIO 1.8 (calc) 1.0-2. 5 BILIRUBIN, TOTAL 0.6 mg/dL 0.2-1.2 ALKALINE PHOSPHATASE 53 U/L 40-115 AST 18 U/L 10-40 ALT 12 U/L 9-46 MAGNESIUM SERUM - 10/05/18 13:59 MAGNESIUM 1.8 mg/dL 1.5-2.5 CBC - 10/05/18 13:59 WHITE BLOOD CELL COUNT 3.0 Thousand/uL 3 .8-10.8 RED BLOOD CELL COUNT 4.47 Million/uL 4.2 0-5.80 HEMOGLOBIN 14.9 g/dL 13.2-17.1 HEMATOCRIT 44.1 % 38.5-50.0 MCV 98.7 fL 80.0-100.0 MCH 33.3 pg 27.0-33.0 MCHC 33.8 g/dL 32.0-36.0 RDW 11.9 % 11.0-15.0 PLATELET COUNT 187 Thousand/uL 140-400 MPV 11.1 fL 7.5-12.5 ABSOLUTE NEUTROPHILS 1197 cells/uL 1500- 7800 ABSOLUTE LYMPHOCYTES 1383 cells/uL 850-3 900 ABSOLUTE MONOCYTES 276 cells/uL 200-950 ABSOLUTE EOSINOPHILS 93 cells/uL 15-500 ABSOLUTE BASOPHILS 51 cells/uL 0-200 NEUTROPHILS 39.9 % NRG LYMPHOCYTES 46.1 % NRG MONOCYTES 9.2 % NRG EOSINOPHILS 3.1 % NRG BASOPHILS 1.7 % NRG TSH - 10/05/18 13:59 TSH 0.29 mIU/L 0.40-4.50 Complete blood count (CBC) with automate d white blood cell (WBC) differential - 11/12/18 14:20 Blood leukocytes automated count (number/volume) 4.0 10*3/uL 4.3-11.0 Blood erythrocytes automated count (number/volume) 4.38 10*6/uL 4.35-5.85 Venous blood hemoglobin measurement (mass/volume) 14.6 g/dL 13.3-17.7 Blood hematocrit (volume fraction) 42 % 40-54 Automated erythrocyte mean corpuscular volume 95 [ foz_us] 80-99 Automated erythrocyte mean corpuscular h emoglobin (mass per erythrocyte) 33 pg 25-34 Automated erythrocyte mean corpuscular h emoglobin concentration measurement (mass/volume) 35 g/dL 32-36 Automated erythrocyte distribution width ratio 11. 9 % 10.0- 14.5 Automated blood platelet count (count/volume) 144 10*3/uL 130-400 Automated blood platelet mean volume measurement 11.5 [foz_us] 7.4-10.4 Automated blood neutrophils/100 leukocytes 61 % 42-75 Automated blood lymphocytes/100 leukocytes 28 % 12-44 Blood monocytes/100 leukocytes 9 % 0-12 Automated blood eosinophils/100 leukocytes 1 % 0-10 Automated blood basophils/100 leukocytes 1 % 0-10 Blood neutrophils automated count (number/volume) 2.5 10*3 1.8-7.8 Blood lymphocytes automated count (number/volume) 1.1 10*3 1.0-4.0 Blood monocytes automated count (number/volume) 0. 4 10*3 0.0-1.0 Automated eosinophil count 0.0 10*3/uL 0 .0-0.3 Automated blood basophil count (count/volume) 0.1 10*3/uL 0.0-0.1 Comprehensive metabolic panel - 11/12/18 14:20 Serum or plasma sodium measurement (moles/volume) 142 mmol/L 135-145 Serum or plasma potassium measurement (moles/volume) 3.3 mmol/L 3.6-5.0 Serum or plasma chloride measurement (moles/volume) 102 mmol/L 98-107 Carbon dioxide 23 mmol/L 21-32 Serum or plasma anion gap determination (moles/volume) 17 mmol/L 5-14 Serum or plasma urea nitrogen measurement (mass/volume ) 16 mg/dL 7-18 Serum or plasma creatinine measurement (mass/volume) 0.80 mg/dL 0.60-1.30 Serum or plasma urea nitrogen/creatinine mass ratio 20 NRG Serum or plasma creatinine measurement w ith calculation of estimated glomerular filtration rate > NRG Serum or plasma glucose measurement (mass/volume) 77 mg/dL 70-105 Serum or plasma calcium measurement (mass/volume) 10.0 mg/dL 8.5-10.1 Serum or plasma total bilirubin measurement (mass/volu me) 0.6 mg/dL 0.1-1.0 Serum or plasma alkaline phosphatase dominic surement (enzymatic activity/volume) 65 U/L 40-136 Serum or plasma aspartate aminotransfera se measurement (enzymatic activity/volume) 21 U/L 5-34 Serum or plasma alanine aminotransferase measurement (enzymatic activity/volume) 19 U/L 0-55 Serum or plasma protein measurement (mass/volume) 8.0 g/dL 6.4-8.2 Serum or plasma albumin measurement (mass/volume) 5.0 g/dL 3.2-4.5 Magnesium - 11/12/18 14:20 Magnesium 1.6 mg/dL 1.6-2.4 Complete blood count (CBC) with automate d white blood cell (WBC) differential - 11/18/18 19:20 Blood leukocytes automated count (number/volume) 3.5 10*3/uL 4.3-11.0 Blood erythrocytes automated count (number/volume) 4.18 10*6/uL 4.35-5.85 Venous blood hemoglobin measurement (mass/volume) 14.0 g/dL 13.3-17.7 Blood hematocrit (volume fraction) 40 % 40-54 Automated erythrocyte mean corpuscular volume 96 [ foz_us] 80-99 Automated erythrocyte mean corpuscular h emoglobin (mass per erythrocyte) 33 pg 25-34 Automated erythrocyte mean corpuscular h emoglobin concentration measurement (mass/volume) 35 g/dL 32-36 Automated erythrocyte distribution width ratio 12. 0 % 10.0- 14.5 Automated blood platelet count (count/volume) 132 10*3/uL 130-400 Automated blood platelet mean volume measurement 11.5 [foz_us] 7.4-10.4 Automated blood neutrophils/100 leukocytes 48 % 42-75 Automated blood lymphocytes/100 leukocytes 40 % 12-44 Blood monocytes/100 leukocytes 9 % 0-12 Automated blood eosinophils/100 leukocytes 2 % 0-10 Automated blood basophils/100 leukocytes 1 % 0-10 Blood neutrophils automated count (number/volume) 1.6 10*3 1.8-7.8 Blood lymphocytes automated count (number/volume) 1.4 10*3 1.0-4.0 Blood monocytes automated count (number/volume) 0. 3 10*3 0.0-1.0 Automated eosinophil count 0.1 10*3/uL 0 .0-0.3 Automated blood basophil count (count/volume) 0.0 10*3/uL 0.0-0.1 Comprehensive metabolic panel - 11/18/18 19:20 Serum or plasma sodium measurement (moles/volume) 142 mmol/L 135-145 Serum or plasma potassium measurement (moles/volume) 3.7 mmol/L 3.6-5.0 Serum or plasma chloride measurement (moles/volume) 104 mmol/L 98-107 Carbon dioxide 25 mmol/L 21-32 Serum or plasma anion gap determination (moles/volume) 13 mmol/L 5-14 Serum or plasma urea nitrogen measurement (mass/volume ) 6 mg/dL 7-18 Serum or plasma creatinine measurement (mass/volume) 0.87 mg/dL 0.60-1.30 Serum or plasma urea nitrogen/creatinine mass ratio 7 NRG Serum or plasma creatinine measurement w ith calculation of estimated glomerular filtration rate > NRG Serum or plasma glucose measurement (mass/volume) 88 mg/dL 70-105 Serum or plasma calcium measurement (mass/volume) 9.8 mg/dL 8.5-10.1 Serum or plasma total bilirubin measurement (mass/volu me) 0.5 mg/dL 0.1-1.0 Serum or plasma alkaline phosphatase dominic surement (enzymatic activity/volume) 61 U/L 40-136 Serum or plasma aspartate aminotransfera se measurement (enzymatic activity/volume) 15 U/L 5-34 Serum or plasma alanine aminotransferase measurement (enzymatic activity/volume) 10 U/L 0-55 Serum or plasma protein measurement (mass/volume) 7.5 g/dL 6.4-8.2 Serum or plasma albumin measurement (mass/volume) 4.8 g/dL 3.2-4.5 Lipase - 11/18/18 19:20 Lipase 13 U/L 8-78 Urine drug screening test - 11/18/18 20: 08 Urine phencyclidine detection by screening method NEGATIVE NEGATIVE Urine benzodiazepines detection by screening method NEGATIVE NEGATIVE Urine cocaine detection NEGATIVE NEGATI VE Urine amphetamines detection by screening method N EGATIVE NEGATIVE Urine methamphetamine detection by screening method NEGATIVE NEGATIVE Urine cannabinoids detection by screening method P OSITIVE NEGATIVE Urine opiates detection by screening method NEGATI VE NEGATIVE Urine barbiturates detection NEGATIVE N EGATIVE Screening urine tricyclic antidepressants detection NEGATIVE NEGATIVE Urine methadone detection by screening method NEGA TIVE NEGATIVE Urine oxycodone detection NEGATIVE NEGA TIVE Urine propoxyphene detection NEGATIVE N EGATIVE Complete blood count (CBC) with automate d white blood cell (WBC) differential - 11/26/18 16:21 Blood leukocytes automated count (number/volume) 3.5 10*3/uL 4.3-11.0 Blood erythrocytes automated count (number/volume) 4.35 10*6/uL 4.35-5.85 Venous blood hemoglobin measurement (mass/volume) 14.6 g/dL 13.3-17.7 Blood hematocrit (volume fraction) 42 % 40-54 Automated erythrocyte mean corpuscular volume 96 [ foz_us] 80-99 Automated erythrocyte mean corpuscular h emoglobin (mass per erythrocyte) 34 pg 25-34 Automated erythrocyte mean corpuscular h emoglobin concentration measurement (mass/volume) 35 g/dL 32-36 Automated erythrocyte distribution width ratio 11. 9 % 10.0- 14.5 Automated blood platelet count (count/volume) 154 10*3/uL 130-400 Automated blood platelet mean volume measurement 11.5 [foz_us] 7.4-10.4 Automated blood neutrophils/100 leukocytes 46 % 42-75 Automated blood lymphocytes/100 leukocytes 39 % 12-44 Blood monocytes/100 leukocytes 7 % 0-12 Automated blood eosinophils/100 leukocytes 6 % 0-10 Automated blood basophils/100 leukocytes 2 % 0-10 Blood neutrophils automated count (number/volume) 1.6 10*3 1.8-7.8 Blood lymphocytes automated count (number/volume) 1.4 10*3 1.0-4.0 Blood monocytes automated count (number/volume) 0. 3 10*3 0.0-1.0 Automated eosinophil count 0.1 10*3/uL 0 .0-0.3 Automated blood basophil count (count/volume) 0.0 10*3/uL 0.0-0.1 Whole blood basic metabolic panel - 07/10 16:21 Serum or plasma sodium measurement (moles/volume) 141 mmol/L 135-145 Serum or plasma potassium measurement (moles/volume) 3.4 mmol/L 3.6-5.0 Serum or plasma chloride measurement (moles/volume) 101 mmol/L 98-107 Carbon dioxide 31 mmol/L 21-32 Serum or plasma anion gap determination (moles/volume) 9 mmol/L 5-14 Serum or plasma urea nitrogen measurement (mass/volume ) 7 mg/dL 7-18 Serum or plasma creatinine measurement (mass/volume) 0.81 mg/dL 0.60-1.30 Serum or plasma urea nitrogen/creatinine mass ratio 9 NRG Serum or plasma creatinine measurement w ith calculation of estimated glomerular filtration rate > NRG Serum or plasma glucose measurement (mass/volume) 108 mg/dL 70-105 Serum or plasma calcium measurement (mass/volume) 9.4 mg/dL 8.5-10.1 TROPONIN I FS - 11/26/18 16:21 TROPONIN I FS < 0.30 <0.30 MAGNESIUM SERUM - 12/27/18 10:33 MAGNESIUM 1.8 mg/dL 1.5-2.5 TSH - 12/27/18 10:33 TSH 0.77 mIU/L 0.40-4.50 Comprehensive metabolic panel - 02/16/19 09:56 Serum or plasma sodium measurement (moles/volume) 134 mmol/L 135-145 Serum or plasma potassium measurement (moles/volume) 2.4 mmol/L 3.6-5.0 Serum or plasma chloride measurement (moles/volume) 80 mmol/L 98-107 Carbon dioxide 40 mmol/L 21-32 Serum or plasma anion gap determination (moles/volume) 14 mmol/L 5-14 Serum or plasma urea nitrogen measurement (mass/volume ) 12 mg/dL 7-18 Serum or plasma creatinine measurement (mass/volume) 0.88 mg/dL 0.60-1.30 Serum or plasma urea nitrogen/creatinine mass ratio 14 NRG Serum or plasma creatinine measurement w ith calculation of estimated glomerular filtration rate > NRG Serum or plasma glucose measurement (mass/volume) 115 mg/dL 70-105 Serum or plasma calcium measurement (mass/volume) 9.8 mg/dL 8.5-10.1 Serum or plasma total bilirubin measurement (mass/volu me) 0.4 mg/dL 0.1-1.0 Serum or plasma alkaline phosphatase dominic surement (enzymatic activity/volume) 72 U/L 40-136 Serum or plasma aspartate aminotransfera se measurement (enzymatic activity/volume) 22 U/L 5-34 Serum or plasma alanine aminotransferase measurement (enzymatic activity/volume) 14 U/L 0-55 Serum or plasma protein measurement (mass/volume) 7.6 g/dL 6.4-8.2 Serum or plasma albumin measurement (mass/volume) 5.0 g/dL 3.2-4.5 Magnesium - 02/16/19 09:56 Magnesium 2.4 mg/dL 1.6-2.4 Complete blood count (CBC) with automate d white blood cell (WBC) differential - 02/16/19 11:29 Blood leukocytes automated count (number/volume) 2.8 10*3/uL 4.3-11.0 Blood erythrocytes automated count (number/volume) 4.55 10*6/uL 4.35-5.85 Venous blood hemoglobin measurement (mass/volume) 15.2 g/dL 13.3-17.7 Blood hematocrit (volume fraction) 41 % 40-54 Automated erythrocyte mean corpuscular volume 91 [ foz_us] 80-99 Automated erythrocyte mean corpuscular h emoglobin (mass per erythrocyte) 33 pg 25-34 Automated erythrocyte mean corpuscular h emoglobin concentration measurement (mass/volume) 37 g/dL 32-36 Automated erythrocyte distribution width ratio 11. 3 % 10.0- 14.5 Automated blood platelet count (count/volume) 184 10*3/uL 130-400 Automated blood platelet mean volume measurement 10.8 [foz_us] 7.4-10.4 Automated blood neutrophils/100 leukocytes 39 % 42-75 Automated blood lymphocytes/100 leukocytes 44 % 12-44 Blood monocytes/100 leukocytes 14 % 0-12 Automated blood eosinophils/100 leukocytes 2 % 0-10 Automated blood basophils/100 leukocytes 1 % 0-10 Blood neutrophils automated count (number/volume) 1.1 10*3 1.8-7.8 Blood lymphocytes automated count (number/volume) 1.2 10*3 1.0-4.0 Blood monocytes automated count (number/volume) 0. 4 10*3 0.0-1.0 Automated eosinophil count 0.1 10*3/uL 0 .0-0.3 Automated blood basophil count (count/volume) 0.0 10*3/uL 0.0-0.1 Comprehensive metabolic panel - 02/16/19 11:29 Serum or plasma sodium measurement (moles/volume) 134 mmol/L 135-145 Serum or plasma potassium measurement (moles/volume) 2.3 mmol/L 3.6-5.0 Serum or plasma chloride measurement (moles/volume) 80 mmol/L 98-107 Carbon dioxide 42 mmol/L 21-32 Serum or plasma anion gap determination (moles/volume) 12 mmol/L 5-14 Serum or plasma urea nitrogen measurement (mass/volume ) 12 mg/dL 7-18 Serum or plasma creatinine measurement (mass/volume) 0.88 mg/dL 0.60-1.30 Serum or plasma urea nitrogen/creatinine mass ratio 14 NRG Serum or plasma creatinine measurement w ith calculation of estimated glomerular filtration rate > NRG Serum or plasma glucose measurement (mass/volume) 107 mg/dL 70-105 Serum or plasma calcium measurement (mass/volume) 10.2 mg/dL 8.5-10.1 Serum or plasma total bilirubin measurement (mass/volu me) 0.5 mg/dL 0.1-1.0 Serum or plasma alkaline phosphatase dominic surement (enzymatic activity/volume) 76 U/L 40-136 Serum or plasma aspartate aminotransfera se measurement (enzymatic activity/volume) 23 U/L 5-34 Serum or plasma alanine aminotransferase measurement (enzymatic activity/volume) 15 U/L 0-55 Serum or plasma protein measurement (mass/volume) 8.1 g/dL 6.4-8.2 Serum or plasma albumin measurement (mass/volume) 5.1 g/dL 3.2-4.5 Whole blood basic metabolic panel - 01/23 08/10 13:36 Serum or plasma sodium measurement (moles/volume) 135 mmol/L 135-145 Serum or plasma potassium measurement (moles/volume) 2.5 mmol/L 3.6-5.0 Serum or plasma chloride measurement (moles/volume) 86 mmol/L 98-107 Carbon dioxide 36 mmol/L 21-32 Serum or plasma anion gap determination (moles/volume) 13 mmol/L 5-14 Serum or plasma urea nitrogen measurement (mass/volume ) 11 mg/dL 7-18 Serum or plasma creatinine measurement (mass/volume) 0.82 mg/dL 0.60-1.30 Serum or plasma urea nitrogen/creatinine mass ratio 13 NRG Serum or plasma creatinine measurement w ith calculation of estimated glomerular filtration rate > NRG Serum or plasma glucose measurement (mass/volume) 88 mg/dL 70-105 Serum or plasma calcium measurement (mass/volume) 9.0 mg/dL 8.5-10.1 BMP - 02/21/19 14:13 GLUCOSE 107 mg/dL 65-99 UREA NITROGEN (BUN) 8 mg/dL 7-25 CREATININE 0.75 mg/dL 0.60-1.35 eGFR NON-AFR. GEORGIAN 124 mL/min/1.73m2 > OR = 60 eGFR 144 mL/min/1.73m2 > OR = 60 BUN/CREATININE RATIO NOT APPLICABLE (calc) 6-22 SODIUM 142 mmol/L 135-146 POTASSIUM 2.8 mmol/L 3.5-5.3 CHLORIDE 101 mmol/L 98-110 CARBON DIOXIDE 31 mmol/L 20-32 CALCIUM 9.3 mg/dL 8.6-10.3 MAGNESIUM SERUM - 02/21/19 14:13 MAGNESIUM 1.9 mg/dL 1.5-2.5 [facility] - 03/06/19 12:26 GLUCOSE 72 mg/dL 65-139 UREA NITROGEN (BUN) 10 mg/dL 7-25 CREATININE 0.86 mg/dL 0.60-1.35 eGFR NON-AFR. GEORGIAN 117 mL/min/1.73m2 > OR = 60 eGFR 136 mL/min/1.73m2 > OR = 60 BUN/CREATININE RATIO NOT APPLICABLE (calc) 6-22 SODIUM 140 mmol/L 135-146 POTASSIUM 3.8 mmol/L 3.5-5.3 CHLORIDE 100 mmol/L 98-110 CARBON DIOXIDE 32 mmol/L 20-32 CALCIUM 9.5 mg/dL 8.6-10.3 MAGNESIUM SERUM - 03/30/19 12:35 MAGNESIUM 2.0 mg/dL 1.5-2.5 VITAMIN D, 25-H - 04/25/19 12:19 VITAMIN D,25-OH,TOTAL,IA 36 ng/mL 30-10 0 Whole blood basic metabolic panel - 04/22 05/11 13:32 Serum or plasma sodium measurement (moles/volume) 141 mmol/L 135-145 Serum or plasma potassium measurement (moles/volume) 3.7 mmol/L 3.6-5.0 Serum or plasma chloride measurement (moles/volume) 102 mmol/L 98-107 Carbon dioxide 26 mmol/L 21-32 Serum or plasma anion gap determination (moles/volume) 13 mmol/L 5-14 Serum or plasma urea nitrogen measurement (mass/volume ) 7 mg/dL 7-18 Serum or plasma creatinine measurement (mass/volume) 0.83 mg/dL 0.60-1.30 Serum or plasma urea nitrogen/creatinine mass ratio 8 NRG Serum or plasma creatinine measurement w ith calculation of estimated glomerular filtration rate > NRG Serum or plasma glucose measurement (mass/volume) 90 mg/dL 70-105 Serum or plasma calcium measurement (mass/volume) 9.7 mg/dL 8.5-10.1 CBC - 05/17/19 10:19 WHITE BLOOD CELL COUNT 3.0 Thousand/uL 3 .8-10.8 RED BLOOD CELL COUNT 3.95 Million/uL 4.2 0-5.80 HEMOGLOBIN 13.6 g/dL 13.2-17.1 HEMATOCRIT 39.3 % 38.5-50.0 MCV 99.5 fL 80.0-100.0 MCH 34.4 pg 27.0-33.0 MCHC 34.6 g/dL 32.0-36.0 RDW 12.2 % 11.0-15.0 PLATELET COUNT 146 Thousand/uL 140-400 MPV 11.6 fL 7.5-12.5 ABSOLUTE NEUTROPHILS 942 cells/uL 1500-7 800 ABSOLUTE LYMPHOCYTES 1545 cells/uL 850-3 900 ABSOLUTE MONOCYTES 291 cells/uL 200-950 ABSOLUTE EOSINOPHILS 162 cells/uL 15-500 ABSOLUTE BASOPHILS 60 cells/uL 0-200 NEUTROPHILS 31.4 % NRG LYMPHOCYTES 51.5 % NRG MONOCYTES 9.7 % NRG EOSINOPHILS 5.4 % NRG BASOPHILS 2.0 % NRG BMP - 07/07/19 16:17 GLUCOSE 80 mg/dL 65-99 UREA NITROGEN (BUN) 13 mg/dL 7-25 CREATININE 0.86 mg/dL 0.60-1.35 eGFR NON-AFR. GEORGIAN 116 mL/min/1.73m2 > OR = 60 eGFR 135 mL/min/1.73m2 > OR = 60 BUN/CREATININE RATIO NOT APPLICABLE (calc) 6-22 SODIUM 140 mmol/L 135-146 POTASSIUM 4.0 mmol/L 3.5-5.3 CHLORIDE 104 mmol/L 98-110 CARBON DIOXIDE 30 mmol/L 20-32 CALCIUM 9.8 mg/dL 8.6-10.3 Complete blood count (CBC) with automate d white blood cell (WBC) differential - 08/02/19 17:00 Blood leukocytes automated count (number/volume) 4.1 10*3/uL 4.3-11.0 Blood erythrocytes automated count (number/volume) 4.28 10*6/uL 4.35-5.85 Venous blood hemoglobin measurement (mass/volume) 14.5 g/dL 13.3-17.7 Blood hematocrit (volume fraction) 40 % 40-54 Automated erythrocyte mean corpuscular volume 94 [ foz_us] 80-99 Automated erythrocyte mean corpuscular h emoglobin (mass per erythrocyte) 34 pg 25-34 Automated erythrocyte mean corpuscular h emoglobin concentration measurement (mass/volume) 36 g/dL 32-36 Automated erythrocyte distribution width ratio 12. 0 % 10.0- 14.5 Automated blood platelet count (count/volume) 175 10*3/uL 130-400 Automated blood platelet mean volume measurement 11.5 [foz_us] 7.4-10.4 Automated blood neutrophils/100 leukocytes 43 % 42-75 Automated blood lymphocytes/100 leukocytes 44 % 12-44 Blood monocytes/100 leukocytes 8 % 0-12 Automated blood eosinophils/100 leukocytes 3 % 0-10 Automated blood basophils/100 leukocytes 2 % 0-10 Blood neutrophils automated count (number/volume) 1.8 10*3 1.8-7.8 Blood lymphocytes automated count (number/volume) 1.8 10*3 1.0-4.0 Blood monocytes automated count (number/volume) 0. 3 10*3 0.0-1.0 Automated eosinophil count 0.1 10*3/uL 0 .0-0.3 Automated blood basophil count (count/volume) 0.1 10*3/uL 0.0-0.1 Comprehensive metabolic panel - 08/02/19 17:00 Serum or plasma sodium measurement (moles/volume) 143 mmol/L 135-145 Serum or plasma potassium measurement (moles/volume) 3.6 mmol/L 3.6-5.0 Serum or plasma chloride measurement (moles/volume) 105 mmol/L 98-107 Carbon dioxide 23 mmol/L 21-32 Serum or plasma anion gap determination (moles/volume) 15 mmol/L 5-14 Serum or plasma urea nitrogen measurement (mass/volume ) 13 mg/dL 7-18 Serum or plasma creatinine measurement (mass/volume) 0.85 mg/dL 0.60-1.30 Serum or plasma urea nitrogen/creatinine mass ratio 15 NRG Serum or plasma creatinine measurement w ith calculation of estimated glomerular filtration rate > NRG Serum or plasma glucose measurement (mass/volume) 90 mg/dL 70-105 Serum or plasma calcium measurement (mass/volume) 9.6 mg/dL 8.5-10.1 Serum or plasma total bilirubin measurement (mass/volu me) 0.4 mg/dL 0.1-1.0 Serum or plasma alkaline phosphatase dominic surement (enzymatic activity/volume) 72 U/L 40-136 Serum or plasma aspartate aminotransfera se measurement (enzymatic activity/volume) 17 U/L 5-34 Serum or plasma alanine aminotransferase measurement (enzymatic activity/volume) 12 U/L 0-55 Serum or plasma protein measurement (mass/volume) 7.3 g/dL 6.4-8.2 Serum or plasma albumin measurement (mass/volume) 4.7 g/dL 3.2-4.5 Magnesium - 08/02/19 17:00 Magnesium 1.7 mg/dL 1.6-2.4 Lipase - 08/02/19 17:00 Lipase 21 U/L 8-78 Encounters ACCT No. Visit Date/Time Discharge Status Pt. Type Provider Facility Loc./Unit Complaint [id number] 01/19/2012 08:30:00 01/19/2012 23:59:5 9 CLS Outpatient [id number] 07/18/2019 08:54:00 23:59:59 CLS Outpatient CHHAYA GOODE APRN [facility] RAD FS RT ARM PAIN [id number] 05/05/2019 13:22:00 23:59:59 CLS Outpatient CHHAYA GOODE APRN [facility] LAB FS BMP [id number] 04/18/2019 09:08:00 23:59:59 CLS Outpatient DELANEY LEONEL MORRISON [facility] RAD FS EPIGASTRIC ABDOMINAL TE NDERNESS [id number] 04/04/2019 13:45:00 18:59:00 DIS Outpatient DELANEY LEONEL MORRISON [facility] ENDO WT LOSS/CHANGE IN BM/EP IGASTRIC PAIN/GERD [id number] 03/30/2019 12:15:00 02/06/2 020 12:56:00 DIS Outpatient LEONEL DELANEY DO [facility] PREOP COLONOSCOPY/EGD [id number] 02/27/2019 10:37:00 23:59:59 CLS Outpatient ELIS SILVA MD [facility] CARD CHEST PAIN [id number] 02/16/2019 09:36:00 23:59:59 CLS Outpatient CHHAYA GOODE APRN [facility] LAB FS E87.6 R25.2 [id number] 02/16/2019 11:14:00 15:21:00 DIS Emergency KYAW GIFFORD, CHRIS Cisse [facility] ER FS ABN LAB RESULTS [id number] 01/18/2019 09:30:00 23:59:59 CLS Outpatient CHHAYA GOODE APRN [facility] RAD FS R51 [id number] 01/18/2019 15:34:00 16:35:00 DIS Emergency DC GIFFORD, MOLLY Tadeo [facility] ER FS HEADACHE; GAS LEAK EXPO SURE [id number] 01/09/2019 12:32:00 23:59:59 CLS Outpatient ELIS SILVA MD [facility] CARD CHEST PAIN [id number] 11/26/2018 16:07:00 17:18:00 DIS Emergency EMELYN DURAND MD [facility] ER FS HIGH BP;CHEST TIGHTNESS [id number] 11/18/2018 18:08:00 22:02:00 DIS Emergency ROSA BUSTILLOS DO [facility] ER FS STOMACH PAIN WITH CONSU MPTION OF FOOD [id number] 11/12/2018 14:09:00 15:44:00 DIS Emergency EMELYN DURAND MD [facility] ER FS NAUSEA,PT UNABLE TO EAT [id number] 09/27/2018 09:21:00 13:24:00 DIS Emergency SUDHAKAR MORRISON, SABINA Rodriguez [facility] ER FS NAUSEA [id number] 09/18/2018 10:37:00 12:15:00 DIS Emergency LAURYN GIFFORD, SHAGUFTA Patricio [facility] ER FS ABD PAIN,VOMITING [id number] 08/06/2018 17:13:00 11:50:00 DIS Inpatient GUILLAUME GIFFORD, CHRIS Rodriguez [facility] 4TH HYPOKALEMIA [id number] 08/02/2019 16:42:[address] Emergency JONATHON RUIZ DO Via [facility] ER FS DIARRHEA,TINGLING IN HANDS [id number] 08/01/2019 11:00:00 ACT Outpatient CHHAYA GOODE [facility] [id number] 07/07/2019 14:20:00 Document Registration [id number] 05/17/2019 09:15:00 Document Registration [id number] 04/25/2019 10:40:00 Document Registration [id number] 03/30/2019 11:00:00 Document Registration [id number] 03/06/2019 11:15:00 Document Registration [id number] 02/21/2019 13:20:00 Document Registration [id number] 12/27/2018 09:30:00 Document Registration [id number] 10/05/2018 15:15:00 Document Registration
== END 2019-08-02 18:42 | disposition home or self-care (01) ==
LOC: EDUNIT# 16:41 → ER FS 16:42
DX: R19.7 Diarrhea, unspecified (principal); E86.0 Dehydration; K21.9 Gastro-esophageal reflux disease without esophagitis; Z88.5 Allergy status to narcotic agent; Z88.1 Allergy status to other antibiotic agents; Z87.891 Personal history of nicotine dependence; Z82.49 Family history of ischemic heart disease and other diseases of the circulatory system
CPT/HCPCS: 36415; 80053; 83690; 83735; 85025

== ENCOUNTER 2019-09-03 03:05 | Emergency (ER) | payer MEDICAID ==
[~2019-09-03] VITALS: Ht 190.5 cm; Wt 58.6 kg
--- OUTSIDE RECORDS SUMMARY | 2019-09-03 03:13 | XMS REPORT | Continuity of Care Document ---
Demographics Preferred Language Unknown Marital Status Unknown Alevism Affiliation Unknown Race Unknown Ethnic Group Unknown Author Organization Unknown Address Unknown Phone Unavailable Allergies Active Description Code Type Severity Reaction Onset Reported/Identified Relationship to Patient Clinical Status Yes Benzodiazepines Drug Allergy 01/19/2012 Yes clindamycin Drug Allergy 01/19/2012 Yes Codeine Drug Allergy 01/19/2012 Yes hydrocodone Drug Allergy 01/19/2012 Yes codeine [id number] Drug Allergy Moderate Vomiting 08/06/2018 Yes clindamycin [id number] Drug Aller gy Unknown N/A 09/18/2018 Yes milk [id number] Drug Allergy Unknown N/A 09/18/2018 Medications There is no data. Problems Date Dx Coded Attending Type Code Diagnosis Diagnosed By 06/02/2008 535.00 ACU TE GASTRITIS (WITHOUT HEMORRHAGE) 01/19/2012 724.2 LUMBAGO 01/19/2012 782.0 DIST URBANCE OF SKIN SENSATION 08/07/2018 CHRIS GALAVIZ MD Ot D70. 9 NEUTROPENIA, UNSPECIFIED 08/07/2018 CHRIS GALAVIZ MD Ot E46 UNSPECIFIED PROTEIN-CALORIE MALNUTRITION [...] UNSPECIFIED CHRONIC GASTRITIS WITHOUT BL 09/18/2018 SHAGUFTA COMBS MD, Ot K59. 00 CONSTIPATION, UNSPECIFIED 09/18/2018 [...] DO Ot R10.84 GENERALIZED ABDOMINAL PAIN 09/27/2018 SAIBNA DE LA FUENTE DO Ot R11.2 NAUSEA [...] Ot R10. 9 UNSPECIFIED ABDOMINAL PAIN 11/12/2018 EMELYN DURAND MD Ot R11. 2 NAUSEA [...] ISCHEM HEART DIS AND OTH DI 11/15/2018 EMELYN DURAND MD Ot Z87.891 PERSONAL HISTORY [...] STATUS TO OTHER ANTIBIOTIC AGENT 12/27/2018 EMELYN DURAND MD Ot Z88. 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 Ot R51 HEADACHE 02/16/2019 CHRIS CARD MD [...] STATUS TO NARCOTIC AGENT STATUS 02/22/2019 RUSSEL CHHAAY Wong EMELI Ot E87.6 HYPOKALEMIA 02/22/2019 RUSSEL, [...] EMELI Ot R51 HEADACHE 03/03/2019 CHHAYA GOODE EEMLI Ot E87.6 HYPOKALEMIA 03/03/2019 CHHAYA GOODE EMELI [...] APRN Ot R51 HEADACHE 03/28/2019 CHHAYA GOODE [employer]UST BRUSH ASSEMBLER Ot E87.6 HYPOKALEMIA 03/28/2019 CHHAYA GOODE [employer] BRUSH ASSEMBLER Ot R25.2 CRAMP AND SPASM 03/30/2019 LEONEL DELANEY DO Ot Z01.818 ENCOUNTER FOR OTHER PREPROCEDURAL EXAMIN 04/04/2019 LEONEL DELANEY DO Ot F17.210 NICOTINE DEPENDENCE, CIGARETTES, UNCOMPL 04/04/2019 LEONEL DELANEY DO Ot K21. 0 GASTRO-ESOPHAGEAL REFLUX DISEASE WITH ES 04/04/2019 LEONEL DELANEY DO Ot K29. 50 UNSPECIFIED CHRONIC GASTRITIS WITHOUT BL 04/04/2019 LEONEL DELANEY DO Ot K29. 80 DUODENITIS WITHOUT BLEEDING 04/04/2019 LEONEL DELANEY DO Ot K44. 9 DIAPHRAGMATIC HERNIA WITHOUT OBSTRUCTION 04/04/2019 LEONEL DELANEY DO Ot R19. 4 CHANGE IN BOWEL HABIT 04/04/2019 MICHELE DELANEY DOTT D Ot R63. 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 49 FAMILY HX OF ISCHEM HEART DIS AND OTH DI 04/04/2019 VIENNA DO, LEONEL Jennifer Ot Z83. 6 FAMILY HISTORY OF OTHER DISEASES OF THE 04/04/2019 VIENNA DO, LEONEL D Ot Z88. 1 ALLERGY STATUS TO OTHER ANTIBIOTIC AGENT 04/04/2019 VIENNA DO, LEONEL D Ot Z88. 5 ALLERGY STATUS TO NARCOTIC AGENT STATUS 04/04/2019 VIENNA DO, LEONEL D Ot Z90. 49 ACQUIRED ABSENCE OF OTHER SPECIFIED PART 04/04/2019 [facility], LEONEL D Ot Z91.011 ALLERGY TO MILK PRODUCTS 04/10/2019 [facility], LEONEL Rodriguez Ot F17.210 NICOTINE DEPENDENCE, CIGARETTES, UNCOMPL 04/10/2019 [facility], LEONEL Jennifer Ot K21. 0 GASTRO-ESOPHAGEAL REFLUX DISEASE WITH ES 04/10/2019 [facility], LEONEL Jennifer Ot K29. 50 UNSPECIFIED CHRONIC GASTRITIS WITHOUT BL 04/10/2019 [facility], LOENEL D Ot K29. 80 DUODENITIS WITHOUT BLEEDING 04/10/2019 [facility] Ot K44. 9 DIAPHRAGMATIC HERNIA WITHOUT OBSTRUCTION 04/10/2019 [facility], LEONEL D Ot R19. 4 CHANGE IN BOWEL HABIT 04/10/2019 [facility], LEONEL Jennifer Ot R63. 4 ABNORMAL WEIGHT LOSS 04/10/2019 [facility], LEONEL Jennifer Ot Z79.899 OTHER [facility] (CURRENT) DRUG THERAPY 04/10/2019 VIENNA DO, LEONEL D Ot Z82. 49 FAMILY HX OF ISCHEM HEART DIS AND OTH DI 04/10/2019 DELANEY DOMICHELETT Jennifer Ot Z83. 6 FAMILY HISTORY OF OTHER DISEASES OF THE 04/10/2019 VIENNA DO, LEONEL Jennifer Ot Z88. 1 ALLERGY STATUS TO OTHER ANTIBIOTIC AGENT 04/10/2019 VIENNA DO, LEONEL D Ot Z88. 5 ALLERGY STATUS TO NARCOTIC AGENT STATUS 04/10/2019 VIENNA DO, LEONEL D Ot Z90. 49 ACQUIRED ABSENCE OF OTHER SPECIFIED PART 04/10/2019 DELANEY DO, LEONEL D Ot Z91.011 ALLERGY TO MILK PRODUCTS 04/17/2019 RICARDO GIFFORD, ELIS Colon Ot I95. 9 HYPOTENSION, UNSPECIFIED 04/17/2019 RICARDO GIFFORD, ELIS Colon Ot R06. 09 OTHER FORMS OF DYSPNEA 04/17/2019 RICARDO GIFFORD, ELIS Colon Ot R07. 9 CHEST PAIN, UNSPECIFIED 04/17/2019 ELIS SILVA MD Ot Z82. 49 FAMILY HX OF ISCHEM HEART DIS AND OTH DI 04/17/2019 ELIS SILVA MD Ot I95. 9 HYPOTENSION, UNSPECIFIED 04/17/2019 RICARDO GIFFORD, ELIS Colon Ot R06. 09 OTHER FORMS OF DYSPNEA 04/17/2019 ELIS SILVA MD Ot R07. 9 CHEST PAIN, UNSPECIFIED 04/17/2019 ELIS SILVA MD Ot Z82. 49 FAMILY HX OF ISCHEM HEART DIS AND OTH DI 04/17/2019 CHHAYA GOODE APRN Ot R51 HEADACHE 04/17/2019 CHHAYA GOODE APRN Ot E87.6 HYPOKALEMIA 04/17/2019 CHHAYA GOODE APRN Ot R25.2 CRAMP AND SPASM 04/21/2019 DELANEY DO, LEONEL D Ot R10. 13 EPIGASTRIC PAIN 04/21/2019 DELANEY DO, LEONEL D Ot R10.816 EPIGASTRIC ABDOMINAL TENDERNESS 04/24/2019 DELANEY DO, LEONEL D Ot R10. 13 EPIGASTRIC PAIN 04/24/2019 DELANEY DO, LEONEL D Ot R10.816 EPIGASTRIC ABDOMINAL TENDERNESS 05/09/2019 CHHAYA GOODE APRN Ot E87.6 HYPOKALEMIA 07/20/2019 CHHAYA GOODE APRN Ot M79.631 PAIN IN RIGHT FOREARM 08/02/2019 RUIZ DO, JONATHON L Ot E86.0 DEHYDRATION 08/02/2019 RUIZ DO, JONATHON L Ot K21.9 GASTRO-ESOPHAGEAL REFLUX DISEASE WITHOUT 08/02/2019 RUIZ DO, JONATHON L Ot R19.7 DIARRHEA, UNSPECIFIED 08/02/2019 RUIZ DO, JONATHON L Ot Z82.4 9 FAMILY HX OF ISCHEM HEART DIS AND OTH DI 08/02/2019 RUIZ DO, JONATHON L Ot Z87.8 91 PERSONAL HISTORY OF NICOTINE DEPENDENCE 08/02/2019 RUIZ DO, JONATHON L Ot Z88.1 ALLERGY STATUS TO OTHER ANTIBIOTIC AGENT 08/02/2019 RUIZ DO, JONATHON L Ot Z88.5 ALLERGY STATUS TO NARCOTIC AGENT STATUS 08/04/2019 RUIZ DO, JONATHON L Ot E86.0 DEHYDRATION 08/04/2019 RUIZ DO, JONATHON L Ot K21.9 GASTRO-ESOPHAGEAL REFLUX DISEASE WITHOUT 08/04/2019 RUIZ DO, JONATHON L Ot R19.7 DIARRHEA, UNSPECIFIED 08/04/2019 RUIZ DO, JONATHON L Ot Z82.4 9 FAMILY HX OF ISCHEM HEART DIS AND OTH DI 08/04/2019 RUIZ DO, JONATHON L Ot Z87.8 91 PERSONAL HISTORY OF NICOTINE DEPENDENCE 08/04/2019 RUIZ DO, JONATHON L Ot Z88.1 ALLERGY STATUS TO OTHER ANTIBIOTIC AGENT 08/04/2019 RUIZ DO, JONATHON L Ot Z88.5 ALLERGY STATUS TO NARCOTIC AGENT STATUS 08/07/2019 RICARDO GIFFORD, ELIS Colon Ot I95. 9 HYPOTENSION, UNSPECIFIED 08/07/2019 RICARDO GIFFORD, ELIS Colon Ot R06. 09 OTHER FORMS OF DYSPNEA 08/07/2019 RICARDO GIFFORD, ELIS Colon Ot R07. 9 CHEST PAIN, UNSPECIFIED 08/07/2019 RICARDO GIFFORD, ELIS Colon Ot Z82. 49 FAMILY HX OF ISCHEM HEART DIS AND OTH DI 08/07/2019 ELIS SILVA MD Ot I95. 9 HYPOTENSION, UNSPECIFIED 08/07/2019 RICARDO GIFFORD, ELIS Colon Ot R06. 09 OTHER FORMS OF DYSPNEA 08/07/2019 RICARDO GIFFORD, ELIS Colon Ot R07. 9 CHEST PAIN, UNSPECIFIED 08/07/2019 RICARDO GIFFORD, ELIS Colon Ot Z82. 49 FAMILY HX OF ISCHEM HEART DIS AND OTH DI 08/07/2019 CHHAYA GOODE APRN Ot R51 HEADACHE 08/07/2019 CHHAYA GOODE APRN Ot E87.6 HYPOKALEMIA 08/07/2019 CHHAYA GOODE APRN Ot R25.2 CRAMP AND SPASM 08/07/2019 DELANEY DOLEONEL D Ot R10. 13 EPIGASTRIC PAIN 08/07/2019 DELANEY DOLEONEL D Ot R10.816 EPIGASTRIC ABDOMINAL TENDERNESS 08/07/2019 RUSSEL, CHHAYA K DUST BRUSH ASSEMBLER Ot E87.6 HYPOKALEMIA 08/07/2019 CHHAYA GOODE DUST BRUSH ASSEMBLER Ot M79.631 PAIN IN RIGHT FOREARM 08/07/2019 CHHAYA GOODE DUST BRUSH ASSEMBLER Ot M79.631 PAIN IN RIGHT FOREARM 08/07/2019 RICARDO GIFFORD, ELIS Colon Ot I95. 9 HYPOTENSION, UNSPECIFIED 08/07/2019 RICARDO GIFFORD, ELIS Colon Ot R06. 09 OTHER FORMS OF DYSPNEA 08/07/2019 RICARDO GIFFORD, ELIS Colon Ot R07. 9 CHEST PAIN, UNSPECIFIED 08/07/2019 RICARDO GIFFORD, ELIS Colon Ot Z82. 49 FAMILY HX OF ISCHEM HEART DIS AND OTH DI 08/07/2019 RICARDO GIFFORD, ELIS Colon Ot I95. 9 HYPOTENSION, UNSPECIFIED 08/07/2019 RICARDO GIFFORD, ELIS Colon Ot R06. 09 OTHER FORMS OF DYSPNEA 08/07/2019 RICARDO GIFFORD, ELIS Colon Ot R07. 9 CHEST PAIN, UNSPECIFIED 08/07/2019 RICARDO GIFFORD, ELIS Colon Ot Z82. 49 FAMILY HX OF ISCHEM HEART DIS AND OTH DI 08/07/2019 CHHAYA GOODE DUST BR[employer] ASSEMBLER Ot R51 HEADACHE 08/07/2019 CHHAYA GOODE DUST BRUSH ASSEMBLER Ot E87.6 HYPOKALEMIA 08/07/2019 CHHAYA GOODE DUST BRUSH ASSEMBLER Ot R25.2 CRAMP AND SPASM 08/07/2019 DELANEY DO, LEONEL D Ot R10. 13 EPIGASTRIC PAIN 08/07/2019 DELANEY DO, LEONEL D Ot R10.816 EPIGASTRIC ABDOMINAL TENDERNESS 08/07/2019 RUSSEL, CHHAYA Wong DUST BRUSH ASSEMBLER Ot E87.6 HYPOKALEMIA 08/07/2019 CHHAYA GOODE DUST BRUSH ASSEMBLER Ot M79.631 PAIN IN RIGHT FOREARM 08/07/2019 CHHAYA GOODE DUST BRUSH ASSEMBLER Ot E87.6 HYPOKALEMIA 08/07/2019 DELANEY DO, LEONEL D Ot R10. 13 EPIGASTRIC PAIN 08/07/2019 DELANEY DO, LEONEL D Ot R10.816 EPIGASTRIC ABDOMINAL TENDERNESS 08/07/2019 DELANEY DO, LEONEL D Ot R10. 13 EPIGASTRIC PAIN 08/07/2019 DELANEY DO, LEONEL D Ot R10.816 EPIGASTRIC ABDOMINAL TENDERNESS 08/07/2019 RICARDO GIFFORD, ELIS Colon Ot I95. 9 HYPOTENSION, UNSPECIFIED 08/07/2019 RICARDO GIFFORD, ELIS Colon Ot R06. 09 OTHER FORMS OF DYSPNEA 08/07/2019 RICARDO GIFFORD, ELIS Colon Ot R07. 9 CHEST PAIN, UNSPECIFIED 08/07/2019 ELIS SILVA MD Ot Z82. 49 FAMILY HX OF ISCHEM HEART DIS AND OTH DI 08/07/2019 ELIS SILVA MD Ot I95. 9 HYPOTENSION, UNSPECIFIED 08/07/2019 RICARDO GIFFORD, ELIS Colon Ot R06. 09 OTHER FORMS OF DYSPNEA 08/07/2019 RICARDO GIFFORD, ELIS Colon Ot R07. 9 CHEST PAIN, UNSPECIFIED 08/07/2019 RICARDO GIFFORD, ELIS Colon Ot Z82. 49 FAMILY HX OF ISCHEM HEART DIS AND OTH DI 08/08/2019 LEONEL DELANEY DO Ot F17.210 NICOTINE DEPENDENCE, CIGARETTES, UNCOMPL 08/08/2019 LEONEL DELANEY DO Ot K21. 0 GASTRO-ESOPHAGEAL REFLUX DISEASE WITH ES 08/08/2019 DELANEY LEONEL MORRISON Ot K29. 50 UNSPECIFIED CHRONIC GASTRITIS WITHOUT BL 08/08/2019 LEONEL DELANEY DO Ot K29. 80 DUODENITIS WITHOUT BLEEDING 08/08/2019 LEONEL DELANEY DO Ot K44. 9 DIAPHRAGMATIC HERNIA WITHOUT OBSTRUCTION 08/08/2019 LEONEL DELANEY DO Ot R19. 4 CHANGE IN BOWEL HABIT 08/08/2019 LEONEL DELANEY DO Ot R63. 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 49 FAMILY HX OF ISCHEM HEART DIS AND OTH DI 08/08/2019 LEONEL DELANEY DO Ot Z83. 6 FAMILY HISTORY OF OTHER DISEASES OF THE 08/08/2019 LEONEL DELANEY DO Ot Z88. 1 ALLERGY STATUS TO OTHER ANTIBIOTIC AGENT 08/08/2019 DELANEY LEONEL MORRISON Ot Z88. 5 ALLERGY STATUS TO NARCOTIC AGENT STATUS 08/08/2019 LEONEL DELANEY DO Ot Z90. 49 ACQUIRED ABSENCE OF OTHER SPECIFIED PART 08/08/2019 LEONEL DELANEY DO Ot Z91.011 ALLERGY TO MILK PRODUCTS 08/08/2019 VIENNA LEONEL MORRISON Ot R10. 13 EPIGASTRIC PAIN 08/08/2019 LEONEL DELANEY DO Ot R10.816 EPIGASTRIC ABDOMINAL TENDERNESS 08/08/2019 CHHAYA GOODE APRN Ot E87.6 HYPOKALEMIA 08/08/2019 CHHAYA GOODE EMELI Ot R25.2 CRAMP AND SPASM 08/09/2019 CHHAYA GOODE EMELI Ot E87.6 HYPOKALEMIA 08/09/2019 CHHAYA GOODE EMELI Ot R25.2 CRAMP AND SPASM Procedures Code Description [place] [address] URIN E DRUG SCREEN (IN-HOUSE) 01/19/2012 Results Test Result [...] 7-25 CREATININE 0.83 mg/dL 0.60-1.35 eGFR NON-AFR. [place] 119 mL/min/1.73m2 > OR = 60 eGFR [...] 80 mmol/L 98-107 Carbon dioxide 40 mmol/L - Serum or plasma anion gap determination (moles/volume) [...] plasma calcium measurement (mass/volume) 9.0 mg/dL 8.5-10.1 [facility] - 02/21/19 14:13 GLUCOSE 107 mg/dL 65-99 UREA NITROGEN (BUN) 8 mg/dL 7-25 CREATININE 0.75 mg/dL 0.60-1.35 eGFR NON-AFR. [place] 124 mL/min/1.73m2 > OR = 60 eGFR 144 mL/min/1.73m2 > OR = 60 BUN/CREATININE RATIO NOT APPLICABLE (calc) 6-22 SODIUM 142 mmol/L 135-146 POTASSIUM 2.8 mmol/L 3.5-5.3 CHLORIDE 101 mmol/L 98-110 CARBON DIOXIDE 31 mmol/L 20-32 CALCIUM 9.3 mg/dL 8.6-10.3 MAGNESIUM SERUM - 02/21/19 14:13 MAGNESIUM 1.9 mg/dL 1.5-2.5 [facility] - 03/06/19 12:26 GLUCOSE 72 mg/dL 65-139 UREA NITROGEN (BUN) 10 mg/dL 7-25 CREATININE 0.86 mg/dL 0.60-1.35 eGFR NON-AFR. [place] 117 mL/min/1.73m2 > OR = 60 eGFR [...] 7-25 CREATININE 0.86 mg/dL 0.60-1.35 eGFR NON-AFR. [place] 116 mL/min/1.73m2 > OR = 60 eGFR [...] Status Pt. Type Provider Facility Loc./Unit Complaint [id number] 01/19/2012 08:30:00 01/19/2012 23:59:5 9 CLS Outpatient [id number] 08/02/2019 16:42:00 18:42:00 DIS Emergency RUIZ DO, JONATHON L [facility] ER FS DIARRHEA,TINGLING IN [place] NDS [id number] 07/18/2019 08:54:00 23:59:59 CLS Outpatient CHHAYA GOODE APRN [facility] RAD FS RT ARM PAIN [id number] 05/05/2019 13:22:00 23:59:59 CLS Outpatient CHHAYA GOODE APRN [facility] LAB FS BMP [id number] 04/18/2019 09:08:00 23:59:59 CLS Outpatient DELANEY LEONEL MORRISON [facility] RAD FS EPIGASTRIC ABDOMINAL TE NDERNESS [id number] 04/04/2019 13:45:00 18:59:00 DIS Outpatient DELANEY LEONEL MORRISON [facility] ENDO WT LOSS/CHANGE IN BM/EP IGASTRIC PAIN/GERD [id number] 03/30/2019 12:15:00 12:56:00 DIS Outpatient DELANEY LEONEL MORRISON [facility] PREOP COLONOSCOPY/EGD [id number] 02/27/2019 10:37:00 23:59:59 CLS Outpatient ELIS SILVA MD [facility] CARD CHEST PAIN [id number] 02/16/2019 09:36:00 23:59:59 CLS Outpatient CHHAYA GOODE APRN [facility] LAB FS E87.6 R25.2 [id number] 02/16/2019 11:14:00 15:21:00 DIS Emergency KYAW GIFFORD, CHRIS Cisse [facility] ER FS ABN LAB RESULTS [id number] 01/18/2019 09:30:00 23:59:59 CLS Outpatient CHHAYA GOODE APRN [facility] RAD FS R51 [id number] 01/18/2019 15:34:00 16:35:00 DIS Emergency DC GIFFORD, MOLLY Tadeo [facility] ER FS HEADACHE; GAS LEAK EXPO SURE [id number] 01/09/2019 12:32:00 23:59:59 CLS Outpatient ELIS SILVA MD [facility] CARD CHEST PAIN [id number] 11/26/2018 16:07:00 17:18:00 DIS Emergency KIZZY GIFFORD, EMELYN Neal [facility] ER FS HIGH BP;CHEST TIGHTNESS [id number] 11/18/2018 18:08:00 22:02:00 DIS Emergency ROSA BUSTILLOS DO [facility] ER FS STOMACH PAIN WITH CONSU MPTION OF FOOD [id number] 11/12/2018 14:09:00 15:44:00 DIS Emergency EMELYN DURAND MD [facility] ER FS NAUSEA,PT UNABLE TO EAT [id number] 09/27/2018 09:21:00 13:24:00 DIS Emergency SABINA DE LA FUENTE DO [facility] ER FS NAUSEA [id number] 09/18/2018 10:37:00 12:15:00 DIS Emergency LAURYN GIFFORD, SHAGUFTA Patricio [facility] ER FS ABD PAIN,VOMITING [id number] 08/06/2018 17:13:00 11:50:00 DIS Inpatient GUILLAUME GIFFORD, CHRIS Rodriguez [facility] 4TH HYPOKALEMIA [id number] 08/31/2019 14:00:00 ACT [facility] [id number] 07/07/2019 14:20:00 Document Registration [id number] 05/17/2019 09:15:00 Document Registration [id number] 04/25/2019 10:40:00 Document Registration [id number] 03/30/2019 11:00:00 Document Registration [id number] 03/06/2019 11:15:00 Document Registration [id number] 02/21/2019 13:20:00 Document Registration [id number] 12/27/2018 09:30:00 Document Registration [id number] 10/05/2018 15:15:00 Document Registration
[2019-09-03 03:17] VITALS: BP 114/76
--- NOTE | 2019-09-03 03:35 | ED EENT ---
History of Present Illness General Chief Complaint: Dental Problems/Pain Stated Complaint: DENTAL PAIN Nursing Triage Note: pt states dentist placed him on amoxil 2 days ago for infected tooth and has not helped History of Present Illness Date Seen by Provider: Sep 03, 2019 Time Seen by Provider: 03:20 Initial Comments The patient is a 29-year-old male who presents for evaluation of left upper dental discomfort in association with a necrotic molar. Patient has extremely poor dentition with numerous necrotic teeth and numerous missing teeth. He reports that he was placed on amoxicillin for uncomplicated dental infection associated with the necrotic molar in question 2 days ago by his dentist. He states that the pain has not improved with the amoxicillin, ibuprofen and Tylenol. He denies associated fevers, vomiting, trismus, pain or swelling to the floor of the mouth or elevation of the tongue, trouble with secretions, change in voice, shortness of breath. He speaking comfortably in full sentences and is in absolutely no acute distress upon initial assessment here in the emergency department. He is afebrile and vital signs are appropriate here. Patient reports that he is not supposed to be taking ibuprofen due to chronic abdominal issues for which he has a G-tube in place. Allergies and Home Medications Allergies Coded Allergies: codeine (Verified Allergy, Intermediate, Vomiting, 08/06/18) clindamycin (Verified Allergy, Unknown, 09/18/18) milk (Verified Allergy, Unknown, 09/18/18) Home Medications Bupropion HCl 150 Mg Tablet.er, 150 MG PO BID, (Reported) Magnesium Oxide 400 Mg Tablet, 400 MG PO DAILY, (Reported) Ondansetron 4 Mg Tab.rapdis, 4 MG PO Q4H PRN for NAUSEA/VOMITING, (Reported) Ondansetron 4 Mg Tab.rapdis, 4 MG PO Q6H PRN for NAUSEA/VOMITING Prescribed by: JONATHON RUIZ on 08/02/191831 Pantoprazole Sodium 40 Mg Tablet.dr, 40 MG PO DAILY Prescribed by: LEONEL DELANEY on 04/04/191817 Sucralfate 1 Gm Tablet, 1 GM PO QID, (Reported) Patient Home Medication List Home Medication List Reviewed: Yes Review of Systems Review of Systems Constitutional: see HPI All Other Systems Reviewed Negative Unless Noted: Yes (Negative excepted noted.) Past Kllwfwt-Swkgmu-Nubgcs Hx Past Med/Social Hx: Reviewed Nursing Past Med/Soc Hx Patient Social History Alcohol Use: Denies Use Recreational Drug Use: Yes Drug of Choice: marijuana/meth Type Used: Cigarettes Former Smoker, Quit: Feb 22, 2019 2nd Hand Smoke Exposure: No Recent Foreign Travel: No Contact w/Someone Who Travel: No Recent Infectious Disease Expo: No Recent Hopitalizations: No Physical Abuse: No Sexual Abuse: No Mistreated: No Fear: No Seasonal Allergies Seasonal Allergies: No Past Medical History Surgeries: Yes Gallbladder Respiratory: No Cardiac: No Neurological: No Genitourinary: No Gastrointestinal: Yes (Gastroenteritis, Cyclic vomiting disorder) Gastroesophageal Reflux, Gastrointestinal Bleed Musculoskeletal: No Endocrine: No HEENT: No Cancer: No Psychosocial: No Integumentary: No Blood Disorders: No Adverse Reaction/Blood Tranf: No Family Medical History Reviewed Nursing Family Hx Asthma G8 BROTHER FH: CVA (cerebrovascular accident) 19 FATHER 19 MOTHER FH: depression 19 MOTHER FH: heart attack 19 MOTHER (X2) FH: kidney disease 19 MOTHER FH: liver disease 19 MOTHER FH: multiple sclerosis 19 FATHER FH: scoliosis G8 BROTHER G8 BROTHER G8 SISTER G8 SISTER Physical Exam Vital Signs Vital Signs - First Documented 09/03/19 03:17 Temp 36.3 Pulse 95 Resp 14 B/P (MAP) 114/76 (89) Pulse Ox 96 O2 Delivery Room Air Height, Weight, BMI Height: 6'4.00" Weight: 104lbs. 0.0oz. 47.634150lh; 16.00 BMI Method:Stated General Appearance: no apparent distress This is a cachectic 29-year-old male appearing nontoxic and in no acute distress. Head is normocephalic and atraumatic. Neck is supple and nontender. Oropharynx is moist. There is extremely poor and necrotic dentition with numerous missing teeth. Mild gingival erythema localized around a remnant left maxillary molar; associated tenderness without fluctuance suggestive of periapical abscess. No other signs of intraoral or posterior pharyngeal infectious process. No posterior oropharyngeal erythema, tonsillar exudates or swelling or uvular deviation. Patient is tolerating secretions very well and speaking in a normal tone of voice. Lungs are clear to auscultation at all stations. There is a normal S1 and S2 without rubs or gallops and capillary refill is appropriate, less than 2 seconds globally. Abdomen is soft, nontender and nondistended with G-tube in place without surrounding erythema, swelling or other acute abnormality identified. Skin is warm and dry without cyanosis, clubbing or edema. Psychiatrically, the patient demonstrates appropriate mood and affect and is alert. Progress/Results/Core Measures Results/Orders Vital Signs/I&O 09/03/19 03:17 Temp 36.3 Pulse 95 Resp 14 B/P (MAP) 114/76 (89) Pulse Ox 96 O2 Delivery Room Air Blood Pressure Mean: 89 Progress Progress Note : Time: 03:35 Progress Note Patient is counseled that he is already on an appropriate antibiotic for uncomplicated dental infection. We we will provide medication for analgesia and will provide a small number of pain pills for breakthrough discomfort as the patient is unable to use NSAIDs safely. He is counseled to use Tylenol and then oxycodone as needed for breakthrough pain. He understands that if he feels worse is that of better or develops other new symptoms of concern that he will need to return to the emergency department immediately for reevaluation. He is instructed to follow up with his dentist in the next 1-2 days. All questions are answered. Departure Impression Primary Impression: Dental decay Disposition: 01 HOME, SELF-CARE Condition: Improved Departure-Patient Inst. Referrals: [facility] [place] (PCP) Primary Care Physician CHHAYA GOODE APRN (Family) Primary Care Physician Patient Instructions: Dental Pain Add. Discharge Instructions: Follow-up very closely with your dentist in the next 1-2 days for a reevaluation of your symptoms and a discussion of next steps in care. Continue to take Tylenol, 500 mg every 6 hours as needed for dental pain. You may take an oxycodone pill every 6 hours as needed for pain that is not well-controlled with Tylenol alone. Do not drive or work or operate machinery while taking oxycodone as it can make you sleepy. Continue to take the amoxicillin you were prescribed by your dentist until it is gone. Return to the emergency department right away with worsening symptoms of any kind or with any other new symptoms of concern. Scripts Oxycodone HCl (Oxycodone IR) 5 Mg Tablet 5 MG PO Q6H for Breakthrough Pain for 7 Days, #4 TAB Prov: SHAGUFTA COMBS MD 09/03/19 SHAGUFAT COMBS MD Sep 03, 2019 03:35
[2019-09-03] MEDS ORDERED: OXYC5TAB96 PO (03:39)
== END 2019-09-03 03:41 | disposition home or self-care (01) ==
LOC: EDUNIT# 03:05 → ER FS 03:08
DX: K02.9 Dental caries, unspecified (principal); K21.9 Gastro-esophageal reflux disease without esophagitis; Z88.5 Allergy status to narcotic agent; Z88.1 Allergy status to other antibiotic agents; Z87.891 Personal history of nicotine dependence; Z82.49 Family history of ischemic heart disease and other diseases of the circulatory system
CPT/HCPCS: 99283

== ENCOUNTER → 2019-10-10 | Outpatient (CLI) | payer MEDICAID ==
[~2019-10-10] MED LIST changes: +CATHETER FLUSH 10 ML SYR IV PRN; +HOLD METFORMIN - RECEIVED CONTRAST 20 ML VIAL IV SCH; +IOHEXOL 350 MG/ML 100 ML (OMNIPAQUE 350) VIAL IV ONE; +NS 100 ML (IVPB) BAG IV ONE; +OXYC5TAB96 PO
--- NOTE | 2019-10-10 14:31 | Diagnostic Imaging Report ---
PROCEDURE: CT abdomen and pelvis with contrast. TECHNIQUE: Multiple contiguous axial images were obtained through the abdomen and pelvis after administration of intravenous contrast. Auto Exposure Controls were utilized during the CT exam to meet ALARA standards for radiation dose reduction. INDICATION: Abdominal problems and pain in patient's whole life with the pain increasing in severity over the past couple of a months. CORRELATION STUDY: 04/18/2019. FINDINGS: Assessment of the abdominal and pelvic structures is somewhat limited given generalized paucity of body fat. LOWER THORAX: Clear. LIVER: Unremarkable. GALLBLADDER: Cholecystectomy. SPLEEN: Unremarkable. PANCREAS: Unremarkable. ADRENAL GLANDS: Unremarkable. KIDNEYS: Normal configuration. No calcification or obstruction. ABDOMINAL AORTA: Unremarkable, nonaneurysmal. GASTROINTESTINAL TRACT: Gastric feeding tube is present, having been placed since prior. Moderate amount of retained gastric contents is present. There is diffusely prominent enhancement of the gastric mucosal as well as small bowel wall thickening. No small bowel obstruction. There is moderate severity of stool retention throughout the colon. A normal appendix is present. Small-volume pelvic ascites. URINARY BLADDER: Essentially decompressed and not well evaluated. REPRODUCTIVE: Prostate gland is unremarkable. OSSEOUS STRUCTURES: Very mild leftward curvature of the lumbar spine. OTHER: None. IMPRESSION: 1. Constipation. No evidence of large fecal impaction. 2. Suggested diffuse thickening and enhancement of large segments of the small bowel could be reflective of nonspecific enteritis including potential underlying malabsorption syndrome. Additionally, there is small-volume pelvic fluid; could be reflective of additional inflammatory/infectious etiology. Dictated by: Dictated on workstation # [id number]
== END ==
LOC: RAD FS 13:20
PROVIDERS: ATTEND Nurse Practitioner
DX: K59.00 Constipation, unspecified (principal); R18.8 Other ascites
CPT/HCPCS: 74177

== ENCOUNTER 2019-10-11 14:13 | Emergency (ER) | payer MEDICAID ==
[~2019-10-11 14:13] MED LIST changes: -CATHETER FLUSH 10 ML SYR IV PRN; -HOLD METFORMIN - RECEIVED CONTRAST 20 ML VIAL IV SCH; -IOHEXOL 350 MG/ML 100 ML (OMNIPAQUE 350) VIAL IV ONE; -NS 100 ML (IVPB) BAG IV ONE
[2019-10-12 11:30] LABS: HEMATOCRIT 40 % (40-54); HEMOGLOBIN 13.6 G/DL (13.3-17.7); MEAN CORPUSCULAR HEMOGLOBIN 34 PG (25-34); MEAN CORPUSCULAR HGB CONC 34 G/DL (32-36); MEAN CORPUSCULAR VOLUME 98 FL (80-99); MEAN PLATELET VOLUME 10.1 FL (7.4-10.4); NEUTROPHILS % (AUTO) 46 % (42-75); PLATELET COUNT 148 10^3/uL (130-400); RED CELL DISTRIBUTION WIDTH 12.2 % (10.0-14.5); WHITE BLOOD COUNT 3.7 10^3/uL (4.3-11.0)
[2019-10-12 11:31] LABS: BASOPHILS # (AUTO) 0.1 10^3/uL (0.0-0.1); BASOPHILS % (AUTO) 1 % (0-10); EOSINOPHILS # (AUTO) 0.3 10^3/uL (0.0-0.3); EOSINOPHILS % (AUTO) 7 % (0-10); LYMPHOCYTES # (AUTO) 1.3 X 10^3 (1.0-4.0); LYMPHOCYTES % (AUTO) 36 % (12-44); MONOCYTES # (AUTO) 0.4 X 10^3 (0.0-1.0); MONOCYTES % (AUTO) 10 % (0-12); NEUTROPHILS # (AUTO) 1.7 X 10^3 (1.8-7.8)
[2019-10-12 11:32] LABS: POTASSIUM 4.2 MMOL/L (3.6-5.0); SODIUM 139 MMOL/L (135-145)
[2019-10-12 11:33] LABS: ALANINE AMINOTRANSFERASE 58 U/L (0-55); ALBUMIN 4.4 GM/DL (3.2-4.5); ALKALINE PHOSPHATASE 82 U/L (40-136); BILIRUBIN,TOTAL 0.2 MG/DL (0.1-1.0); BUN/CREATININE RATIO 26; CALCIUM 9.5 MG/DL (8.5-10.1); CARBON DIOXIDE 24 MMOL/L (21-32); CHLORIDE 105 MMOL/L (98-107); CREATININE SERUM 0.66 MG/DL (0.60-1.30); GFR ESTIMATED > 60; GLUCOSE 89 MG/DL (70-105); LIPASE 20 U/L (8-78); TOTAL PROTEIN 7.1 GM/DL (6.4-8.2)
== END 2019-10-11 15:45 | disposition home or self-care (01) ==
LOC: EDUNIT# 14:13 → ER FS 14:14
DX: K55.1 Chronic vascular disorders of intestine (principal); G89.29 Other chronic pain; R10.30 Lower abdominal pain, unspecified; Z93.1 Gastrostomy status
CPT/HCPCS: 36415; 80053; 83605; 83690; 85025

== ENCOUNTER 2019-10-18 17:09 | Emergency (ER) | payer MEDICAID ==
[~2019-10-18] VITALS: Ht 190.5 cm; Wt 56.6 kg
[2019-10-18] MEDS ORDERED: PANTOPRAZOLE 40 MG (PROTONIX) VIAL IV ONE (18:15)
[2019-10-18] MEDS ORDERED: NS IV 1000 ML 1,000 ML IV SCH (18:15)
[2019-10-18] MEDS ORDERED: PROMETHAZINE INJ 25 MG/ML (PHENERGAN) AMP IVP ONE (18:15)
--- NOTE | 2019-10-18 18:23 | ED GI ---
General Chief Complaint: Catheter/Drain/Tube Problems Stated Complaint: FEEDING TUBE ISSUES Source of Information: Patient Exam Limitations: No Limitations History of Present Illness Date Seen by Provider: Oct 18, 2019 Time Seen by Provider: 18:08 Initial Comments patient presents ER by private conveyance with chief complaint of abdominal pain associated with his PEG tube. He hasn't had a little bit of scant discharge that was bloody today. No fevers chills nausea vomiting. He rates the pain as a 5 out of 10. He's used ibuprofen with modest relief of pain. 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 He says when the surgeons at [place] went in to do a resection it had spontaneously resolved and several month ago because he was having difficulties with weight loss and appetite they placed a PEG tube. He's been having normal bowel movements. No dysuria cough shortness of breath. He's had his gallbladder out but no other abdominal surgeries. He's had multiple scopes this year finding just gastritis. He says last week this was happening and he went to [facility] and they did a CT of his abdomen saying there is some swelling of the small intestines but they were not sure what was wrong with his abdomen and encouraged him to follow up with primary care. He has put in c alls but cannot get an appointment for another month. Surgeon was at [facility] and he has not followed with him recently. He does not have a history of pancreatitis, diabetes or alcohol consumption. He does smoke marijuana home his stomach down. he is very nauseated and has vomited several times. His been using Zofran 4 mg about every 4 hours and says she's gone throug h 3 prescriptions this month alone. Echocardiogram from 2019 shows EF of 55-65%. Multiple visits to the ER for emesis and hypokalemia with chronic cannabis dependence. Most recently EGD by Dr. Delaney March 2019 demonstrating gastritis in the duodenum, esophagus and stomach. Increase Protonix to 40 mg daily. No GI source for his weight loss described. Allergies and Home Medications Allergies Coded Allergies: codeine (Verified Allergy, Intermediate, Vomiting, 08/06/18) clindamycin (Verified Allergy, Unknown, 09/18/18) ketorolac (Verified Allergy, Unknown, 10/18/19) PALPITATIONS lidocaine (Verified Allergy, Unknown, 10/18/19) SWELLING milk (Verified Allergy, Unknown, 09/18/18) Home Medications Bupropion HCl 150 Mg Tablet.er, 150 MG PO BID, (Reported) Magnesium Oxide 400 Mg Tablet, 400 MG PO DAILY, (Reported) Ondansetron 4 Mg Tab.rapdis, 4 MG PO Q4H PRN for NAUSEA/VOMITING, (Reported) Ondansetron 4 Mg Tab.rapdis, 4 MG PO Q6H PRN for NAUSEA/VOMITING Prescribed by: JONATHON RUIZ on 08/02/19 1832 Oxycodone HCl 5 Mg Tablet, 5 MG PO Q6H Prescribed by: SHAGUFTA COMBS on 09/03/19 0339 Pantoprazole Sodium 40 Mg Tablet.dr, 40 MG PO DAILY Prescribed by: LEONEL DELANEY on 04/04/19 1818 Sucralfate 1 Gm Tablet, 1 GM PO QID, (Reported) Patient Home Medication List Home Medication List Reviewed: Yes Review of Systems Review of Systems Constitutional: No chills, No diaphoresis EENTM: No Blurred Vision, No Double Vision Respiratory: Denies Shortness of Air Cardiovascular: Denies Chest Pain, Denies Edema Gastrointestinal: See HPI; Denies Abdomen Distended; Abdominal Pain; Denies Constipated, Denies Diarrhea; Nausea, Poor Fluid Intake, Vomiting Genitourinary: Denies Burning, Denies Discharge, Denies Drainage Musculoskeletal: No back pain, No joint pain Skin: No pruritus, No rash Psychiatric/Neurological: Denies Headache, Denies Numbness All Other Systems Reviewed Negative Unless Noted: Yes Past Fwxpvgc-Svtjcc-Qrafgd Hx Patient Social History Alcohol Use: Denies Use Recreational Drug Use: Yes Drug of Choice: marijuana/meth Smoking Status: Former Smoker Type Used: Cigarettes Former Smoker, Quit: Feb 22, 2019 2nd Hand Smoke Exposure: No Recent Foreign Travel: No Contact w/Someone Who Travel: No Recent Hopitalizations: No Seasonal Allergies Seasonal Allergies: No Past Medical History Surgeries: Yes Gallbladder Respiratory: No Cardiac: No Neurological: No Genitourinary: No Gastrointestinal: Yes (Gastroenteritis, Cyclic vomiting disorder) Gastroesophageal Reflux, Gastrointestinal Bleed Musculoskeletal: No Endocrine: No HEENT: No Cancer: No Psychosocial: No Integumentary: No Blood Disorders: No Adverse Reaction/Blood Tranf: No Family Medical History Asthma G8 BROTHER FH: CVA (cerebrovascular accident) 19 FATHER 19 MOTHER FH: depression 19 MOTHER FH: heart attack 19 MOTHER (X2) FH: kidney disease 19 MOTHER FH: liver disease 19 MOTHER FH: multiple sclerosis 19 FATHER FH: scoliosis G8 BROTHER G8 BROTHER G8 SISTER G8 SISTER Physical Exam Vital Signs Vital Signs - First Documented 10/18/19 18:00 Temp 36.8 Pulse 75 Resp 20 B/P (MAP) 114/85 (95) Pulse Ox 97 O2 Delivery Room Air Capillary Refill : Height/Weight/BMI Height: 6'4.00" Weight: 104lbs. 0.0oz. 47.862528at; 16.00 BMI Method:Stated General Appearance: WD/WN, mild distress HEENT: PERRL/EOMI, pharynx normal Neck: full range of motion, supple, normal inspection Respiratory: lungs clear, normal breath sounds, no respiratory distress, no accessory muscle use Cardiovascular: normal peripheral pulses, regular rate, rhythm, no edema Peripheral Pulses: 2+ Radial Pulses (R), 2+ Radial Pulses (L) Gastrointestinal: normal bowel sounds, tenderness (epigastric and left upper quadrant tenderness to palpation.) Neurologic/Psychiatric: no motor/sensory deficits, alert, normal mood/affect, oriented x 3 Skin: normal color, warm/dry Focused Exam Lactate Level 10/18/19 19:00: Lactic Acid Level 0.53 Lactic Acid Level Laboratory Tests Test 10/18/19 19:00 Lactic Acid Level 0.53 MMOL/L (0.50-2.00) Progress/Results/Core Measures Results/Orders Lab Results Laboratory Tests Test 10/18/19 18:15 10/18/19 18:57 10/18/19 19:00 Range/Units White Blood Count 3.7 L 4.3-11.0 10^3/uL Red Blood Count 4.20 L 4.35-5.85 10^6/uL Hemoglobin 14.3 13.3-17.7 G/DL Hematocrit 41 40-54 % Mean Corpuscular Volume 97 80-99 FL Mean Corpuscular Hemoglobin 34 25-34 PG Mean Corpuscular Hemoglobin Concent 35 32-36 G/DL Red Cell Distribution Width 12.3 10.0-14.5 % Platelet Count 193 130-400 10^3/uL Mean Platelet Volume 9.8 7.4-10.4 FL Neutrophils (%) (Auto) 49 42-75 % Lymphocytes (%) (Auto) 35 12-44 % Monocytes (%) (Auto) 14 H 0-12 % Eosinophils (%) (Auto) 2 0-10 % Basophils (%) (Auto) 1 0-10 % Neutrophils # (Auto) 1.8 1.8-7.8 X 10^3 Lymphocytes # (Auto) 1.3 1.0-4.0 X 10^3 Monocytes # (Auto) 0.5 0.0-1.0 X 10^3 Eosinophils # (Auto) 0.1 0.0-0.3 10^3/uL Basophils # (Auto) 0.1 0.0-0.1 10^3/uL Erythrocyte Sedimentation Rate 8 0-15 MM/HR Sodium Level 140 135-145 MMOL/L Potassium Level 3.9 3.6-5.0 MMOL/L Chloride Level 104 98-107 MMOL/L Carbon Dioxide Level 25 21-32 MMOL/L Anion Gap 11 5-14 MMOL/L Blood Urea Nitrogen 17 7-18 MG/DL Creatinine 0.88 0.60-1.30 MG/DL Estimat Glomerular Filtration Rate > 60 BUN/Creatinine Ratio 19 Glucose Level 92 70-105 MG/DL Calcium Level 9.2 8.5-10.1 MG/DL Corrected Calcium 8.8 8.5-10.1 MG/DL Total Bilirubin 0.2 0.1-1.0 MG/DL Aspartate Amino Transf (AST/SGOT) 29 5-34 U/L Alanine Aminotransferase (ALT/SGPT) 38 0-55 U/L Alkaline Phosphatase 74 40-136 U/L C-Reactive Protein High Sensitivity 0.23 0.00-0.50 MG/DL Total Protein 7.4 6.4-8.2 GM/DL Albumin 4.5 3.2-4.5 GM/DL Lipase 17 8-78 U/L Urine Color BROWN H Urine Clarity SL CLOUDY Urine pH 8.5 5-[address] 1.010 L 1.016-1.022 Urine Protein 1+ H NEGATIVE Urine Glucose (UA) NEGATIVE NEGATIVE Urine Ketones NEGATIVE NEGATIVE Urine Nitrite NEGATIVE NEGATIVE Urine Bilirubin 1+ H NEGATIVE Urine Urobilinogen 1.0 < = 1.0 MG/DL Urine Leukocyte Esterase NEGATIVE NEGATIVE Urine RBC (Auto) NEGATIVE NEGATIVE Urine RBC NONE /HPF Urine WBC RARE /HPF Urine Squamous Epithelial Cells RARE /HPF Urine Crystals PRESENT H /LPF Urine Amorphous Sediment MOD LUCIA PHOSPHATE H /LPF Urine Bacteria FEW H /HPF Urine Casts NONE /LPF Urine Mucus NEGATIVE /LPF Urine Culture Indicated YES Lactic Acid Level 0.53 0.50-2.00 MMOL/L My Orders Orders - SAMANTHA EVANS Ed Iv/Invasive Line Start (10/18/19 18:15) Ns Iv 1000 Ml (Sodium Chloride 0.9%) (10/18/19 18:15) Pantoprazole Injection (Protonix Injecti (10/18/19 18:15) Promethazine Injection (Phenergan Injec (10/18/19 18:15) Cbc With Automated Diff (10/18/19 18:15) Comprehensive Metabolic Panel (10/18/19 18:15) Hs C Reactive Protein (10/18/19 18:15) Lipase (10/18/19 18:15) Drug Screen Stat (Urine) (10/18/19 18:33) Ua Culture If Indicated (10/18/19 18:33) Erythrocyte Sedimentation Rate (10/18/19 18:33) Diphenhydramine Injection (Benadryl Inje (10/18/19 18:45) Metoclopramide Tablet (Reglan Tablet) (10/18/19 18:45) Lactic Acid Analyzer (10/18/19 18:45) Urine Culture (10/18/19 18:57) Medications Given in ED Current Medications Medications Dose Ordered Sig/Arely Route Start Time Stop Time Status Last Admin Dose Admin Diphenhydramine HCl 25 mg ONCE ONCE IVP 10/18/19 18:45 10/18/19 18:46 DC 10/18/19 18:59 25 MG Metoclopramide HCl 10 mg ONCE ONCE PO 10/18/19 18:45 10/18/19 18:46 DC 10/18/19 19:02 10 MG Pantoprazole 40 mg ONCE ONCE IV 10/18/19 18:15 10/18/19 18:17 DC 10/18/19 18:25 40 MG Promethazine HCl 25 mg ONCE ONCE IVP 10/18/19 18:15 10/18/19 18:17 DC 10/18/19 18:31 25 MG Vital Signs/I&O 10/18/19 18:00 Temp 36.8 Pulse 75 Resp 20 B/P (MAP) 114/85 (95) Pulse Ox 97 O2 Delivery Room Air Progress Progress Note #1: Time: 18:22 Progress Note we'll give him a liter of normal saline, Phenergan and obtain labs urine and a drug screen. local infection versus cannabis hyperemesis syndrome? CT from 10/10/19: 1. Constipation. No evidence of large fecal impaction. 2. Suggested diffuse thickening and enhancement of large segments of the small bowel could be reflective of nonspecific enteritis including potential underlying malabsorption syndrome. Additionally, there is small-volume pelvic fluid; could be reflective of additional inflammatory/infectious etiology. Progress Note #2: Time: 19:28 Progress Note the patient had significant improvement in his symptoms after Reglan. We are going to provide him with Reglan as well as a refill of ondansetron and encourage him to follow up with the surgeons last specialist at [address] who placed his PEG tube in the next 1-2 weeks. All of his questions were answered. Consults : Consulting Physician: LEONEL DELANEY DO Consults Notes discussed the case with Dr. Delaney who is familiar with the case. He says the last time he met with the patient the patient had a PEG tube placed by [facility] and thought everything was getting better. He would recommend the patient get close follow-up in the next 1-2 weeks with [facility] surgeons. We also discussed the dictation's and he suggested Reglan based on findings of the previous CT scan. Departure Impression Primary Impression: Nausea & vomiting Qualified Codes: R11.2 - Nausea with vomiting, unspecified Additional Impression: Pain around PEG tube site Qualified Codes: T85.848A - Pain due to other internal prosthetic devices, implants and grafts, initial encounter Disposition: 01 HOME, SELF-CARE Condition: Improved Departure-Patient Inst. Decision time for Depature: 19:29 Referrals: [facility] (PCP) Primary Care Physician CHHAYA GOODE APRN (Family) Primary Care Physician Patient Instructions: Nausea and Vomiting, Adult, Acute Pain, Adult (DC) Add. Discharge Instructions: Reglan 1 tablet every 6 hours as necessary for nausea and/or vomiting. Benadryl 25 mg every 6 hours along with Reglan. Ondansetron one tablet every 4 hours under the tongue as necessary for breakthrough nausea. Encourage plenty of fluids and stick to a liquid diet until your symptoms improve. Return to the ER if you're unable to control your nausea, developed fevers or intractable pain despite Tylenol and ibuprofen. Tomorrow during business hours please call the surgeons at [facility] and request follow-up. All discharge instructions reviewed with patient and/or family. Voiced understanding. Scripts Ondansetron (Ondansetron Odt) 4 Mg Tab.rapdis 4 MG PO Q6H PRN for NAUSEA/VOMITING, #20 TAB 0 Refills Prov: SAMANTHA EVANS 10/18/19 Metoclopramide HCl (Reglan) 10 Mg Tablet 10 MG PO Q6H PRN for NAUSEA/VOMITING-1ST LINE, #30 TAB 0 Refills Prov: SAMANTHA EVANS 10/18/19 SAMANTHA EVANS Oct 18, 2019 18:23
[2019-10-18 18:25] LABS: BASOPHILS # (AUTO) 0.1 10^3/uL (0.0-0.1); BASOPHILS % (AUTO) 1 % (0-10); EOSINOPHILS # (AUTO) 0.1 10^3/uL (0.0-0.3); EOSINOPHILS % (AUTO) 2 % (0-10); HEMATOCRIT 41 % (40-54); HEMOGLOBIN 14.3 G/DL (13.3-17.7); LYMPHOCYTES # (AUTO) 1.3 X 10^3 (1.0-4.0); LYMPHOCYTES % (AUTO) 35 % (12-44); MEAN CORPUSCULAR HEMOGLOBIN 34 PG (25-34); MEAN CORPUSCULAR HGB CONC 35 G/DL (32-36); MEAN CORPUSCULAR VOLUME 97 FL (80-99); MEAN PLATELET VOLUME 9.8 FL (7.4-10.4); MONOCYTES # (AUTO) 0.5 X 10^3 (0.0-1.0); MONOCYTES % (AUTO) 14 % (0-12); NEUTROPHILS # (AUTO) 1.8 X 10^3 (1.8-7.8); NEUTROPHILS % (AUTO) 49 % (42-75); PLATELET COUNT 193 10^3/uL (130-400); RED CELL DISTRIBUTION WIDTH 12.3 % (10.0-14.5); WHITE BLOOD COUNT 3.7 10^3/uL (4.3-11.0)
[2019-10-18 18:40] LABS: ALBUMIN 4.5 GM/DL (3.2-4.5); CHLORIDE 104 MMOL/L (98-107); POTASSIUM 3.9 MMOL/L (3.6-5.0); SODIUM 140 MMOL/L (135-145)
[2019-10-18 18:41] LABS: CALCIUM 9.2 MG/DL (8.5-10.1)
[2019-10-18 18:42] LABS: GLUCOSE 92 MG/DL (70-105); TOTAL PROTEIN 7.4 GM/DL (6.4-8.2)
[2019-10-18 18:43] LABS: CARBON DIOXIDE 25 MMOL/L (21-32)
[2019-10-18 18:44] LABS: BILIRUBIN,TOTAL 0.2 MG/DL (0.1-1.0)
[2019-10-18] MEDS ORDERED: METOCLOPRAMIDE 10 MG (REGLAN) TAB PO ONE (18:45)
[2019-10-18] MEDS ORDERED: diphenhydrAMINE 50 MG/ML INJ (BENADRYL) IVP ONE (18:45)
[2019-10-18 18:46] LABS: ALKALINE PHOSPHATASE 74 U/L (40-136); CREATININE SERUM 0.88 MG/DL (0.60-1.30); GFR ESTIMATED > 60
[2019-10-18 18:47] LABS: BUN/CREATININE RATIO 19
[2019-10-18 18:49] LABS: ALANINE AMINOTRANSFERASE 38 U/L (0-55); LIPASE 17 U/L (8-78)
--- NOTE | 2019-10-18 19:03 | NUR ---
Recieved report from CHRISTOFER Houser to assume care of pt at this time.
[2019-10-18 19:06] LABS: GLUCOSE, URINE (UA) NEGATIVE (NEGATIVE); KETONES,URINE NEGATIVE (NEGATIVE); LEUKOCYTE ESTERASE ,URINE NEGATIVE (NEGATIVE); NITRITE,URINE NEGATIVE (NEGATIVE); PH,URINE 8.5 (5-9); PROTEIN,URINE 1+ (NEGATIVE)
[2019-10-18 19:12] LABS: BILIRUBIN,URINE 1+ (NEGATIVE); COLOR,URINE BROWN
[2019-10-18 19:14] LABS: BACTERIA,URINE FEW /HPF; CLARITY,URINE SL CLOUDY; WBC,URINE RARE /HPF
[2019-10-18 19:15] LABS: AMORPHOUS SEDIMENT,UR MOD AMOR PHOSPHATE /LPF; SQUAMOUS EPITHELIAL CELL,UR RARE /HPF
[2019-10-18 19:30] LABS: AMPHETAMINE SCREEN, URINE NEGATIVE (NEGATIVE); BARBITURATE SCREEN URINE POSITIVE (NEGATIVE); BENZODIAZEPINES SCREEN URINE NEGATIVE (NEGATIVE); CANNABINOID SCREEN, URINE POSITIVE (NEGATIVE); COCAINE SCREEN URINE NEGATIVE (NEGATIVE); METHADONE STAT NEGATIVE (NEGATIVE); METHAMPHETAMINE SCREEN URINE S NEGATIVE (NEGATIVE); OPIATE SCREEN URINE NEGATIVE (NEGATIVE); OXYCODONE STAT POSITIVE (NEGATIVE); PROPOXYPHENE STAT NEGATIVE (NEGATIVE); TRICYCLIC ANTIDEPRESSANTS SCRE NEGATIVE (NEGATIVE)
[2019-10-18] MEDS ORDERED: ONDA4TAB11 PO (19:37)
[2019-10-18] MEDS ORDERED: METO-310 PO (19:37)
[2019-10-18 19:55] VITALS: BP 116/70
== END 2019-10-18 19:55 | disposition home or self-care (01) ==
LOC: EDUNIT# 17:09 → ER 17:11
DX: R11.2 Nausea with vomiting, unspecified (principal); T85.848A Pain due to other internal prosthetic devices, implants and grafts, initial encounter; K21.9 Gastro-esophageal reflux disease without esophagitis; R11.15 Cyclical vomiting syndrome unrelated to migraine; Z88.5 Allergy status to narcotic agent; Z88.1 Allergy status to other antibiotic agents; Z88.6 Allergy status to analgesic agent; Z88.8 Allergy status to other drugs, medicaments and biological substances; Z87.891 Personal history of nicotine dependence; Z82.49 Family history of ischemic heart disease and other diseases of the circulatory system
CPT/HCPCS: 36415; 80053; 80306; 81000; 83605; 83690; 85025; 85652; 86141; 87088

== ENCOUNTER → 2019-12-25 | Outpatient (CLI) | payer MEDICAID ==
[~2019-12-25] MED LIST changes: +METO-310 PO; +OXC5T PO; -OXYC5TAB96 PO; +PANT20TA18 PO; -PANT20TA3 PO
--- NOTE | 2019-12-25 10:54 | Diagnostic Imaging Report ---
INDICATION: Back pain. Time of exam 10:11 AM Frontal and lateral views of the thoracic spine were obtained. Curvature and alignment of the thoracic spine is normal. Vertebral body heights are well-maintained. Pedicles and paraspinous line are intact. No fractures are seen. IMPRESSION: No acute bony abnormality is detected. Dictated by: Dictated on workstation # [id number]
== END ==
LOC: RAD FS 10:01
PROVIDERS: ATTEND Nurse Practitioner Family
DX: M54.9 Dorsalgia, unspecified (principal)
CPT/HCPCS: 72072

== ENCOUNTER 2020-01-06 16:49 | Emergency (ER) | payer MEDICAID ==
[~2020-01-06] VITALS: Ht 190.5 cm; Wt 58.2 kg
[2020-01-06] MEDS ORDERED: ONDANSETRON 4 MG (ZOFRAN) ORAL DISSOLVE TAB PO STA (17:25)
--- NOTE | 2020-01-06 17:30 | ED Head Injury ---
General Chief Complaint: Head/Cervical Problems Stated Complaint: HEAD INJ Nursing Triage Note: Patient reports he opened a door last night and hit his forehead. States he has had an increasingly painful headache and nausea all day. Source: patient History of Present Illness Date Seen by Provider: Jan 06, 2020 Time Seen by Provider: 17:15 Initial Comments 29-year-old male presents with headache, nausea and vomiting since hitting his head with a door last evening. Patient states he was walking through a door rather quickly when he pulled into his forehead unexpectedly and knocked himself to the ground. Denies any loss of consciousness, but since the injury he has had a headache, dizziness, slight confusion, nausea and has vomited 5 times. Denies history of head injury or concussion. Denies any numbness, weakness or paresthesias. Denies any neck pain Allergies and Home Medications Allergies Coded Allergies: codeine (Verified Allergy, Intermediate, Vomiting, 08/06/18) clindamycin (Verified Allergy, Unknown, 09/18/18) ketorolac (Verified Allergy, Unknown, 10/18/19) PALPITATIONS lidocaine (Verified Allergy, Unknown, 10/18/19) SWELLING milk (Verified Allergy, Unknown, 09/18/18) Home Medications Bupropion HCl 150 Mg Tablet.er, 150 MG PO BID, (Reported) Magnesium Oxide 400 Mg Tablet, 400 MG PO DAILY, (Reported) Metoclopramide HCl 10 Mg Tablet, 10 MG PO Q6H PRN for NAUSEA/VOMITING-1ST LINE Prescribed by: SAMANTHA EVANS on 10/18/191936 Ondansetron 4 Mg Tab.rapdis, 4 MG PO Q4H PRN for NAUSEA/VOMITING, (Reported) Ondansetron 4 Mg Tab.rapdis, 4 MG PO Q6H PRN for NAUSEA/VOMITING Prescribed by: JONATHON RUIZ on 08/02/19 183 Ondansetron 4 Mg Tab.rapdis, 4 MG PO Q6H PRN for NAUSEA/VOMITING Prescribed by: SAMANTHA EVANS on 10/18/191936 Ondansetron 4 Mg Tab.rapdis, 4 MG PO TID Prescribed by: MARLI MASON on 01/06/20 1806 Oxycodone Hcl 5 Mg Tablet, 5 MG PO Q6H Prescribed by: SHAGUFTA COMBS on 09/03/19 0339 Pantoprazole Sodium 40 Mg Tablet.dr, 40 MG PO DAILY Prescribed by: LEONEL DELANEY on 04/04/198 Sucralfate 1 Gm Tablet, 1 GM PO QID, (Reported) Patient Home Medication List Home Medication List Reviewed: Yes Review of Systems Review of Systems Constitutional: No chills, No diaphoresis; dizziness; No fever; malaise; No weakness Eyes: Denies Blindness, Denies Blurred Vision, Denies Pain, Denies Photophobia Ears, Nose, Mouth, Throat: no symptoms reported Respiratory: No cough, No short of breath Cardiovascular: No chest pain, No syncope Gastrointestinal: No abdominal pain, No constipation; loss of appetite, nausea, vomiting Musculoskeletal: No back pain, No joint pain Psychiatric/Neurological: See HPI, Headache; Denies Numbness, Denies Tingling, Denies Tonic Clonic Seizures, Denies Weakness Past Dthqtsk-Qfmlwh-Enuksr Hx Past Med/Social Hx: Reviewed Nursing Past Med/Soc Hx Patient Social History Alcohol Use: Denies Use Recreational Drug Use: Yes Drug of Choice: marijuana/meth Smoking Status: Former Smoker Type Used: Cigarettes Former Smoker, Quit: Feb 22, 2019 2nd Hand Smoke Exposure: No Recent Foreign Travel: No Contact w/Someone Who Travel: No Recent Infectious Disease Expo: No Recent Hopitalizations: No Physical Abuse: No Sexual Abuse: No Mistreated: No Fear: No Seasonal Allergies Seasonal Allergies: No Past Medical History Surgeries: Yes Abdominal, Gallbladder Respiratory: No Cardiac: No Neurological: No Genitourinary: No Gastrointestinal: Yes (Gastroenteritis, Cyclic vomiting disorder, FEEDING TUBE) Gastroesophageal Reflux, Gastrointestinal Bleed Musculoskeletal: No Endocrine: No HEENT: No Cancer: No Psychosocial: No Integumentary: No Blood Disorders: No Adverse Reaction/Blood Tranf: No Family Medical History Asthma G8 BROTHER FH: CVA (cerebrovascular accident) 19 FATHER 19 MOTHER FH: depression 19 MOTHER FH: heart attack 19 MOTHER (X2) FH: kidney disease 19 MOTHER FH: liver disease 19 MOTHER FH: multiple sclerosis 19 FATHER FH: scoliosis G8 BROTHER G8 BROTHER G8 SISTER G8 SISTER Physical Exam Vital Signs Vital Signs - First Documented 01/06/20 16:58 Temp 36.6 Pulse 75 Resp 16 B/P (MAP) 119/80 (93) Pulse Ox 97 O2 Delivery Room Air Capillary Refill : Less Than 3 Seconds Height, Weight, BMI Height: 6'4.00" Weight: 104lbs. 0.0oz. 47.675280nr; 16.00 BMI Method:Stated General Appearance: WD/WN, no apparent distress HEENT: PERRL/EOMI, normal ENT inspection Neck: non-tender, full range of motion, supple Cardiovascular: regular rate, rhythm, no edema, no JVD Respiratory: chest non-tender, lungs clear, normal breath sounds Gastrointestinal: non tender, soft; No guarding, No rebound; other (J- tube) Back: no CVA tenderness, no vertebral tenderness Extremities: non-tender, no pedal edema Psychiatric: alert, oriented x 3 Crainal Nerves: normal hearing, normal speech, PERRL Coordination/Gait: normal finger to nose, normal gait Motor/Sensory: no motor deficit, no sensory deficit, no pronator drift Progress/Results/Core Measures Results/Orders My Orders Orders - MARLI MASON DO Ct Head Wo (01/06/20 17:25) Ondansetron Oral Dissolve Tab (Zofran (01/06/20 17:25) Vital Signs/I&O 01/06/20 01/06/20 16:58 18:12 Temp 36.6 Pulse 75 87 Resp 16 16 B/P (MAP) 119/80 (93) 115/71 Pulse Ox 97 97 O2 Delivery Room Air Room Air Blood Pressure Mean: 93 Diagnostic Imaging Diagonstic Imaging: CT Comments COMPARISON: 01/18/2019. FINDINGS: No large acute territorial ischemia, mass or hemorrhage. No midline shift or mass effect. The ventricles, cortical sulci and basilar cisterns are patent and unremarkable. The orbits are normal. Paranasal sinuses are normal. Mastoid air cells are clear. No soft tissue abnormality is seen. No osseus lesion or fracture is seen. IMPRESSION: No large acute territorial ischemia, mass or hemorrhage. Dictated on workstation # [id number] Dict: 01/06/20 1752 Trans: 01/06/20 1800 PJE [id number] Interpreted by: RED EAGLE DO Electronically signed by: Departure Impression Primary Impression: Concussion without loss of consciousness Qualified Codes: S06.0X0A - Concussion without loss of consciousness, initial encounter Disposition: 01 HOME, SELF-CARE Condition: Stable Departure-Patient Inst. Decision time for Depature: 18:05 Referrals: [facility] (PCP) Primary Care Physician CHHAYA GOODE APRN (Family) Primary Care Physician Patient Instructions: Concussion, Adult (DC) Add. Discharge Instructions: See your PCP in 1 week for re-evaluation of your concussion All discharge instructions reviewed with patient and/or family. Voiced understanding. Scripts Ondansetron (Ondansetron Odt) 4 Mg Tab.rapdis 4 MG PO TID for Nausea, #20 TAB Prov: MARLI MASON DO 01/06/20 MARLI MASON DO Jan 06, 2020 17:29
--- NOTE | 2020-01-06 18:02 | Diagnostic Imaging Report ---
EXAMINATION: CT head without contrast. TECHNIQUE: Multiple contiguous axial images were obtained through the brain without the use of intravenous contrast. All CT scans use one or more of the following dose optimizing techniques: automated exposure control, MA and/or KvP adjustment based on patient size and exam type or iterative reconstruction. HISTORY: Closed head injury. Concussion. Vomiting. COMPARISON: 01/18/2019. FINDINGS: No large acute territorial ischemia, mass or hemorrhage. No midline shift or mass effect. The ventricles, cortical sulci and basilar cisterns are patent and unremarkable. The orbits are normal. Paranasal sinuses are normal. Mastoid air cells are clear. No soft tissue abnormality is seen. No osseus lesion or fracture is seen. IMPRESSION: No large acute territorial ischemia, mass or hemorrhage. Dictated by: Dictated on workstation # [id number]
[2020-01-06] MEDS ORDERED: ONDA4TAB11 PO (18:06)
[2020-01-06 18:12] VITALS: BP 115/71
== END 2020-01-06 18:16 | disposition home or self-care (01) ==
LOC: EDUNIT# 16:49 → ER FS 16:50
DX: S06.0X0A Concussion without loss of consciousness, initial encounter (principal); K21.9 Gastro-esophageal reflux disease without esophagitis; Z82.49 Family history of ischemic heart disease and other diseases of the circulatory system; Z87.891 Personal history of nicotine dependence; Z88.5 Allergy status to narcotic agent; Z88.1 Allergy status to other antibiotic agents; Z88.8 Allergy status to other drugs, medicaments and biological substances; W22.8XXA Striking against or struck by other objects, initial encounter
CPT/HCPCS: 70450

== ENCOUNTER 2020-03-20 18:55 | Emergency (ER) | payer MEDICAID ==
[~2020-03-20] VITALS: Ht 193 cm; Wt 57.8 kg
[2020-03-20] MEDS ORDERED: NS IV 1000 ML 1,000 ML IV STA (19:16)
--- NOTE | 2020-03-20 19:24 | ED General ---
General Chief Complaint: Respiratory Problems Stated Complaint: SOA Nursing Triage Note: pt co of being soa the past 4-5 days, was covid negative today, pt does admit to having anxiety issues and is noted to be hyperventilating Nursing Sepsis Screen: No Definite Risk Source of Information: Patient History of Present Illness Date Seen by Provider: Mar 20, 2020 Time Seen by Provider: 18:58 Initial Comments 29-year-old male presenting with complaints of not feeling well for the last for 5 days. He states he gets short of breath and "shock sensations" in his head a nd neck. He has had this before and is supposed to see a neurologist about the shock sensations but has not made the appointment yet. He has had similar episodes in the past of not feeling well and states that they have told him before they had electrolytes that were off. He has had nausea but no vomiting.. He states he feels like he can eat or drink anything. He has had some diarrhea. He intermittently has hot flashes and feels hot although he has not had a documented fever. He occasionally has chills as well. He was seen in [place] by his GI doctor follows his feeding tube and they did a rapid Covid test but it was negative. He has a history of smoking and marijuana use and was concerned that the synthetic drug he was using to help him quit marijuana was possibly codeine in his lungs and causing him to have breathing trouble. He also is concerned that there is an allergy to something because his symptoms are always worse when he is in a specific room at home. Allergies and Home Medications Allergies Coded Allergies: codeine (Verified Allergy, Intermediate, Vomiting, 08/06/18) clindamycin (Verified Allergy, Unknown, 09/18/18) ketorolac (Verified Allergy, Unknown, 10/18/19) PALPITATIONS lidocaine (Verified Allergy, Unknown, 10/18/19) SWELLING milk (Verified Allergy, Unknown, 09/18/18) Home Medications Bupropion HCl 150 Mg Tablet.er, 150 MG PO BID, (Reported) Magnesium Oxide 400 Mg Tablet, 400 MG PO DAILY, (Reported) Metoclopramide HCl 10 Mg Tablet, 10 MG PO Q6H PRN for NAUSEA/VOMITING-1ST LINE Prescribed by: SAMANTHA EVANS on 10/18/191936 Ondansetron 4 Mg Tab.rapdis, 4 MG PO Q4H PRN for NAUSEA/VOMITING, (Reported) Ondansetron 4 Mg Tab.rapdis, 4 MG PO Q6H PRN for NAUSEA/VOMITING Prescribed by: JONATHON RUIZ on 08/02/19 183 Ondansetron 4 Mg Tab.rapdis, 4 MG PO Q6H PRN for NAUSEA/VOMITING Prescribed by: SAMANTHA EVANS on 10/18/19 1937 Ondansetron 4 Mg Tab.rapdis, 4 MG PO TID Prescribed by: MARLI MASON on 01/06/20 1806 Oxycodone Hcl 5 Mg Tablet, 5 MG PO Q6H Prescribed by: SHAGUFTA COMBS on 09/03/19 0339 Pantoprazole Sodium 40 Mg Tablet.dr, 40 MG PO DAILY Prescribed by: LEONEL DELANEY on 04/04/19 181 Sucralfate 1 Gm Tablet, 1 GM PO QID, (Reported) Patient Home Medication List Home Medication List Reviewed: Yes Review of Systems Review of Systems Constitutional: chills, fever (subjective), malaise EENTM: no symptoms reported Respiratory: short of breath Cardiovascular: no symptoms reported Gastrointestinal: abdominal pain (middle of abdomen where he chronically has pain ), diarrhea, nausea Genitourinary: decreased output, dysuria Musculoskeletal: muscle stiffness (generalized); No neck pain Skin: no symptoms reported Psychiatric/Neurological: Headache ("shock sensations" in his head), Tingling (in his hands at times), Weakness (general) Past Txoqteu-Aturwz-Axrexi Hx Past Med/Social Hx: Reviewed Nursing Past Med/Soc Hx Patient Social History Alcohol Use: Denies Use Drug of Choice: marijuana/meth Type Used: Cigarettes Former Smoker, Quit: Feb 22, 2019 2nd Hand Smoke Exposure: No Recent Infectious Disease Expo: No Recent Hopitalizations: No Seasonal Allergies Seasonal Allergies: No Past Medical History Surgeries: Yes Abdominal, Gallbladder Respiratory: No Cardiac: No Neurological: No Genitourinary: No Gastrointestinal: Yes (Gastroenteritis, Cyclic vomiting disorder, FEEDING TUBE) Gastroesophageal Reflux, Gastrointestinal Bleed Musculoskeletal: No Endocrine: No HEENT: No Cancer: No Psychosocial: No Integumentary: No Blood Disorders: No Adverse Reaction/Blood Tranf: No Family Medical History Asthma G8 BROTHER FH: CVA (cerebrovascular accident) 19 FATHER 19 MOTHER FH: depression 19 MOTHER FH: heart attack 19 MOTHER (X2) FH: kidney disease 19 MOTHER FH: liver disease 19 MOTHER FH: multiple sclerosis 19 FATHER FH: scoliosis G8 BROTHER G8 BROTHER G8 SISTER G8 SISTER Physical Exam Vital Signs Vital Signs - First Documented 03/20/20 19:05 Temp 36.5 Pulse 80 Resp 18 B/P (MAP) 131/81 (98) Pulse Ox 99 O2 Delivery Room Air Capillary Refill : Less Than 3 Seconds Height, Weight, BMI Height: 6'4.00" Weight: 104lbs. 0.0oz. 47.029218af; 15.00 BMI Method:Stated General Appearance: Anxious, Thin HEENT: PERRL/EOMI, Pharynx Normal, Other (poor dentition and widespread dental decay with several teeth missing) Neck: Full Range of Motion, Normal Inspection, Non Tender, Supple Respiratory: Chest Non Tender, Lungs Clear, Normal Breath Sounds, No Accessory Muscle Use, No Respiratory Distress Cardiovascular: Regular Rate, Rhythm, Normal Peripheral Pulses Gastrointestinal: No Pulsatile Mass, Soft, Abnormal Bowel Sounds (hyperactive); No Guarding, No Rebound; Tenderness (periumbilical), Other (Peg tube in place without redness or drainage) Rectal: Deferred Extremity: Normal Capillary Refill, Normal Inspection, Normal Range of Motion, Non Tender, No Pedal Edema Neurologic/Psychiatric: Alert, Oriented x3, Other (anxious) Skin: Normal Color, Warm/Dry Progress/Results/Core Measures Suspected Sepsis Recent Fever Within 48 Hours: No Infection Criteria Present: None New/Unexplained Altered Menta: No Sepsis Screen: No Definite Risk SIRS Temperature: Pulse: 80 Respiratory Rate: 18 Laboratory Tests 03/20/20 19:20: White Blood Count 4.6 Blood Pressure 131 /81 Mean: 98 Laboratory Tests 03/20/20 19:20: Creatinine 0.84, Platelet Count 212, Total Bilirubin 0.3 Results/Orders Lab Results Laboratory Tests Test 03/20/20 19:20 Range/Units White Blood Count 4.6 4.3-11.0 10^3/uL Red Blood Count 4.61 4.35-5.85 10^6/uL Hemoglobin 15.2 13.3-17.7 G/DL Hematocrit 43 40-54 % Mean Corpuscular Volume 92 80-99 FL Mean Corpuscular Hemoglobin 33 25-34 PG Mean Corpuscular Hemoglobin Concent 36 32-36 G/DL Red Cell Distribution Width 11.9 10.0-14.5 % Platelet Count 212 130-400 10^3/uL Mean Platelet Volume 10.5 H 7.4-10.4 FL Immature Granulocyte % (Auto) 0 % Neutrophils (%) (Auto) 63 42-75 % Lymphocytes (%) (Auto) 24 12-44 % Monocytes (%) (Auto) 11 0-12 % Eosinophils (%) (Auto) 1 0-10 % Basophils (%) (Auto) 1 0-10 % Neutrophils # (Auto) 2.9 1.8-7.8 X 10^3 Lymphocytes # (Auto) 1.1 1.0-4.0 X 10^3 Monocytes # (Auto) 0.5 0.0-1.0 X 10^3 Eosinophils # (Auto) 0.0 0.0-0.3 10^3/uL Basophils # (Auto) 0.1 0.0-0.1 10^3/uL Immature Granulocyte # (Auto) 0.0 0.0-0.1 10^3/uL Sodium Level 140 135-145 MMOL/L Potassium Level 3.8 3.6-5.0 MMOL/L Chloride Level 101 98-107 MMOL/L Carbon Dioxide Level 23 21-32 MMOL/L Anion Gap 16 H 5-14 MMOL/L Blood Urea Nitrogen 22 H 7-18 MG/DL Creatinine 0.84 0.60-1.30 MG/DL Estimat Glomerular Filtration Rate > 60 BUN/Creatinine Ratio 26 Glucose Level 129 H 70-105 MG/DL Calcium Level 9.9 8.5-10.1 MG/DL Corrected Calcium 8.5-10.1 MG/DL Magnesium Level 2.0 1.6-2.4 MG/DL Total Bilirubin 0.3 0.1-1.0 MG/DL Aspartate Amino Transf (AST/SGOT) 21 5-34 U/L Alanine Aminotransferase (ALT/SGPT) 12 0-55 U/L Alkaline Phosphatase 105 40-136 U/L Total Protein 8.0 6.4-8.2 GM/DL Albumin 5.1 H 3.2-4.5 GM/DL My Orders Orders - ADELINA HAAS MD Comprehensive Metabolic Panel (03/20/20 19:16) Ed Iv/Invasive Line Start (03/20/20 19:16) Cbc With Automated Diff (03/20/20 19:16) Ct Abdomen/Pelvis Wo (03/20/20 19:16) Magnesium (03/20/20 19:16) Ns Iv 1000 Ml (Sodium Chloride 0.9%) (03/20/20 19:16) Ondansetron Injection (Zofran Injectio (03/20/20 19:30) Lorazepam Injection (Ativan Injection) (03/20/20 19:30) Medications Given in ED Current Medications Medications Dose Ordered Sig/Arely Route Start Time Stop Time Status Last Admin Dose Admin Lorazepam 1 mg ONCE ONCE IVP 03/20/20 19:30 03/20/20 19:31 DC 03/20/20 19:24 1 MG Ondansetron HCl 4 mg ONCE ONCE IVP 03/20/20 19:30 03/20/20 19:31 DC 03/20/20 19:24 4 MG Vital Signs/I&O 03/20/20 03/20/20 19:05 20:28 Temp 36.5 Pulse 80 92 Resp 18 16 B/P (MAP) 131/81 (98) 118/72 Pulse Ox 99 100 O2 Delivery Room Air Room Air Capillary Refill : Less Than 3 Seconds Blood Pressure Mean: 98 Progress Note #1: Progress Note check basic labs, UA, UDS, CT abdomen/pelvis. Give IVF for hydration, Zofran for nausea. Progress Note #2: Time: 20:04 Progress Note CBC and chemistry show any acute significant abnormality. He has mild elevation of his BUN. His creatinine is normal at 0.84. His CT scan showed fluid-filled small bowel and mild constipation. He was reporting feeling a little bit better as the fluids infused and he got medication here in the ED. He is still not been able to urinate for us to provide a specimen. Progress Note #3: Time: 20:21 Progress Note pt updated and feels comfortable going home as he feels better. He does not feel he has a uti so wants to leave rather than wait to provide UA. He states he has nausea meds at home and does not feel he needs anything more at this point for scripts. Counseled to follow-up with clinic for continued concerns Diagnostic Imaging Diagonstic Imaging: CT Plain Films/CT/US/NM/MRI: abdomen, pelvis Comments [facility], [place] NAME: SHIRLEY RUIZ [facility] REC#: [id number] PT STATUS: REG ER : 1990 PHYSICIAN: ADELINA HAAS MD ADMIT DATE: 03/20/20/ER FS Draft Date of Exam:03/20/20 CT ABDOMEN/PELVIS WO PROCEDURE: CT abdomen and pelvis without contrast. TECHNIQUE: Multiple contiguous axial images were obtained through the abdomen and pelvis without the use of intravenous contrast. Auto Exposure Controls were utilized during the CT exam to meet ALARA standards for radiation dose reduction. INDICATION: Abdominal pain and diarrhea. COMPARISON: 03/11/2019. FINDINGS: Unenhanced images of the liver, pancreas, adrenal glands and spleen are unremarkable. Evaluation of kidneys is limited without intravenous contrast; however, no calculus or hydronephrosis is identified. Cystostomy tube is seen entering the lesser curvature of the stomach. There is no evidence of free fluid within the abdomen or pelvis. Unenhanced urinary bladder is unremarkable. There is moderate amount of stool at the distal colon. There does appear to be mild fluid distention of small bowel. No transition point is seen to indicate an obstruction. IMPRESSION: Possible mild constipation with fluid distention of small bowel which could reflect ileus. Otherwise, no acute abnormality or adverse change is identified. Dictated on workstation # [id number] Dict: 03/20/201947 Trans: 03/20/201957 [facility] [id number] Interpreted by: FRANCISCO JAVIER DOVE MD Electronically signed by: Departure Impression Primary Impression: Chronic diarrhea Additional Impressions: Shortness of breath Anxiety about health Disposition: HOME, SELF-CARE Condition: Improved Departure-Patient Inst. Decision time for Depature: 20:26 Referrals: [facility] (PCP) Primary Care Physician CHHAYA GOODE APRN (Family) Primary Care Physician Patient Instructions: Diarrhea, Adult ED, Shortness of Breath, Adult ED, Anxiety, Adult ED Add. Discharge Instructions: Try to stay well hydrated with electrolyte drinks and water. Follow up with your primary provider and the GI specialist for continued concerns. All discharge instructions reviewed with patient and/or family. Voiced understanding. ADELINA HAAS MD Mar 20, 2020 19:24
[2020-03-20 19:25] LABS: HEMATOCRIT 43 % (40-54); HEMOGLOBIN 15.2 G/DL (13.3-17.7); MEAN CORPUSCULAR HEMOGLOBIN 33 PG (25-34); MEAN CORPUSCULAR HGB CONC 36 G/DL (32-36); MEAN CORPUSCULAR VOLUME 92 FL (80-99); MEAN PLATELET VOLUME 10.5 FL (7.4-10.4); PLATELET COUNT 212 10^3/uL (130-400); WHITE BLOOD COUNT 4.6 10^3/uL (4.3-11.0)
[2020-03-20 19:26] LABS: BASOPHILS # (AUTO) 0.1 10^3/uL (0.0-0.1); BASOPHILS % (AUTO) 1 % (0-10); EOSINOPHILS % (AUTO) 1 % (0-10); LYMPHOCYTES # (AUTO) 1.1 X 10^3 (1.0-4.0); LYMPHOCYTES % (AUTO) 24 % (12-44); MONOCYTES # (AUTO) 0.5 X 10^3 (0.0-1.0); MONOCYTES % (AUTO) 11 % (0-12); NEUTROPHILS # (AUTO) 2.9 X 10^3 (1.8-7.8); NEUTROPHILS % (AUTO) 63 % (42-75)
[2020-03-20] MEDS ORDERED: ONDANSETRON 4 MG/2 ML (SDV) Z0FRAN IVP ONE (19:30)
[2020-03-20] MEDS ORDERED: LORazepam INJ 2 MG/ML (ATIVAN) VIAL IVP ONE (19:30)
[2020-03-20 19:51] LABS: SODIUM 140 MMOL/L (135-145)
[2020-03-20 19:52] LABS: ALANINE AMINOTRANSFERASE 12 U/L (0-55); ALBUMIN 5.1 GM/DL (3.2-4.5); ALKALINE PHOSPHATASE 105 U/L (40-136); BILIRUBIN,TOTAL 0.3 MG/DL (0.1-1.0); BUN/CREATININE RATIO 26; CALCIUM 9.9 MG/DL (8.5-10.1); CARBON DIOXIDE 23 MMOL/L (21-32); CHLORIDE 101 MMOL/L (98-107); CREATININE SERUM 0.84 MG/DL (0.60-1.30); GFR ESTIMATED > 60; GLUCOSE 129 MG/DL (70-105); POTASSIUM 3.8 MMOL/L (3.6-5.0)
--- NOTE | 2020-03-20 19:58 | Diagnostic Imaging Report ---
PROCEDURE: CT abdomen and pelvis without contrast. TECHNIQUE: Multiple contiguous axial images were obtained through the abdomen and pelvis without the use of intravenous contrast. Auto Exposure Controls were utilized during the CT exam to meet ALARA standards for radiation dose reduction. INDICATION: Abdominal pain and diarrhea. COMPARISON: 03/11/2019. FINDINGS: Unenhanced images of the liver, pancreas, adrenal glands and spleen are unremarkable. Evaluation of kidneys is limited without intravenous contrast; however, no calculus or hydronephrosis is identified. Cystostomy tube is seen entering the lesser curvature of the stomach. There is no evidence of free fluid within the abdomen or pelvis. Unenhanced urinary bladder is unremarkable. There is moderate amount of stool at the distal colon. There does appear to be mild fluid distention of small bowel. No transition point is seen to indicate an obstruction. IMPRESSION: Possible mild constipation with fluid distention of small bowel which could reflect ileus. Otherwise, no acute abnormality or adverse change is identified. Dictated by: Dictated on workstation # [id number]
[2020-03-20 20:28] VITALS: BP 118/72
== END 2020-03-20 20:28 | disposition home or self-care (01) ==
LOC: EDUNIT# 18:55 → ER FS 18:56
DX: K52.9 Noninfective gastroenteritis and colitis, unspecified (principal); R06.02 Shortness of breath; F41.9 Anxiety disorder, unspecified; K21.9 Gastro-esophageal reflux disease without esophagitis; Z87.891 Personal history of nicotine dependence; Z88.5 Allergy status to narcotic agent; Z88.1 Allergy status to other antibiotic agents; Z88.8 Allergy status to other drugs, medicaments and biological substances
CPT/HCPCS: 36415; 74176; 80053; 83735; 85025

== ENCOUNTER 2020-09-01 08:24 | Emergency (ER) | payer MEDICAID ==
[2020-09-01 08:29] VITALS: BP 124/84
--- NOTE | 2020-09-01 08:52 | ED General ---
General Chief Complaint: Cough/Cold/Flu Symptoms Stated Complaint: COUGH | HEADACHE | WEAKNESS IN LEGS | RT ABD PAIN Nursing Triage Note: Having body aches and cough since yesterday. No fevers but has had chills. His mother recently tested positive. Source of Information: Patient Exam Limitations: No Limitations History of Present Illness Date Seen by Provider: Sep 01, 2020 Time Seen by Provider: 08:30 Initial Comments Patient is a 30-year-old male with history of mesenteric artery obstruction who presents with body aches, cough, sore throat 2 days ago after being exposed to Covid from an in-home family member who tested +2 days ago. Patient denies fever but reports chills. He denies headache dizziness lightheadedness sinus pain, congestion, neck stiffness, rash. No chest pain, shortness of breath or wheezing. No abdominal pain. No nausea vomiting. No constipation or diarrhea. No other acute symptoms or complaints. Patient has a feeding tube and is able to keep fluids in. No other acute symptoms or complaints. Timing/Duration: 2-3 Days Severity: Mild Modifying Factors: improves with Other Associated Systoms: Other Allergies and Home Medications Allergies Coded Allergies: codeine (Verified Allergy, Intermediate, Vomiting, 08/06/18) clindamycin (Verified Allergy, Unknown, 09/18/18) ketorolac (Verified Allergy, Unknown, 10/18/19) PALPITATIONS lidocaine (Verified Allergy, Unknown, 10/18/19) SWELLING milk (Verified Allergy, Unknown, 09/18/18) Home Medications Bupropion HCl 150 Mg Tablet.er, 150 MG PO BID, (Reported) Magnesium Oxide 400 Mg Tablet, 400 MG PO DAILY, (Reported) Metoclopramide HCl 10 Mg Tablet, 10 MG PO Q6H PRN for NAUSEA/VOMITING-1ST LINE Prescribed by: SAMANTHA EVANS on 10/18/191936 Ondansetron 4 Mg Tab.rapdis, 4 MG PO Q4H PRN for NAUSEA/VOMITING, (Reported) Ondansetron 4 Mg Tab.rapdis, 4 MG PO Q6H PRN for NAUSEA/VOMITING Prescribed by: JONATHON RUIZ on 08/02/191831 Ondansetron 4 Mg Tab.rapdis, 4 MG PO Q6H PRN for NAUSEA/VOMITING Prescribed by: SAMANTHA EVANS on 10/18/191936 Ondansetron 4 Mg Tab.rapdis, 4 MG PO TID Prescribed by: MARLI MASON on 01/06/20 180 Oxycodone Hcl 5 Mg Tablet, 5 MG PO Q6H Prescribed by: SHAGUFTA COMBS on 09/03/19 0339 Pantoprazole Sodium 40 Mg Tablet.dr, 40 MG PO DAILY Prescribed by: LEONEL DELANEY on 04/04/19 1818 Sucralfate 1 Gm Tablet, 1 GM PO QID, (Reported) Patient Home Medication List Home Medication List Reviewed: Yes Review of Systems Review of Systems Constitutional: see HPI EENTM: see HPI Respiratory: see HPI Cardiovascular: see HPI Gastrointestinal: see HPI Genitourinary: see HPI Musculoskeletal: see HPI Skin: see HPI Psychiatric/Neurological: See HPI Hematologic/Lymphatic: See HPI Immunological/Allergic: see HPI All Other Systems Reviewed Negative Unless Noted: Yes Past Gxpmcgr-Qlizhz-Iqrzqe Hx Patient Social History Tobacco Use?: Yes Substance type: Marijuana Additional substance use comme: hx of marijuana Alcohol Use?: No Seasonal Allergies Seasonal Allergies: No Past Medical History Surgeries: Yes Abdominal, Gallbladder Respiratory: No Cardiac: No Neurological: No Genitourinary: No Gastrointestinal: Yes (Gastroenteritis, Cyclic vomiting disorder, FEEDING TUBE) Gastroesophageal Reflux, Gastrointestinal Bleed Musculoskeletal: No Endocrine: No HEENT: No Cancer: No Psychosocial: No Integumentary: No Blood Disorders: No Adverse Reaction/Blood Tranf: No Family Medical History Asthma G8 BROTHER FH: CVA (cerebrovascular accident) 19 FATHER 19 MOTHER FH: depression 19 MOTHER FH: heart attack 19 MOTHER (X2) FH: kidney disease 19 MOTHER FH: liver disease 19 MOTHER FH: multiple sclerosis 19 FATHER FH: scoliosis G8 BROTHER G8 BROTHER G8 SISTER G8 SISTER Physical Exam Vital Signs Vital Signs - First Documented 09/01/20 08:29 Temp 36.6 Pulse 64 Resp 16 B/P (MAP) 124/84 (97) Pulse Ox 100 O2 Delivery Room Air Capillary Refill : Less Than 3 Seconds Height, Weight, BMI Height: 6'4.00" Weight: 104lbs. 0.0oz. 47.682278fr; 15.00 BMI Method:Stated General Appearance: Anxious Eyes: Bilateral Eye Normal Inspection, Bilateral Eye PERRL, Bilateral Eye EOMI HEENT: PERRL/EOMI, Normal ENT Inspection, Pharynx Normal, Moist Mucous Membranes Neck: Non Tender, Supple Respiratory: Chest Non Tender, Lungs Clear Cardiovascular: Regular Rate, Rhythm, No Edema, No Gallop, No Murmur Gastrointestinal: Non Tender, Soft Back: Normal Inspection, No CVA Tenderness Neurologic/Psychiatric: Alert, Oriented x3 Skin: Normal Color, Warm/Dry Lymphatic: No Adenopathy Focused Exam Sepsis Stage: Ruled Out Progress/Results/Core Measures Suspected Sepsis SIRS Temperature: Pulse: 64 Respiratory Rate: 16 Blood Pressure 124 /84 Mean: 97 Results/Orders My Orders Orders - ROSA BUSTILLOS DO Coronavirus Sars-Cov-2 So 2018 (09/01/20 08:37) Vital Signs/I&O 09/01/20 09/01/20 08:29 08:29 Temp 36.6 Pulse 64 Resp 16 B/P (MAP) 124/84 (97) Pulse Ox 100 O2 Delivery Room Air Capillary Refill : Less Than 3 Seconds Blood Pressure Mean: 97 Departure Communication (Admissions) Symptoms/presentation most consistent with Covid. Patient does not have respiratory compromise. Covid swab/test obtained. Recommendations are for therapeutic and supportive care, watchful waiting and PCP follow-up. Return precautions reviewed. Patient verbalizes understanding and agreement with discharge instructions prior to departure. Impression Primary Impression: Viral syndrome Disposition: HOME, SELF-CARE Condition: Stable Departure-Patient Inst. Decision time for Depature: 08:50 Referrals: [facility] (PCP) Primary Care Physician GONSALO HYLTON APRN (Family) Primary Care Physician Patient Instructions: COVID-19 (DC) Add. Discharge Instructions: You were evaluated in the emergency department for cough, sore throat and body aches. Given your known exposure, it is presumed that your symptoms are related to Covid. Outpatient test results are pending and may take up to 2 days. In the meantime, please self isolate and take newly prescribed medications as directed. Use of digital pulse oximeter to monitor oxygen levels. Return to the ED if dizziness, inability to keep fluids down, shortness of breath with O2 saturation less than 90% or other concerning symptoms. Continue self quarantine until 3 days after you are symptom-free. All discharge instructions reviewed with patient and/or family. Voiced understanding. Scripts Albuterol Sulfate (Proventil Hfa) 6.7 Gm Hfa.aer.ad 6.7 GM INH Q4H, #1 GM Prov: ROSA BUSTILLOS DO 09/01/20 Azithromycin (Zithromax) 250 Mg Tablet 250 MG PO UD, #6 TAB TAKE 2 TABLETS TODAY, THEN TAKE 1 TABLET DAILY FOR 4 MORE DAYS Prov: ROSA BUSTILLOS DO 09/01/20 Prednisone (Prednisone) 20 Mg Tab 40 MG PO DAILY, #6 TAB 0 Refills Prov: ROSA BUSTILLOS DO 09/01/20 ROSA BUSTILLOS DO Sep 01, 2020 08:52
[2020-09-01] MEDS ORDERED: PRD20T PO (08:53)
[2020-09-01] MEDS ORDERED: ALBU6.7H8 INH (08:53)
[2020-09-01] MEDS ORDERED: AZIT250T PO (08:53)
== END 2020-09-01 08:59 | disposition home or self-care (01) ==
LOC: EDUNIT# 08:24 → ER FS 08:27
DX: U07.1 COVID-19 (principal); K21.9 Gastro-esophageal reflux disease without esophagitis; Z79.899 Other long term (current) drug therapy
CPT/HCPCS: 87635; 99282

== ENCOUNTER 2021-05-04 19:53 | Emergency (ER) | payer MEDICAID ==
[~2021-05-04] VITALS: Ht 191 cm; Wt 56.6 kg
[~2021-05-04 19:53] MED LIST changes: +ALBU6.7H8 INH; +AZIT250T PO; +PRD20T PO
--- NOTE | 2021-05-04 20:16 | ED GI ---
General Chief Complaint: Catheter/Drain/Tube Problems Stated Complaint: LEAKING FEEDING TUBE Source of Information: Patient Exam Limitations: No Limitations (SAMANTHA QUINTANA MED STUDENT) History of Present Illness Date Seen by Provider: May 04, 2021 Time Seen by Provider: 20:03 Initial Comments Mr. Bartlett is a 31yo male with PMH of SMA syndrome and G tube that was inserted about a year ago in [place] by a Doctor Kavon (unsure of spelling) that came to ED today due to leaking from the tube. Said the leaking started about 3 days ago and thinks that his pet rabbit must've chewed through it. The hole has been the same size all three days and has been leaking enough to soak his shirt after a while. He has still been able to use the tube for feeds. He has tried using some tape to fix the hole but hasn't worked very well. He has no other complaints or symptoms today. (SAMANTHA QUINTANA MED STUDENT) Timing/Duration: 2-3 Days Severity/Quality: Mild Location: Other (Feeding tube) Associated Symptoms: No Fever/Chills, No Nausea/Vomiting, No Weakness (REYES GARIBAY MD) Allergies and Home Medications Allergies Coded Allergies: codeine (Verified Allergy, Intermediate, Vomiting, 08/06/18) clindamycin (Verified Allergy, Unknown, 09/18/18) ketorolac (Verified Allergy, Unknown, 10/18/19) PALPITATIONS lidocaine (Verified Allergy, Unknown, 10/18/19) SWELLING milk (Verified Allergy, Unknown, 09/18/18) Patient Home Medication List Home Medication List Reviewed: Yes (REYES GARIBAY MD) Albuterol Sulfate (Proventil Hfa) 6.7 Gm Hfa.aer.ad, 6.7 GM INH Q4H Prescribed by: ROSA BUSTILLOS on 09/01/20 08 Azithromycin (Zithromax) 250 Mg Tablet, 250 MG PO UD Prescribed by: ROSA BUSTILLOS on 09/01/20 0853 Bupropion HCl (Bupropion HCl Sr) 150 Mg Tablet.er, 150 MG PO BID, (Reported) Entered as Reported by: KELY LE on 03/30/19 1235 Magnesium Oxide (Magnesium Oxide) 400 Mg Tablet, 400 MG PO DAILY, (Reported) Entered as Reported by: KELY LE on 03/30/19 1235 Metoclopramide HCl (Reglan) 10 Mg Tablet, 10 MG PO Q6H PRN for NAUSEA/VOMITING- 1ST LINE Prescribed by: SAMANTHA EVANS on 10/18/19 193 Ondansetron (Ondansetron Odt) 4 Mg Tab.rapdis, 4 MG PO Q4H PRN for NAUSEA/VOMITING, (Reported) Entered as Reported by: KELY LE on 03/30/19 1235 Ondansetron (Ondansetron Odt) 4 Mg Tab.rapdis, 4 MG PO Q6H PRN for NAUSEA/VOMITING Prescribed by: JONATHON RUIZ on 08/02/19 183 Ondansetron (Ondansetron Odt) 4 Mg Tab.rapdis, 4 MG PO Q6H PRN for NAUSEA/VOMITING Prescribed by: SAMANTHA EVANS on 10/18/191936 Ondansetron (Ondansetron Odt) 4 Mg Tab.rapdis, 4 MG PO TID Prescribed by: MARLI MASON on 01/06/20 1806 Oxycodone Hcl (Oxyir Tablet) 5 Mg Tablet, 5 MG PO Q6H Prescribed by: SHAGUFTA COMBS on 09/03/19 0339 Pantoprazole Sodium (Protonix) 40 Mg Tablet.dr, 40 MG PO DAILY Prescribed by: LEONEL DELANEY on 04/04/19 1818 Prednisone (Prednisone) 20 Mg Tab, 40 MG PO DAILY Prescribed by: ROSA BUSTILLOS on 09/01/20 0853 Sucralfate (Carafate) 1 Gm Tablet, 1 GM PO QID, (Reported) Entered as Reported by: KELY LE on 03/30/19 1235 Review of Systems Review of Systems Constitutional: No chills, No fever EENTM: No Blurred Vision, No Double Vision Respiratory: Denies Cough, Denies Shortness of Air Cardiovascular: Denies Chest Pain, Denies Edema Gastrointestinal: Denies Abdominal Pain, Denies Constipated, Denies Diarrhea, Denies Nausea, Denies Vomiting; Other (leaking G tube) Genitourinary: Denies Burning, Denies Hematuria Musculoskeletal: No joint pain, No joint swelling Skin: No lesions, No rash Psychiatric/Neurological: Denies Headache, Denies Numbness (SAMANTHA QUINTANA Rawlemon STUDENT) Constitutional: No chills, No fever Respiratory: No Symptoms Reported Cardiovascular: No Symptoms Reported Gastrointestinal: Denies Abdominal Pain, Denies Vomiting Skin: No change in color, No lesions (REYES GARIBAY MD) Past Jiglhmx-Cckqft-Yenwwc Hx Seasonal Allergies Seasonal Allergies: No (SAMANTHA QUINTANA Rawlemon STUDENT) Past Medical History Surgeries: Yes Abdominal, Gallbladder Respiratory: No Cardiac: No Neurological: No Genitourinary: No Gastrointestinal: Yes (Gastroenteritis, Cyclic vomiting disorder, FEEDING TUBE) Gastroesophageal Reflux, Gastrointestinal Bleed Musculoskeletal: No Endocrine: No HEENT: No Cancer: No Psychosocial: No Integumentary: No Blood Disorders: No Adverse Reaction/Blood Tranf: No (SAMANTHA QUINTANA Rawlemon STUDENT) Family Medical History Reviewed Nursing Family Hx (REYES GARIBAY MD) Asthma G8 BROTHER FH: CVA (cerebrovascular accident) 19 FATHER 19 MOTHER FH: depression 19 MOTHER FH: heart attack 19 MOTHER (X2) FH: kidney disease 19 MOTHER FH: liver disease 19 MOTHER FH: multiple sclerosis 19 FATHER FH: scoliosis G8 BROTHER G8 BROTHER G8 SISTER G8 SISTER Physical Exam Vital Signs Vital Signs - First Documented 05/04/21 20:05 Temp 36.3 Pulse 79 Resp 15 B/P (MAP) 118/64 (82) Pulse Ox 98 (REYES GARIBYA MD) Vital Signs Capillary Refill : (SAMANTHA QUINTANA Rawlemon STUDENT) Height/Weight/BMI Height: 6'4.00" Weight: 104lbs. 0.0oz. 47.218482lb; 15.00 BMI Method:Stated General Appearance: WD/WN, no apparent distress HEENT: PERRL/EOMI, pharynx normal Respiratory: chest non-tender, lungs clear, normal breath sounds Cardiovascular: regular rate, rhythm, no edema, no murmur Peripheral Pulses: 2+ Radial Pulses (R), 2+ Radial Pulses (L) Gastrointestinal: normal bowel sounds, non tender, soft, other (g tube placed, has some tape around hole in tubing, no erythema ) Extremities: no pedal edema, no calf tenderness Neurologic/Psychiatric: alert, normal mood/affect, oriented x 3 Skin: normal color, warm/dry (SAMANTHA QUINTANA MED STUDENT) General Appearance: WD/WN, no apparent distress Respiratory: lungs clear, normal breath sounds Cardiovascular: regular rate, rhythm, no edema Gastrointestinal: non tender, soft, other (g tube placed, has some tape around hole in tubing, no erythema ) Neurologic/Psychiatric: alert, oriented x 3 (REYES GARIBAY MD) Progress/Results/Core Measures Results/Orders My Orders Orders - REYES GARIBAY MD Peg Tube Check (05/04/21 20:45) Diatrizoate Meglum/Sodium 37% (Gastrogra (05/04/21 21:15) (REYES GARIBAY MD) Medications Given in ED Current Medications Medications Dose Ordered Sig/Arely Route Start Time Stop Time Status Last Admin Dose Admin Diatrizoate Meglum/ Diatrizoate Sod 40 ml ONCE ONCE PO 05/04/21 21:15 05/04/21 21:16 DC 05/04/21 21:12 40 ML (REYES GARIBAY MD) Vital Signs/I&O 05/04/21 20:05 Temp 36.3 Pulse 79 Resp 15 B/P (MAP) 118/64 (82) Pulse Ox 98 (REYES GARIBAY MD) Progress Progress Note : Time: 20:40 Progress Note Current G tube does not have inflatable balloon, has a rubber flange. Was a bit difficult to pull out so consulted Dr. Delaney who came to ER and removed tube. Pt tolerated well. Was replaced with a new 22fr tube. Will confirm placement with Xray. (SAMANTHA QUINTANA MED STUDENT) Progress Note : Progress Note I have seen and evaluated the patient and agree with above except as indicated. I have directed the plan of care. Patient has G-tube in place central abdomen that apparently is leaking and we need to replace this. This was placed 1 year ago. He does not have a balloon port. We did attempt to remove this but it was very tight. I did discuss the case with Dr. Delnaey and tried removing per his instructions. Ultimately he came to the ER and removed the tube with heavy retraction. 22 Maori G-tube was easily placed and well-healed stoma after that. No bleeding noted. G-tube study done afterwards and shows no extravasation of contrast and tube in good position. Discharged home with return precautions. Patient verbalized understanding of instructions and agreement with plan. (REYES GARIBAY MD) Diagnostic Imaging Diagonstic Imaging: Xray Plain Films/CT/US/NM/MRI: abdomen Comments G-tube Gastrografin study shows tube in good position without extravasation of contrast. Pending final read. Reviewed: Reviewed by Me (REYES GARIBAY MD) Departure Impression Primary Impression: Encounter for feeding tube placement Disposition: HOME, SELF-CARE Condition: Improved Departure-Patient Inst. Decision time for Depature: 21:48 (REYES GARIBAY MD) Referrals: [facility] (PCP) Primary Care Physician GONSALO HYLTON APRN (Family) Primary Care Physician LEONEL DELANEY DO Patient Instructions: How to Care for Your Gastrostomy Tube Add. Discharge Instructions: All discharge instructions reviewed with patient and/or family. Voiced under standing. Continue usual use of G-tube. Follow-up with Dr. Delaney as needed this week. Return for other concerns as needed. SAMANTHA QUINTANA MED STUDENT May 04, 2021 20:16 REYES GARIBAY MD May 04, 2021 21:49
[2021-05-04] MEDS ORDERED: DIATRIZOATE MEGLUM/SODIUM 37% 120 ML (GASTROGRAFIN) PO ONE (21:15)
[2021-05-04 21:57] VITALS: BP 106/77
--- NOTE | 2021-05-04 22:04 | Diagnostic Imaging Report ---
INDICATION: Indwelling PEG tube. Possible malposition. COMPARISON: None. FINDINGS: Frontal and lateral radiographic views of the abdomen were obtained status post injection of the indwelling gastric tube with 40 mL Gastrografin. Contrast opacifies the lumen of the stomach. There is no abnormal extravasation. Included small bowel loops are nondistended. IMPRESSION: Indwelling PEG tube appears appropriately positioned. Dictated by: Dictated on workstation # [id number]
--- NOTE | 2021-05-04 22:40 | Consultation - Surgery ---
History of Present Illness History of Present Illness Patient Consulted On(willy/time) 05/04/21 22:33 Date Seen by Provider: May 04, 2021 Time Seen by Provider: 20:30 History of Present Illness Consult requested by Dr. Hairston for malfunctioning gastrostomy tube. 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 This was placed approximately 1 year ago. Has been functioning without difficulties. Patient states that his pet rabbit bit a small hole into the side of the gastrostomy tube. He has it taped but not functioning properly. It is leaking. Patient needing it replaced. Attempt to have it removed by Dr. Hairston was performed but was having some slight difficulty therefore I came to further evaluate and remove it. Patient has no other complaints. He denies any nausea vomiting fever sweats chills shortness of breath or chest pain. Allergies and Home Medications Allergies Coded Allergies: codeine (Verified Allergy, Intermediate, Vomiting, 08/06/18) clindamycin (Verified Allergy, Unknown, 09/18/18) ketorolac (Verified Allergy, Unknown, 10/18/19) PALPITATIONS lidocaine (Verified Allergy, Unknown, 10/18/19) SWELLING milk (Verified Allergy, Unknown, 09/18/18) Patient Home Medication List Home Medication List Reviewed: Yes Albuterol Sulfate (Proventil Hfa) 6.7 Gm Hfa.aer.ad, 6.7 GM INH Q4H Prescribed by: ROSA BUSTILLOS on 09/01/20 0853 Azithromycin (Zithromax) 250 Mg Tablet, 250 MG PO UD Prescribed by: ROSA BUSTILLOS on 09/01/20 0853 Bupropion HCl (Bupropion HCl Sr) 150 Mg Tablet.er, 150 MG PO BID, (Reported) Entered as Reported by: KELY LE on 03/30/19 1235 Magnesium Oxide (Magnesium Oxide) 400 Mg Tablet, 400 MG PO DAILY, (Reported) Entered as Reported by: KELY LE on 03/30/19 1235 Metoclopramide HCl (Reglan) 10 Mg Tablet, 10 MG PO Q6H PRN for NAUSEA/VOMITING- 1ST LINE Prescribed by: SAMANTHA EVANS on 10/18/191936 Ondansetron (Ondansetron Odt) 4 Mg Tab.rapdis, 4 MG PO Q4H PRN for NAUSEA/VOMITING, (Reported) Entered as Reported by: KELY LE on 03/30/19 1235 Ondansetron (Ondansetron Odt) 4 Mg Tab.rapdis, 4 MG PO Q6H PRN for NAUSEA/VOMITING Prescribed by: JONATHON RUIZ on 08/02/19 1832 Ondansetron (Ondansetron Odt) 4 Mg Tab.rapdis, 4 MG PO Q6H PRN for NAUSEA/VOMITING Prescribed by: SAMANTHA EVANS on 10/18/19 1937 Ondansetron (Ondansetron Odt) 4 Mg Tab.rapdis, 4 MG PO TID Prescribed by: MARLI MASON on 01/06/20 180 Oxycodone Hcl (Oxyir Tablet) 5 Mg Tablet, 5 MG PO Q6H Prescribed by: SHAGUFTA COMBS on 09/03/19 0339 Pantoprazole Sodium (Protonix) 40 Mg Tablet.dr, 40 MG PO DAILY Prescribed by: LEONEL DELANEY on 04/04/19 1818 Prednisone (Prednisone) 20 Mg Tab, 40 MG PO DAILY Prescribed by: ROSA BUSTILLOS on 09/01/20 0853 Sucralfate (Carafate) 1 Gm Tablet, 1 GM PO QID, (Reported) Entered as Reported by: KELY LE on 03/30/19 1235 Past Dqnemny-Koprlq-Zdsfrm Hx Patient Social History Drug of Choice: marijuana/meth Former Smoker, Quit: Feb 22, 2019 Type Used: Cigarettes 2nd Hand Smoke Exposure: No Recent Hopitalizations: No Alcohol Use?: No Have you traveled recently?: No Seasonal Allergies Seasonal Allergies: No Surgeries History of Surgeries: Yes Surgeries: Abdominal, Gallbladder Respiratory History of Respiratory Disorde: No Cardiovascular History of Cardiac Disorders: No Neurological History of Neurological Disord: No Genitourinary History of Genitourinary Disor: No Gastrointestinal History of Gastrointestinal Di: Yes (Gastroenteritis, Cyclic vomiting disorder, FEEDING TUBE) Gastrointestinal Disorders: Gastroesophageal Reflux, Gastrointestinal Bleed Musculoskeletal History of Musculoskeletal Dis: No Endocrine History of Endocrine Disorders: No HEENT History of HEENT Disorders: No Cancer History of Cancer: No Psychosocial History of Psychiatric Problem: No Integumentary History of Skin or Integumenta: No Blood Transfusions History of Blood Disorders: No Adverse Reaction to a Blood Tr: No Reviewed Nursing Assessment Reviewed/Agree w Nursing PMH: Yes Family Medical History Significant Family History: No Pertinent Family Hx Family Medial History: Asthma G8 BROTHER FH: CVA (cerebrovascular accident) 19 FATHER 19 MOTHER FH: depression 19 MOTHER FH: heart attack 19 MOTHER (X2) FH: kidney disease 19 MOTHER FH: liver disease 19 MOTHER FH: multiple sclerosis 19 FATHER FH: scoliosis G8 BROTHER G8 BROTHER G8 SISTER G8 SISTER Review of Systems-General Constitutional: No chills, No diaphoresis EENTM: No blurred vision, No double vision Respiratory: No cough, No dyspnea on exertion Cardiovascular: No chest pain, No palpitations Gastrointestinal: No dysphagia, No hematemesis Genitourinary: No decreased output, No discharge Musculoskeletal: No gout, No joint pain Skin: No change in color, No change in hair/nails Psychiatric/Neurological: Denies Anxiety, Denies Depressed, Denies Emotional Problems All Other Systems Reviewed Negative Unless Noted: Yes (Negative excepted noted.) Physical Exam-General Problems Physical Exam Vital Signs Vital Signs - First Documented 05/04/21 20:05 Temp 36.3 Pulse 79 Resp 15 B/P (MAP) 118/64 (82) Pulse Ox 98 Capillary Refill : General Appearance: no apparent distress, thin HEENT: PERRL/EOMI, normal ENT inspection Neck: non-tender, supple Respiratory: chest non-tender, no respiratory distress, no accessory muscle use Cardiovascular: regular rate, rhythm, no JVD Gastrointestinal: non tender, soft, other (Gastrostomy tube just to the left of midline upper abdomen, tape around it secured covering hole) Rectal: deferred Back: no CVA tenderness, no vertebral tenderness Extremities: non-tender, normal inspection Neurologic/Psychiatric: alert, normal mood/affect, oriented x 3 Skin: normal color, warm/dry Lymphatic: no adenopathy Assessment/Plan Assessment/Plan Assessment/Plan Malfunctioning gastrostomy tube Patient with malfunctioning gastrostomy tube. Patient needing it removed and replaced. 22 Indonesian CHRISTIAN tube placed after removed and gastrostomy Gastrografin tube check to be performed. Any issues be seen at that time. Patient was placed in supine position. His knees were bent with his feet flat on the table. Gentle traction was continued be placed on the gastrostomy tube increasing slowly until the entire tube was able to be removed. A 22 Indonesian CHRISTIAN tube was then inserted through the mature fistula tract and the balloon was inflated with 10 mL of saline. The bolster was secured to the skin at approximately 2 to 3 cm. Patient tolerated procedure well without any complications. LEONEL DELANEY DO May 04, 2021 22:40
== END 2021-05-04 21:59 | disposition home or self-care (01) ==
LOC: EDUNIT# 19:53 → ER 19:55
DX: Z43.1 Encounter for attention to gastrostomy (principal)
CPT/HCPCS: 49465

== ENCOUNTER 2021-07-21 16:35 | Emergency (ER) | payer MEDICAID ==
[~2021-07-21] VITALS: Ht 190.5 cm; Wt 56.7 kg
[~2021-07-21 16:35] MED LIST changes: +BUPR-105 PO; -BUPR150T14 PO
[2021-07-21 17:37] VITALS: BP 118/77
[2021-07-21] MEDS ORDERED: PENI500T PO (17:56)
[2021-07-21] MEDS ORDERED: TRAM50TA3 PO (17:56)
--- NOTE | 2021-07-21 17:57 | ED EENT ---
History of Present Illness General Chief Complaint: Dental Problems/Pain Stated Complaint: ABCESS TOOTH Nursing Triage Note: Patient reports left upper and lower dental pain for 2 days. He states he believes he may have broken a tooth and now feels as though it is infected. Source: patient Exam Limitations: no limitations History of Present Illness Date Seen by Provider: July 21, 2021 Time Seen by Provider: 17:30 Initial Comments Patient is a 31-year-old male who presents with lower posterior dental pain for 2 days. With eroded wisdom tooth with minimal posterior mandible swelling. No dysphonia, drooling, trismus, facial cellulitis or induration. Timing/Duration: gradual Severity: moderate Location: other Prearrival Treatment: other Modifying Factors: Improves With Other Associated Symptoms: other Allergies and Home Medications Allergies Coded Allergies: codeine (Verified Allergy, Intermediate, Vomiting, 08/06/18) clindamycin (Verified Allergy, Unknown, 09/18/18) ketorolac (Verified Allergy, Unknown, 10/18/19) PALPITATIONS lidocaine (Verified Allergy, Unknown, 10/18/19) SWELLING milk (Verified Allergy, Unknown, 09/18/18) Patient Home Medication List Home Medication List Reviewed: Yes Albuterol Sulfate (Proventil Hfa) 6.7 Gm Hfa.aer.ad, 6.7 GM INH Q4H Prescribed by: ROSA BUSTILLOS on 09/01/20 0853 Azithromycin (Zithromax) 250 Mg Tablet, 250 MG PO UD Prescribed by: ROSA BUSTILLOS on 09/01/20 0853 Bupropion HCl (Bupropion HCl Sr) 150 Mg Tablet.er, 150 MG PO BID, (Reported) Entered as Reported by: KELY LE on 03/30/19 1235 Magnesium Oxide (Magnesium Oxide) 400 Mg Tablet, 400 MG PO DAILY, (Reported) Entered as Reported by: KELY LE on 03/30/19 1235 Metoclopramide HCl (Reglan) 10 Mg Tablet, 10 MG PO Q6H PRN for NAUSEA/VOMITING- 1ST LINE Prescribed by: SAMANTHA EVANS on 10/18/19 193 Ondansetron (Ondansetron Odt) 4 Mg Tab.rapdis, 4 MG PO Q4H PRN for NAUSEA/VOMITING, (Reported) Entered as Reported by: KELY LE on 03/30/19 1235 Ondansetron (Ondansetron Odt) 4 Mg Tab.rapdis, 4 MG PO Q6H PRN for NAUSEA/VOMITING Prescribed by: JONATHON RUIZ on 08/02/19 183 Ondansetron (Ondansetron Odt) 4 Mg Tab.rapdis, 4 MG PO Q6H PRN for NAUSEA/VOMITING Prescribed by: SAMANTHA EVANS on 10/18/19 1937 Ondansetron (Ondansetron Odt) 4 Mg Tab.rapdis, 4 MG PO TID Prescribed by: MARLI MASON on 01/06/20 1806 Oxycodone Hcl (Oxyir Tablet) 5 Mg Tablet, 5 MG PO Q6H Prescribed by: SHAGUFTA COMBS on 09/03/19 0339 Pantoprazole Sodium (Protonix) 40 Mg Tablet.dr, 40 MG PO DAILY Prescribed by: LEONEL DELANEY on 04/04/19 1818 Prednisone (Prednisone) 20 Mg Tab, 40 MG PO DAILY Prescribed by: ROSA BUSTILLOS on 09/01/20 0853 Sucralfate (Carafate) 1 Gm Tablet, 1 GM PO QID, (Reported) Entered as Reported by: KELY LE on 03/30/19 1235 Review of Systems Review of Systems Constitutional: see HPI Mouth: see HPI Past Pgwowrd-Vubumc-Dmtene Hx Patient Social History Tobacco Use?: Yes Substance use?: Yes Substance type: Marijuana Alcohol Use?: No Pt feels they are or have been: No Seasonal Allergies Seasonal Allergies: No Past Medical History Surgeries: Yes Abdominal, Gallbladder Respiratory: No Cardiac: No Neurological: No Genitourinary: No Gastrointestinal: Yes (Gastroenteritis, Cyclic vomiting disorder, FEEDING TUBE) Gastroesophageal Reflux, Gastrointestinal Bleed Musculoskeletal: No Endocrine: No HEENT: No Cancer: No Psychosocial: No Integumentary: No Blood Disorders: No Adverse Reaction/Blood Tranf: No Family Medical History Asthma G8 BROTHER FH: CVA (cerebrovascular accident) 19 FATHER 19 MOTHER FH: depression 19 MOTHER FH: heart attack 19 MOTHER (X2) FH: kidney disease 19 MOTHER FH: liver disease 19 MOTHER FH: multiple sclerosis 19 FATHER FH: scoliosis G8 BROTHER G8 BROTHER G8 SISTER G8 SISTER No Pertinent Family Hx Physical Exam Vital Signs Vital Signs - First Documented 07/21/21 17:37 Temp 36.8 Pulse 82 Resp 16 B/P (MAP) 118/77 (91) Pulse Ox 99 O2 Delivery Room Air Height, Weight, BMI Height: 6'4.00" Weight: 104lbs. 0.0oz. 47.616069dy; 15.00 BMI Method:Stated General Appearance: no apparent distress Eyes: bilateral eye normal inspection, bilateral eye PERRL Ears: bilateral ear other Nose: normal inspection Mouth/Throat: normal mouth inspection, dental tenderness, mandibular swelling, other (Dental erosion, left posterior tooth. No uvular deviation or soft tissue abscess. Widespread dental caries) Cardiovascular: normal peripheral pulses Neurologic/Psychiatric: alert, oriented x 3 Progress/Results/Core Measures Results/Orders My Orders Orders - ROSA BUSTILLOS DO Amoxicillin/Clavulanate Tablet (Augmenti (07/21/21 18:00) Acetaminophen Tablet (Tylenol Tablet) (07/21/21 18:00) Vital Signs/I&O 07/21/21 17:37 Temp 36.8 Pulse 82 Resp 16 B/P (MAP) 118/77 (91) Pulse Ox 99 O2 Delivery Room Air Blood Pressure Mean: 91 Departure Communication (Admissions) Family Conversation Dental erosion with dental caries and pain. First dose of antibiotics pain medication given. Upon exam pain medications are prescribed. Recommendations are for dental follow-up TEDDY. Return precautions reviewed Impression Primary Impression: Dental caries extending into dentine Disposition: 01 HOME, SELF-CARE Condition: Stable Departure-Patient Inst. Decision time for Depature: 17:54 Referrals: [facility] (PCP) Primary Care Physician GONSALO HYLTON APRN (Family) Primary Care Physician Patient Instructions: Dental Pain Add. Discharge Instructions: Please fill antibiotics and pain medications. Take as directed and follow-up with dentist as soon as possible. Return to the ED if new or worsening symptoms. All discharge instructions reviewed with patient and/or family. Voiced underst anding. Scripts Penicillin V Potassium (Penicillin V Potassium) 500 Mg Tablet 500 MG PO QID, #40 TAB Prov: ROSA BUSTILLOS DO 07/21/21 Tramadol HCl (Tramadol HCl) 50 Mg Tablet 50 MG PO Q6H, #10 TAB Prov: ROSA BUSTILLOS DO 07/21/21 ROSA BUSTILLOS DO July 21, 2021 17:57
[2021-07-21] MEDS ORDERED: AUGMENTIN 875 MG TAB (AMOXICILLIN/CLAVULANATE) PO SCH (18:00)
[2021-07-21] MEDS ORDERED: ACETAMINOPHEN 500 MG TAB (TYLENOL) PO ONE (18:00)
== END 2021-07-21 18:37 | disposition home or self-care (01) ==
LOC: EDUNIT# 16:35 → ER FS 16:37
DX: K02.9 Dental caries, unspecified (principal)
CPT/HCPCS: 99283

== ENCOUNTER 2021-10-30 15:33 | Emergency (ER) | payer MEDICAID ==
[~2021-10-30 15:33] MED LIST changes: +PENI500T PO; +TRAM50TA3 PO
[2021-10-30 15:41] VITALS: BP_SYST 113
--- NOTE | 2021-10-30 15:55 | ED EENT ---
History of Present Illness General Chief Complaint: Eye Problems Stated Complaint: L EYE PAIN Nursing Triage Note: Patient presents to the ED from [facility] walk-in care with c/o left eye pain. States that 3 days he had a headache then developed left eye pain. States headache lasted approximately 1 hour but eye pain has continued. Reports shooting pain from left eye up into his head when he looks left. Reports intermittent blurred vision. History of Present Illness Date Seen by Provider: Oct 30, 2021 Time Seen by Provider: 15:44 Initial Comments 31-year-old male presents with pain in his lateral left eye. Patient reports that 3 days ago he had a headache and then developed some pain in his left thigh. Reports that he only has the pain if he looks extremely to the left. He feels like he has pain behind his eyeball. Patient reports that when symptoms first started his headache lasted only for about 1 hour but then the pain has been there with looking to the left since then. Patient has no increased vision changes. He does report that he has had problems in that left eye since when he got hit in the eye with a tennis ball when he was a young child. Patient reports that he went to urgent care but they sent him here because they felt he needed a CT. Patient has not seen an eye doctor since his symptoms started. Allergies and Home Medications Allergies Coded Allergies: codeine (Verified Allergy, Intermediate, Vomiting, 08/06/18) clindamycin (Verified Allergy, Unknown, 09/18/18) ketorolac (Verified Allergy, Unknown, 10/18/19) PALPITATIONS lidocaine (Verified Allergy, Unknown, 10/18/19) SWELLING milk (Verified Allergy, Unknown, 09/18/18) Patient Home Medication List Home Medication List Reviewed: Yes Albuterol Sulfate (Proventil Hfa) 6.7 Gm Hfa.aer.ad, 6.7 GM INH Q4H Prescribed by: ROSA BUSTILLOS on 09/01/20 08 Azithromycin (Zithromax) 250 Mg Tablet, 250 MG PO UD Prescribed by: ROSA BUSTILLOS on 09/01/20 0853 Bupropion HCl (Bupropion HCl Sr) 150 Mg Tablet.er, 150 MG PO BID, (Reported) Entered as Reported by: KELY LE on 03/30/19 1235 Magnesium Oxide (Magnesium Oxide) 400 Mg Tablet, 400 MG PO DAILY, (Reported) Entered as Reported by: KELY LE on 03/30/19 1235 Metoclopramide HCl (Reglan) 10 Mg Tablet, 10 MG PO Q6H PRN for NAUSEA/VOMITING- 1ST LINE Prescribed by: SAMANTHA EVANS on 10/18/191936 Ondansetron (Ondansetron Odt) 4 Mg Tab.rapdis, 4 MG PO Q4H PRN for NAUSEA/VOMITING, (Reported) Entered as Reported by: KELY LE on 03/30/19 1235 Ondansetron (Ondansetron Odt) 4 Mg Tab.rapdis, 4 MG PO Q6H PRN for NAUSEA/VO MITING Prescribed by: JONATHON RUIZ on 08/02/19 183 Ondansetron (Ondansetron Odt) 4 Mg Tab.rapdis, 4 MG PO Q6H PRN for NAUSEA/VOMITING Prescribed by: SAMANTHA EVANS on 10/18/191936 Ondansetron (Ondansetron Odt) 4 Mg Tab.rapdis, 4 MG PO TID Prescribed by: MARLI MASON on 01/06/20 1806 Oxycodone Hcl (Oxyir Tablet) 5 Mg Tablet, 5 MG PO Q6H Prescribed by: SHAGUFTA COMBS on 09/03/19 0339 Pantoprazole Sodium (Protonix) 40 Mg Tablet.dr, 40 MG PO DAILY Prescribed by: LEONEL DELANEY on 04/04/19 1818 Penicillin V Potassium (Penicillin V Potassium) 500 Mg Tablet, 500 MG PO QID Prescribed by: ROSA BUSTILLOS on 07/21/21 175 Prednisone (Prednisone) 20 Mg Tab, 40 MG PO DAILY Prescribed by: ROSA BUSTILLOS on 09/01/20 0853 Sucralfate (Carafate) 1 Gm Tablet, 1 GM PO QID, (Reported) Entered as Reported by: KELY LE on 03/30/19 1235 Tramadol HCl (Tramadol HCl) 50 Mg Tablet, 50 MG PO Q6H Prescribed by: ROSA BUSTILLOS on 07/21/21 175 Review of Systems Review of Systems Constitutional: see HPI Eyes: See HPI, Pain, Previous Injury Ears: No Symptoms Reported Nose: no symptoms reported Mouth: no symptoms reported Throat: no symptoms reported Respiratory: no symptoms reported Cardiovascular: no symptoms reported Gastrointestinal: no symptoms reported Musculoskeletal: no symptoms reported Skin: no symptoms reported Neurological: See HPI Past Luddazv-Uptdll-Olxaks Hx Seasonal Allergies Seasonal Allergies: No Past Medical History Surgeries: Yes Abdominal, Gallbladder Respiratory: No Cardiac: No Neurological: No Genitourinary: No Gastrointestinal: Yes (Gastroenteritis, Cyclic vomiting disorder, FEEDING TUBE) Gastroesophageal Reflux, Gastrointestinal Bleed Musculoskeletal: No Endocrine: No HEENT: No Cancer: No Psychosocial: No Integumentary: No Blood Disorders: No Adverse Reaction/Blood Tranf: No Family Medical History Asthma G8 BROTHER FH: CVA (cerebrovascular accident) 19 FATHER 19 MOTHER FH: depression 19 MOTHER FH: heart attack 19 MOTHER (X2) FH: kidney disease 19 MOTHER FH: liver disease 19 MOTHER FH: multiple sclerosis 19 FATHER FH: scoliosis G8 BROTHER G8 BROTHER G8 SISTER G8 SISTER No Pertinent Family Hx Physical Exam Vital Signs Vital Signs - First Documented 10/30/21 15:41 Temp 36.1 Pulse 84 Resp 16 B/P (MAP) 113/ Pulse Ox 99 O2 Delivery Room Air Height, Weight, BMI Height: 6'4.00" Weight: 104lbs. 0.0oz. 47.348885df; 15.00 BMI Method:Stated General Appearance: WD/WN, no apparent distress Eyes: bilateral eye normal inspection, bilateral eye PERRL, bilateral eye EOMI Neck: full range of motion, supple Cardiovascular: normal peripheral pulses, regular rate, rhythm Respiratory: lungs clear, normal breath sounds Neurologic/Psychiatric: no motor/sensory deficits, alert, normal mood/affect, oriented x 3 Skin: normal color, warm/dry Progress/Results/Core Measures Results/Orders My Orders Orders - JONATHON RUIZ DO Ct Orbit/Sella/Iac W (10/30/21 15:47) Iohexol Injection (Omnipaque 350 Mg/Ml 1 (10/30/21 16:15) Received Contrast (Hold Metformin- Contr (10/30/21 16:15) Sodium Chloride Flush (Catheter Flush Sy (10/30/21 16:15) Ns (Ivpb) (Sodium Chloride 0.9% Ivpb Bag (10/30/21 16:15) Medications Given in ED Current Medications Medications Dose Ordered Sig/Arely Route Start Time Stop Time Status Last Admin Dose Admin Iohexol 75 ml ONCE ONCE IV 10/30/21 16:15 10/30/21 16:16 DC 10/30/21 16:10 75 ML Sodium Chloride 10 ml NEEDED PRN IV 10/30/21 16:15 10/30/21 16:47 DC 10/30/21 16:10 10 ML Sodium Chloride 100 ml ONCE ONCE IV 10/30/21 16:15 10/30/21 16:16 DC 10/30/21 16:10 100 ML Vital Signs/I&O 10/30/21 15:41 Temp 36.1 Pulse 84 Resp 16 B/P (MAP) 113/ Pulse Ox 99 O2 Delivery Room Air Progress Progress Note : Progress Note pt with neg ct orbit, pt with no acute vision changes or findings on exam. recommend follow up with electromechanical assembler for further evaluation Diagnostic Imaging Diagonstic Imaging: CT Plain Films/CT/US/NM/MRI: other Comments CT ORBIT/SELLA/IAC W EXAM: CT ORBIT/SELLA/IAC W TECHNIQUE: All CT scans use one or more of the following dose optimizing techniques: automated exposure control, MA and/or KvP adjustment based on patient size and exam type or iterative reconstruction. INDICATION: Left eye pain and blurred vision x3 days. COMPARISON: CT head without contrast from 01/06/2020. FINDINGS: No suspicious enhancement or mass is identified in either orbit. The globes are grossly intact. The optic nerves and extraocular musculature are normal in caliber and symmetric bilaterally. No radiopaque foreign bodies. The visualized paranasal sinuses are clear. No fractures in the cwytp-kv-vvom. Visualized intracranial contents are unremarkable. IMPRESSION: Negative CT of the orbits. Departure Impression Primary Impression: Left eye pain Disposition: 01 HOME, SELF-CARE Condition: Stable Departure-Patient Inst. Referrals: [facility] (PCP) Primary Care Physician GONSALO HYLTON APRN (Family) Primary Care Physician Add. Discharge Instructions: Please follow-up with your eye doctor for further evaluation and eye exam All discharge instructions reviewed with patient and/or family. Voiced understanding. JONATHON RUIZ DO Oct 30, 2021 15:55
[2021-10-30] MEDS ORDERED: CATHETER FLUSH 10 ML SYR IV PRN (16:15)
[2021-10-30] MEDS ORDERED: NS 100 ML (IVPB) BAG IV ONE (16:15)
[2021-10-30] MEDS ORDERED: IOHEXOL 350 MG/ML 100 ML (OMNIPAQUE 350) VIAL IV ONE (16:15)
[2021-10-30] MEDS ORDERED: HOLD METFORMIN - RECEIVED CONTRAST 20 ML VIAL IV SCH (16:15)
--- NOTE | 2021-10-30 16:26 | Diagnostic Imaging Report ---
EXAM: CT ORBIT/SELLA/IAC W TECHNIQUE: All CT scans use one or more of the following dose optimizing techniques: automated exposure control, MA and/or KvP adjustment based on patient size and exam type or iterative reconstruction. INDICATION: Left eye pain and blurred vision x3 days. COMPARISON: CT head without contrast from 01/06/2020. FINDINGS: No suspicious enhancement or mass is identified in either orbit. The globes are grossly intact. The optic nerves and extraocular musculature are normal in caliber and symmetric bilaterally. No radiopaque foreign bodies. The visualized paranasal sinuses are clear. No fractures in the rcikn-td-aorp. Visualized intracranial contents are unremarkable. IMPRESSION: Negative CT of the orbits. Dictated by: Dictated on workstation # [id number]
== END 2021-10-30 16:45 | disposition home or self-care (01) ==
LOC: EDUNIT# 15:33 → ER FS 15:35
DX: H57.12 Ocular pain, left eye (principal); Z28.310 Unvaccinated for COVID-19
CPT/HCPCS: 70481; Q9967

== ENCOUNTER → 2021-11-12 | Outpatient (CLI) | payer MEDICAID ==
[~2021-11-12] MED LIST changes: +GADOTERATE 0.5 MMOL/ML (CLARISCAN) 20 ML VIAL IV ONE
--- NOTE | 2021-11-12 14:56 | Diagnostic Imaging Report ---
CLINICAL INDICATION: Patient has pain when he moves his left eye. EXAM: MRI of the brain/orbits performed without and with 10 mL of Clariscan IV contrast. Multiplanar, multisequence imaging was obtained. COMPARISON: CT scan of the orbits and sella and IAC dated 10/30/2021. FINDINGS: There is no evidence of acute cerebral infarct, intracranial hemorrhage, or gross mass effect. There is no abnormal IV contrast enhancement. Orbits and globes are unremarkable. The optic nerves, optic chiasm, and optic tracts are unremarkable. There is a 3 mm focal area of high T2 signal involving the subcortical parasagittal right frontal lobe, which is nonspecific. The remainder of the brain parenchyma is unremarkable. The brain parenchymal volume appears appropriate for patient's age. There is normal hanson-white matter distinction. There is no significant midline shift or herniation. The kenaitze of Andres vascular structures show no gross abnormality as visualized. The pituitary gland, sella, and suprasellar regions are unremarkable as visualized. There is no evidence of hydrocephalus. The basal cisterns are unremarkable. The skull and extracranial soft tissue are unremarkable. Small mucus retention cyst right in maxillary sinus. Temporal bones show no significant abnormality. IMPRESSION: 1: There is no evidence of acute intracranial process. Orbits and globes are unremarkable. The optic nerves, optic chiasm and optic tracts are unremarkable. 2: There is a 3 mm nonspecific area of high T2 signal involving the subcortical right frontal region. 3: Remainder of the brain parenchyma is unremarkable. 4: Small right maxillary sinus mucus retention cyst. Dictated by: Dictated on workstation # [id number]
== END ==
LOC: RAD 13:15
PROVIDERS: ATTEND Nurse Practitioner Family
DX: M27.40 Unspecified cyst of jaw (principal); H47.10 Unspecified papilledema
CPT/HCPCS: 70553

== ENCOUNTER 2022-05-30 13:52 | Emergency (ER) | payer MEDICAID ==
[~2022-05-30] VITALS: Ht 190 cm; Wt 62.0 kg
[~2022-05-30 13:52] MED LIST changes: +ALBU6.7H13 INH; -ALBU6.7H8 INH; -GADOTERATE 0.5 MMOL/ML (CLARISCAN) 20 ML VIAL IV ONE
[2022-05-30 14:17] VITALS: BP 120/81
--- NOTE | 2022-05-30 14:21 | ED GI ---
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 He has had this G-tube in for roughly 1 year, and prior to that he was getting it changed every 6 months. He is unsure why he has not got this changed out. He notes that came out about 30 minutes prior to arrival. He noticed the balloon was deflated at that time. Denies any pain or issues. He does drink multiple ensures per day, and is not entirely G-tube dependent. Allergies and Home Medications Allergies Coded Allergies: codeine (Verified Allergy, Intermediate, Vomiting, 08/06/18) clindamycin (Verified Allergy, Unknown, 09/18/18) ketorolac (Verified Allergy, Unknown, 10/18/19) PALPITATIONS lidocaine (Verified Allergy, Unknown, 10/18/19) SWELLING milk (Verified Allergy, Unknown, 09/18/18) Patient Home Medication List Home Medication List Reviewed: Yes Albuterol Sulfate (Proventil Hfa) 6.7 Gm Hfa.aer.ad, 6.7 GM INH Q4H Prescribed by: ROSA BUSTILLOS on 09/01/20 0853 Azithromycin (Zithromax) 250 Mg Tablet, 250 MG PO UD Prescribed by: ROSA BUSTILLOS on 09/01/20 0853 Bupropion HCl (Bupropion HCl Sr) 150 Mg Tablet.er, 150 MG PO BID, (Reported) Entered as Reported by: KELY LE on 03/30/19 1235 Magnesium Oxide (Magnesium Oxide) 400 Mg Tablet, 400 MG PO DAILY, (Reported) Entered as Reported by: KELY LE on 03/30/19 1235 Metoclopramide HCl (Reglan) 10 Mg Tablet, 10 MG PO Q6H PRN for NAUSEA/VOMITING- 1ST LINE Prescribed by: SAMANTHA EVANS on 10/18/191936 Ondansetron (Ondansetron Odt) 4 Mg Tab.rapdis, 4 MG PO Q4H PRN for NAUSEA/VOMITING, (Reported) Entered as Reported by: KELY LE on 03/30/19 1235 Ondansetron (Ondansetron Odt) 4 Mg Tab.rapdis, 4 MG PO Q6H PRN for NAUSEA/VOMITING Prescribed by: JONATHON RUIZ on 08/02/19 1832 Ondansetron (Ondansetron Odt) 4 Mg Tab.rapdis, 4 MG PO Q6H PRN for NAUSEA/VOMITING Prescribed by: SAMANTHA EVANS on 10/18/19 1937 Ondansetron (Ondansetron Odt) 4 Mg Tab.rapdis, 4 MG PO TID Prescribed by: MARLI MASON on 01/06/20 1806 Oxycodone Hcl (Oxyir Tablet) 5 Mg Tablet, 5 MG PO Q6H Prescribed by: SHAGUFTA COMBS on 09/03/19 0339 Pantoprazole Sodium (Protonix) 40 Mg Tablet.dr, 40 MG PO DAILY Prescribed by: LEONEL DELANEY on 04/04/19 1818 Penicillin V Potassium (Penicillin V Potassium) 500 Mg Tablet, 500 MG PO QID Prescribed by: ROSA BUSTILLOS on 07/21/21 175 Prednisone (Prednisone) 20 Mg Tab, 40 MG PO DAILY Prescribed by: ROSA BUSTILLOS on 09/01/20 0853 Sucralfate (Carafate) 1 Gm Tablet, 1 GM PO QID, (Reported) Entered as Reported by: KELY LE on 03/30/19 1235 Tramadol HCl (Tramadol HCl) 50 Mg Tablet, 50 MG PO Q6H Prescribed by: ROSA BUSTILLOS on 07/21/21 175 Review of Systems Review of Systems Constitutional: no symptoms reported EENTM: No Symptoms Reported Respiratory: No Symptoms Reported Cardiovascular: No Symptoms Reported Gastrointestinal: See HPI Genitourinary: No Symptoms Reported Past Psfaldg-Vtxtex-Mrnsmr Hx Seasonal Allergies Seasonal Allergies: No Past Medical History Surgery/Hospitalization HX: Gastritis Surgeries: Yes Abdominal, Gallbladder Respiratory: No Cardiac: No Neurological: No Genitourinary: No Gastrointestinal: Yes (Gastroenteritis, Cyclic vomiting disorder, FEEDING TUBE) Gastroesophageal Reflux, Gastrointestinal Bleed Musculoskeletal: No Endocrine: No HEENT: No Cancer: No Psychosocial: No Integumentary: No Blood Disorders: No Adverse Reaction/Blood Tranf: No Family Medical History Asthma G8 BROTHER FH: CVA (cerebrovascular accident) 19 FATHER 19 MOTHER FH: depression 19 MOTHER FH: heart attack 19 MOTHER (X2) FH: kidney disease 19 MOTHER FH: liver disease 19 MOTHER FH: multiple sclerosis 19 FATHER FH: scoliosis G8 BROTHER G8 BROTHER G8 SISTER G8 SISTER No Pertinent Family Hx Physical Exam Vital Signs Vital Signs - First Documented 05/30/22 14:17 Temp 36.5 Pulse 95 Resp 16 B/P (MAP) 120/81 (94) Pulse Ox 97 O2 Delivery Room Air Capillary Refill : Height/Weight/BMI Height: 6'4.00" Weight: 104lbs. 0.0oz. 47.201906eo; 15.00 BMI Method:Stated General Appearance: WD/WN, no apparent distress HEENT: PERRL/EOMI Neck: non-tender Respiratory: chest non-tender Cardiovascular: regular rate, rhythm Gastrointestinal: normal bowel sounds, non tender, soft, other (Stoma is open where his G-tube would be) Extremities: normal range of motion, non-tender, normal inspection, no pedal edema, no calf tenderness, normal capillary refill Back: normal inspection Procedures/Interventions Additional Procedures: gastric tube replacement Progress We checked the old gastric tube balloon, inflated with sterile saline which it functioned well. The old tube was lubricated and replaced without difficulty. Instilled 8 cc of sterile saline into the balloon. Flushed 20 cc of water with no difficulty. Afterwards we were able to aspirate back gastric contents. Patient tolerated this well. Progress/Results/Core Measures Results/Orders Vital Signs/I&O 05/30/22 14:17 Temp 36.5 Pulse 95 Resp 16 B/P (MAP) 120/81 (94) Pulse Ox 97 O2 Delivery Room Air Progress Progress Note : Progress Note 32-year-old male with above history coming in because his G-tube fell out. ABCs were intact and vitals were stable on presentation. Physical exam with an open stoma and his G-tube was sitting in his hand. I checked the balloon and it is functional, so I replaced the G-tube without incident. I was able to flush water without difficulty and aspirate back gastric contents. I believe he is otherwise stable for discharge with outpatient follow-up. He is to follow-up with the surgeon to change the tube out since it is old. Departure Impression Primary Impression: Dislodged gastrostomy tube Disposition: 01 HOME, SELF-CARE Condition: Improved Departure-Patient Inst. Decision time for Depature: 14:19 Referrals: [facility] (PCP) Primary Care Physician GONSALO HYLTON APRN (Family) Primary Care Physician RHYS ROONEY DO Patient Instructions: How to Care for Your Gastrostomy Tube Add. Discharge Instructions: You can call Dr. Rooney, his numbers in this paperwork to get your G-tube replaced if you do not want to follow back up with your regular surgeon. It does need to be changed however since that is old. Work/School Note: Work Release Form Date Seen in the Emergency Department: May 30, 2022 Return to Work: May 31, 2022 Restrictions: No Restrictions SJ MTZ MD May 30, 2022 14:21
== END 2022-05-30 14:22 | disposition home or self-care (01) ==
LOC: EDUNIT# 13:52 → ER FS 13:54
DX: T85.528A Displacement of other gastrointestinal prosthetic devices, implants and grafts, initial encounter (principal)
CPT/HCPCS: 99281

== ENCOUNTER → 2022-06-17 | Outpatient (CLI) | payer MEDICAID | END | disposition home or self-care (01) | LOC: PREOP 10:09 | PROVIDERS: ATTEND Surgery | DX: Z01.818 Encounter for other preprocedural examination (principal); K94.23 Gastrostomy malfunction ==

== ENCOUNTER 2022-07-24 12:12 | Emergency (ER) | payer MEDICAID ==
[~2022-07-24] VITALS: Ht 190 cm; Wt 60.0 kg
[2022-07-24 12:30] VITALS: BP 108/67
--- NOTE | 2022-07-24 12:41 | ED General ---
General Chief Complaint: Catheter/Drain/Tube Problems Stated Complaint: FEEDING TUBE REINSERTION Nursing Triage Note: Patient has presented to ER with cc of his feeding tube falling out about 15 mintues before arrival. Source of Information: Patient Exam Limitations: No Limitations History of Present Illness Date Seen by Provider: Jul 24, 2022 Time Seen by Provider: 12:25 Initial Comments 32-year-old male patient with chronic PEG tube in place for the presented to ER POV and stated his PEG tube came out about 15 minutes ago. Patient stated he has had the current PEG tube for almost 1 year and was seen in this emergency room in May with reusing the same PEG tube. Patient denies abdominal pain, nausea and vomiting, fever and chills. Allergies and Home Medications Allergies Coded Allergies: codeine (Verified Allergy, Intermediate, Vomiting, 08/06/18) clindamycin (Verified Allergy, Unknown, 09/18/18) ketorolac (Verified Allergy, Unknown, 10/18/19) PALPITATIONS lidocaine (Verified Allergy, Unknown, 10/18/19) SWELLING milk (Verified Allergy, Unknown, 09/18/18) Patient Home Medication List Home Medication List Reviewed: Yes Albuterol Sulfate (Proventil Hfa) 6.7 Gm Hfa.aer.ad, 6.7 GM INH Q4H Prescribed by: ROSA BUSTILLOS on 09/01/20 0853 Azithromycin (Zithromax) 250 Mg Tablet, 250 MG PO UD Prescribed by: ROSA BUSTILLOS on 09/01/20 0853 Bupropion HCl (Bupropion HCl Sr) 150 Mg Tablet.er, 150 MG PO BID, (Reported) Entered as Reported by: KELY LE on 03/30/19 1235 Magnesium Oxide (Magnesium Oxide) 400 Mg Tablet, 400 MG PO DAILY, (Reported) Entered as Reported by: KELY LE on 03/30/19 1235 Metoclopramide HCl (Reglan) 10 Mg Tablet, 10 MG PO Q6H PRN for NAUSEA/VOMITING- 1ST LINE Prescribed by: SAMANTHA EVANS on 10/18/19 193 Ondansetron (Ondansetron Odt) 4 Mg Tab.rapdis, 4 MG PO Q4H PRN for NAUSEA/VOMITING, (Reported) Entered as Reported by: KELY LE on 03/30/19 1235 Ondansetron (Ondansetron Odt) 4 Mg Tab.rapdis, 4 MG PO Q6H PRN for NAUSEA/VOMITING Prescribed by: JONATHON RUIZ on 08/02/19 183 Ondansetron (Ondansetron Odt) 4 Mg Tab.rapdis, 4 MG PO Q6H PRN for NAUSEA/VOMITING Prescribed by: SAMANTHA EVANS on 10/18/19 1937 Ondansetron (Ondansetron Odt) 4 Mg Tab.rapdis, 4 MG PO TID Prescribed by: MARLI MASON on 01/06/20 180 Oxycodone Hcl (Oxyir Tablet) 5 Mg Tablet, 5 MG PO Q6H Prescribed by: SHAGUFTA COMBS on 09/03/19 0339 Pantoprazole Sodium (Protonix) 40 Mg Tablet.dr, 40 MG PO DAILY Prescribed by: LEONEL DELANEY on 04/04/19 181 Penicillin V Potassium (Penicillin V Potassium) 500 Mg Tablet, 500 MG PO QID Prescribed by: ROSA BUSTILLOS on 07/21/21 175 Prednisone (Prednisone) 20 Mg Tab, 40 MG PO DAILY Prescribed by: ROSA BUSTILLOS on 09/01/20 0853 Sucralfate (Carafate) 1 Gm Tablet, 1 GM PO QID, (Reported) Entered as Reported by: KELY LE on 03/30/19 1235 Tramadol HCl (Tramadol HCl) 50 Mg Tablet, 50 MG PO Q6H Prescribed by: ROSA BUSTILLOS on 07/21/21 175 Review of Systems Review of Systems Constitutional: no symptoms reported EENTM: no symptoms reported; No blurred vision, No double vision, No throat pain Respiratory: No short of breath, No stridor Cardiovascular: no symptoms reported; No edema, No palpitations, No syncope Gastrointestinal: see HPI; No diarrhea, No nausea Genitourinary: no symptoms reported; No hematuria, No pain Musculoskeletal: no symptoms reported Skin: no symptoms reported Psychiatric/Neurological: See HPI; Denies Paresthesia, Denies Seizure, Denies Tingling Hematologic/Lymphatic: See HPI; Denies Anemia, Denies Blood Clots, Denies Other Immunological/Allergic: denies see HPI, denies transplant All Other Systems Reviewed Negative Unless Noted: Yes Past Zlbnafq-Dffmud-Juvato Hx Patient Social History Use of E-Cig and/or Vaping dev: Unable to obtain Substance use?: Unable to obtain Seasonal Allergies Seasonal Allergies: No Past Medical History Surgery/Hospitalization HX: Gastritis Surgeries: Yes Abdominal, Gallbladder Respiratory: No Cardiac: No Neurological: No Genitourinary: No Gastrointestinal: Yes (Gastroenteritis, Cyclic vomiting disorder, FEEDING TUBE) Gastroesophageal Reflux, Gastrointestinal Bleed Musculoskeletal: No Endocrine: No HEENT: No Cancer: No Psychosocial: No Integumentary: No Blood Disorders: No Adverse Reaction/Blood Tranf: No Family Medical History Asthma G8 BROTHER FH: CVA (cerebrovascular accident) 19 FATHER 19 MOTHER FH: depression 19 MOTHER FH: heart attack 19 MOTHER (X2) FH: kidney disease 19 MOTHER FH: liver disease 19 MOTHER FH: multiple sclerosis 19 FATHER FH: scoliosis G8 BROTHER G8 BROTHER G8 SISTER G8 SISTER No Pertinent Family Hx Physical Exam Vital Signs Vital Signs - First Documented 07/24/22 12:30 Temp 36.6 Pulse 79 Resp 18 B/P (MAP) 108/67 (81) Pulse Ox 97 O2 Delivery Room Air Capillary Refill : Height, Weight, BMI Height: 6'4.00" Weight: 104lbs. 0.0oz. 47.622725xh; 16.00 BMI Method:Stated General Appearance: No Apparent Distress, WD/WN Eyes: Bilateral Eye Normal Inspection, Bilateral Eye PERRL, Bilateral Eye EOMI HEENT: PERRL/EOMI, TMs Normal, Normal ENT Inspection, Pharynx Normal Neck: Full Range of Motion, Normal Inspection, Non Tender, Supple, Carotid Bruit Respiratory: Chest Non Tender, Lungs Clear, Normal Breath Sounds, No Accessory Muscle Use, No Respiratory Distress Cardiovascular: Regular Rate, Rhythm, No Edema, No Gallop, No JVD, No Murmur, Normal Peripheral Pulses Gastrointestinal: Normal Bowel Sounds, No Organomegaly, No Pulsatile Mass, Non Tender, Soft, Other (Orifice of PEG tube in place without sign of inflammation) Back: Normal Inspection, No CVA Tenderness, No Vertebral Tenderness Extremity: Normal Capillary Refill, Normal Inspection, Normal Range of Motion, Non Tender, No Calf Tenderness, No Pedal Edema Neurologic/Psychiatric: Alert, Oriented x3, No Motor/Sensory Deficits, Normal Mood/Affect Skin: Normal Color, Warm/Dry Lymphatic: No Adenopathy Procedures/Interventions Additional Procedures: gastric tube replacement Progress Patient had 22 [place] PEG tube that was out of the place. After informing the balloon was intact it was history with alcohol and tried to insert this in the place without success. Perry catheter size 18 was placed with good gastric content return. Dressing was applied and patient advised to follow-up with his GI/primary care physician for ordering new feeding tube. Progress/Results/Core Measures Suspected Sepsis SIRS Temperature: Pulse: 79 Respiratory Rate: 18 Blood Pressure 108 /67 Mean: 81 Results/Orders Vital Signs/I&O 07/24/22 12:30 Temp 36.6 Pulse 79 Resp 18 B/P (MAP) 108/67 (81) Pulse Ox 97 O2 Delivery Room Air Capillary Refill : Blood Pressure Mean: 81 Progress Note : Progress Note ReasonPatient with history of chronic PEG tube in place presented with short of PEG tube that came out about 50 minutes prior to arrival to ER. There was not no PEG tube available in this hospital and tried to reuse the old one after cleaning the catheter without success and Perry catheter size 18 was used with good return of gastric material. Patient tolerated the procedure well and advised to follow-up with his primary care physician/GI specialist for ordering PEG tube. Departure Impression Primary Impression: Encounter for feeding tube placement Disposition: HOME, SELF-CARE Condition: Stable Departure-Patient Inst. Decision time for Depature: 12:39 Referrals: [facility] (PCP/Family) Primary Care Physician Patient Instructions: How to Give a Tube Feeding Add. Discharge Instructions: Follow-up with your GI specialist/primary care physician for ordering more feed ing tube Return to ER as needed All discharge instructions reviewed with patient and/or family. Voiced understanding. VALARIE SOLANO MD Jul 24, 2022 12:41
== END 2022-07-24 12:42 | disposition home or self-care (01) ==
LOC: EDUNIT# 12:12 → ER FS 12:14
DX: Z43.1 Encounter for attention to gastrostomy (principal); Z87.19 Personal history of other diseases of the digestive system
CPT/HCPCS: 43762

== ENCOUNTER 2022-07-30 15:08 | Emergency (ER) | payer MEDICAID ==
[~2022-07-30] VITALS: Ht 190 cm; Wt 59.0 kg
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
[2022-07-30 15:37] VITALS: BP 123/84
== END 2022-07-30 15:38 | disposition home or self-care (01) ==
LOC: EDUNIT# 15:08 → ER FS 15:09
DX: S81.011A Laceration without foreign body, right knee, initial encounter (principal); V28.49XA Other motorcycle driver injured in noncollision transport accident in traffic accident, initial encounter; Y93.55 Activity, bike riding
CPT/HCPCS: 12001

== ENCOUNTER 2022-08-08 18:41 | Emergency (ER) | payer MEDICAID ==
[~2022-08-08] VITALS: Ht 190.5 cm; Wt 59.8 kg
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
[2022-08-08] MEDS ORDERED: HOLD METFORMIN - RECEIVED CONTRAST 20 ML VIAL IV SCH (19:00)
[2022-08-08] MEDS ORDERED: NS 100 ML (IVPB) BAG IV ONE (19:00)
[2022-08-08] MEDS ORDERED: IOHEXOL 350 MG/ML 100 ML (OMNIPAQUE 350) VIAL IV ONE (19:00)
[2022-08-08 19:18] LABS: BASOPHILS # (AUTO) 0.1 10^3/uL (0.0-0.1); BASOPHILS % (AUTO) 1 % (0-10); EOSINOPHILS # (AUTO) 0.2 10^3/uL (0.0-0.3); EOSINOPHILS % (AUTO) 3 % (0-10); HEMATOCRIT 33 % (40-54); HEMOGLOBIN 11.6 g/dL (13.3-17.7); LYMPHOCYTES # (AUTO) 1.9 10^3/uL (1.0-4.0); LYMPHOCYTES % (AUTO) 35 % (12-44); MEAN CORPUSCULAR HEMOGLOBIN 35 pg (25-34); MEAN CORPUSCULAR HGB CONC 36 g/dL (32-36); MEAN CORPUSCULAR VOLUME 98 fL (80-99); MEAN PLATELET VOLUME 10.2 fL (9.0-12.2); MONOCYTES # (AUTO) 0.5 10^3/uL (0.0-1.0); MONOCYTES % (AUTO) 10 % (0-12); NEUTROPHILS # (AUTO) 2.7 10^3/uL (1.8-7.8); NEUTROPHILS % (AUTO) 51 % (42-75); PLATELET COUNT 168 10^3/uL (130-400); WHITE BLOOD COUNT 5.3 10^3/uL (4.3-11.0)
[2022-08-08 19:42] LABS: ALANINE AMINOTRANSFERASE 11 U/L (0-55); ALBUMIN 3.9 GM/DL (3.2-4.5); ALKALINE PHOSPHATASE 80 U/L (40-136); BILIRUBIN,TOTAL 0.2 MG/DL (0.1-1.0); BUN/CREATININE RATIO 36; CALCIUM 8.4 MG/DL (8.5-10.1); CARBON DIOXIDE 23 MMOL/L (21-32); CHLORIDE 108 MMOL/L (98-107); CREATININE SERUM 0.61 MG/DL (0.60-1.30); GFR ESTIMATED 130; GLUCOSE 138 MG/DL (70-105); POTASSIUM 3.3 MMOL/L (3.6-5.0); SODIUM 140 MMOL/L (135-145)
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
[2022-08-08 20:21] LABS: BILIRUBIN,URINE NEGATIVE (NEGATIVE); CLARITY,URINE CLEAR; COLOR,URINE YELLOW; GLUCOSE, URINE (UA) NEGATIVE (NEGATIVE); KETONES,URINE NEGATIVE (NEGATIVE); LEUKOCYTE ESTERASE ,URINE NEGATIVE (NEGATIVE); NITRITE,URINE NEGATIVE (NEGATIVE); PH,URINE 8.5 (5-9); PROTEIN,URINE NEGATIVE (NEGATIVE)
[2022-08-08 20:27] LABS: AMORPHOUS SEDIMENT,UR LARGE AMOR PHOSPHATE /LPF; BACTERIA,URINE NEGATIVE /HPF
[2022-08-08 20:33] LABS: AMPHETAMINE SCREEN, URINE NEGATIVE (NEGATIVE); BARBITURATE SCREEN URINE NEGATIVE (NEGATIVE); BENZODIAZEPINES SCREEN URINE NEGATIVE (NEGATIVE); CANNABINOID SCREEN, URINE POSITIVE (NEGATIVE); COCAINE SCREEN URINE NEGATIVE (NEGATIVE); METHADONE STAT NEGATIVE (NEGATIVE); OPIATE SCREEN URINE NEGATIVE (NEGATIVE); OXYCODONE STAT NEGATIVE (NEGATIVE); PROPOXYPHENE STAT NEGATIVE (NEGATIVE); TRICYCLIC ANTIDEPRESSANTS SCRE NEGATIVE (NEGATIVE)
[2022-08-08] MEDS ORDERED: ACETAMINOPHEN 500 MG TAB (TYLENOL) PO ONE (20:45)
[2022-08-08 21:28] VITALS: BP 126/74
== END 2022-08-08 21:30 | disposition home or self-care (01) ==
LOC: EDUNIT# 18:41 → ER FS 18:43
DX: S70.11XA Contusion of right thigh, initial encounter (principal); S62.024A Nondisplaced fracture of middle third of navicular [scaphoid] bone of right wrist, initial encounter for closed fracture; Z28.310 Unvaccinated for COVID-19; V00.141A Fall from scooter (nonmotorized), initial encounter; Y93.55 Activity, bike riding
CPT/HCPCS: 36415; 70450; 71260; 73110; 73552; 74177; 80053; 80306; 80320; 81000; 85025; Q9967

== ENCOUNTER 2022-08-21 19:21 | Emergency (ER) | payer MEDICAID ==
--- NOTE | 2022-08-21 19:44 | Diagnostic Imaging Report ---
INDICATION: Right wrist injury. FINDINGS: Three views of the right wrist show no fracture, dislocation or other acute abnormality. IMPRESSION: Negative right wrist. Dictated by: Dictated on workstation # [id number]
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
[2022-08-21 19:53] VITALS: BP 120/75
== END 2022-08-21 19:53 | disposition home or self-care (01) ==
LOC: EDUNIT# 19:21 → ER FS 19:22
DX: S62.001D Unspecified fracture of navicular [scaphoid] bone of right wrist, subsequent encounter for fracture with routine healing (principal); F17.210 Nicotine dependence, cigarettes, uncomplicated; Z28.310 Unvaccinated for COVID-19; V00.148D Other scooter (nonmotorized) accident, subsequent encounter
CPT/HCPCS: 73110

== ENCOUNTER 2022-08-23 13:31 | Emergency (ER) | payer MEDICAID ==
[~2022-08-23] VITALS: Ht 190 cm; Wt 56.0 kg
--- NOTE | 2022-08-23 14:33 | ED Cough/URI ---
General Chief Complaint: Cough/Cold/Flu Symptoms Stated Complaint: SOB; COUGH Nursing Triage Note: PT REPORTS A COUGH FOR ABOUT A MONTH AND WORSENING. HE REPORTS HE CANT HARDLY SMOKE HIS MARIJUANA BECAUSE HE GETS TO COUGHING. HE DID SMOKE THIS AM. History of Present Illness Date Seen by Provider: Aug 23, 2022 Time Seen by Provider: 13:38 Initial Comments 32-year-old male is here with complaints of a postnasal drip, nasal congestion, which has been causing him to have a cough that has been going on for the past month. Patient is a chronic smoker of cigars and smokes marijuana every day. Patient states that he has no intention of quitting smoking. Denies fever and chills, shortness of breath, chest pain, diarrhea, nausea and vomiting. Patient also wants a medication refill for his psych medication. Patient has been out of it since Wednesday and will be getting a refill tomorrow with a psychiatrist. Allergies and Home Medications Allergies Coded Allergies: codeine (Verified Allergy, Intermediate, Vomiting, 08/06/18) clindamycin (Verified Allergy, Unknown, 09/18/18) ketorolac (Verified Allergy, Unknown, 10/18/19) PALPITATIONS lidocaine (Verified Allergy, Unknown, 10/18/19) SWELLING milk (Verified Allergy, Unknown, 09/18/18) Patient Home Medication List Home Medication List Reviewed: Yes Albuterol Sulfate (Proventil Hfa) 6.7 Gm Hfa.aer.ad, 6.7 GM INH Q4H Prescribed by: ROSA BUSTILLOS on 09/01/20 0853 Azithromycin (Zithromax) 250 Mg Tablet, 250 MG PO UD Prescribed by: ROSA BUSTILLOS on 09/01/20 0853 Bupropion HCl (Bupropion HCl Sr) 150 Mg Tablet.er, 150 MG PO BID, (Reported) Entered as Reported by: KELY LE on 03/30/19 1235 Magnesium Oxide (Magnesium Oxide) 400 Mg Tablet, 400 MG PO DAILY, (Reported) Entered as Reported by: KELY LE on 03/30/19 1235 Metoclopramide HCl (Reglan) 10 Mg Tablet, 10 MG PO Q6H PRN for NAUSEA/VOMITING- 1ST LINE Prescribed by: SAMANTHA EVANS on 10/18/191936 Ondansetron (Ondansetron Odt) 4 Mg Tab.rapdis, 4 MG PO Q4H PRN for NAUSEA/VOMITING, (Reported) Entered as Reported by: KELY LE on 03/30/19 1235 Ondansetron (Ondansetron Odt) 4 Mg Tab.rapdis, 4 MG PO Q6H PRN for NAUSEA/VOMITING Prescribed by: JONATHON RUIZ on 08/02/19 1832 Ondansetron (Ondansetron Odt) 4 Mg Tab.rapdis, 4 MG PO Q6H PRN for NAUSEA/VOMITING Prescribed by: SAMANTHA EVANS on 10/18/19 1937 Ondansetron (Ondansetron Odt) 4 Mg Tab.rapdis, 4 MG PO TID Prescribed by: MARLI MASON on 01/06/20 180 Oxycodone Hcl (Oxyir Tablet) 5 Mg Tablet, 5 MG PO Q6H Prescribed by: SHAGUFTA COMBS on 09/03/19 0339 Pantoprazole Sodium (Protonix) 40 Mg Tablet.dr, 40 MG PO DAILY Prescribed by: LEONEL DELANEY on 04/04/19 1818 Penicillin V Potassium (Penicillin V Potassium) 500 Mg Tablet, 500 MG PO QID Prescribed by: ROSA BUSTILLOS on 07/21/21 175 Prednisone (Prednisone) 20 Mg Tab, 40 MG PO DAILY Prescribed by: ROSA UBSTILLOS on 09/01/20 0853 Sucralfate (Carafate) 1 Gm Tablet, 1 GM PO QID, (Reported) Entered as Reported by: KELY LE on 03/30/19 1235 Tramadol HCl (Tramadol HCl) 50 Mg Tablet, 50 MG PO Q6H Prescribed by: ROSA BUSTILLOS on 07/21/21 175 Review of Systems Review of Systems Constitutional: no symptoms reported EENTM: nose congestion Respiratory: see HPI, cough Cardiovascular: no symptoms reported Gastrointestinal: no symptoms reported Genitourinary: no symptoms reported Musculoskeletal: no symptoms reported Skin: no symptoms reported Psychiatric/Neurological: No Symptoms Reported Hematologic/Lymphatic: No Symptoms Reported Immunological/Allergic: no symptoms reported Past Lxhrnhx-Nqgour-Fdqklm Hx Patient Social History Tobacco Use?: Yes Tobacco type used: Cigarettes Smoking Status: Current Everyday Smoker Use of E-Cig and/or Vaping dev: Yes E-Cig or Vaping type used: Nicotine Use of E-Cig and/or Vaping Kristian: Current Someday User Substance use?: Yes Substance type: Marijuana Substance frequency: Daily Alcohol Use?: No Pt feels they are or have been: No Seasonal Allergies Seasonal Allergies: No Past Medical History Surgery/Hospitalization HX: Mesenteric Artery Disease with G-Tube Surgeries: Yes Abdominal, Gallbladder Respiratory: No Cardiac: No Neurological: No Genitourinary: No Gastrointestinal: Yes (Gastroenteritis, Cyclic vomiting disorder, FEEDING TUBE) Gastroesophageal Reflux, Gastrointestinal Bleed Musculoskeletal: No Endocrine: No HEENT: No Cancer: No Psychosocial: No Integumentary: No Blood Disorders: No Adverse Reaction/Blood Tranf: No Family Medical History Asthma G8 BROTHER FH: CVA (cerebrovascular accident) 19 FATHER 19 MOTHER FH: depression 19 MOTHER FH: heart attack 19 MOTHER (X2) FH: kidney disease 19 MOTHER FH: liver disease 19 MOTHER FH: multiple sclerosis 19 FATHER FH: scoliosis G8 BROTHER G8 BROTHER G8 SISTER G8 SISTER No Pertinent Family Hx Physical Exam Vital Signs - First Documented 08/23/22 13:41 Temp 35.8 Pulse 109 Resp 16 B/P (MAP) 118/89 (99) Pulse Ox 100 O2 Delivery Room Air Capillary Refill : Less Than 3 Seconds Height: 6'4.00" Weight: 104lbs. 0.0oz. 47.497501lk; 15.00 BMI Method:Stated General Appearance: WD/WN, no apparent distress HEENT: PERRL/EOMI, normal ENT inspection Neck: full range of motion Respiratory: chest non-tender, lungs clear, normal breath sounds Cardiovascular: regular rate, rhythm Gastrointestinal: normal bowel sounds, soft Neurologic/Psychiatric: alert, oriented x 3 Skin: normal color Lymphatic: no adenopathy Procedures/Interventions Suture Size: 4-0 Progress/Results/Core Measures Suspected Sepsis SIRS Temperature: Pulse: 109 Respiratory Rate: 16 Blood Pressure 118 /89 Mean: 99 Results/Orders Lab Results Laboratory Tests Test 08/23/22 13:42 Range/Units Influenza Type A (RT-PCR) Not Detected Not Detecte Influenza Type B (RT-PCR) Not Detected Not Detecte SARS-CoV-2 RNA (RT-PCR) Not Detected Not Detecte My Orders Orders - ASIA PRESCOTT MD Covid 19 Inhouse Test (08/23/22 13:38) Influenza A And B By Pcr (08/23/22 13:38) Vital Signs/I&O 08/23/22 13:41 Temp 35.8 Pulse 109 Resp 16 B/P (MAP) 118/89 (99) Pulse Ox 100 O2 Delivery Room Air Capillary Refill : Less Than 3 Seconds Blood Pressure Mean: 99 Progress Note : Progress Note 1. CHRONIC BRONCHITIS DUE TO SMOKING AND POSTNASAL DRIP - COVID test/ Rapid Flu test: negative - Tessalon Perle tid for 5 days, prn cough -Advised smoking cessation for both cigars and marijuana. -Follow-up with PCP within the next 3 to 7 days -Patient is afebrile with stable vital signs, no acute life-threatening condition suspected. The patient was seen in the ED, and treated appropriately to presentation at a specific point in time. Patient is informed that there is a possibility that disease and illness can evolve and change in acuity rapidly or slowly after patient is discharged from the ER. Precautionary advice given to the patient for immediate return to ER if symptoms worsen or do not resolve, and to seek emergency care sooner rather than later. Pt also advised on the im portance of PCP follow up and compliance with management and follow up plan with PCP and/or specialist, as this is part of the management plan. Pt verbally expressed understanding. 2. MEDICATION REFILL: -Patient has a psychiatry appointment on Wednesday. Will give refill for Pristiq 100 mg daily, 3 tablets only. Strongly advised patient to keep his psychiatry a ppointment. -Patient showed me proof on his [employer] wale on his phone that he takes his medication. Departure Impression Primary Impression: Chronic bronchitis Qualified Codes: J41.0 - Simple chronic bronchitis Additional Impression: Medication refill Disposition: 01 HOME, SELF-CARE Condition: Stable Departure-Patient Inst. Referrals: [facility] (PCP/Family) Primary Care Physician Patient Instructions: Chronic Bronchitis (DC), Where to Get Help Paying for Your Prescriptions Add. Discharge Instructions: - Tessalon Perle tid for 5 days, prn cough -Advised smoking cessation for both cigars and marijuana. -Follow-up with PCP within the next 3 to 7 days -Patient has a psychiatry appointment on Wednesday. Will give refill for Pristiq 100 mg daily, 3 tablets only. Strongly advised patient to keep his psychiatry appointment. All discharge instructions reviewed with patient and/or family. Voiced und erstanding. Scripts Desvenlafaxine Succinate (Pristiq ER) 100 Mg Tab.er.24h 100 MG PO DAILY for 3 Days, #3 TAB Prov: ASIA PRESCOTT MD 08/23/22 Benzonatate (TESSALON PERLES) 100 Mg Capsule 100 MG PO TID PRN for COUGH for 5 Days, #15 CAP Prov: ASIA PRESCOTT MD 08/23/22 ASIA PRESCOTT MD Aug 23, 2022 14:33
[2022-08-23] MEDS ORDERED: BENZ100C18 PO (14:39)
[2022-08-23] MEDS ORDERED: DESV100T PO (14:39)
[2022-08-23 14:41] VITALS: BP 118/89
== END 2022-08-23 14:42 | disposition home or self-care (01) ==
LOC: EDUNIT# 13:31 → ER FS 13:32
DX: J42 Unspecified chronic bronchitis (principal); F17.290 Nicotine dependence, other tobacco product, uncomplicated; F17.210 Nicotine dependence, cigarettes, uncomplicated; Z20.822 Contact with and (suspected) exposure to COVID-19; Z76.0 Encounter for issue of repeat prescription; Z28.310 Unvaccinated for COVID-19
CPT/HCPCS: 87636

== ENCOUNTER 2022-08-26 17:20 | Emergency (ER) | payer MEDICAID ==
[~2022-08-26] VITALS: Ht 190.5 cm; Wt 59.0 kg
[~2022-08-26 17:20] MED LIST changes: +BENZ100C18 PO; +DESV100T PO
--- NOTE | 2022-08-26 17:43 | ED General ---
General Chief Complaint: General Problems/Pain Stated Complaint: CHEST PAIN Nursing Triage Note: PT AMBULATE TO ROOM FS05 WITHOUT DIFFICULTY WITH C/O BURNING FEELING AT STERNUM. PT REPORTS TAKING ADDALL X1 HOUR [employer] AND THAT HE DEVELOPED A BURNING PAIN BEHIND HIS STERNUM. PT REPORTS ATTEMPTING TO VOMIT THE PILL WITHOUT SUCCESS. Source of Information: Patient History of Present Illness Date Seen by Provider: Aug 26, 2022 Time Seen by Provider: 17:20 Initial Comments 32-year-old male presenting with complaints of feeling like he has tightness in burning in his chest as well as heart racing. This all started after he taken an sdhd-sep-tzjoyxc pill called Addall, that is being marketed as a substitute for Adderall. He had been taking it for several days but then the store was out so he missed some days and just got another dose today. he takes one of the pills daily and feels that it has been helping him think more clearly and concentrate better as well as sleep better. Previously he had been taking it with a more solid meal but today he is just taking it with the protein shake. He started having symptoms approximately an hour after taking the pill. He was unsure what was causing it and he had tried to make himself throw up but states the pill it already been down for over an hour there is nothing to throw up. Timing/Duration: 1-3 Hours Severity: Moderate Associated Systoms: No Cough, No Diaphoresis, No Fever/Chills, No Headaches, No Loss of Appetite, No Malaise, No Nausea/Vomiting, No Rash, No Seizure, No Shortness of Air, No Syncope, No Weakness Allergies and Home Medications Allergies Coded Allergies: codeine (Verified Allergy, Intermediate, Vomiting, 08/06/18) clindamycin (Verified Allergy, Unknown, 09/18/18) ketorolac (Verified Allergy, Unknown, 10/18/19) PALPITATIONS lidocaine (Verified Allergy, Unknown, 10/18/19) SWELLING milk (Verified Allergy, Unknown, 09/18/18) Patient Home Medication List Home Medication List Reviewed: Yes Albuterol Sulfate (Proventil Hfa) 6.7 Gm Hfa.aer.ad, 6.7 GM INH Q4H Prescribed by: ROSA BUSTILLOS on 09/01/20 0853 Azithromycin (Zithromax) 250 Mg Tablet, 250 MG PO UD Prescribed by: ROSA BUSTILLOS on 09/01/20 0853 Benzonatate (Tessalon Perles) 100 Mg Capsule, 100 MG PO TID PRN for COUGH Prescribed by: ASIA PRESCOTT MD on 08/23/22 1439 Bupropion HCl (Bupropion HCl Sr) 150 Mg Tablet.er, 150 MG PO BID, (Reported) Entered as Reported by: KELY LE on 03/30/19 1235 Desvenlafaxine Succinate (Pristiq ER) 100 Mg Tab.er.24h, 100 MG PO DAILY Prescribed by: ASIA PRESCOTT MD on 08/23/22 1439 Magnesium Oxide (Magnesium Oxide) 400 Mg Tablet, 400 MG PO DAILY, (Reported) Entered as Reported by: KELY LE on 03/30/19 1235 Metoclopramide HCl (Reglan) 10 Mg Tablet, 10 MG PO Q6H PRN for NAUSEA/VOMITING- 1ST LINE Prescribed by: SAMANTHA EVANS on 10/18/19 193 Ondansetron (Ondansetron Odt) 4 Mg Tab.rapdis, 4 MG PO Q4H PRN for NAUSEA/VOMITING, (Reported) Entered as Reported by: KELY LE on 03/30/19 1235 Ondansetron (Ondansetron Odt) 4 Mg Tab.rapdis, 4 MG PO Q6H PRN for NAUSEA/VOMITING Prescribed by: JONATHON RUIZ on 08/02/19 1832 Ondansetron (Ondansetron Odt) 4 Mg Tab.rapdis, 4 MG PO Q6H PRN for NAUSEA/VOMITING Prescribed by: SAMANTHA EVANS on 10/18/19 193 Ondansetron (Ondansetron Odt) 4 Mg Tab.rapdis, 4 MG PO TID Prescribed by: MARLI MASON on 01/06/20 1806 Oxycodone Hcl (Oxyir Tablet) 5 Mg Tablet, 5 MG PO Q6H Prescribed by: SHAGUFTA COMBS on 09/03/19 0339 Pantoprazole Sodium (Protonix) 40 Mg Tablet.dr, 40 MG PO DAILY Prescribed by: LEONEL DELANEY on 04/04/19 1818 Penicillin V Potassium (Penicillin V Potassium) 500 Mg Tablet, 500 MG PO QID Prescribed by: ROSA BUSTILLOS on 07/21/21 175 Prednisone (Prednisone) 20 Mg Tab, 40 MG PO DAILY Prescribed by: ROSA BUSTILLOS on 09/01/20 0853 Sucralfate (Carafate) 1 Gm Tablet, 1 GM PO QID, (Reported) Entered as Reported by: KLEY LE on 03/30/19 1235 Tramadol HCl (Tramadol HCl) 50 Mg Tablet, 50 MG PO Q6H Prescribed by: ROSA BUSTILLOS on 07/21/211755 Review of Systems Review of Systems Constitutional: No chills, No fever EENTM: no symptoms reported Respiratory: No cough, No short of breath Cardiovascular: see HPI Gastrointestinal: no symptoms reported Genitourinary: no symptoms reported Musculoskeletal: no symptoms reported Skin: no symptoms reported Psychiatric/Neurological: No Symptoms Reported Past Mcqhhcl-Fytrhq-Wytivl Hx Patient Social History Tobacco Use?: No Smoking Status: Never a Smoker Smokeless Tobacco Frequency: Never a User Use of E-Cig and/or Vaping dev: No Use of E-Cig and/or Vaping Kristian: Never a User Substance use?: No Alcohol Use?: No Pt feels they are or have been: No Seasonal Allergies Seasonal Allergies: No Past Medical History Surgery/Hospitalization HX: Mesenteric Artery Disease with G-Tube Surgeries: Yes Abdominal, Gallbladder Respiratory: No Cardiac: No Neurological: No Genitourinary: No Gastrointestinal: Yes (Gastroenteritis, Cyclic vomiting disorder, FEEDING TUBE) Gastroesophageal Reflux, Gastrointestinal Bleed Musculoskeletal: No Endocrine: No HEENT: No Cancer: No Psychosocial: No Integumentary: No Blood Disorders: No Adverse Reaction/Blood Tranf: No Family Medical History Asthma G8 BROTHER FH: CVA (cerebrovascular accident) 19 FATHER 19 MOTHER FH: depression 19 MOTHER FH: heart attack 19 MOTHER (X2) FH: kidney disease 19 MOTHER FH: liver disease 19 MOTHER FH: multiple sclerosis 19 FATHER FH: scoliosis G8 BROTHER G8 BROTHER G8 SISTER G8 SISTER No Pertinent Family Hx Physical Exam Vital Signs Vital Signs - First Documented 08/26/22 08/26/22 17:21 18:02 Temp 36.3 Pulse 106 Resp 19 B/P (MAP) 118/75 (89) Pulse Ox 99 O2 Delivery Room Air Capillary Refill : Less Than 3 Seconds Height, Weight, BMI Height: 6'4.00" Weight: 104lbs. 0.0oz. 47.096645if; 16.00 BMI Method:Stated General Appearance: No Apparent Distress, Thin HEENT: PERRL/EOMI, Pharynx Normal Neck: Full Range of Motion, Supple Respiratory: Chest Non Tender, Lungs Clear, Normal Breath Sounds, No Accessory Muscle Use, No Respiratory Distress Cardiovascular: Normal Peripheral Pulses, Tachycardia (Initial heart rate just over 100 to 110 bpm. This calm down to 80s as he was relaxing in the bed.) Gastrointestinal: Normal Bowel Sounds, No Pulsatile Mass, Non Tender, Soft Extremity: Normal Capillary Refill, Normal Inspection, No Pedal Edema Neurologic/Psychiatric: Alert, Oriented x3 Skin: Normal Color, Warm/Dry Procedures/Interventions Suture Size: 4-0 Progress/Results/Core Measures Suspected Sepsis SIRS Temperature: Pulse: 106 Respiratory Rate: 19 Blood Pressure 118 /75 Mean: 89 Results/Orders Vital Signs/I&O 08/26/22 08/26/22 17:21 18:02 Temp 36.3 36.3 Pulse 106 89 Resp 19 18 B/P (MAP) 118/75 (89) 119/74 Pulse Ox 99 O2 Delivery Room Air Room Air Capillary Refill : Less Than 3 Seconds Blood Pressure Mean: 89 Progress Note : Progress Note I borrowed the medication package from the patient so I could look up the individual agents that are listed as a proprietary blend. From looking up each of the agents individually that are supposed to be part of the proprietary blend for Addall, each of the individual agents can cause stimulant activity. He can have effects somewhat similar to caffeine. This can include fast heart rate dry mouth nausea vomiting chest tightness. I reviewed this with the patient and also advised him that since this is not a FDA approved drug and not regulated they could also include caffeine and not have to listed as part of the ingredients. When I mention that the patient reported that he is very sensitive to caffeine. He has had some similar symptoms with caffeine in the past with his heart racing. He states normally his heart rate is closer to 45 or 50 and he is not used to being so fast. I reassured him that his oxygen saturation was 98 to 100% on room air and as he was relaxing in the bed his heart rate was coming down into the 80s on his cardiac conveyor monitor. His blood pressure was good 118/75. I advised him that he could avoid taking the medicine in the future and allow this dose to wear out of his system. If he continues to take the medicine he should know that it could cause his heart to race and have the symptoms like today. Taking it with food may help to temporarily affect since he did not have anything solid on his stomach when he took it today he may have absorbed it faster and had more sensitivity to it. Also stressed importance of letting his providers know that he was taking the pills so that it would not interact with any prescription medicines that he might receive. Patient was reassured and had no further questions. As I did not have an antidote or reversal agent other than time patient was discharged to home. Counseled on follow-up and return precautions. Departure Impression Primary Impression: Side effect of medication Additional Impression: Tachycardia Disposition: 01 HOME, SELF-CARE Condition: Stable Departure-Patient Inst. Decision time for Depature: 17:55 Referrals: CARLIN SALDIVAR APRN (PCP) Primary Care Physician [facility] (Family) Primary Care Physician Patient Instructions: Adverse Drug Reactions, Adult ED Add. Discharge Instructions: The chemicals in this medicine all have stimulating effects and can be related to Caffeine to some degree as well. There may even be caffeine in the medicine and they do not have to list it since they are not regulated by Food and Drug Administration. The stimulants can cause you to have fast heart rate and chest tightness. If you are going to continue to take this then make sure you take it with a solid meal to help the medicine absorb more slowly to limit the effect on your heart rate and chest tightness. Stay well hydrated with water and electrolyte drinks to help with hydration because if you are not well hydrated you can also have a fast heart rate from that. Make sure to let your providers know you are taking the medicine so they can make sure it does not interact with any medicine they may prescribe for you as well. All discharge instructions reviewed with patient and/or family. Voiced understanding. ADELINA HAAS MD Aug 26, 2022 17:43
[2022-08-26 18:02] VITALS: BP 119/74
== END 2022-08-26 18:02 | disposition home or self-care (01) ==
LOC: EDUNIT# 17:20 → ER FS 17:22
DX: R00.0 Tachycardia, unspecified (principal); T50.995A Adverse effect of other drugs, medicaments and biological substances, initial encounter; F90.9 Attention-deficit hyperactivity disorder, unspecified type; Z79.899 Other long term (current) drug therapy; Z28.310 Unvaccinated for COVID-19
CPT/HCPCS: 99283

== ENCOUNTER → 2022-08-31 | Outpatient (CLI) | payer MEDICAID ==
[~2022-08-31] VITALS: Ht 177.8 cm; Wt 59.0 kg
[~2022-08-31] MED LIST changes: +LIDOCAINE 1% INJ 10 ML VIAL INJ ONE; +LIDOCAINE 1% INJ 10 ML VIAL ONE
--- NOTE | 2022-08-31 14:47 | Diagnostic Imaging Report ---
INDICATION: Left thyroid nodule. Patient presents for ultrasound-guided fine-needle aspiration. DETAILS OF THE PROCEDURE: The patient was brought to the procedure room and placed on the table in the supine position. Ultrasound imaging of the left neck was performed to evaluate for an appropriate entry site. The left neck was then prepped and draped in the usual sterile fashion. A small amount of 1% lidocaine was utilized for local anesthesia. A total of 4 passes was made into the solid nodule in the left lobe of the thyroid utilizing 25-gauge needles and fine-needle aspiration technique. Hemostasis was obtained. The patient tolerated the procedure well and left the Department in stable condition. IMPRESSION: Successful ultrasound-guided fine-needle aspiration of the left lobe thyroid nodule. Pathology results are currently pending. Dictated by: Dictated on workstation # [id number]
== END ==
LOC: RAD 13:45
PROVIDERS: ATTEND Registered Nurse
DX: E04.1 Nontoxic single thyroid nodule (principal)

== ENCOUNTER 2022-10-21 20:49 | Emergency (ER) | payer MEDICAID ==
[~2022-10-21] VITALS: Ht 193 cm; Wt 61.0 kg
[~2022-10-21 20:49] MED LIST changes: -LIDOCAINE 1% INJ 10 ML VIAL INJ ONE; -LIDOCAINE 1% INJ 10 ML VIAL ONE
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
[2022-10-21 20:55] VITALS: BP 108/79
[2022-10-21] MEDS ORDERED: BACITRACIN OINTMENT 28 GM TUBE TOP STA (21:13)
[2022-10-21] MEDS ORDERED: CEPHALEXIN 250 MG CAPSULE PO STA (21:13)
[2022-10-21] MEDS ORDERED: CEPH500T PO (21:16)
[2022-10-21] MEDS ORDERED: CEPHALEXIN 250 MG CAPSULE PO ONE (21:20)
[2022-10-21] MEDS ORDERED: BACITRACIN OINTMENT 28 GM TUBE ONE (21:21)
== END 2022-10-21 21:40 | disposition home or self-care (01) ==
LOC: EDUNIT# 20:49 → ER FS 20:50
DX: S51.031A Puncture wound without foreign body of right elbow, initial encounter (principal); W05.1XXA Fall from non-moving nonmotorized scooter, initial encounter; Y92.410 Unspecified street and highway as the place of occurrence of the external cause

== ENCOUNTER 2022-11-01 10:14 | Emergency (ER) | payer MEDICAID ==
[~2022-11-01] VITALS: Ht 193 cm; Wt 61.2 kg
[~2022-11-01 10:14] MED LIST changes: +CEPH500T PO
[2022-11-01 10:20] VITALS: BP 106/73
== END 2022-11-01 10:38 | disposition home or self-care (01) ==
LOC: EDUNIT# 10:14 → ER FS 10:15
DX: Z48.00 Encounter for change or removal of nonsurgical wound dressing (principal); Z28.310 Unvaccinated for COVID-19
CPT/HCPCS: 99283

== ENCOUNTER 2022-11-09 14:08 | Emergency (ER) | payer MEDICAID ==
[~2022-11-09] VITALS: Ht 193 cm; Wt 61.0 kg
[2022-11-09 14:18] VITALS: BP 120/88
--- NOTE | 2022-11-09 14:28 | ED General ---
General Chief Complaint: General Problems/Pain Stated Complaint: FEEDING TUBE ISSUE Nursing Triage Note: Patient reports that he accidently pulled his feeding tube out. He states the he really is not wanting it to be replaced. Patient reports that he has been eating and drinking as he should. Source of Information: Patient History of Present Illness Date Seen by Provider: Nov 09, 2022 Time Seen by Provider: 14:12 Initial Comments 32-year-old male presenting with complaints of feeding tube coming out. He states that he has been able to eat and drink and does not feel like he needs it anymore. He has not been using the feeding tube. He had a temporary feeding of a Perry in place but it accidentally came out. He presented because he was unsure if he needed to have it replaced but he would like to leave it out. He has not talked with his regular provider about that. He denies having any abdominal pain or nausea or vomiting. Timing/Duration: 1 Hour Associated Systoms: No Chest Pain, No Cough, No Diaphoresis, No Fever/Chills, No Headaches, No Loss of Appetite, No Malaise, No Nausea/Vomiting, No Rash, No Seizure, No Shortness of Air, No Syncope, No Weakness Allergies and Home Medications Allergies Coded Allergies: codeine (Verified Allergy, Intermediate, Vomiting, 08/06/18) clindamycin (Verified Allergy, Unknown, 09/18/18) ketorolac (Verified Allergy, Unknown, 10/18/19) PALPITATIONS lidocaine (Verified Allergy, Unknown, 10/18/19) SWELLING milk (Verified Allergy, Unknown, 09/18/18) Patient Home Medication List Home Medication List Reviewed: Yes Albuterol Sulfate (Proventil Hfa) 6.7 Gm Hfa.aer.ad, 6.7 GM INH Q4H Prescribed by: ROSA BUSTILLOS on 09/01/20 0853 Azithromycin (Zithromax) 250 Mg Tablet, 250 MG PO UD Prescribed by: ROSA BUSTILLOS on 09/01/20 0853 Benzonatate (Tessalon Perles) 100 Mg Capsule, 100 MG PO TID PRN for COUGH Prescribed by: ASIA PRESCOTT MD on 08/23/22 1439 Bupropion HCl (Bupropion HCl Sr) 150 Mg Tablet.er, 150 MG PO BID, (Reported) Entered as Reported by: KELY LE on 03/30/19 1235 Cephalexin (Cephalexin) 500 Mg Tablet, 500 MG PO BID Prescribed by: ASIA PRESCOTT MD on 10/21/22 2116 Desvenlafaxine Succinate (Pristiq ER) 100 Mg Tab.er.24h, 100 MG PO DAILY Prescribed by: ASIA PRESCOTT MD on 08/23/22 1439 Magnesium Oxide (Magnesium Oxide) 400 Mg Tablet, 400 MG PO DAILY, (Reported) Entered as Reported by: KELY LE on 03/30/19 1235 Metoclopramide HCl (Reglan) 10 Mg Tablet, 10 MG PO Q6H PRN for NAUSEA/VOMITING- 1ST LINE Prescribed by: SAMANTHA EVANS on 10/18/19 193 Ondansetron (Ondansetron Odt) 4 Mg Tab.rapdis, 4 MG PO Q4H PRN for NAUSEA/VOMITING, (Reported) Entered as Reported by: KELY LE on 03/30/19 1235 Ondansetron (Ondansetron Odt) 4 Mg Tab.rapdis, 4 MG PO Q6H PRN for NAUSEA/VOMITING Prescribed by: JONATHON RUIZ on 08/02/19 1832 Ondansetron (Ondansetron Odt) 4 Mg Tab.rapdis, 4 MG PO Q6H PRN for NAUSEA/VOMITING Prescribed by: SAMANTHA EVANS on 10/18/19 193 Ondansetron (Ondansetron Odt) 4 Mg Tab.rapdis, 4 MG PO TID Prescribed by: MARLI MASON on 01/06/20 1806 Oxycodone Hcl (Oxyir Tablet) 5 Mg Tablet, 5 MG PO Q6H Prescribed by: SHAGUFTA COMBS on 09/03/19 0339 Pantoprazole Sodium (Protonix) 40 Mg Tablet.dr, 40 MG PO DAILY Prescribed by: LEONEL DELANEY on 04/04/19 1818 Penicillin V Potassium (Penicillin V Potassium) 500 Mg Tablet, 500 MG PO QID Prescribed by: ROSA BUSTILLOS on 07/21/21 1756 Prednisone (Prednisone) 20 Mg Tab, 40 MG PO DAILY Prescribed by: ROSA BUSTILLOS on 09/01/20 0853 Sucralfate (Carafate) 1 Gm Tablet, 1 GM PO QID, (Reported) Entered as Reported by: KELY LE on 03/30/19 1235 Tramadol HCl (Tramadol HCl) 50 Mg Tablet, 50 MG PO Q6H Prescribed by: ROSA BUSTILLOS on 07/21/21 1876 Review of Systems Review of Systems Constitutional: no symptoms reported EENTM: no symptoms reported Respiratory: no symptoms reported Cardiovascular: no symptoms reported Gastrointestinal: see HPI Genitourinary: no symptoms reported Musculoskeletal: no symptoms reported Skin: no symptoms reported Psychiatric/Neurological: No Symptoms Reported Past Zuqemsk-Akapvc-Jdzkio Hx Patient Social History Tobacco Use?: No Smoking Status: Former Smoker Substance use?: Yes Substance type: Marijuana Alcohol Use?: No Seasonal Allergies Seasonal Allergies: No Past Medical History Surgery/Hospitalization HX: Mesenteric Artery Disease with G-Tube Surgeries: Yes Abdominal, Gallbladder Respiratory: No Cardiac: No Neurological: No Genitourinary: No Gastrointestinal: Yes (Gastroenteritis, Cyclic vomiting disorder, FEEDING TUBE) Gastroesophageal Reflux, Gastrointestinal Bleed Musculoskeletal: No Endocrine: No HEENT: No Cancer: No Psychosocial: No Integumentary: No Blood Disorders: No Adverse Reaction/Blood Tranf: No Family Medical History Asthma G8 BROTHER FH: CVA (cerebrovascular accident) 19 FATHER 19 MOTHER FH: depression 19 MOTHER FH: heart attack 19 MOTHER (X2) FH: kidney disease 19 MOTHER FH: liver disease 19 MOTHER FH: multiple sclerosis 19 FATHER FH: scoliosis G8 BROTHER G8 BROTHER G8 SISTER G8 SISTER No Pertinent Family Hx Physical Exam Vital Signs Vital Signs - First Documented 11/09/22 14:18 Temp 36.6 Pulse 86 Resp 18 B/P (MAP) 120/88 (99) Pulse Ox 100 O2 Delivery Room Air Capillary Refill : Height, Weight, BMI Height: 6'4.00" Weight: 104lbs. 0.0oz. 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 Norm as Tested Skin: Warm/Dry Procedures/Interventions Suture Size: 4-0 Progress/Results/Core Measures Suspected Sepsis SIRS Temperature: Pulse: 86 Respiratory Rate: 18 Blood Pressure 120 /88 Mean: 99 Results/Orders Vital Signs/I&O 11/09/22 14:18 Temp 36.6 Pulse 86 Resp 18 B/P (MAP) 120/88 (99) Pulse Ox 100 O2 Delivery Room Air Capillary Refill : Blood Pressure Mean: 99 Progress Note : Progress Note Counseled patient that I could not force him to have the feeding tube replaced however he needed to understand that if it was left out the stoma will close within a few hours and permanently sealed within a few days to a few weeks. If he does require it again in the future he would have to go through neurosurgery to get one replaced. He states that he is eating and drinking and does not feel like he needs it as well as he has not been using the to follow-up as an. I advised him that was his decision but if he wanted to leave it out he could he just might have some drainage over the next few hours and then the stoma would seal and could take a few weeks to completely heal back up. He voiced understanding and stated he still would like to have the tube removed and left out. Departure Impression Primary Impression: Complication of feeding tube Disposition: 01 HOME, SELF-CARE Condition: Stable Departure-Patient Inst. Decision time for Depature: 14:25 Referrals: [facility] [place] (PCP/Family) Primary Care Physician Add. Discharge Instructions: Check back with your regular providers about the feeding tube. The stoma for the feeding tube will seal up on its own over the course of several hours and should heal shut on its own over a few days. If you are having abdominal pain or continue to have leaking from the stoma then you need to be seen sooner. If you end up needing the feeding tube again the surgeon will have to perform a new surgery to replace the tube. Continue to try taking nutrition by mouth All discharge instructions reviewed with patient and/or family. Voiced understanding. ADELINA HAAS MD Nov 09, 2022 14:28
== END 2022-11-09 14:35 | disposition home or self-care (01) ==
LOC: EDUNIT# 14:08 → ER FS 14:10
DX: K94.23 Gastrostomy malfunction (principal); Z87.891 Personal history of nicotine dependence
CPT/HCPCS: 99281